=== PATIENT | female | born 1945 | race African-American/Black ===

== ENCOUNTER 2020-10-03 05:43 | Inpatient (IN) | payer MEDICARE, MEDICAID ==
[~2020-10-03] VITALS: Ht 162.6 cm; Wt 61.2 kg
[2020-10-03] VITALS (17 sets, daily range): BP systolic 100–154; BP diastolic 50–84
[~2020-10-03 05:43] MED LIST: BENZTROPINE MESY1 MG PO; COLACE250 MG ORAL; QUETIAPINE FUM200 MG ORAL; RISPERDAL1 MG PO; RISPERDAL2 MG ORAL; TRAZODONE HCL100 MG ORAL; [UNRECOGNIZED DRUG - OTHER] ORAL
[2020-10-03] MEDS ORDERED: Piperacillin/Tazobactam 3.375 GM in D5W 110 ML IV ONE (05:45)
[2020-10-03] MEDS ORDERED: Vancomycin 1 GM in NS 275 ML IV ONE (05:45)
--- NOTE | 2020-10-03 05:52 | Emergency Room Report ---
History of Present Illness General Chief Complaint: Altered Mental Status Present Illness HPI 75-year-old female with a history of dementia and Alzheimer's, alert and oriented x1 at baseline, here with altered mental status. Patient comes from a intermediate and the intermediate nurses report that when they went to check on the patient at 3 AM she was nonverbal. She is normally alert and oriented to her name and her responsive. She was also warm to the touch. Temperature at the intermediate was 99.8 F orally. Per the transitions rn care coordinator report the patient was hypoxic at 88% on room air. She does have a history of COPD. They put her on a nonrebreather mask at 8 L/min with good resolution of her hypoxia. Patient is nonverbal and unable to participate in review of systems. Allergies: Coded Allergies: No Known Allergies (Unverified , 12/17/15) Nursing Documentation-PMH Hx Hypertension: Yes Hx Asthma: Yes Hx COPD: Yes Hx Cancer: No Hx Gastrointestinal Problems: No - uti Hx Neurological Problems: Yes - dementia, dysphagia Review of Systems All Other Systems: negative except mentioned in HPI Physical Exam Sp02 EP Interpretation: reviewed, normal General Appearance: other - Appears cachectic, altered, chronically ill Head: normocephalic, atraumatic Eyes: bilateral eye normal inspection, bilateral eye PERRL ENT: no angioedema, other - Nonverbal moans incoherent sounds in response to questions Neck: full range of motion, supple/symm/no masses Respiratory: chest non-tender, speaking full sentences, other - Mild Rales bilaterally Cardiovascular #1: regular rate, rhythm, no edema Cardiovascular #2: 2+ carotid (R), 2+ carotid (L), 2+ radial (R), 2+ radial (L), 2+ dorsalis pedis (R), 2+ dorsalis pedis (L) Gastrointestinal: normal bowel sounds, non tender, soft, non-distended, no guarding, no rebound Rectal: deferred Genitourinary: normal inspection, no CVA tenderness Musculoskeletal: back normal, normal range of motion, gait/station normal, non- tender Neurologic: other - Tracks objects. Does not appear to have any cranial nerve deficits. Moving all extremities nonpurposefully. Otherwise unable to fully participate in physical examination. Psychiatric: other - Altered, unable to participate in psychiatric valuation. Nonverbal Lymphatic: no adenopathy Medical Decision Making ER Course EKG: Rate 99 bpm, no ectopy. Normal axis. T wave inversions in V3 through V5. T wave inversions in leads I, 2, 3, aVF. Right bundle branch block. Rhythm strip: patient monitored for arrhythmias - no malignant dysrhythmias, runs of PVCs, nor pauses noted Currently awaiting results of lab work and imaging. Signed out to oncoming physician Dr. Gale. Navi Calero M.D. Oct 03, 2020 05:52
[2020-10-03] MEDS ORDERED: dexAMETHasone 10mg/ml Inj IV ONE (06:15)
[2020-10-03 06:29] LABS: BASOPHILS % (AUTO) 2.3 % (0.0-2.0); EOSINOPHILS % (AUTO) 1.3 % (0.0-3.0); HEMATOCRIT 42.5 % (37.0-47.0); HEMOGLOBIN 12.6 G/DL (12.0-16.0); LYMPHOCYTES % (AUTO) 16.6 % (20.0-45.0); MEAN CORPUSCULAR VOLUME 90 FL (80-99); MONOCYTES % (AUTO) 7.9 % (1.0-10.0); NEUTROPHILS % (AUTO) 71.9 % (45.0-75.0); PLATELET COUNT 121 K/UL (150-450); RED CELL DISTRIBUTION WIDTH 16.2 % (11.6-14.8); WHITE BLOOD COUNT 9.1 K/UL (4.8-10.8)
[2020-10-03 06:32] LABS: APPEARANCE,URINE SLIGHTLY CLOUDY; BILIRUBIN, URINE NEGATIVE (NEGATIVE); COLOR,URINE PALE YELLOW; GLUCOSE, URINE (UA) NEGATIVE (NEGATIVE); KETONES,URINE NEGATIVE (NEGATIVE); LEUKOCYTE ESTERASE ,URINE 3+ (NEGATIVE); NITRITE,URINE NEGATIVE (NEGATIVE); PH,URINE 8 (4.5-8.0); PROTEIN,URINE 3+ (NEGATIVE); UROBILINOGEN,URINE NORMAL MG/DL (0.0-1.0)
[2020-10-03 06:44] LABS: INR 0.9 (0.9-1.1)
--- NOTE | 2020-10-03 07:06 | Diagnostic Imaging Report ---
EXAM: XR Chest, 1 View CLINICAL HISTORY: AMS TECHNIQUE: Frontal view of the chest. COMPARISON: Chest radiograph August 27, 2019 FINDINGS/IMPRESSION: No focal consolidation, pleural effusion, or pneumothorax. Mild emphysema with increased interstitial markings. Cardiomegaly. Calcified aorta.
[2020-10-03] MEDS ORDERED: VITAMIN C500 M1 ORAL (07:10)
[2020-10-03] MEDS ORDERED: ACETAMINOPHEN650 M3 ORAL (07:10)
[2020-10-03] MEDS ORDERED: NORCO 5-325 TA1 EAC1 ORAL (07:12)
[2020-10-03] MEDS ORDERED: CALCIUM CARBON500 M1 PO (07:14)
[2020-10-03] MEDS ORDERED: BREO ELLIPTA 11 EACH IH (07:14)
[2020-10-03] MEDS ORDERED: LACTULOSE20 GM/301 ORAL (07:14)
[2020-10-03] MEDS ORDERED: AMLODIPINE BESYL5 MG ORAL (07:14)
[2020-10-03] MEDS ORDERED: MAG-OXIDE400 M1 PO (07:15)
[2020-10-03] MEDS: Albuterol/Ipratropium 3ml neb HHN SCH ×6 (07:15→23:03)
[2020-10-03] MEDS ORDERED: VITAMIN D325 MC1 PO (07:15)
[2020-10-03] MEDS ORDERED: LIQUID PROTEIN54 ML PO (07:15)
[2020-10-03 07:16] LABS: ANION GAP 1 mmol/L (5-15); BLOOD UREA NITROGEN 59 mg/dL (7-18); CALCIUM 8.7 MG/DL (8.5-10.1); CARBON DIOXIDE 34 MMOL/L (21-32); CHLORIDE 107 MMOL/L (98-107); SODIUM 142 MMOL/L (136-145)
[2020-10-03 07:23] LABS: ALANINE AMINOTRANSFERASE 28 U/L (12-78); ALBUMIN/GLOBULIN RATIO 0.5 (1.0-2.7); ALKALINE PHOSPHATASE 47 U/L (46-116); ASPARTATE AMINO TRANSFERASE 41 U/L (15-37); BILIRUBIN,TOTAL 0.3 MG/DL (0.2-1.0); CKMB 1.7 NG/ML (0.0-3.6); CREATINE KINASE 41 U/L (26-308); FERRITIN 74 NG/ML (8-388); LACTATE DEHYDROGENASE 274 U/L (81-234)
[2020-10-03] MEDS ORDERED: Heparin 25,000u/D5W 500ml 500 ML IV SCH ×4 (07:30→22:00)
--- NOTE | 2020-10-03 07:50 | Emergency Room Report ---
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 Due to a high probability of clinically significant, life threatening deterioration, the patient required my highest level of preparedness to intervene emergently and I personally spent this critical care time directly and personally managing the patient. This critical care time included obtaining a history; examining the patient; pulse oximetry; ordering and review of studies; arranging urgent treatment with development of a management plan; evaluation of patient's response to treatment; frequent reassessment; and, discussions with other providers.This critical care time was performed to assess and manage the high probability of imminent, life-threatening deterioration that could result in multi-organ failure. It was exclusive of separately billable procedures and treating other patients and teaching time. Please see MDM section and the rest of the note for further information on patient assessment and treatment. Intubation Intubation : Consent: Emergent Intubation Method: orotracheal Tube Size (cm): 7.5 Medications: Etomidate, Rocuronium Breath Sounds after Intubation: equal Intubation Complications: no complications Post Intubation Xray: Yes Progress/Xray Impression: Adequate intubation but ET tube just at the kevyn will pull back 2 cm Attempts: One Patient Tolerated: Well Complications: None Medical Decision Making Diagnostic Impression: Primary Impression: Respiratory failure Additional Impressions: CO2 retention CHF (congestive heart failure) Pulmonary edema Fever ER Course Patient signed out by Dr. Calero. Patient is a 75-year-old female brought in from her extended care facility for altered mental status. Patient was pending ER work-up and disposition. Patient had initial blood gas that demonstrated respiratory acidosis. Patient was given a trial of BiPAP and blood gas did not change. Patient pancultured and started on broad-spectrum antibiotics. Patient intubated. Post intubation x-ray demonstrates ET tube at the kevyn. Respiratory therapy pulled the ET tube back 2 cm. Pending repeat ABG status post intubation. Patient will be admitted for further treatment and evaluation. Laboratory Tests Test 10/03/20 05:44 10/03/20 06:00 10/03/20 06:27 Arterial Blood pH 7.254 (7.350-7.450) 7.227 (7.350-7.450) Arterial Blood Partial Pressure CO2 80.5 mmHg (35.0-45.0) *H 80.1 mmHg (35.0-45.0) *H Arterial Blood Partial Pressure O2 102.2 mmHg (75.0-100.0) H 160.7 mmHg (75.0-100.0) H Arterial Blood HCO3 34.8 mmol/L (22.0-26.0) H 32.6 mmol/L (22.0-26.0) H Arterial Blood Oxygen Saturation 96.6 % (95-100) 98.9 % (95-100) Arterial Blood Base Excess 4.8 (-2-2) H 2.6 (-2-2) H Juancarlos Test Positive Positive White Blood Count 9.1 K/UL (4.8-10.8) Red Blood Count 4.70 M/UL (4.20-5.40) Hemoglobin 12.6 G/DL (12.0-16.0) Hematocrit 42.5 % (37.0-47.0) Mean Corpuscular Volume 90 FL (80-99) Mean Corpuscular Hemoglobin 26.7 PG (27.0-31.0) L Mean Corpuscular Hemoglobin Concent 29.5 G/DL (32.0-36.0) L Red Cell Distribution Width 16.2 % (11.6-14.8) H Platelet Count 121 K/UL (150-450) L Mean Platelet Volume 9.2 FL (6.5-10.1) Neutrophils (%) (Auto) 71.9 % (45.0-75.0) Lymphocytes (%) (Auto) 16.6 % (20.0-45.0) L Monocytes (%) (Auto) 7.9 % (1.0-10.0) Eosinophils (%) (Auto) 1.3 % (0.0-3.0) Basophils (%) (Auto) 2.3 % (0.0-2.0) H Prothrombin Time 10.4 SEC (9.30-11.50) Prothrombin Time INR 0.9 (0.9-1.1) Activated Partial Thromboplast Time 20 SEC (23-33) L D-Dimer 0.64 mg/L FEU (0.00-0.49) H Urine Color Pale yellow Urine Appearance Slightly cloudy Urine pH 8 (4.5-8.0) Urine Specific [place] 1.010 (1.005-1.035) Urine Protein 3+ (NEGATIVE) H Urine Glucose (UA) Negative (NEGATIVE) Urine Ketones Negative (NEGATIVE) Urine Blood 5+ (NEGATIVE) H Urine Nitrite Negative (NEGATIVE) Urine Bilirubin Negative (NEGATIVE) Urine Urobilinogen Normal MG/DL (0.0-1.0) Urine Leukocyte Esterase 3+ (NEGATIVE) H Urine RBC 2-4 /HPF (0 - 2) H Urine WBC 10-15 /HPF (0 - 2) H Urine Squamous Epithelial Cells Few /LPF (NONE/OCC) Urine Triple Phosphate Crystals Few /LPF (NONE) H Urine Amorphous Sediment Moderate /LPF (NONE) H Urine Bacteria Few /HPF (NONE) Sodium Level 142 MMOL/L (136-145) Potassium Level 5.0 MMOL/L (3.5-5.1) Chloride Level 107 MMOL/L (98-107) Carbon Dioxide Level 34 MMOL/L (21-32) H Anion Gap 1 mmol/L (5-15) L Blood Urea Nitrogen 59 mg/dL (7-18) H Creatinine 1.0 MG/DL (0.55-1.30) Estimated Glomerular Filtration Rate > 60 mL/min (>60) Glucose Level 144 MG/DL (74-106) H Lactic Acid Level 0.90 mmol/L (0.4-2.0) Calcium Level 8.7 MG/DL (8.5-10.1) Magnesium Level 2.8 MG/DL (1.8-2.4) H Ferritin 74 NG/ML (8-388) Total Bilirubin 0.3 MG/DL (0.2-1.0) Aspartate Amino Transferase (AST) 41 U/L (15-37) H Alanine Aminotransferase (ALT) 28 U/L (12-78) Alkaline Phosphatase 47 U/L (46-116) Lactate Dehydrogenase 274 U/L (81-234) H Total Creatine Kinase 41 U/L (26-308) Creatine Kinase MB 1.7 NG/ML (0.0-3.6) Creatine Kinase MB Relative Index 4.1 Troponin I 1.069 ng/mL (0.000-0.056) C-Reactive Protein, Quantitative 1.4 mg/dL (0.00-0.90) H Pro-B-Type Natriuretic Peptide 24356 pg/mL (0-125) H Total Protein 9.1 G/DL (6.4-8.2) H Albumin 3.0 G/DL (3.4-5.0) L Globulin 6.1 g/dL Albumin/Globulin Ratio 0.5 (1.0-2.7) L Lipase 192 U/L (73-393) Microbiology Date/Time Source Procedure Growth Status 10/03/20 06:00 Nasal Nares - Final Complete 10/03/20 06:00 Nasal Nares - Final Complete 10/03/20 05:54 Nasopharynx SARS-CoV-2 RdRp Gene Assay - Final Complete Rhythm Strip Diag. Results Rhythm Strip Time: 08:18 EP Interpretation: yes - Kaycee Gale MD Rate: 94 bpm Rhythm: NSR, no PVC's, no ectopy Chest X-Ray Diagnostic Results Chest X-Ray Diagnostic Results : Chest X-Ray Ordered: Yes # of Views/Limited/Complete: 1 View Indication: Other - Post intubation EP Interpretation: Yes Interpretation: no pneumothorax, other - Increased pulmonary vasculature, ET tube just at the kevyn Impression: Other - CHF status post intubation Last Vital Signs Date Time Temp Pulse Resp B/P (MAP) Pulse Ox O2 Delivery O2 Flow Rate FiO2 10/03/20 06:30 99.7 18 149/76 98 Bi-pap 10/03/20 06:30 106 12.0 10/03/20 06:25 60 Disposition: ADMITTED INPATIENT - ICU Condition: Critical Physician Consult: Dr. Mazariegos, at 745am Referrals: Elías Mazariegos MD (PCP) Additional Instructions: Please note that this report is being documented using [employer] technology. This can lead to erroneous entry secondary to incorrect interpretation by the dictating instrument. Kaycee Gale M.D. Oct 03, 2020 07:49
[2020-10-03] MEDS ORDERED: Heparin 1000 units/ml 1ml Vial INJ ONE (08:45)
[2020-10-03] MEDS ORDERED: Heparin 5000 units/ml inj IV ONE (09:00)
[2020-10-03] MEDS ORDERED: Albuterol/Ipratropium 3ml neb HHN PRN ×2 (09:15→09:41)
[2020-10-03] MEDS ORDERED: Nitroglycerin Subl 0.4mg tab SL PRN (09:15)
[2020-10-03] MEDS ORDERED: Morphine Sulfate 4mg/ml Inj (IV USE ONLY) IVP PRN (09:15)
--- NOTE | 2020-10-03 09:21 | Consultation ---
History of Present Illness General Date patient seen: Oct 03, 2020 Time patient seen: 12:53 Chief Complaint: Altered Mental Status Referring physician: PCP Reason for Consultation: Sepsis Present Illness HPI 75yo F w/ h/o dementia and Alzheimer's, alert and oriented x1 at baseline, who presents from SNF with AMS. Pt is nonverbal, history obtained from chart review. Per ED note: Patient comes from a [facility] and the [facility]dc nurses report that when they went to check on the patient at 3 AM she was nonverbal. She is normally alert and oriented to her name and her responsive. She was also warm to the touch. Temperature at the fdc was 99.8 F orally. Per the roller skate repairer report the patient was hypoxic at 88% on room air. She does have a history of COPD. They put her on a nonrebreather mask at 8 L/min with good resolution of her hypoxia. Allergies: Coded Allergies: No Known Allergies (Unverified , 12/17/15) Medication History Scheduled Acetaminophen (Acetaminophen Er), 650 MG ORAL Q6HR, (Reported) Amlodipine Besylate* (Amlodipine Besylate*), 5 MG ORAL DAILY, (Reported) Ascorbic Acid* (Vitamin C*), 500 MG ORAL DAILY, (Reported) Benztropine Mesylate* (Benztropine Mesylate*), 1 MG PO BID, (Reported) Cholecalciferol (Vitamin D3) (Vitamin D3*), 25 MCG PO DAILY, (Reported) Docusate Sodium (Docusate Sodium), 250 MG ORAL TWICE A DAY, (Reported) Quetiapine Fumarate* (Seroquel*), 200 MG ORAL DAILY, (Reported) Risperidone* (Risperdal*), 3 MG ORAL DAILY, (Reported) Risperidone* (Risperdal*), 1 MG PO DAILY, (Reported) Trazodone Hcl* (Desyrel*), 100 MG ORAL BEDTIME, (Reported) [Quatapine], 300 MG ORAL BEDTIME, (Reported) [Quatapine], 200 MG ORAL DAILY, (Reported) Scheduled PRN Hydrocodone Bit/Acetaminophen 5-325* ([place] 5-325 Tablet*), 1 TAB ORAL DAILY PRN for For Pain, (Reported) Miscellaneous Medications Calcium Carbonate (Calcium Carbonate), 500 MG PO, (Reported) Fluticasone/Vilanterol (Breo Ellipta 100-25 Mcg INH), 1 EACH IH, (Reported) Lactulose (Lactulose*), 30 ML ORAL, (Reported) Magnesium Oxide (Mag-Oxide), 400 MG PO, (Reported) Protein Hydrolysate,Milk (Liquid Protein Fortifier), 54 ML PO, (Reported) Patient History Limited by: medical condition Healthcare decision maker Resuscitation status Advanced Directive on File Review of Systems ROS Narrative Unable to assess 2/2 pt condition Physical Exam Physical Exam Narrative Gen: NAD in bed HEENT: NCAT CV: RRR Pulm: BL chest rise on vent Abd: Soft, NTND Ext: No c/c/e Neuro: Awake Last 24 Hour Vital Signs Date Time Temp Pulse Resp B/P (MAP) Pulse Ox O2 Delivery O2 Flow Rate FiO2 10/03/20 08:56 90 22 60 10/03/20 08:28 90 16 104/71 99 Mechanical Ventilator 60 10/03/20 07:45 88 21 100 Bi-Pap 60 95 23 96 10/03/20 06:30 99.7 18 149/76 98 Bi-pap 10/03/20 06:30 106 18 Non-Rebreather 12.0 10/03/20 06:25 92 30 100 60 10/03/20 05:46 99.7 106 18 149/76 (100) 98 Non-Rebreather 12.0 Laboratory Tests Test 10/03/20 05:44 10/03/20 06:00 10/03/20 06:27 Arterial Blood pH 7.254 (7.350-7.450) 7.227 (7.350-7.450) Arterial Blood Partial Pressure CO2 80.5 mmHg (35.0-45.0) *H 80.1 mmHg (35.0-45.0) *H Arterial Blood Partial Pressure O2 102.2 mmHg (75.0-100.0) H 160.7 mmHg (75.0-100.0) H Arterial Blood HCO3 34.8 mmol/L (22.0-26.0) H 32.6 mmol/L (22.0-26.0) H Arterial Blood Oxygen Saturation 96.6 % (95-100) 98.9 % (95-100) Arterial Blood Base Excess 4.8 (-2-2) H 2.6 (-2-2) H Juancarlos Test Positive Positive White Blood Count 9.1 K/UL (4.8-10.8) Red Blood Count 4.70 M/UL (4.20-5.40) Hemoglobin 12.6 G/DL (12.0-16.0) Hematocrit 42.5 % (37.0-47.0) Mean Corpuscular Volume 90 FL (80-99) Mean Corpuscular Hemoglobin 26.7 PG (27.0-31.0) L Mean Corpuscular Hemoglobin Concent 29.5 G/DL (32.0-36.0) L Red Cell Distribution Width 16.2 % (11.6-14.8) H Platelet Count 121 K/UL (150-450) L Mean Platelet Volume 9.2 FL (6.5-10.1) Neutrophils (%) (Auto) 71.9 % (45.0-75.0) Lymphocytes (%) (Auto) 16.6 % (20.0-45.0) L Monocytes (%) (Auto) 7.9 % (1.0-10.0) Eosinophils (%) (Auto) 1.3 % (0.0-3.0) Basophils (%) (Auto) 2.3 % (0.0-2.0) H Prothrombin Time 10.4 SEC (9.30-11.50) Prothromb Time International Ratio 0.9 (0.9-1.1) Activated Partial Thromboplast Time 20 SEC (23-33) L D-Dimer 0.64 mg/L FEU (0.00-0.49) H Urine Color Pale yellow Urine Appearance Slightly cloudy Urine pH 8 (4.5-8.0) Urine Specific [place] 1.010 (1.005-1.035) Urine Protein 3+ (NEGATIVE) H Urine Glucose (UA) Negative (NEGATIVE) Urine Ketones Negative (NEGATIVE) Urine Blood 5+ (NEGATIVE) H Urine Nitrite Negative (NEGATIVE) Urine Bilirubin Negative (NEGATIVE) Urine Urobilinogen Normal MG/DL (0.0-1.0) Urine Leukocyte Esterase 3+ (NEGATIVE) H Urine RBC 2-4 /HPF (0 - 2) H Urine WBC 10-15 /HPF (0 - 2) H Urine Squamous Epithelial Cells Few /LPF (NONE/OCC) Urine Triple Phosphate Crystals Few /LPF (NONE) H Urine Amorphous Sediment Moderate /LPF (NONE) H Urine Bacteria Few /HPF (NONE) Sodium Level 142 MMOL/L (136-145) Potassium Level 5.0 MMOL/L (3.5-5.1) Chloride Level 107 MMOL/L (98-107) Carbon Dioxide Level 34 MMOL/L (21-32) H Anion Gap 1 mmol/L (5-15) L Blood Urea Nitrogen 59 mg/dL (7-18) H Creatinine 1.0 MG/DL (0.55-1.30) Estimat Glomerular Filtration Rate > 60 mL/min (>60) Glucose Level 144 MG/DL (74-106) H Lactic Acid Level 0.90 mmol/L (0.4-2.0) Calcium Level 8.7 MG/DL (8.5-10.1) Magnesium Level 2.8 MG/DL (1.8-2.4) H Ferritin 74 NG/ML (8-388) Total Bilirubin 0.3 MG/DL (0.2-1.0) Aspartate Amino Transf (AST/SGOT) 41 U/L (15-37) H Alanine Aminotransferase (ALT/SGPT) 28 U/L (12-78) Alkaline Phosphatase 47 U/L (46-116) Lactate Dehydrogenase 274 U/L (81-234) H Total Creatine Kinase 41 U/L (26-308) Creatine Kinase MB 1.7 NG/ML (0.0-3.6) Creatine Kinase MB Relative Index 4.1 Troponin I 1.069 ng/mL (0.000-0.056) C-Reactive Protein, Quantitative 1.4 mg/dL (0.00-0.90) H Pro-B-Type Natriuretic Peptide 81743 pg/mL (0-125) H Total Protein 9.1 G/DL (6.4-8.2) H Albumin 3.0 G/DL (3.4-5.0) L Globulin 6.1 g/dL Albumin/Globulin Ratio 0.5 (1.0-2.7) L Lipase 192 U/L (73-393) Microbiology Date/Time Source Procedure Growth Status 10/03/20 07:20 Rectum Received 10/03/20 06:00 Nasal Nares - Final Complete 10/03/20 06:00 Nasal Nares - Final Complete 10/03/20 05:54 Nasopharynx SARS-CoV-2 RdRp Gene Assay - Final Complete Height (Feet): 5 Height (Inches): 4.00 Weight (Pounds): 135 Medications Current Medications Medications (Trade) Dose Ordered Sig/Bharti Route PRN Reason Start Time Stop Time Status Last Admin Dose Admin Albuterol/ Ipratropium (Albuterol/ Ipratropium) 3 ml EVERY 4 HOURS PRN HHN Shortness of Breath 10/03/20 09:15 10/08/20 09:14 UNV Albuterol/ Ipratropium (Albuterol/ Ipratropium) 3 ml EVERY 4 HOURS PRN HHN dyspnea 10/03/20 09:15 10/08/20 09:14 UNV Albuterol/ Ipratropium (Albuterol/ Ipratropium) 3 ml Q15M HHN 10/03/20 06:15 10/08/20 06:14 10/03/20 07:16 Dextrose (Dextrose 50%) 25 ml Q30M PRN IV Hypoglycemia 10/03/20 09:15 01/01/21 09:14 UNV Dextrose (Dextrose 50%) 50 ml Q30M PRN IV Hypoglycemia 10/03/20 09:15 01/01/21 09:14 UNV Dextrose/Sodium Chloride 1,000 ml @ 50 mls/hr Q20H IV 10/03/20 09:15 11/02/20 09:14 UNV Furosemide (Lasix) 40 mg ONCE IV 10/03/20 07:30 11/02/20 07:29 10/03/20 07:37 Heparin Sodium (Porcine) (Heparin 5000 units/ml) 5,000 units EVERY 12 HOURS SUBQ 10/03/20 21:00 11/17/20 20:59 UNV Heparin Sodium/ Dextrose 500 ml @ 14.696 mls/ hr ADJUST PER PROTOCOL IV 10/03/20 07:30 11/02/20 07:29 10/03/20 08:13 Insulin Aspart (NovoLOG) BEFORE MEALS AND HS SUBQ 10/03/20 11:30 01/01/21 11:29 UNV Lorazepam (Ativan 2mg/ml 1ml) 2 mg Q4H PRN IV For Anxiety 10/03/20 09:15 10/10/20 09:14 UNV Methylprednisolone Sodium Succinate (Solu-MEDROL) 60 mg EVERY 6 HOURS IVPB 10/03/20 12:00 01/01/21 11:59 UNV Morphine Sulfate (Morphine Sulfate) 2 mg EVERY 4 HOURS PRN IVP severe pain 7-10 10/03/20 09:15 10/10/20 09:14 UNV Morphine Sulfate (Morphine Sulfate) 4 mg Q4H PRN IVP For Pain 10/03/20 09:15 10/10/20 09:14 UNV Nitroglycerin (Ntg) 0.4 mg Q5M X 3 DOSES PRN SL Prn Chest Pain 10/03/20 09:15 11/02/20 09:14 UNV Ondansetron HCl (Zofran) 4 mg Q6H PRN IVP Nausea & Vomiting 10/03/20 09:15 11/02/20 09:14 UNV Pantoprazole (Protonix) 40 mg DAILY IV 10/04/20 09:00 11/03/20 08:59 UNV Piperacillin Sod/ Tazobactam Sod 2.25 gm/Dextrose 55 ml @ 110 mls/hr EVERY 8 HOURS IV 10/03/20 14:00 10/08/20 13:59 UNV Risperidone (RisperDAL) 1 mg DAILY NG 10/04/20 09:00 11/18/20 08:59 Assessment/Plan Assessment/Plan: 75yo F with: Afebrile, Tmax 99.7 Normal WBC Acute hypoxic resp failure, SP intubation 10/03 COPD Non-verbal at baseline 10/03 BCx p UA 10-15 WBC, UCx p Resp cx p COVID rapid Ag neg Flu neg CXR: No focal consolidation, pleural effusion, or pneumothorax. Mild emphysema with increased interstitial markings. Cardiomegaly. Calcified aorta. Dementia Alzheimer's SNF resident Plan: Start vancomycin IV #1 Cont empiric Zosyn #1 On steroids per primary, solumedrole 60mg IV q6hrs Repeat COVID test 24hrs after 1st F/u BCx, UCx, Resp cx Monitor CBC/CMP Monitor temp curve, hemodynamics Monitor resp status D/w RN Thank you for this consult. [facility] will continue to follow. Sondra Sepulveda M.D. Oct 03, 2020 09:21
--- NOTE | 2020-10-03 10:29 | Diagnostic Imaging Report ---
Indication: Reason For Exam: SOB Technique: Single AP view of the chest. Comparison: Chest radiograph performed on the same day. Findings: The cardiomediastinal silhouette is unchanged in appearance. Redemonstration of diffuse bronchial thickening. Unchanged calcified granuloma in the right midlung. The right infrahilar airspace opacity. No pneumothorax. No pleural effusion. Interval intubation, with endotracheal tube terminating at the level of the kevyn. IMPRESSION: 1. Right infrahilar airspace opacity likely representing atelectasis but pneumonia should be excluded clinically. 2. Low lying endotracheal tube; retraction by 2 to 3 cm is recommended. [place] discussed with Dr. Gale at 1010 on 10/03/2020
[2020-10-03] MEDS: D5 1/2NS 1,000 ML IV SCH (11:39)
[2020-10-03] MEDS: NovoLOG Insulin Flexpen SUBQ SCH ×3 (11:46→21:16)
[2020-10-03] MEDS: Solu-MEDROL 125mg Inj IVPB SCH ×2 (11:56→17:48)
[2020-10-03] MEDS: LORazepam Inj 2mg/ml 1ml IV PRN ×2 (13:21→22:36)
[2020-10-03] MEDS ORDERED: Piperacillin/Tazobactam 2.25 GM in D5W 55 ML IV SCH (14:00)
[2020-10-03] MEDS ORDERED: Heparin 5000 units/ml inj IV SCH (14:12)
[2020-10-03] MEDS: Piperacillin/Tazobactam 3.375 GM in D5W 110 ML IV SCH ×2 (15:49→22:56)
--- NOTE | 2020-10-03 17:41 | Diagnostic Imaging Report ---
EXAM: XR Abdomen, 2 Views CLINICAL HISTORY: TUBE PLACEMENT TECHNIQUE: Frontal view of the abdomen/pelvis with upright view of the abdomen. COMPARISON: No relevant prior studies available. FINDINGS/IMPRESSION: Tip of the enteric tube projects in the distal stomach. Fecal retention.
[2020-10-03] MEDS: Docusate 100mg/10ml Liq GT SCH (17:47)
[2020-10-03] MEDS: Acetaminophen 650mg/20.3ml GT PRN (17:48)
--- NOTE | 2020-10-03 19:18 | Consultation ---
History of Present Illness General Date patient seen: Oct 02, 2020 Chief Complaint: Altered Mental Status Referring physician: PCP Reason for Consultation: Sepsis Present Illness HPI 75-year-old female with a history of COPD, HTN dementia and Alzheimer's brought in by paramedics with CC of altered mental status. The skilled nursing nurses report that when they went to check on the patient at 3 AM she was nonverbal. She is normally alert and oriented to her name and her responsive. She was also warm to the touch. Temperature at the skilled nursing was 99.8 F orally. They put her on a nonrebreather mask at 8 L/min and transferred her to ER. On arrival to ER, patient was in respiratory failure and needed to be intubated. She is sedated now and saturating well on ventilator. Allergies: Coded Allergies: No Known Allergies (Unverified , 12/17/15) Medication History Scheduled Acetaminophen (Acetaminophen Er), 650 MG ORAL Q6HR, (Reported) Amlodipine Besylate* (Amlodipine Besylate*), 5 MG ORAL DAILY, (Reported) Ascorbic Acid* (Vitamin C*), 500 MG ORAL DAILY, (Reported) Benztropine Mesylate* (Benztropine Mesylate*), 1 MG PO BID, (Reported) Cholecalciferol (Vitamin D3) (Vitamin D3*), 25 MCG PO DAILY, (Reported) Docusate Sodium (Docusate Sodium), 250 MG ORAL TWICE A DAY, (Reported) Quetiapine Fumarate* (Seroquel*), 200 MG ORAL DAILY, (Reported) Risperidone* (Risperdal*), 3 MG ORAL DAILY, (Reported) Risperidone* (Risperdal*), 1 MG PO DAILY, (Reported) Trazodone Hcl* (Desyrel*), 100 MG ORAL BEDTIME, (Reported) [Quatapine], 300 MG ORAL BEDTIME, (Reported) [Quatapine], 200 MG ORAL DAILY, (Reported) Scheduled PRN Hydrocodone Bit/Acetaminophen 5-325* ([place] 5-325 Tablet*), 1 TAB ORAL DAILY PRN for For Pain, (Reported) Miscellaneous Medications Calcium Carbonate (Calcium Carbonate), 500 MG PO, (Reported) Fluticasone/Vilanterol (Breo Ellipta 100-25 Mcg INH), 1 EACH IH, (Reported) Lactulose (Lactulose*), 30 ML ORAL, (Reported) Magnesium Oxide (Mag-Oxide), 400 MG PO, (Reported) Protein Hydrolysate,Milk (Liquid Protein Fortifier), 54 ML PO, (Reported) Patient History Healthcare decision maker Resuscitation status Advanced Directive on File Past Medical/Surgical History Past Medical/Surgical History: (1) Alzheimer's dementia (2) History of hypertension (3) COPD (chronic obstructive pulmonary disease) (4) Psychiatric disorder (5) Severe protein-calorie malnutrition Review of Systems All Other Systems: negative except mentioned in HPI Physical Exam General Appearance: cachetic, thin Lines, tubes and drains: peripheral HEENT: normocephalic, atraumatic Neck: non-tender, normal alignment Respiratory/Chest: chest wall non-tender, lungs clear Breasts: no masses Cardiovascular/Chest: normal peripheral pulses, normal rate Abdomen: normal bowel sounds, non tender Genitourinary/Rectal: normal genital exam, normal rectal exam Extremities: normal range of motion Skin Exam: normal pigmentation, cyanotic Neurologic: adoption services manager II-XII grossly normal Last 24 Hour Vital Signs Date Time Temp Pulse Resp B/P (MAP) Pulse Ox O2 Delivery O2 Flow Rate FiO2 10/03/20 19:00 78 16 100/50 (67) 100 10/03/20 18:18 100.7 10/03/20 18:00 100.7 94 17 127/56 (79) 100 10/03/20 17:00 102.0 90 16 110/54 (72) 100 10/03/20 16:45 92 17 30 10/03/20 16:00 Mechanical Ventilator 10/03/20 16:00 101.0 94 18 124/66 (85) 100 10/03/20 16:00 89 10/03/20 15:24 93 16 100 Mechanical Ventilator 40 91 16 40 10/03/20 15:00 90 16 117/58 (77) 100 10/03/20 14:00 84 15 101/55 (70) 100 10/03/20 13:51 84 16 107/79 100 10/03/20 13:21 84 16 107/79 100 10/03/20 13:00 85 16 107/79 (88) 100 10/03/20 13:00 80 16 40 10/03/20 12:00 Mechanical Ventilator 10/03/20 12:00 83 10/03/20 12:00 83 21 113/58 (76) 97 10/03/20 12:00 50 10/03/20 11:45 85 17 100 Mechanical Ventilator 50 10/03/20 11:45 85 17 100 Mechanical Ventilator 50 82 16 50 10/03/20 11:30 100.1 81 19 108/63 (78) 100 10/03/20 10:28 99.8 82 16 100/45 100 Mechanical Ventilator 60 10/03/20 10:25 99.4 78 15 105/55 100 Mechanical Ventilator 60 10/03/20 09:21 99.8 89 18 154/84 99 Mechanical Ventilator 12.0 60 10/03/20 08:56 90 22 60 10/03/20 08:28 90 16 104/71 99 Mechanical Ventilator 60 10/03/20 07:45 88 21 100 Bi-Pap 60 95 23 96 10/03/20 06:30 99.7 18 149/76 98 Bi-pap 10/03/20 06:30 106 18 Non-Rebreather 12.0 10/03/20 06:25 92 30 100 60 10/03/20 05:46 99.7 106 18 149/76 (100) 98 Non-Rebreather 12.0 Laboratory Tests Test 10/03/20 05:44 10/03/20 06:00 10/03/20 06:27 10/03/20 09:25 Arterial Blood pH 7.254 (7.350-7.450) 7.227 (7.350-7.450) 7.465 (7.350-7.450) Arterial Blood Partial Pressure CO2 80.5 mmHg (35.0-45.0) *H 80.1 mmHg (35.0-45.0) *H 40.3 mmHg (35.0-45.0) Arterial Blood Partial Pressure O2 102.2 mmHg (75.0-100.0) H 160.7 mmHg (75.0-100.0) H 77.6 mmHg (75.0-100.0) Arterial Blood HCO3 34.8 mmol/L (22.0-26.0) H 32.6 mmol/L (22.0-26.0) H 28.3 mmol/L (22.0-26.0) H Arterial Blood Oxygen Saturation 96.6 % (95-100) 98.9 % (95-100) 96.2 % (95-100) Arterial Blood Base Excess 4.8 (-2-2) H 2.6 (-2-2) H 4.3 (-2-2) H Juancarlos Test Positive Positive Positive White Blood Count 9.1 K/UL (4.8-10.8) Red Blood Count 4.70 M/UL (4.20-5.40) Hemoglobin 12.6 G/DL (12.0-16.0) Hematocrit 42.5 % (37.0-47.0) Mean Corpuscular Volume 90 FL (80-99) Mean Corpuscular Hemoglobin 26.7 PG (27.0-31.0) L Mean Corpuscular Hemoglobin Concent 29.5 G/DL (32.0-36.0) L Red Cell Distribution Width 16.2 % (11.6-14.8) H Platelet Count 121 K/UL (150-450) L Mean Platelet Volume 9.2 FL (6.5-10.1) Neutrophils (%) (Auto) 71.9 % (45.0-75.0) Lymphocytes (%) (Auto) 16.6 % (20.0-45.0) L Monocytes (%) (Auto) 7.9 % (1.0-10.0) Eosinophils (%) (Auto) 1.3 % (0.0-3.0) Basophils (%) (Auto) 2.3 % (0.0-2.0) H Prothrombin Time 10.4 SEC (9.30-11.50) Prothromb Time International Ratio 0.9 (0.9-1.1) Activated Partial Thromboplast Time 20 SEC (23-33) L D-Dimer 0.64 mg/L FEU (0.00-0.49) H Urine Color Pale yellow Urine Appearance Slightly cloudy Urine pH 8 (4.5-8.0) Urine Specific [place] 1.010 (1.005-1.035) Urine Protein 3+ (NEGATIVE) H Urine Glucose (UA) Negative (NEGATIVE) Urine Ketones Negative (NEGATIVE) Urine Blood 5+ (NEGATIVE) H Urine Nitrite Negative (NEGATIVE) Urine Bilirubin Negative (NEGATIVE) Urine Urobilinogen Normal MG/DL (0.0-1.0) Urine Leukocyte Esterase 3+ (NEGATIVE) H Urine RBC 2-4 /HPF (0 - 2) H Urine WBC 10-15 /HPF (0 - 2) H Urine Squamous Epithelial Cells Few /LPF (NONE/OCC) Urine Triple Phosphate Crystals Few /LPF (NONE) H Urine Amorphous Sediment Moderate /LPF (NONE) H Urine Bacteria Few /HPF (NONE) Sodium Level 142 MMOL/L (136-145) Potassium Level 5.0 MMOL/L (3.5-5.1) Chloride Level 107 MMOL/L (98-107) Carbon Dioxide Level 34 MMOL/L (21-32) H Anion Gap 1 mmol/L (5-15) L Blood Urea Nitrogen 59 mg/dL (7-18) H Creatinine 1.0 MG/DL (0.55-1.30) Estimat Glomerular Filtration Rate > 60 mL/min (>60) Glucose Level 144 MG/DL (74-106) H Lactic Acid Level 0.90 mmol/L (0.4-2.0) Calcium Level 8.7 MG/DL (8.5-10.1) Magnesium Level 2.8 MG/DL (1.8-2.4) H Ferritin 74 NG/ML (8-388) Total Bilirubin 0.3 MG/DL (0.2-1.0) Aspartate Amino Transf (AST/SGOT) 41 U/L (15-37) H Alanine Aminotransferase (ALT/SGPT) 28 U/L (12-78) Alkaline Phosphatase 47 U/L (46-116) Lactate Dehydrogenase 274 U/L (81-234) H Total Creatine Kinase 41 U/L (26-308) Creatine Kinase MB 1.7 NG/ML (0.0-3.6) Creatine Kinase MB Relative Index 4.1 Troponin I 1.069 ng/mL (0.000-0.056) C-Reactive Protein, Quantitative 1.4 mg/dL (0.00-0.90) H Pro-B-Type Natriuretic Peptide 73423 pg/mL (0-125) H Total Protein 9.1 G/DL (6.4-8.2) H Albumin 3.0 G/DL (3.4-5.0) L Globulin 6.1 g/dL Albumin/Globulin Ratio 0.5 (1.0-2.7) L Lipase 192 U/L (73-393) Test 10/03/20 13:45 Activated Partial Thromboplast Time 41 SEC (23-33) H Troponin I 0.858 ng/mL (0.000-0.056) Microbiology Date/Time Source Procedure Growth Status 10/03/20 07:20 Rectum Received 10/03/20 06:00 Nasal Nares - Final Complete 10/03/20 06:00 Nasal Nares - Final Complete 10/03/20 05:54 Nasopharynx SARS-CoV-2 RdRp Gene Assay - Final Complete Height (Feet): 5 Height (Inches): 4.00 Weight (Pounds): 135 Medications Current Medications Medications (Trade) Dose Ordered Sig/Bharti Route PRN Reason Start Time Stop Time Status Last Admin Dose Admin Acetaminophen (Tylenol) 650 mg Q4H PRN GT Temp >100.5 10/03/20 17:15 11/02/20 17:14 10/03/20 17:48 Albuterol/ Ipratropium (Albuterol/ Ipratropium) 3 ml Q4HRT HHN 10/03/20 11:00 10/08/20 10:59 10/03/20 15:14 Dextrose (Dextrose 50%) 25 ml Q30M PRN IV Hypoglycemia 10/03/20 09:28 01/01/21 09:27 Dextrose (Dextrose 50%) 50 ml Q30M PRN IV Hypoglycemia 10/03/20 09:28 01/01/21 09:27 Dextrose/Sodium Chloride 1,000 ml @ 50 mls/hr Q20H IV 10/03/20 11:00 11/02/20 10:59 10/03/20 11:39 Docusate Sodium (Colace) 100 mg TWICE A DAY GT 10/03/20 18:00 11/02/20 17:59 10/03/20 17:47 Furosemide (Lasix) 40 mg ONCE IV 10/03/20 07:30 11/02/20 07:29 10/03/20 07:37 Heparin Sodium/ Dextrose 500 ml @ 19.595 mls/ hr ADJUST PER PROTOCOL IV 10/03/20 14:12 11/02/20 14:11 10/03/20 14:30 Insulin Aspart (NovoLOG) BEFORE MEALS AND HS SUBQ 10/03/20 11:30 01/01/21 11:29 10/03/20 16:24 Lorazepam (Ativan 2mg/ml 1ml) 2 mg Q4H PRN IV For Anxiety 10/03/20 09:29 10/10/20 09:28 10/03/20 13:21 Methylprednisolone Sodium Succinate (Solu-MEDROL) 60 mg EVERY 6 HOURS IVPB 10/03/20 12:00 01/01/21 11:59 10/03/20 17:48 Morphine Sulfate (Morphine Sulfate) 2 mg Q4H PRN IVP Moderate Pain (4-6) 10/03/20 09:15 10/10/20 09:14 Morphine Sulfate (Morphine Sulfate) 4 mg Q4H PRN IVP Severe Pain (7-10) 10/03/20 09:15 10/10/20 09:14 Nitroglycerin (Ntg) 0.4 mg Q5M X 3 DOSES PRN SL Prn Chest Pain 10/03/20 09:15 11/02/20 09:14 Ondansetron HCl (Zofran) 4 mg Q6H PRN IVP Nausea & Vomiting 10/03/20 09:28 11/02/20 09:27 Pantoprazole (Protonix) 40 mg DAILY IV 10/04/20 09:00 11/03/20 08:59 Piperacillin Sod/ Tazobactam Sod 3.375 gm/Dextrose 110 ml @ 220 mls/hr Q8H IV 10/03/20 15:00 10/10/20 14:59 10/03/20 15:49 Risperidone (RisperDAL) 1 mg DAILY NG 10/04/20 09:00 11/18/20 08:59 Vancomycin HCl 250 ml @ 166.667 mls/hr Q24H IVPB 10/04/20 04:00 10/09/20 03:59 Vancomycin HCl ([facility] pharmacy to dose) 1 ea DAILY PRN MISC Per rx protocol 10/03/20 09:30 11/02/20 09:29 Assessment/Plan Problem List: (1) Acute respiratory failure ICD Codes: J96.00 - Acute respiratory failure, unspecified whether with hypoxia or hypercapnia SNOMED: 22851812 (2) Non-ST elevation (NSTEMI) myocardial infarction ICD Codes: I21.4 - Non-ST elevation (NSTEMI) myocardial infarction SNOMED: 87531231 (3) COPD (chronic obstructive pulmonary disease) ICD Codes: J44.9 - Chronic obstructive pulmonary disease, unspecified SNOMED: 95708806 (4) Stage 4 decubitus ulcer ICD Codes: L89.94 - Pressure ulcer of unspecified site, stage 4 SNOMED: 765253973 (5) Severe protein-calorie malnutrition ICD Codes: E43 - Unspecified severe protein-calorie malnutrition SNOMED: 504760549, 035761094, 252854977 (6) Altered mental status ICD Codes: R41.82 - Altered mental status, unspecified SNOMED: 273971015 Respiratory: monitor respiratory rate, adjust FIO2, CXR Cardiac: continue to monitor HR/BP Renal: F/U I&O, keep IV fluid Infectious Disease: check cultures Gastrointestinal: continue feedings/current rate, other - on Jevity Endocrine: monitor blood sugar Hematologic: monitor H/H, transfuse if hgb<8.5 Neurologic: PRN Ativan, keep patient comfortable Affect: PRN ativan Prophylaxis: Protonix Time Spent (Minutes): 40 Notes Reviewed: swimming pool attendant, cardio Discussed with: nurses, consultants, shoe parts caser Will Quiros MD Oct 03, 2020 19:18
--- NOTE | 2020-10-03 19:22 | Consultation ---
History of Present Illness General Date patient seen: Oct 03, 2020 Reason for Hospitalization: Altered Mental Status Present Illness HPI This is a 75-year-old female with multiple medical comorbidities including history of dementia Alzheimer's, alert and oriented x1 at baseline who presented to [facility] with altered mental status. Patient comes from a [facility] and the [facility] nurses report that when they went to check on the patient she was more nonverbal. She is normally alert and oriented to her name and her responsive. She was also warm to the touch. Temperature at the [facility] was 99.8 F orally. Per the director biostatistics report the patient was hypoxic at 88% on room air. She does have a history of COPD. They put her on a nonrebreather mask at 8 L/min with good resolution of her hypoxia. Patient is nonverbal and unable to participate in review of systems. on admission abnormal labs, hypotensive, admitted to ICU for care plan, elevated troponin, draining stage 4 decubitus. intubated and in ICU. eyes open but cannot follow commands. tries to pull out lines Allergies: Coded Allergies: No Known Allergies (Unverified , 12/17/15) COVID-19 Screening Contact w/high risk pt: No Experienced COVID-19 symptoms?: No Medication History Scheduled Acetaminophen (Acetaminophen Er), 650 MG ORAL Q6HR, (Reported) Amlodipine Besylate* (Amlodipine Besylate*), 5 MG ORAL DAILY, (Reported) Ascorbic Acid* (Vitamin C*), 500 MG ORAL DAILY, (Reported) Benztropine Mesylate* (Benztropine Mesylate*), 1 MG PO BID, (Reported) Cholecalciferol (Vitamin D3) (Vitamin D3*), 25 MCG PO DAILY, (Reported) Docusate Sodium (Docusate Sodium), 250 MG ORAL TWICE A DAY, (Reported) Quetiapine Fumarate* (Seroquel*), 200 MG ORAL DAILY, (Reported) Risperidone* (Risperdal*), 3 MG ORAL DAILY, (Reported) Risperidone* (Risperdal*), 1 MG PO DAILY, (Reported) Trazodone Hcl* (Desyrel*), 100 MG ORAL BEDTIME, (Reported) [Quatapine], 300 MG ORAL BEDTIME, (Reported) [Quatapine], 200 MG ORAL DAILY, (Reported) Scheduled PRN Hydrocodone Bit/Acetaminophen 5-325* (Bryant 5-325 Tablet*), 1 TAB ORAL DAILY PRN for For Pain, (Reported) Miscellaneous Medications Calcium Carbonate (Calcium Carbonate), 500 MG PO, (Reported) Fluticasone/Vilanterol (Breo Ellipta 100-25 Mcg INH), 1 EACH IH, (Reported) Lactulose (Lactulose*), 30 ML ORAL, (Reported) Magnesium Oxide (Mag-Oxide), 400 MG PO, (Reported) Protein Hydrolysate,Milk (Liquid Protein Fortifier), 54 ML PO, (Reported) Patient History Limited by: age, medical condition History Provided By: Medical Record, PMD Healthcare decision maker Resuscitation status Advanced Directive on File Review of Systems Review of Symptoms General ROS: no weight loss or fever Psychological ROS: no depression or mood changes, no memory loss Ophthalmic ROS: no visual changes or eye irritation ENT ROS: no nasal congestion, hearing loss, dizziness Allergy and Immunology ROS: no allergic symptoms or urticaria Hematological and Lymphatic ROS: no swollen glands, unusual bleeding or bruising Endocrine ROS: no polyuria, polydipsia, weight changes, temperature intolerance Respiratory ROS: no cough, shortness of breath, or wheezing Cardiovascular ROS: no chest pain or dyspnea on exertion Gastrointestinal ROS: denies abdominal pain, bright red blood in stool. Musculoskeletal ROS: no myalgias or arthralgias Neurological ROS: no TIA or stroke symptoms Dermatological ROS: no new or changing skin lesions, rashes or pruritis limited given medical condition Physical Exam Physical Exam General appearance: alert, distress, appears stated age Head: Normocephalic, without obvious abnormality, atraumatic Eyes: conjunctivae/corneas clear. PERRL, EOM's intact. Fundi benign Throat: Lips, mucosa, and tongue normal. Teeth and gums normal Neck: supple, symmetrical, trachea midline, no adenopathy, thyroid: not enlarged, symmetric, no tenderness/mass/nodules, no carotid bruit and no JVD, ETT Lungs: dec to auscultation bilaterally Heart: regular rate and rhythm, S1, S2 normal, no murmur, click, rub or gallop Abdomen: soft, non-tender. Bowel sounds normal. No masses, no organomegaly Extremities: extremities normal, atraumatic, no cyanosis or edema Pulses: 2+ and symmetric Skin: Skin see below Neurologic: Grossly normal Last 24 Hour Vital Signs Date Time Temp Pulse Resp B/P (MAP) Pulse Ox O2 Delivery O2 Flow Rate FiO2 10/03/20 19:00 78 16 100/50 (67) 100 10/03/20 18:18 100.7 10/03/20 18:00 100.7 94 17 127/56 (79) 100 10/03/20 17:00 102.0 90 16 110/54 (72) 100 10/03/20 16:45 92 17 30 10/03/20 16:00 Mechanical Ventilator 10/03/20 16:00 101.0 94 18 124/66 (85) 100 10/03/20 16:00 89 10/03/20 15:24 93 16 100 Mechanical Ventilator 40 91 16 40 10/03/20 15:00 90 16 117/58 (77) 100 10/03/20 14:00 84 15 101/55 (70) 100 10/03/20 13:51 84 16 107/79 100 10/03/20 13:21 84 16 107/79 100 10/03/20 13:00 85 16 107/79 (88) 100 10/03/20 13:00 80 16 40 10/03/20 12:00 Mechanical Ventilator 10/03/20 12:00 83 10/03/20 12:00 83 21 113/58 (76) 97 10/03/20 12:00 50 10/03/20 11:45 85 17 100 Mechanical Ventilator 50 10/03/20 11:45 85 17 100 Mechanical Ventilator 50 82 16 50 10/03/20 11:30 100.1 81 19 108/63 (78) 100 10/03/20 10:28 99.8 82 16 100/45 100 Mechanical Ventilator 60 10/03/20 10:25 99.4 78 15 105/55 100 Mechanical Ventilator 60 10/03/20 09:21 99.8 89 18 154/84 99 Mechanical Ventilator 12.0 60 10/03/20 08:56 90 22 60 10/03/20 08:28 90 16 104/71 99 Mechanical Ventilator 60 10/03/20 07:45 88 21 100 Bi-Pap 60 95 23 96 10/03/20 06:30 99.7 18 149/76 98 Bi-pap 10/03/20 06:30 106 18 Non-Rebreather 12.0 10/03/20 06:25 92 30 100 60 10/03/20 05:46 99.7 106 18 149/76 (100) 98 Non-Rebreather 12.0 Laboratory Tests Test 10/03/20 05:44 10/03/20 06:00 10/03/20 06:27 10/03/20 09:25 Arterial Blood pH 7.254 (7.350-7.450) 7.227 (7.350-7.450) 7.465 (7.350-7.450) Arterial Blood Partial Pressure CO2 80.5 mmHg (35.0-45.0) *H 80.1 mmHg (35.0-45.0) *H 40.3 mmHg (35.0-45.0) Arterial Blood Partial Pressure O2 102.2 mmHg (75.0-100.0) H 160.7 mmHg (75.0-100.0) H 77.6 mmHg (75.0-100.0) Arterial Blood HCO3 34.8 mmol/L (22.0-26.0) H 32.6 mmol/L (22.0-26.0) H 28.3 mmol/L (22.0-26.0) H Arterial Blood Oxygen Saturation 96.6 % (95-100) 98.9 % (95-100) 96.2 % (95-100) Arterial Blood Base Excess 4.8 (-2-2) H 2.6 (-2-2) H 4.3 (-2-2) H Juancarlos Test Positive Positive Positive White Blood Count 9.1 K/UL (4.8-10.8) Red Blood Count 4.70 M/UL (4.20-5.40) Hemoglobin 12.6 G/DL (12.0-16.0) Hematocrit 42.5 % (37.0-47.0) Mean Corpuscular Volume 90 FL (80-99) Mean Corpuscular Hemoglobin 26.7 PG (27.0-31.0) L Mean Corpuscular Hemoglobin Concent 29.5 G/DL (32.0-36.0) L Red Cell Distribution Width 16.2 % (11.6-14.8) H Platelet Count 121 K/UL (150-450) L Mean Platelet Volume 9.2 FL (6.5-10.1) Neutrophils (%) (Auto) 71.9 % (45.0-75.0) Lymphocytes (%) (Auto) 16.6 % (20.0-45.0) L Monocytes (%) (Auto) 7.9 % (1.0-10.0) Eosinophils (%) (Auto) 1.3 % (0.0-3.0) Basophils (%) (Auto) 2.3 % (0.0-2.0) H Prothrombin Time 10.4 SEC (9.30-11.50) Prothromb Time International Ratio 0.9 (0.9-1.1) Activated Partial Thromboplast Time 20 SEC (23-33) L D-Dimer 0.64 mg/L FEU (0.00-0.49) H Urine Color Pale yellow Urine Appearance Slightly cloudy Urine pH 8 (4.5-8.0) Urine Specific [place] 1.010 (1.005-1.035) Urine Protein 3+ (NEGATIVE) H Urine Glucose (UA) Negative (NEGATIVE) Urine Ketones Negative (NEGATIVE) Urine Blood 5+ (NEGATIVE) H Urine Nitrite Negative (NEGATIVE) Urine Bilirubin Negative (NEGATIVE) Urine Urobilinogen Normal MG/DL (0.0-1.0) Urine Leukocyte Esterase 3+ (NEGATIVE) H Urine RBC 2-4 /HPF (0 - 2) H Urine WBC 10-15 /HPF (0 - 2) H Urine Squamous Epithelial Cells Few /LPF (NONE/OCC) Urine Triple Phosphate Crystals Few /LPF (NONE) H Urine Amorphous Sediment Moderate /LPF (NONE) H Urine Bacteria Few /HPF (NONE) Sodium Level 142 MMOL/L (136-145) Potassium Level 5.0 MMOL/L (3.5-5.1) Chloride Level 107 MMOL/L (98-107) Carbon Dioxide Level 34 MMOL/L (21-32) H Anion Gap 1 mmol/L (5-15) L Blood Urea Nitrogen 59 mg/dL (7-18) H Creatinine 1.0 MG/DL (0.55-1.30) Estimat Glomerular Filtration Rate > 60 mL/min (>60) Glucose Level 144 MG/DL (74-106) H Lactic Acid Level 0.90 mmol/L (0.4-2.0) Calcium Level 8.7 MG/DL (8.5-10.1) Magnesium Level 2.8 MG/DL (1.8-2.4) H Ferritin 74 NG/ML (8-388) Total Bilirubin 0.3 MG/DL (0.2-1.0) Aspartate Amino Transf (AST/SGOT) 41 U/L (15-37) H Alanine Aminotransferase (ALT/SGPT) 28 U/L (12-78) Alkaline Phosphatase 47 U/L (46-116) Lactate Dehydrogenase 274 U/L (81-234) H Total Creatine Kinase 41 U/L (26-308) Creatine Kinase MB 1.7 NG/ML (0.0-3.6) Creatine Kinase MB Relative Index 4.1 Troponin I 1.069 ng/mL (0.000-0.056) C-Reactive Protein, Quantitative 1.4 mg/dL (0.00-0.90) H Pro-B-Type Natriuretic Peptide 34206 pg/mL (0-125) H Total Protein 9.1 G/DL (6.4-8.2) H Albumin 3.0 G/DL (3.4-5.0) L Globulin 6.1 g/dL Albumin/Globulin Ratio 0.5 (1.0-2.7) L Lipase 192 U/L (73-393) Test 10/03/20 13:45 Activated Partial Thromboplast Time 41 SEC (23-33) H Troponin I 0.858 ng/mL (0.000-0.056) Microbiology Date/Time Source Procedure Growth Status 10/03/20 07:20 Rectum Received 10/03/20 06:00 Nasal Nares - Final Complete 10/03/20 06:00 Nasal Nares - Final Complete 10/03/20 05:54 Nasopharynx SARS-CoV-2 RdRp Gene Assay - Final Complete Height (Feet): 5 Height (Inches): 4.00 Weight (Pounds): 135 Medications Current Medications Medications (Trade) Dose Ordered Sig/Bharti Route PRN Reason Start Time Stop Time Status Last Admin Dose Admin Acetaminophen (Tylenol) 650 mg Q4H PRN GT Temp >100.5 10/03/20 17:15 11/02/20 17:14 10/03/20 17:48 Albuterol/ Ipratropium (Albuterol/ Ipratropium) 3 ml Q4HRT HHN 10/03/20 11:00 10/08/20 10:59 10/03/20 15:14 Dextrose (Dextrose 50%) 25 ml Q30M PRN IV Hypoglycemia 10/03/20 09:28 01/01/21 09:27 Dextrose (Dextrose 50%) 50 ml Q30M PRN IV Hypoglycemia 10/03/20 09:28 01/01/21 09:27 Dextrose/Sodium Chloride 1,000 ml @ 50 mls/hr Q20H IV 10/03/20 11:00 11/02/20 10:59 10/03/20 11:39 Docusate Sodium (Colace) 100 mg TWICE A DAY GT 10/03/20 18:00 11/02/20 17:59 10/03/20 17:47 Furosemide (Lasix) 40 mg ONCE IV 10/03/20 07:30 11/02/20 07:29 10/03/20 07:37 Heparin Sodium/ Dextrose 500 ml @ 19.595 mls/ hr ADJUST PER PROTOCOL IV 10/03/20 14:12 11/02/20 14:11 10/03/20 14:30 Insulin Aspart (NovoLOG) BEFORE MEALS AND HS SUBQ 10/03/20 11:30 01/01/21 11:29 10/03/20 16:24 Lorazepam (Ativan 2mg/ml 1ml) 2 mg Q4H PRN IV For Anxiety 10/03/20 09:29 10/10/20 09:28 10/03/20 13:21 Methylprednisolone Sodium Succinate (Solu-MEDROL) 60 mg EVERY 6 HOURS IVPB 10/03/20 12:00 01/01/21 11:59 10/03/20 17:48 Morphine Sulfate (Morphine Sulfate) 2 mg Q4H PRN IVP Moderate Pain (4-6) 10/03/20 09:15 10/10/20 09:14 Morphine Sulfate (Morphine Sulfate) 4 mg Q4H PRN IVP Severe Pain (7-10) 10/03/20 09:15 10/10/20 09:14 Nitroglycerin (Ntg) 0.4 mg Q5M X 3 DOSES PRN SL Prn Chest Pain 10/03/20 09:15 11/02/20 09:14 Ondansetron HCl (Zofran) 4 mg Q6H PRN IVP Nausea & Vomiting 10/03/20 09:28 11/02/20 09:27 Pantoprazole (Protonix) 40 mg DAILY IV 10/04/20 09:00 11/03/20 08:59 Piperacillin Sod/ Tazobactam Sod 3.375 gm/Dextrose 110 ml @ 220 mls/hr Q8H IV 10/03/20 15:00 10/10/20 14:59 10/03/20 15:49 Risperidone (RisperDAL) 1 mg DAILY NG 10/04/20 09:00 11/18/20 08:59 Vancomycin HCl 250 ml @ 166.667 mls/hr Q24H IVPB 10/04/20 04:00 10/09/20 03:59 Vancomycin HCl (Vanco pharmacy to dose) 1 ea DAILY PRN MISC Per rx protocol 10/03/20 09:30 11/02/20 09:29 Assessment/Plan Problem List: (1) COPD (chronic obstructive pulmonary disease) ICD Codes: J44.9 - Chronic obstructive pulmonary disease, unspecified SNOMED: 32184635 (2) Acute respiratory failure ICD Codes: J96.00 - Acute respiratory failure, unspecified whether with hypoxia or hypercapnia SNOMED: 52160302 (3) Syncope ICD Codes: R55 - Syncope and collapse SNOMED: 467317750 (4) Psychiatric disorder ICD Codes: F99 - Mental disorder, not otherwise specified SNOMED: 47576819 (5) Hyponatremia ICD Codes: E87.1 - Hypo-osmolality and hyponatremia SNOMED: 26664763 (6) UTI (urinary tract infection) ICD Codes: N39.0 - Urinary tract infection, site not specified SNOMED: 95317543 (7) Stage 4 decubitus ulcer Assessment & Plan: Pt presented on admission with Full thickness sacral pressure injury with undermined borders. Base of wound has pink granulation with small amt biofilm easily removed with gentle friction during cleansing. (+) epibole along edges. No odor or exudate noted.(L)2.3cm x (W)4.5cm x (D)1cm. Undermining clockwise 12-12o'clock by 2.8cm @5o'clock. Periwound without erythema or induration. R and L heels are boggy but each heel blanches easily. Dressing is going well. We will monitor wound does not currently need active debridement. well known to me from prior unchanged stage 4 ulcer cont local care Tx.Plan: Cleanse Sacral wound with Dakin's 0.125% gilbert. Loosely pack with Dakin's moistened Kerlix. Apply Triad Paste periwound. Cover with Optifoam drsg. Twice daily and prn. Apply Cavilon Skin Barrier to Both heels. Cover each heel with Optifoam drsg.Change every 7 days and prn. APM/ABHILASH Mattress overlay. Reposition at least every 2hours or as tolerated. Off-load heels with pillow. ICD Codes: L89.94 - Pressure ulcer of unspecified site, stage 4 SNOMED: 680978210 (8) Severe protein-calorie malnutrition Assessment & Plan: ng in place once stable start tube feeds low alb bmi 23 high risk for breakdown needs nutritional optimization ICD Codes: E43 - Unspecified severe protein-calorie malnutrition SNOMED: 351263092, 680782524, 360337695 (9) Pulmonary edema ICD Codes: J81.1 - Chronic pulmonary edema SNOMED: 58637977 (10) Altered mental status ICD Codes: R41.82 - Altered mental status, unspecified SNOMED: 780359827 Blaise Del Valle Oct 03, 2020 19:22
--- NOTE | 2020-10-03 19:24 | History & Physical ---
History and Physical History & Physicial Dictated for Int Med-DR Mazariegos no. [id number] Curly Covarrubias MD Oct 03, 2020 19:24
[2020-10-03] MEDS ORDERED: Heparin 5000 units/ml inj SUBQ SCH (21:00)
--- NOTE | 2020-10-03 21:00 | History and Physical Report ---
DATE OF ADMISSION: 10/03/2020 CHIEF COMPLAINT: The patient is a 75-year-old female, who presents with a chief complaint of altered mental status and hypoxemia. HISTORY OF PRESENT ILLNESS: The patient is a resident of [facility]. According to staff at [facility], the patient was found to be nonverbal at about 3 a.m. October 03, 2020. The patient was also noted to have pulse oximetry of 88% on room air. The patient was transported to [place] emergency room for evaluation. The patient is admitted with altered mental status and hypoxemia to rule out pneumonia. REVIEW OF SYSTEMS: Unable to assess secondary to the patient's mental status. PAST MEDICAL HISTORY: Significant for: 1. Hypertension. 2. Asthma. 3. Alzheimer's dementia with behavioral disturbance. PAST SURGICAL HISTORY: The patient denies. CURRENT MEDICATIONS: 1. Tylenol 650 mg p.o. q.4 h. p.r.n. 2. Amlodipine 5 mg p.o. daily. 3. Vitamin C 500 mg p.o. daily. 4. Benztropine 1 mg one tablet p.o. twice daily. 5. Calcium carbonate 500 mg p.o. daily. 6. Vitamin D3 25 mcg p.o. daily. 7. Colace 250 mg p.o. twice daily. 8. Breo Ellipta. 100/25 one inhalation twice daily. 9. [place] 5/325 mg one tablet p.o. q.6 h. p.r.n. 10. Lactulose 30 mL p.o. daily p.r.n. 11. Magnesium oxide 400 mg p.o. daily. 12. Seroquel 200 mg p.o. daily. 13. Risperdal 3 mg p.o. daily. 14. Risperdal 1 mg p.o. nightly. 15. Trazodone 100 mg p.o. nightly. 16. Seroquel 300 mg p.o. nightly. ALLERGIES: No known drug allergies. SOCIAL HISTORY: The patient is and is a resident of [facility]. The patient denies tobacco or alcohol use. PHYSICAL EXAMINATION: VITAL SIGNS: Temperature 99.7, respirations 18, pulse 106, blood pressure /76. Pulse oximetry 98% on 100% non-rebreather. GENERAL: The patient is a well-developed and well-nourished female, who is currently intubated in the intensive care unit. HEENT: Eyes, pupils are equal and responsive to light and accommodation. Extraocular movements are intact. NECK: Supple without lymphadenopathy. CHEST: Coarse mechanical breath sounds bilaterally without wheezes or rales. CARDIOVASCULAR: Tachycardic, regular rhythm, S1-S2 are normal without murmurs, rubs, or gallops. ABDOMEN: Soft, nontender, and nondistended. Positive bowel sounds. No evidence of hepatosplenomegaly. Currently, no rebound or guarding noted. EXTREMITIES: Negative for clubbing, cyanosis, edema. RECTAL/GENITAL: Not performed. NEUROLOGICAL: Unable to assess. LABORATORY STUDIES: WBC 9.1, hemoglobin 12.6, hematocrit 42.5, platelets 121,000. Sodium 142, potassium 5.0, chloride 107, CO2 34, BUN 59, creatinine 1.0. Glucose 144. Arterial blood gases - pH 7.254, pCO2 80.5, pO2 102.2, bicarb 34.8, oxygen saturation 96.6. Base excess is positive 4.8. Chest x-ray was reported as no acute disease. ASSESSMENT: This is a 75-year-old female with: 1. Acute hypoxemic respiratory failure. 2. Altered mental status. 3. Hypertension. 4. Chronic obstructive pulmonary disease. 5. Alzheimer's dementia. TREATMENT: 1. Acute hypoxic respiratory failure. A Pulmonary consultation has been obtained with Dr. Will Quiros. The patient is currently intubated in the intensive care unit. The patient has been started empirically on Zosyn for presumed pneumonia. The patient has also been started on Solu-Medrol for presumed chronic obstructive pulmonary disease acute exacerbation. Follow recommendations of Pulmonary. 2. Hypertension. The patient is currently hypotensive. 3. Chronic obstructive pulmonary disease. As above, Pulmonary consultation has been obtained with Dr. Will Quiros. The patient is currently receiving intravenous Solu-Medrol and albuterol/Atrovent nebulized q.4 h. p.r.n. We will follow recommendations of Pulmonary. 4. Alzheimer's dementia. Curly Covarrubias, M.D. DR: OSMANI JOB#: [id number] CC:
[2020-10-04] VITALS (24 sets, daily range): BP systolic 100–144; BP diastolic 47–67
[2020-10-04] MEDS: Solu-MEDROL 125mg Inj IVPB SCH ×5 (00:21→23:32)
[2020-10-04] MEDS: Albuterol/Ipratropium 3ml neb HHN SCH ×6 (03:30→22:47)
[2020-10-04] MEDS: LORazepam Inj 2mg/ml 1ml IV PRN ×3 (03:31→19:47)
[2020-10-04] MEDS: Vancomycin 1.25gm/250ml Premix IVPB SCH (03:35)
[2020-10-04 05:11] LABS: HEMATOCRIT 40.8 % (37.0-47.0); HEMOGLOBIN 12.5 G/DL (12.0-16.0); MEAN CORPUSCULAR VOLUME 87 FL (80-99); PLATELET COUNT 202 K/UL (150-450); RED BLOOD COUNT 4.68 M/UL (4.20-5.40); RED CELL DISTRIBUTION WIDTH 15.6 % (11.6-14.8); WHITE BLOOD COUNT 12.3 K/UL (4.8-10.8)
[2020-10-04 05:36] LABS: ALANINE AMINOTRANSFERASE 16 U/L (12-78); ALBUMIN 2.5 G/DL (3.4-5.0); ALBUMIN/GLOBULIN RATIO 0.4 (1.0-2.7); ALKALINE PHOSPHATASE 36 U/L (46-116); ANION GAP 9 mmol/L (5-15); ASPARTATE AMINO TRANSFERASE 34 U/L (15-37); BILIRUBIN,TOTAL 0.5 MG/DL (0.2-1.0); BLOOD UREA NITROGEN 53 mg/dL (7-18); CARBON DIOXIDE 29 MMOL/L (21-32); CHLORIDE 107 MMOL/L (98-107); CREATININE 1.3 MG/DL (0.55-1.30); PHOSPHORUS 1.9 MG/DL (2.5-4.9); POTASSIUM 3.4 MMOL/L (3.5-5.1); SODIUM 145 MMOL/L (136-145)
[2020-10-04] MEDS ORDERED: Heparin 25,000u/D5W 500ml 500 ML IV SCH (05:45)
[2020-10-04] MEDS ORDERED: Heparin 5000 units/ml inj IV SCH ×2 (06:00→20:30)
[2020-10-04] MEDS: NovoLOG Insulin Flexpen SUBQ SCH ×4 (06:06→21:26)
[2020-10-04] MEDS: Dakin's 0.125% Soln (Quarter Strength) 16oz TOPIC SCH (06:15)
[2020-10-04] MEDS: Piperacillin/Tazobactam 3.375 GM in D5W 110 ML IV SCH ×3 (07:40→23:15)
--- NOTE | 2020-10-04 07:52 | Infectious Diseases Prog Note ---
Assessment/Plan 75yo F with: Afebrile, Tmax 99.7 --> Febrile to 102 Normal WBC Acute hypoxic resp failure, SP intubation 10/03 COPD Non-verbal at baseline UTI 10/03 BCx p UA 10-15 WBC, UCx >100k P.mirabilis (S-CTX, R-bactrim) Resp cx p COVID rapid Ag neg Flu neg CXR: No focal consolidation, pleural effusion, or pneumothorax. Mild emphysema with increased interstitial markings. Cardiomegaly. Calcified aorta. 10/04 COVID rapid Ag p Dementia [facility] Plan: Cont vancomycin IV #2 Cont empiric Zosyn #2 On steroids per primary, solumedrol 60mg IV q6hrs F/u repeat COVID test 24hrs after 1st, sent this morning F/u BCx, Resp cx - can narrow abx to CTX if these remain neg Monitor CBC/CMP Monitor temp curve, hemodynamics Monitor resp status D/w RN Thank you for this consult. [facility] will continue to follow. Subjective Allergies: Coded Allergies: No Known Allergies (Unverified , 12/17/15) Febrile to 102 WBC up to 12 on steroids NAD on vent, FiO2 30% PEEP 5 Objective Last 24 Hour Vital Signs Date Time Temp Pulse Resp B/P (MAP) Pulse Ox O2 Delivery O2 Flow Rate FiO2 10/04/20 06:30 91 16 10/04/20 06:00 97 16 117/55 (75) 100 10/04/20 05:00 104 18 30 10/04/20 05:00 106 17 125/60 (81) 100 10/04/20 04:01 102 16 125/60 100 10/04/20 04:00 Mechanical Ventilator 10/04/20 04:00 99.0 99 16 100/49 (66) 100 10/04/20 04:00 100 10/04/20 03:31 108 16 143/67 100 10/04/20 03:30 97 16 100 Mechanical Ventilator 30 103 16 30 10/04/20 03:00 105 20 143/67 (92) 98 10/04/20 02:00 105 21 138/54 (82) 96 10/04/20 01:00 89 16 112/47 (68) 100 10/04/20 00:32 91 16 30 10/04/20 00:00 92 10/04/20 00:00 Mechanical Ventilator 10/04/20 00:00 99.8 89 16 115/52 (73) 100 10/03/20 23:06 92 20 115/52 100 10/03/20 23:03 89 17 100 Mechanical Ventilator 30 91 16 30 10/03/20 23:00 85 16 112/56 (74) 100 10/03/20 22:36 86 16 113/58 100 10/03/20 22:00 85 16 113/58 (76) 100 10/03/20 21:21 88 16 30 10/03/20 21:00 87 16 109/52 (71) 100 10/03/20 20:00 Mechanical Ventilator 10/03/20 20:00 100.0 78 16 100/50 (67) 100 10/03/20 19:22 79 16 100 Mechanical Ventilator 30 82 18 30 10/03/20 19:00 78 16 100/50 (67) 100 10/03/20 18:18 100.7 10/03/20 18:00 30 10/03/20 18:00 100.7 94 17 127/56 (79) 100 10/03/20 17:00 102.0 90 16 110/54 (72) 100 10/03/20 16:45 92 17 30 10/03/20 16:00 40 10/03/20 16:00 Mechanical Ventilator 10/03/20 16:00 101.0 94 18 124/66 (85) 100 10/03/20 16:00 89 10/03/20 15:24 93 16 100 Mechanical Ventilator 40 91 16 40 10/03/20 15:00 90 16 117/58 (77) 100 10/03/20 14:00 84 15 101/55 (70) 100 10/03/20 13:51 84 16 107/79 100 10/03/20 13:21 84 16 107/79 100 10/03/20 13:00 85 16 107/79 (88) 100 10/03/20 13:00 80 16 40 10/03/20 12:00 Mechanical Ventilator 10/03/20 12:00 83 10/03/20 12:00 83 21 113/58 (76) 97 10/03/20 12:00 50 10/03/20 11:45 85 17 100 Mechanical Ventilator 50 10/03/20 11:45 85 17 100 Mechanical Ventilator 50 82 16 50 10/03/20 11:30 100.1 81 19 108/63 (78) 100 10/03/20 10:28 99.8 82 16 100/45 100 Mechanical Ventilator 60 10/03/20 10:25 99.4 78 15 105/55 100 Mechanical Ventilator 60 10/03/20 09:21 99.8 89 18 154/84 99 Mechanical Ventilator 12.0 60 10/03/20 08:56 90 22 60 10/03/20 08:28 90 16 104/71 99 Mechanical Ventilator 60 Height (Feet): 5 Height (Inches): 4.00 Weight (Pounds): 135 Gen: NAD HEENT: NCAT Pulm: BL chest rise on vent Abd: Non-distended Ext: No c/c/e Skin: No visible rashes Neuro: Sedated Microbiology Date/Time Source Procedure Growth Status 10/03/20 07:20 Rectum Received 10/03/20 06:00 Urine,Clean Catch Urine Culture - Preliminary Proteus Mirabilis Resulted 10/03/20 06:00 Nasal Nares - Final Complete 10/03/20 06:00 Nasal Nares - Final Complete 10/03/20 05:54 Nasopharynx SARS-CoV-2 RdRp Gene Assay - Final Complete Laboratory Tests Test 10/03/20 09:25 10/03/20 13:45 10/03/20 20:15 10/03/20 21:01 Arterial Blood pH 7.465 (7.350-7.450) Arterial Blood Partial Pressure CO2 40.3 mmHg (35.0-45.0) Arterial Blood Partial Pressure O2 77.6 mmHg (75.0-100.0) Arterial Blood HCO3 28.3 mmol/L (22.0-26.0) H Arterial Blood Oxygen Saturation 96.2 % (95-100) Arterial Blood Base Excess 4.3 (-2-2) H Juancarlos Test Positive Activated Partial Thromboplast Time 41 SEC (23-33) H 106 SEC (23-33) H Troponin I 0.858 ng/mL (0.000-0.056) 0.693 ng/mL (0.000-0.056) POC Whole Blood Glucose 227 MG/DL (74-106) H Test 10/04/20 03:50 10/04/20 04:37 White Blood Count 12.3 K/UL (4.8-10.8) H Red Blood Count 4.68 M/UL (4.20-5.40) Hemoglobin 12.5 G/DL (12.0-16.0) Hematocrit 40.8 % (37.0-47.0) Mean Corpuscular Volume 87 FL (80-99) Mean Corpuscular Hemoglobin 26.6 PG (27.0-31.0) L Mean Corpuscular Hemoglobin Concent 30.5 G/DL (32.0-36.0) L Red Cell Distribution Width 15.6 % (11.6-14.8) H Platelet Count 202 K/UL (150-450) # Mean Platelet Volume 9.8 FL (6.5-10.1) Neutrophils (%) (Auto) % (45.0-75.0) Lymphocytes (%) (Auto) % (20.0-45.0) Monocytes (%) (Auto) % (1.0-10.0) Eosinophils (%) (Auto) % (0.0-3.0) Basophils (%) (Auto) % (0.0-2.0) Erythrocyte Sedimentation Rate 62 MM/HR (0-30) H Activated Partial Thromboplast Time 51 SEC (23-33) H Sodium Level 145 MMOL/L (136-145) Potassium Level 3.4 MMOL/L (3.5-5.1) L Chloride Level 107 MMOL/L (98-107) Carbon Dioxide Level 29 MMOL/L (21-32) Anion Gap 9 mmol/L (5-15) Blood Urea Nitrogen 53 mg/dL (7-18) H Creatinine 1.3 MG/DL (0.55-1.30) Estimat Glomerular Filtration Rate 48.6 mL/min (>60) Glucose Level 225 MG/DL (74-106) H Calcium Level 8.0 MG/DL (8.5-10.1) L Phosphorus Level 1.9 MG/DL (2.5-4.9) L Magnesium Level 2.3 MG/DL (1.8-2.4) Total Bilirubin 0.5 MG/DL (0.2-1.0) Aspartate Amino Transf (AST/SGOT) 34 U/L (15-37) Alanine Aminotransferase (ALT/SGPT) 16 U/L (12-78) Alkaline Phosphatase 36 U/L (46-116) L Troponin I 0.337 ng/mL (0.000-0.056) C-Reactive Protein, Quantitative < 0.4 mg/dL (0.00-0.90) Total Protein 8.1 G/DL (6.4-8.2) Albumin 2.5 G/DL (3.4-5.0) L Globulin 5.6 g/dL Albumin/Globulin Ratio 0.4 (1.0-2.7) L POC Whole Blood Glucose 230 MG/DL (74-106) H Current Medications Medications (Trade) Dose Ordered Sig/Bharti Route PRN Reason Start Time Stop Time Status Last Admin Dose Admin Acetaminophen (Tylenol) 650 mg Q4H PRN GT Temp >100.5 10/03/20 17:15 11/02/20 17:14 10/03/20 17:48 Albuterol/ Ipratropium (Albuterol/ Ipratropium) 3 ml Q4HRT HHN 10/03/20 11:00 10/08/20 10:59 10/04/20 03:30 Dextrose (Dextrose 50%) 25 ml Q30M PRN IV Hypoglycemia 10/03/20 09:28 01/01/21 09:27 Dextrose (Dextrose 50%) 50 ml Q30M PRN IV Hypoglycemia 10/03/20 09:28 01/01/21 09:27 Dextrose/Sodium Chloride 1,000 ml @ 50 mls/hr Q20H IV 10/03/20 11:00 11/02/20 10:59 10/03/20 11:39 Docusate Sodium (Colace) 100 mg TWICE A DAY GT 10/03/20 18:00 11/02/20 17:59 10/03/20 17:47 Furosemide (Lasix) 40 mg ONCE IV 10/03/20 07:30 11/02/20 07:29 10/03/20 07:37 Heparin Sodium/ Dextrose 500 ml @ 18.371 mls/ hr ADJUST PER PROTOCOL IV 10/04/20 05:45 11/03/20 05:44 10/04/20 05:55 Insulin Aspart (NovoLOG) BEFORE MEALS AND HS SUBQ 10/03/20 11:30 01/01/21 11:29 10/04/20 06:06 Lorazepam (Ativan 2mg/ml 1ml) 2 mg Q4H PRN IV For Anxiety 10/03/20 09:29 10/10/20 09:28 10/04/20 03:31 Methylprednisolone Sodium Succinate (Solu-MEDROL) 60 mg EVERY 6 HOURS IVPB 10/03/20 12:00 01/01/21 11:59 10/04/20 05:55 Morphine Sulfate (Morphine Sulfate) 2 mg Q4H PRN IVP Moderate Pain (4-6) 10/03/20 09:15 10/10/20 09:14 Morphine Sulfate (Morphine Sulfate) 4 mg Q4H PRN IVP Severe Pain (7-10) 10/03/20 09:15 10/10/20 09:14 Nitroglycerin (Ntg) 0.4 mg Q5M X 3 DOSES PRN SL Prn Chest Pain 10/03/20 09:15 11/02/20 09:14 Ondansetron HCl (Zofran) 4 mg Q6H PRN IVP Nausea & Vomiting 10/03/20 09:28 11/02/20 09:27 Pantoprazole (Protonix) 40 mg DAILY IV 10/04/20 09:00 11/03/20 08:59 Piperacillin Sod/ Tazobactam Sod 3.375 gm/Dextrose 110 ml @ 220 mls/hr Q8H IV 10/03/20 15:00 10/10/20 14:59 10/04/20 07:40 Risperidone (RisperDAL) 1 mg DAILY NG 10/04/20 09:00 11/18/20 08:59 Sodium Hypochlorite (Dakin's Quarter Strength) 1 applic DAILY TOPIC 10/04/20 09:00 11/03/20 08:59 10/04/20 06:15 Vancomycin HCl 250 ml @ 166.667 mls/hr Q24H IVPB 10/04/20 04:00 10/09/20 03:59 10/04/20 03:35 Vancomycin HCl ([facility] pharmacy to dose) 1 ea DAILY PRN MISC Per rx protocol 10/03/20 09:30 11/02/20 09:29 Sondra Sepulveda M.D. Oct 04, 2020 07:52
[2020-10-04] MEDS: Pantoprazole Inj IV SCH (09:13)
[2020-10-04] MEDS: Docusate 100mg/10ml Liq GT SCH ×2 (09:13→17:28)
[2020-10-04] MEDS: D5 1/2NS 1,000 ML IV SCH (09:14)
[2020-10-04] MEDS ORDERED: Potassium Phosphate 20 MM in NS 275 ML IV SCH (10:00)
[2020-10-04] MEDS: Heparin 25,000u/D5W 500ml 500 ML IV SCH ×3 (13:59→20:50)
[2020-10-04] MEDS ORDERED: Tubing IV Secondary IV ONE (14:30)
[2020-10-04] MEDS ORDERED: D5NS 1000ml IV ONE (14:30)
--- NOTE | 2020-10-04 14:35 | Cardiology Progress Note ---
Assessment/Plan Assessment/Plan [id number] nstemi trop patter suggest that injury maybe a few day old will need to check cpk ecotrin check cpk ok for heparin for 48 hours then dc continue treatment for respiratory failure and infection venous duplex to r/o dvt statin off bb due to copd Objective Last 24 Hour Vital Signs Date Time Temp Pulse Resp B/P (MAP) Pulse Ox O2 Delivery O2 Flow Rate FiO2 10/04/20 13:20 85 16 30 10/04/20 13:00 88 16 123/56 (78) 10/04/20 12:00 89 10/04/20 12:00 90 16 134/61 (85) 100 10/04/20 12:00 Mechanical Ventilator 10/04/20 11:17 104 18 100 Mechanical Ventilator 30 97 18 30 10/04/20 11:00 88 16 114/51 (72) 100 10/04/20 10:00 100 16 122/53 (76) 100 10/04/20 09:43 101 18 117/55 100 10/04/20 09:39 85 16 30 10/04/20 09:13 101 18 117/55 100 10/04/20 09:00 104 16 116/55 (75) 100 10/04/20 08:00 99.3 98 16 125/61 (82) 100 10/04/20 08:00 99 10/04/20 08:00 30 10/04/20 08:00 Mechanical Ventilator 10/04/20 07:29 101 18 100 Mechanical Ventilator 30 100 16 30 10/04/20 07:00 90 16 114/54 (74) 100 10/04/20 06:30 91 16 10/04/20 06:00 97 16 117/55 (75) 100 10/04/20 05:00 104 18 30 10/04/20 05:00 106 17 125/60 (81) 100 10/04/20 04:01 102 16 125/60 100 10/04/20 04:00 Mechanical Ventilator 10/04/20 04:00 99.0 99 16 100/49 (66) 100 10/04/20 04:00 100 10/04/20 03:31 108 16 143/67 100 10/04/20 03:30 97 16 100 Mechanical Ventilator 30 103 16 30 10/04/20 03:00 105 20 143/67 (92) 98 10/04/20 02:00 105 21 138/54 (82) 96 10/04/20 01:00 89 16 112/47 (68) 100 10/04/20 00:32 91 16 30 10/04/20 00:00 92 10/04/20 00:00 Mechanical Ventilator 10/04/20 00:00 99.8 89 16 115/52 (73) 100 10/03/20 23:06 92 20 115/52 100 10/03/20 23:03 89 17 100 Mechanical Ventilator 30 91 16 30 10/03/20 23:00 85 16 112/56 (74) 100 10/03/20 22:36 86 16 113/58 100 10/03/20 22:00 85 16 113/58 (76) 100 10/03/20 21:21 88 16 30 10/03/20 21:00 87 16 109/52 (71) 100 10/03/20 20:00 Mechanical Ventilator 10/03/20 20:00 100.0 78 16 100/50 (67) 100 10/03/20 19:22 79 16 100 Mechanical Ventilator 30 82 18 30 10/03/20 19:00 78 16 100/50 (67) 100 10/03/20 18:18 100.7 10/03/20 18:00 30 10/03/20 18:00 100.7 94 17 127/56 (79) 100 10/03/20 17:00 102.0 90 16 110/54 (72) 100 10/03/20 16:45 92 17 30 10/03/20 16:00 40 10/03/20 16:00 Mechanical Ventilator 10/03/20 16:00 101.0 94 18 124/66 (85) 100 10/03/20 16:00 89 10/03/20 15:24 93 16 100 Mechanical Ventilator 40 91 16 40 10/03/20 15:00 90 16 117/58 (77) 100 Intake and Output0 10/03/20 10/04/20 19:00 07:00 Intake Total 945.2095 ml 1471.942 ml Output Total 2100 ml 740 ml Balance -1154.7905 ml 731.942 ml Intake Free Water 10 ml 60 ml IV Total 895.2095 ml 1171.942 ml Tube Feeding 40 ml 240 ml Output Urine Total 2100 ml 740 ml # Bowel Movements 3 2 Laboratory Tests Test 10/03/20 20:15 10/03/20 21:01 10/04/20 03:50 10/04/20 04:37 Activated Partial Thromboplast Time 106 SEC (23-33) H 51 SEC (23-33) H Troponin I 0.693 ng/mL (0.000-0.056) 0.337 ng/mL (0.000-0.056) POC Whole Blood Glucose 227 MG/DL (74-106) H 230 MG/DL (74-106) H White Blood Count 12.3 K/UL (4.8-10.8) H Red Blood Count 4.68 M/UL (4.20-5.40) Hemoglobin 12.5 G/DL (12.0-16.0) Hematocrit 40.8 % (37.0-47.0) Mean Corpuscular Volume 87 FL (80-99) Mean Corpuscular Hemoglobin 26.6 PG (27.0-31.0) L Mean Corpuscular Hemoglobin Concent 30.5 G/DL (32.0-36.0) L Red Cell Distribution Width 15.6 % (11.6-14.8) H Platelet Count 202 K/UL (150-450) # Mean Platelet Volume 9.8 FL (6.5-10.1) Neutrophils (%) (Auto) % (45.0-75.0) Lymphocytes (%) (Auto) % (20.0-45.0) Monocytes (%) (Auto) % (1.0-10.0) Eosinophils (%) (Auto) % (0.0-3.0) Basophils (%) (Auto) % (0.0-2.0) Erythrocyte Sedimentation Rate 62 MM/HR (0-30) H Sodium Level 145 MMOL/L (136-145) Potassium Level 3.4 MMOL/L (3.5-5.1) L Chloride Level 107 MMOL/L (98-107) Carbon Dioxide Level 29 MMOL/L (21-32) Anion Gap 9 mmol/L (5-15) Blood Urea Nitrogen 53 mg/dL (7-18) H Creatinine 1.3 MG/DL (0.55-1.30) Estimat Glomerular Filtration Rate 48.6 mL/min (>60) Glucose Level 225 MG/DL (74-106) H Calcium Level 8.0 MG/DL (8.5-10.1) L Phosphorus Level 1.9 MG/DL (2.5-4.9) L Magnesium Level 2.3 MG/DL (1.8-2.4) Total Bilirubin 0.5 MG/DL (0.2-1.0) Aspartate Amino Transf (AST/SGOT) 34 U/L (15-37) Alanine Aminotransferase (ALT/SGPT) 16 U/L (12-78) Alkaline Phosphatase 36 U/L (46-116) L C-Reactive Protein, Quantitative < 0.4 mg/dL (0.00-0.90) Total Protein 8.1 G/DL (6.4-8.2) Albumin 2.5 G/DL (3.4-5.0) L Globulin 5.6 g/dL Albumin/Globulin Ratio 0.4 (1.0-2.7) L Test 10/04/20 08:06 10/04/20 11:47 Arterial Blood pH 7.480 (7.350-7.450) Arterial Blood Partial Pressure CO2 32.9 mmHg (35.0-45.0) L Arterial Blood Partial Pressure O2 75.1 mmHg (75.0-100.0) Arterial Blood HCO3 24.0 mmol/L (22.0-26.0) Arterial Blood Oxygen Saturation 95.0 % (95-100) Arterial Blood Base Excess 1.0 (-2-2) Juancarlos Test Positive Activated Partial Thromboplast Time > 150 SEC (23-33) *H Troponin I 0.236 ng/mL (0.000-0.056) Microbiology Date/Time Source Procedure Growth Status 10/04/20 10:00 Nasopharynx SARS-CoV-2 RdRp Gene Assay - Final Complete 10/03/20 07:20 Rectum Received 10/03/20 06:00 Urine,Clean Catch Urine Culture - Preliminary Proteus Mirabilis Resulted 10/03/20 06:00 Nasal Nares - Final Complete 10/03/20 06:00 Nasal Nares - Final Complete 10/03/20 05:54 Nasopharynx SARS-CoV-2 RdRp Gene Assay - Final Complete Laurent Ramesh MD Oct 04, 2020 14:35
[2020-10-04 15:00] LABS: CREATINE KINASE 184 U/L (26-308)
[2020-10-04] MEDS: Aspirin Baby 81mg GT SCH (15:08)
[2020-10-04 15:13] LABS: CREATINE KINASE 199 U/L (26-308)
--- NOTE | 2020-10-04 15:23 | Surgery Progress Note ---
Surgery Progress Note Subjective Additional Comments no acute evets on support no n/v Objective Last 24 Hour Vital Signs Date Time Temp Pulse Resp B/P (MAP) Pulse Ox O2 Delivery O2 Flow Rate FiO2 10/04/20 15:10 79 16 100 Mechanical Ventilator 30 80 16 30 10/04/20 13:20 85 16 30 10/04/20 13:00 88 16 123/56 (78) 10/04/20 12:00 89 10/04/20 12:00 90 16 134/61 (85) 100 10/04/20 12:00 Mechanical Ventilator 10/04/20 11:17 104 18 100 Mechanical Ventilator 30 97 18 30 10/04/20 11:00 88 16 114/51 (72) 100 10/04/20 10:00 100 16 122/53 (76) 100 10/04/20 09:43 101 18 117/55 100 10/04/20 09:39 85 16 30 10/04/20 09:13 101 18 117/55 100 10/04/20 09:00 104 16 116/55 (75) 100 10/04/20 08:00 99.3 98 16 125/61 (82) 100 10/04/20 08:00 99 10/04/20 08:00 30 10/04/20 08:00 Mechanical Ventilator 10/04/20 07:29 101 18 100 Mechanical Ventilator 30 100 16 30 10/04/20 07:00 90 16 114/54 (74) 100 10/04/20 06:30 91 16 10/04/20 06:00 97 16 117/55 (75) 100 10/04/20 05:00 104 18 30 10/04/20 05:00 106 17 125/60 (81) 100 10/04/20 04:01 102 16 125/60 100 10/04/20 04:00 Mechanical Ventilator 10/04/20 04:00 99.0 99 16 100/49 (66) 100 10/04/20 04:00 100 10/04/20 03:31 108 16 143/67 100 10/04/20 03:30 97 16 100 Mechanical Ventilator 30 103 16 30 10/04/20 03:00 105 20 143/67 (92) 98 10/04/20 02:00 105 21 138/54 (82) 96 10/04/20 01:00 89 16 112/47 (68) 100 10/04/20 00:32 91 16 30 10/04/20 00:00 92 10/04/20 00:00 Mechanical Ventilator 10/04/20 00:00 99.8 89 16 115/52 (73) 100 10/03/20 23:06 92 20 115/52 100 10/03/20 23:03 89 17 100 Mechanical Ventilator 30 91 16 30 10/03/20 23:00 85 16 112/56 (74) 100 10/03/20 22:36 86 16 113/58 100 10/03/20 22:00 85 16 113/58 (76) 100 10/03/20 21:21 88 16 30 10/03/20 21:00 87 16 109/52 (71) 100 10/03/20 20:00 Mechanical Ventilator 10/03/20 20:00 100.0 78 16 100/50 (67) 100 10/03/20 19:22 79 16 100 Mechanical Ventilator 30 82 18 30 10/03/20 19:00 78 16 100/50 (67) 100 10/03/20 18:18 100.7 10/03/20 18:00 30 10/03/20 18:00 100.7 94 17 127/56 (79) 100 10/03/20 17:00 102.0 90 16 110/54 (72) 100 10/03/20 16:45 92 17 30 10/03/20 16:00 40 10/03/20 16:00 Mechanical Ventilator 10/03/20 16:00 101.0 94 18 124/66 (85) 100 10/03/20 16:00 89 10/03/20 15:24 93 16 100 Mechanical Ventilator 40 91 16 40 I&O Intake and Output 10/03/20 10/04/20 19:00 07:00 Intake Total 945.2095 ml 1471.942 ml Output Total 2100 ml 740 ml Balance -1154.7905 ml 731.942 ml Intake Free Water 10 ml 60 ml IV Total 895.2095 ml 1171.942 ml Tube Feeding 40 ml 240 ml Output Urine Total 2100 ml 740 ml # Bowel Movements 3 2 Dressing: saturated Cardiovascular: RSR Respiratory: decreased breath sounds Abdomen: non-tender, present bowel sounds Extremities: no tenderness, no cyanosis Laboratory Tests Test 10/03/20 20:15 10/03/20 21:01 10/04/20 03:50 10/04/20 04:37 Activated Partial Thromboplast Time 106 SEC (23-33) H 51 SEC (23-33) H Total Creatine Kinase 184 U/L (26-308) Troponin I 0.693 ng/mL (0.000-0.056) 0.337 ng/mL (0.000-0.056) POC Whole Blood Glucose 227 MG/DL (74-106) H 230 MG/DL (74-106) H White Blood Count 12.3 K/UL (4.8-10.8) H Red Blood Count 4.68 M/UL (4.20-5.40) Hemoglobin 12.5 G/DL (12.0-16.0) Hematocrit 40.8 % (37.0-47.0) Mean Corpuscular Volume 87 FL (80-99) Mean Corpuscular Hemoglobin 26.6 PG (27.0-31.0) L Mean Corpuscular Hemoglobin Concent 30.5 G/DL (32.0-36.0) L Red Cell Distribution Width 15.6 % (11.6-14.8) H Platelet Count 202 K/UL (150-450) # Mean Platelet Volume 9.8 FL (6.5-10.1) Neutrophils (%) (Auto) % (45.0-75.0) Lymphocytes (%) (Auto) % (20.0-45.0) Monocytes (%) (Auto) % (1.0-10.0) Eosinophils (%) (Auto) % (0.0-3.0) Basophils (%) (Auto) % (0.0-2.0) Erythrocyte Sedimentation Rate 62 MM/HR (0-30) H Sodium Level 145 MMOL/L (136-145) Potassium Level 3.4 MMOL/L (3.5-5.1) L Chloride Level 107 MMOL/L (98-107) Carbon Dioxide Level 29 MMOL/L (21-32) Anion Gap 9 mmol/L (5-15) Blood Urea Nitrogen 53 mg/dL (7-18) H Creatinine 1.3 MG/DL (0.55-1.30) Estimat Glomerular Filtration Rate 48.6 mL/min (>60) Glucose Level 225 MG/DL (74-106) H Calcium Level 8.0 MG/DL (8.5-10.1) L Phosphorus Level 1.9 MG/DL (2.5-4.9) L Magnesium Level 2.3 MG/DL (1.8-2.4) Total Bilirubin 0.5 MG/DL (0.2-1.0) Aspartate Amino Transf (AST/SGOT) 34 U/L (15-37) Alanine Aminotransferase (ALT/SGPT) 16 U/L (12-78) Alkaline Phosphatase 36 U/L (46-116) L C-Reactive Protein, Quantitative < 0.4 mg/dL (0.00-0.90) Total Protein 8.1 G/DL (6.4-8.2) Albumin 2.5 G/DL (3.4-5.0) L Globulin 5.6 g/dL Albumin/Globulin Ratio 0.4 (1.0-2.7) L Test 10/04/20 08:06 10/04/20 11:47 Arterial Blood pH 7.480 (7.350-7.450) Arterial Blood Partial Pressure CO2 32.9 mmHg (35.0-45.0) L Arterial Blood Partial Pressure O2 75.1 mmHg (75.0-100.0) Arterial Blood HCO3 24.0 mmol/L (22.0-26.0) Arterial Blood Oxygen Saturation 95.0 % (95-100) Arterial Blood Base Excess 1.0 (-2-2) Juancarlos Test Positive Activated Partial Thromboplast Time > 150 SEC (23-33) *H Total Creatine Kinase 199 U/L (26-308) Troponin I 0.236 ng/mL (0.000-0.056) Plan Problems: (1) COPD (chronic obstructive pulmonary disease) (2) Acute respiratory failure (3) Syncope (4) Psychiatric disorder (5) Hyponatremia (6) UTI (urinary tract infection) (7) Stage 4 decubitus ulcer Assessment & Plan: Pt presented on admission with Full thickness sacral pressure injury with undermined borders. Base of wound has pink granulation with small amt biofilm easily removed with gentle friction during cleansing. (+) epibole along edges. No odor or exudate noted.(L)2.3cm x (W)4.5cm x (D)1cm. Undermining clockwise 12-12o'clock by 2.8cm @5o'clock. Periwound without erythema or induration. R and L heels are boggy but each heel blanches easily. Dressing is going well. We will monitor wound does not currently need active debridement. well known to me from prior unchanged stage 4 ulcer cont local care Tx.Plan: Cleanse Sacral wound with Dakin's 0.125% gilbert. Loosely pack with Dakin's moistened Kerlix. Apply Triad Paste periwound. Cover with Optifoam drsg. Twice daily and prn. Apply Cavilon Skin Barrier to Both heels. Cover each heel with Optifoam drsg.Change every 7 days and prn. APM/ABHILASH Mattress overlay. Reposition at least every 2hours or as tolerated. Off-load heels with pillow. (8) Severe protein-calorie malnutrition Assessment & Plan: ng in place once stable start tube feeds low alb bmi 23 high risk for breakdown needs nutritional optimization AILY ESTIMATED NEEDS: Needs based on Wound, Critical care 53.6kg 25-35 kcals/kg 4463-8982 total kcals 1.25-2 g protein/kg 67-107 g total protein 25-30 mL/kg 3556-8914 total fluid mLs NUTRITION DIAGNOSIS: * Increased kcal/prot needs R/T wound healing as evidenced by admitted w/ stage 4 sacral wound * Swallowing difficulty R/T respiratory failure as evidenced by pt now orally intubated with OGT feeds. CURRENT TF: Jevity 1.2 @20ml/hr ENTERAL NUTRITION RECOMMENDATIONS: Glucerna 1.2 goal of 55ml/hr x24 hrs to provide 1320ml, 1584 kcal, 79g pro, 1063ml free H2O - Rec carb control formula at this time d/t elevated BG levels (POC [phone]). - Start @low rate 25ml/hr for 6 hrs, advance as tolerated 10ml/hr q4-6 hrs to goal. - Flush per MD/ HOB over 30 degrees ADDITIONAL RECOMMENDATIONS: * Check HgA1C- pt w/ elevated BG * Re-calibrate bed scale w/ added P200 mattress * Wound care: add SUZY BID via OGT Add Vit C 250mg BID + zn so4 220mg qd x10 days * Replete lytes as needed (Low K, Phos) (9) Pulmonary edema (10) Altered mental status Blaise Del Valle Oct 04, 2020 15:23
--- NOTE | 2020-10-04 17:11 | Internal Med Progress Note ---
Subjective Date of Service: Oct 04, 2020 Physician Name MarciCurly Attending Physician Elías Mazariegos MD Current Medications Medications (Trade) Dose Ordered Sig/Bharti Route PRN Reason Start Time Stop Time Status Last Admin Dose Admin Acetaminophen (Tylenol) 650 mg Q4H PRN GT Temp >100.5 10/03/20 17:15 11/02/20 17:14 10/03/20 17:48 Albuterol/ Ipratropium (Albuterol/ Ipratropium) 3 ml Q4HRT HHN 10/03/20 11:00 10/08/20 10:59 10/04/20 15:09 Aspirin (ASA) 81 mg DAILY GT 10/04/20 14:45 11/18/20 14:44 10/04/20 15:08 Atorvastatin Calcium (Lipitor) 20 mg BEDTIME GT 10/04/20 21:00 01/02/21 20:59 Dextrose (Dextrose 50%) 25 ml Q30M PRN IV Hypoglycemia 10/03/20 09:28 01/01/21 09:27 Dextrose (Dextrose 50%) 50 ml Q30M PRN IV Hypoglycemia 10/03/20 09:28 01/01/21 09:27 Dextrose/Sodium Chloride 1,000 ml @ 50 mls/hr Q20H IV 10/03/20 11:00 11/02/20 10:59 10/04/20 09:14 Docusate Sodium (Colace) 100 mg TWICE A DAY GT 10/03/20 18:00 11/02/20 17:59 10/04/20 09:13 Furosemide (Lasix) 40 mg ONCE IV 10/03/20 07:30 11/02/20 07:29 10/03/20 07:37 Heparin Sodium/ Dextrose 500 ml @ 13.472 mls/ hr ADJUST PER PROTOCOL IV 10/04/20 14:00 11/03/20 13:59 10/04/20 13:59 Insulin Aspart (NovoLOG) BEFORE MEALS AND HS SUBQ 10/03/20 11:30 01/01/21 11:29 10/04/20 11:51 Lorazepam (Ativan 2mg/ml 1ml) 2 mg Q4H PRN IV For Anxiety 10/03/20 09:29 10/10/20 09:28 10/04/20 09:13 Methylprednisolone Sodium Succinate (Solu-MEDROL) 60 mg EVERY 6 HOURS IVPB 10/03/20 12:00 01/01/21 11:59 10/04/20 11:46 Morphine Sulfate (Morphine Sulfate) 2 mg Q4H PRN IVP Moderate Pain (4-6) 10/03/20 09:15 10/10/20 09:14 Morphine Sulfate (Morphine Sulfate) 4 mg Q4H PRN IVP Severe Pain (7-10) 10/03/20 09:15 10/10/20 09:14 Nitroglycerin (Ntg) 0.4 mg Q5M X 3 DOSES PRN SL Prn Chest Pain 10/03/20 09:15 11/02/20 09:14 Ondansetron HCl (Zofran) 4 mg Q6H PRN IVP Nausea & Vomiting 10/03/20 09:28 11/02/20 09:27 Pantoprazole (Protonix) 40 mg DAILY IV 10/04/20 09:00 11/03/20 08:59 10/04/20 09:13 Piperacillin Sod/ Tazobactam Sod 3.375 gm/Dextrose 110 ml @ 220 mls/hr Q8H IV 10/03/20 15:00 10/10/20 14:59 10/04/20 15:08 Risperidone (RisperDAL) 1 mg DAILY NG 10/04/20 09:00 11/18/20 08:59 10/04/20 09:15 Sodium Hypochlorite (Dakin's Quarter Strength) 1 applic DAILY TOPIC 10/04/20 09:00 11/03/20 08:59 10/04/20 06:15 Vancomycin HCl 250 ml @ 166.667 mls/hr Q24H IVPB 10/04/20 04:00 10/09/20 03:59 10/04/20 03:35 Vancomycin HCl (Vanco pharmacy to dose) 1 ea DAILY PRN MISC Per rx protocol 10/03/20 09:30 11/02/20 09:29 Allergies: Coded Allergies: No Known Allergies (Unverified , 12/17/15) ROS Limited/Unobtainable: Yes Subjective 75 YO F admitted with respiratory failure. Now COPD exacerbation and UTI. Cover for Int Med-Dr Mazariegos. ICU Objective Last Vital Signs Date Time Temp Pulse Resp B/P (MAP) Pulse Ox O2 Delivery O2 Flow Rate FiO2 11/17/20 15:10 79 16 100 Mechanical Ventilator 30 80 16 30 10/04/20 13:00 123/56 (78) 10/04/20 08:00 99.3 10/03/20 09:21 12.0 Laboratory Tests Test 10/03/20 20:15 10/03/20 21:01 10/04/20 03:50 10/04/20 04:37 Activated Partial Thromboplast Time 106 SEC (23-33) H 51 SEC (23-33) H Total Creatine Kinase 184 U/L (26-308) Troponin I 0.693 ng/mL (0.000-0.056) 0.337 ng/mL (0.000-0.056) POC Whole Blood Glucose 227 MG/DL (74-106) H 230 MG/DL (74-106) H White Blood Count 12.3 K/UL (4.8-10.8) H Red Blood Count 4.68 M/UL (4.20-5.40) Hemoglobin 12.5 G/DL (12.0-16.0) Hematocrit 40.8 % (37.0-47.0) Mean Corpuscular Volume 87 FL (80-99) Mean Corpuscular Hemoglobin 26.6 PG (27.0-31.0) L Mean Corpuscular Hemoglobin Concent 30.5 G/DL (32.0-36.0) L Red Cell Distribution Width 15.6 % (11.6-14.8) H Platelet Count 202 K/UL (150-450) # Mean Platelet Volume 9.8 FL (6.5-10.1) Neutrophils (%) (Auto) % (45.0-75.0) Lymphocytes (%) (Auto) % (20.0-45.0) Monocytes (%) (Auto) % (1.0-10.0) Eosinophils (%) (Auto) % (0.0-3.0) Basophils (%) (Auto) % (0.0-2.0) Erythrocyte Sedimentation Rate 62 MM/HR (0-30) H Sodium Level 145 MMOL/L (136-145) Potassium Level 3.4 MMOL/L (3.5-5.1) L Chloride Level 107 MMOL/L (98-107) Carbon Dioxide Level 29 MMOL/L (21-32) Anion Gap 9 mmol/L (5-15) Blood Urea Nitrogen 53 mg/dL (7-18) H Creatinine 1.3 MG/DL (0.55-1.30) Estimat Glomerular Filtration Rate 48.6 mL/min (>60) Glucose Level 225 MG/DL (74-106) H Calcium Level 8.0 MG/DL (8.5-10.1) L Phosphorus Level 1.9 MG/DL (2.5-4.9) L Magnesium Level 2.3 MG/DL (1.8-2.4) Total Bilirubin 0.5 MG/DL (0.2-1.0) Aspartate Amino Transf (AST/SGOT) 34 U/L (15-37) Alanine Aminotransferase (ALT/SGPT) 16 U/L (12-78) Alkaline Phosphatase 36 U/L (46-116) L C-Reactive Protein, Quantitative < 0.4 mg/dL (0.00-0.90) Total Protein 8.1 G/DL (6.4-8.2) Albumin 2.5 G/DL (3.4-5.0) L Globulin 5.6 g/dL Albumin/Globulin Ratio 0.4 (1.0-2.7) L Test 10/04/20 08:06 10/04/20 11:47 Arterial Blood pH 7.480 (7.350-7.450) Arterial Blood Partial Pressure CO2 32.9 mmHg (35.0-45.0) L Arterial Blood Partial Pressure O2 75.1 mmHg (75.0-100.0) Arterial Blood HCO3 24.0 mmol/L (22.0-26.0) Arterial Blood Oxygen Saturation 95.0 % (95-100) Arterial Blood Base Excess 1.0 (-2-2) Juancarlos Test Positive Activated Partial Thromboplast Time > 150 SEC (23-33) *H Total Creatine Kinase 199 U/L (26-308) Troponin I 0.236 ng/mL (0.000-0.056) Microbiology Date/Time Source Procedure Growth Status 10/04/20 10:00 Nasopharynx SARS-CoV-2 RdRp Gene Assay - Final Complete 10/03/20 07:20 Rectum Received 10/03/20 06:00 Urine,Clean Catch Urine Culture - Preliminary Proteus Mirabilis Resulted 10/03/20 06:00 Nasal Nares - Final Complete 10/03/20 06:00 Nasal Nares - Final Complete 10/03/20 05:54 Nasopharynx SARS-CoV-2 RdRp Gene Assay - Final Complete Intake and Output 10/03/20 10/04/20 19:00 07:00 Intake Total 945.2095 ml 1471.942 ml Output Total 2100 ml 740 ml Balance -1154.7905 ml 731.942 ml Intake Free Water 10 ml 60 ml IV Total 895.2095 ml 1171.942 ml Tube Feeding 40 ml 240 ml Output Urine Total 2100 ml 740 ml # Bowel Movements 3 2 Objective PHYSICAL EXAMINATION: GENERAL: The patient is a well-developed and well-nourished female, who is currently intubated in the intensive care unit. HEENT: Eyes, pupils are equal and responsive to light and accommodation. Extraocular movements are intact. NECK: Supple without lymphadenopathy. CHEST: Mech vent; Coarse mechanical breath sounds bilaterally without wheezes or rales. CARDIOVASCULAR: Tachycardic, regular rhythm, S1-S2 are normal without murmurs, rubs, or gallops. ABDOMEN: Soft, nontender, and nondistended. Positive bowel sounds. No evidence of hepatosplenomegaly. Currently, no rebound or guarding noted. EXTREMITIES: Negative for clubbing, cyanosis, edema. RECTAL/GENITAL: Not performed. NEUROLOGICAL: Unable to assess. Assessment/Plan Assessment/Plan ASSESSMENT: This is a 75-year-old female with: 1. Acute hypoxemic respiratory failure. 2. Altered mental status. 3. Hypertension. 4. Chronic obstructive pulmonary disease. 5. Alzheimer's dementia. 6. UTI=proteus TREATMENT: 1. Acute hypoxic respiratory failure. Pulmonary/critical care = Dr. Will Quiros. The patient is currently intubated in the intensive care unit. ABX= Zosyn and vanco. The patient has also been started on Solu-Medrol for chronic obstructive pulmonary disease acute exacerbation. Follow recommendations of Pulmonary. 2. Hypertension. The patient is currently hypotensive. 3. Chronic obstructive pulmonary disease. A Pulmonary consultation has been obtained with Dr. Will Quiros. The patient is currently receiving intravenous Solu-Medrol and albuterol/Atrovent nebulized q.4 h. p.r.n. We will follow recommendations of Pulmonary. 4. Alzheimer's dementia. Curly Covarrubias MD Oct 04, 2020 17:11
--- NOTE | 2020-10-04 21:14 | Consultation ---
DATE OF CONSULTATION: 10/04/2020 CARDIAC CONSULTATION CONSULTING PHYSICIAN: Laurent Ramesh MD REFERRING PHYSICIANS: Elías Mazariegos MD; Will Quiros MD; and Curly Covarrubias MD. REASON FOR REFERRAL: Abnormal cardiac enzyme. HISTORY OF PRESENT ILLNESS: This is a 75-[facility], who is really not able to provide any meaningful history whatsoever. Information is obtained from the emergency room physicians as well as the present chart. The patient has a history of dementia and usually alert and oriented x1, and apparently was noted to be altered. prison apparently reported that they went to check on the patient at 3 a.m.; she was nonverbal. Normally, she is apparently oriented to her name and is responsive. She was also warm to touch, temperature running at 99.8. Paramedics reported the patient was hypoxic at 88% saturation. She does have a history of COPD. She was placed on a nonrebreather mask at 8 liters with resolution of her hypoxemia and subsequently transferred to the emergency room. In the emergency room, she was seen between two emergency room physicians and eventually got intubated in the emergency room and because of respiratory acidosis, a trial of BiPAP apparently failed to make it better. She was pancultured and started on some intravenous antibiotics, intubated, and was subsequently admitted to the hospital. A part of her laboratory values included cardiac enzyme that was abnormal. Therefore, this consultation was requested. The patient at this time is again not able to provide any meaningful history whatsoever. She had a COVID test that was negative at the facility on 2 separate occasions in the past 2 weeks and again in the emergency room here last night and today. PAST MEDICAL HISTORY: Positive for history of urinary tract infection, E. coli, enterococcus, hyponatremia resolved, hypertension, COPD/asthma, Alzheimer dementia, severe protein-calorie malnutrition, dysphagia, sacral decubitus ulcer stage IV, with previous history of syncope, schizophrenia with depression as well as recurrent nausea and vomiting, gastroenteritis, and agitation as well. MEDICATIONS: The data from [facility] indicates the patient is not on medications. SOCIAL HISTORY: She is a [facility]. Alcohol and tobacco use are not known. REVIEW OF SYSTEMS: Unable to obtain. MEDICATIONS: In the convalescent facility include high-protein nutrition. She takes amlodipine 5 mg daily, Breo Ellipta, calcium carbonate, lactulose, multivitamins, vitamin C, liquid protein, vitamin D, magnesium oxide, and Tylenol on an as-needed basis as well as 2 L via nasal cannula as needed. PHYSICAL EXAMINATION: GENERAL: Shows to be an elderly female, on a mechanical ventilator, not really communicating. She is minimally responsive to some noxious stimuli. NECK: Supple. No jugular venous distention. LUNGS: Anteriorly appeared clear to auscultation and percussion. CARDIAC: Regular rate and rhythm. No heaves or thrills noted. ABDOMEN: Soft. Maybe some tenderness. No guarding. No rigidity. No rebound tenderness. EXTREMITIES: There is no edema. NEUROLOGICAL: I guess the patient is minimally responsive and noncommunicative, on a mechanical ventilator. LABORATORY AND DIAGNOSTIC DATA: White count of 12.3, up from 9.1 with hemoglobin of 12.5 and platelet count of 202,000. Last blood gas, pH is 7.48, pCO2 of 33, pO2 of 75, and of 95 on oxygen degree is not known. Latest labs, sodium 145, potassium 3.4, chloride 107, bicarb 29, BUN 53, and creatinine of 1.3. The creatinine at the time of admission was down to 1.0, previously 0.6, that 0.6 last was in August 2019. Calcium was 8, phosphorus 1.9, magnesium 2.3. AST and ALT within normal limits. Alkaline phosphatase of 36. Troponin, the first set that was drawn was 1.069, subsequently 0.858, 0.69, 0.33, and 0.236. Blood sugar of 230. Albumin of 2.5, and her coags, D-dimer 0.64, INR 0.9, and PTT of 20, now the patient's PTT is greater than 150 on anticoagulation. A chest x-ray performed yesterday last shows right infrahilar airspace opacity, likely represents atelectasis, but pneumonia not excluded. An abdominal x-ray performed shows tip of the enteric tube in the distal stomach and the last echocardiogram that was performed here was on the , yesterday, the preliminary report of which indicates LV function was normal, but technically difficult. No significant valvular dysfunction. IVC was dilated suggestive of increased right atrial pressure. The patient's electrocardiogram available from transfer, I believe, this is the infrastructure administrator run EKG and shows sinus rhythm, right bundle-branch conduction defect, secondary ST-T wave changes. There are Q-waves in lead III, but not in lead II or aVF. Some biphasic T-waves are noted in V4 and V5. This is a poor quality tracing and needs to be repeated. ASSESSMENT AND PLAN: 1. Altered mental status. 2. Baseline dementia. 3. Izf-RO-[id number] myocardial infarction. 4. Respiratory failure, status post intubation. 5. COPD history. 6. Renal insufficiency. RECOMMENDATIONS: This patient was seen in cardiac consultation. Clinically, the patient unfortunately is not able to tell if she has had any symptoms or not. Nevertheless, her peak cardiac enzymes seemed to be at the time of admission. It is possible that the injury that she had sustained to her myocardium may be several days old. Nevertheless, CPK will be ordered and a set of EKGs will be ordered. An echocardiogram was performed and will be reviewed. Continue treatment of underlying altered mentation and respiratory problems. The preliminary echo report shows normal left ventricular systolic function. Probably, we will keep her on anticoagulation for 24 to 48 hours and discontinue that unless there are dynamic changes. EKG should be repeated on a regular basis. Laurent Ramesh M.D. DR: RAMSES JOB#: [id number] CC:
[2020-10-04] MEDS: Atorvastatin 20mg tab GT SCH (21:16)
[2020-10-05] VITALS (24 sets, daily range): BP systolic 113–154; BP diastolic 54–101
[2020-10-05] MEDS: LORazepam Inj 2mg/ml 1ml IV PRN ×4 (00:54→16:19)
[2020-10-05] MEDS: Albuterol/Ipratropium 3ml neb HHN SCH ×6 (02:20→22:39)
[2020-10-05 03:33] LABS: HEMATOCRIT 40.9 % (37.0-47.0); HEMOGLOBIN 12.5 G/DL (12.0-16.0); MEAN CORPUSCULAR VOLUME 88 FL (80-99); PLATELET COUNT 202 K/UL (150-450); RED BLOOD COUNT 4.65 M/UL (4.20-5.40); RED CELL DISTRIBUTION WIDTH 15.7 % (11.6-14.8); WHITE BLOOD COUNT 18.9 K/UL (4.8-10.8)
[2020-10-05 03:49] LABS: PHOSPHORUS 2.4 MG/DL (2.5-4.9)
[2020-10-05 04:01] LABS: ALANINE AMINOTRANSFERASE 21 U/L (12-78); ALBUMIN 2.4 G/DL (3.4-5.0); ALBUMIN/GLOBULIN RATIO 0.5 (1.0-2.7); ALKALINE PHOSPHATASE 34 U/L (46-116); ANION GAP 8 mmol/L (5-15); ASPARTATE AMINO TRANSFERASE 25 U/L (15-37); BILIRUBIN,TOTAL 0.5 MG/DL (0.2-1.0); BLOOD UREA NITROGEN 36 mg/dL (7-18); CALCIUM 7.7 MG/DL (8.5-10.1); CARBON DIOXIDE 27 MMOL/L (21-32); CHLORIDE 109 MMOL/L (98-107); POTASSIUM 3.4 MMOL/L (3.5-5.1); SODIUM 144 MMOL/L (136-145)
[2020-10-05] MEDS: Vancomycin 1.25gm/250ml Premix IVPB SCH (04:02)
[2020-10-05] MEDS: D5 1/2NS 1,000 ML IV SCH (04:03)
[2020-10-05] MEDS: Solu-MEDROL 125mg Inj IVPB SCH (05:35)
[2020-10-05] MEDS: NovoLOG Insulin Flexpen SUBQ SCH ×3 (06:28→16:30)
[2020-10-05] MEDS: Piperacillin/Tazobactam 3.375 GM in D5W 110 ML IV SCH ×3 (06:33→22:59)
[2020-10-05] MEDS: Dakin's 0.125% Soln (Quarter Strength) 16oz TOPIC SCH (07:14)
--- NOTE | 2020-10-05 08:20 | Infectious Diseases Prog Note ---
Assessment/Plan 75yo F with: Afebrile, Tmax 99.7 --> Febrile to 102 Normal WBC Acute hypoxic resp failure, SP intubation 10/03 COPD Non-verbal at baseline UTI GPC bacteremia, r/o contaminant 10/03 BCx +1/2 GPCs UA 10-15 WBC, UCx >100k P.mirabilis (S-CTX, R-bactrim) Resp cx p COVID rapid Ag neg Flu neg MRSA nares neg CXR: No focal consolidation, pleural effusion, or pneumothorax. Mild emphysema with increased interstitial markings. Cardiomegaly. Calcified aorta. 10/04 COVID rapid Ag neg 10/05 BCx ordered Dementia [facility] resident Plan: Cont vancomycin IV #3 Cont empiric Zosyn #3 On steroids per primary, solumedrol 60mg IV q6hrs Repeat BCx today given GPCs in BCx from admission F/u GPC in BCx, only 1/2, possible contaminant, f/u species Monitor CBC/CMP Monitor temp curve, hemodynamics Monitor resp status D/w RN Thank you for this consult. [facility] will continue to follow. Subjective Allergies: Coded Allergies: No Known Allergies (Unverified , 12/17/15) AF WBC up to 18 on steroids BCx from admission 1/2 +GPCs Hard to wean from vent given agitated Objective Last 24 Hour Vital Signs Date Time Temp Pulse Resp B/P (MAP) Pulse Ox O2 Delivery O2 Flow Rate FiO2 10/05/20 07:00 65 16 125/54 (77) 98 10/05/20 06:30 95 16 10/05/20 06:06 83 18 130/58 100 10/05/20 06:00 80 16 130/58 (82) 98 10/05/20 05:36 93 18 152/61 100 10/05/20 05:00 99 20 152/61 (91) 100 10/05/20 04:41 94 20 30 10/05/20 04:00 99.0 103 20 152/71 (98) 100 10/05/20 04:00 85 10/05/20 04:00 Mechanical Ventilator 10/05/20 03:00 84 16 129/101 (110) 97 10/05/20 02:20 77 16 100 Mechanical Ventilator 30 76 16 30 10/05/20 02:00 78 16 138/60 (86) 99 10/05/20 01:24 80 18 138/60 99 10/05/20 01:00 94 16 137/60 (85) 98 10/05/20 00:54 95 16 147/65 99 10/05/20 00:34 97 17 30 10/05/20 00:00 92 10/05/20 00:00 98.8 101 17 147/61 (89) 74 10/05/20 00:00 Mechanical Ventilator 10/04/20 23:00 99 17 135/59 (84) 100 10/04/20 22:48 99 16 100 Mechanical Ventilator 30 97 16 30 10/04/20 22:00 92 16 133/60 (84) 100 10/04/20 21:01 83 16 30 10/04/20 21:00 82 16 114/49 (70) 100 10/04/20 20:17 87 20 125/54 100 10/04/20 20:00 98.8 96 16 125/54 (77) 100 10/04/20 20:00 88 10/04/20 20:00 Mechanical Ventilator 10/04/20 19:47 108 20 127/54 100 10/04/20 19:28 94 16 100 Mechanical Ventilator 30 90 16 30 10/04/20 19:00 93 17 127/54 (78) 100 10/04/20 18:00 100 17 144/63 (90) 100 10/04/20 17:21 85 17 30 10/04/20 17:00 85 16 123/53 (76) 10/04/20 16:00 Mechanical Ventilator 10/04/20 16:00 86 10/04/20 16:00 99.3 84 16 118/55 (76) 10/04/20 15:10 79 16 100 Mechanical Ventilator 30 80 16 30 10/04/20 15:00 79 16 116/54 (74) 100 10/04/20 14:00 84 16 117/52 (73) 10/04/20 13:20 85 16 30 10/04/20 13:00 88 16 123/56 (78) 10/04/20 12:00 89 10/04/20 12:00 99.0 90 16 134/61 (85) 100 10/04/20 12:00 Mechanical Ventilator 10/04/20 11:17 104 18 100 Mechanical Ventilator 30 97 18 30 10/04/20 11:00 88 16 114/51 (72) 100 10/04/20 10:00 100 16 122/53 (76) 100 10/04/20 09:43 101 18 117/55 100 10/04/20 09:39 85 16 30 10/04/20 09:13 101 18 117/55 100 10/04/20 09:00 104 16 116/55 (75) 100 Height (Feet): 5 Height (Inches): 4.00 Weight (Pounds): 135 Gen: NAD HEENT: NCAT, ETT CV: RRR Pulm: CTAB on vent Abd: Non-distended Ext: No c/c/e Skin: No visible rashes Neuro: Sedated Microbiology Date/Time Source Procedure Growth Status 10/04/20 10:00 Nasopharynx SARS-CoV-2 RdRp Gene Assay - Final Complete 10/03/20 13:50 Blood Blood Culture - Preliminary Gram Positive Cocci Resulted 10/03/20 13:45 Blood Blood Culture - Preliminary NO GROWTH AFTER 24 HOURS Resulted 10/03/20 07:20 Rectum Received 10/03/20 07:20 Nasal Nares MRSA Culture - Final NO METHICILLIN RESISTANT STAPH AUREUS... Complete 10/03/20 06:00 Urine,Clean Catch Urine Culture - Preliminary Proteus Mirabilis Resulted 10/03/20 06:00 Nasal Nares - Final Complete 10/03/20 06:00 Nasal Nares - Final Complete 10/03/20 05:54 Nasopharynx SARS-CoV-2 RdRp Gene Assay - Final Complete Laboratory Tests Test 10/04/20 11:47 10/04/20 20:00 10/04/20 21:24 10/05/20 02:50 Activated Partial Thromboplast Time > 150 SEC (23-33) *H 41 SEC (23-33) H 67 SEC (23-33) H Total Creatine Kinase 199 U/L (26-308) Troponin I 0.236 ng/mL (0.000-0.056) POC Whole Blood Glucose 182 MG/DL (74-106) H White Blood Count 18.9 K/UL (4.8-10.8) #H Red Blood Count 4.65 M/UL (4.20-5.40) Hemoglobin 12.5 G/DL (12.0-16.0) Hematocrit 40.9 % (37.0-47.0) Mean Corpuscular Volume 88 FL (80-99) Mean Corpuscular Hemoglobin 26.9 PG (27.0-31.0) L Mean Corpuscular Hemoglobin Concent 30.7 G/DL (32.0-36.0) L Red Cell Distribution Width 15.7 % (11.6-14.8) H Platelet Count 202 K/UL (150-450) Mean Platelet Volume 9.9 FL (6.5-10.1) Neutrophils (%) (Auto) % (45.0-75.0) Lymphocytes (%) (Auto) % (20.0-45.0) Monocytes (%) (Auto) % (1.0-10.0) Eosinophils (%) (Auto) % (0.0-3.0) Basophils (%) (Auto) % (0.0-2.0) Neutrophils % (Manual) Pending Lymphocytes % (Manual) Pending Platelet Estimate Pending Platelet Morphology Pending Sodium Level 144 MMOL/L (136-145) Potassium Level 3.4 MMOL/L (3.5-5.1) L Chloride Level 109 MMOL/L (98-107) H Carbon Dioxide Level 27 MMOL/L (21-32) Anion Gap 8 mmol/L (5-15) Blood Urea Nitrogen 36 mg/dL (7-18) H Creatinine 1.0 MG/DL (0.55-1.30) Estimat Glomerular Filtration Rate > 60 mL/min (>60) Glucose Level 214 MG/DL (74-106) H Calcium Level 7.7 MG/DL (8.5-10.1) L Phosphorus Level 2.4 MG/DL (2.5-4.9) L Magnesium Level 2.5 MG/DL (1.8-2.4) H Total Bilirubin 0.5 MG/DL (0.2-1.0) Aspartate Amino Transf (AST/SGOT) 25 U/L (15-37) Alanine Aminotransferase (ALT/SGPT) 21 U/L (12-78) Alkaline Phosphatase 34 U/L (46-116) L Pro-B-Type Natriuretic Peptide 1230 pg/mL (0-125) H Total Protein 7.7 G/DL (6.4-8.2) Albumin 2.4 G/DL (3.4-5.0) L Globulin 5.3 g/dL Albumin/Globulin Ratio 0.5 (1.0-2.7) L Test 10/05/20 03:13 10/05/20 08:03 POC Whole Blood Glucose 213 MG/DL (74-106) H Arterial Blood pH 7.492 (7.350-7.450) Arterial Blood Partial Pressure CO2 31.3 mmHg (35.0-45.0) L Arterial Blood Partial Pressure O2 75.2 mmHg (75.0-100.0) Arterial Blood HCO3 23.4 mmol/L (22.0-26.0) Arterial Blood Oxygen Saturation 95.4 % (95-100) Arterial Blood Base Excess 0.8 (-2-2) Juancarlos Test Positive Current Medications Medications (Trade) Dose Ordered Sig/Bharti Route PRN Reason Start Time Stop Time Status Last Admin Dose Admin Acetaminophen (Tylenol) 650 mg Q4H PRN GT Temp >100.5 10/03/20 17:15 11/02/20 17:14 10/03/20 17:48 Albuterol/ Ipratropium (Albuterol/ Ipratropium) 3 ml Q4HRT HHN 10/03/20 11:00 10/08/20 10:59 10/05/20 07:46 Aspirin (ASA) 81 mg DAILY GT 10/04/20 14:45 11/18/20 14:44 10/04/20 15:08 Atorvastatin Calcium (Lipitor) 20 mg BEDTIME GT 10/04/20 21:00 01/02/21 20:59 10/04/20 21:16 Dextrose (Dextrose 50%) 25 ml Q30M PRN IV Hypoglycemia 10/03/20 09:28 01/01/21 09:27 Dextrose (Dextrose 50%) 50 ml Q30M PRN IV Hypoglycemia 10/03/20 09:28 01/01/21 09:27 Dextrose/Sodium Chloride 1,000 ml @ 50 mls/hr Q20H IV 10/03/20 11:00 11/02/20 10:59 10/05/20 04:03 Docusate Sodium (Colace) 100 mg TWICE A DAY GT 10/03/20 18:00 11/02/20 17:59 10/04/20 17:28 Heparin Sodium/ Dextrose 500 ml @ 18.371 mls/ hr ADJUST PER PROTOCOL IV 10/04/20 20:30 11/03/20 20:29 10/04/20 20:50 Insulin Aspart (NovoLOG) BEFORE MEALS AND HS SUBQ 10/03/20 11:30 01/01/21 11:29 10/05/20 06:28 Lorazepam (Ativan 2mg/ml 1ml) 2 mg Q4H PRN IV For Anxiety 10/03/20 09:29 10/10/20 09:28 10/05/20 05:36 Methylprednisolone Sodium Succinate (Solu-MEDROL) 60 mg EVERY 6 HOURS IVPB 10/03/20 12:00 01/01/21 11:59 10/05/20 05:35 Morphine Sulfate (Morphine Sulfate) 2 mg Q4H PRN IVP Moderate Pain (4-6) 10/03/20 09:15 10/10/20 09:14 Morphine Sulfate (Morphine Sulfate) 4 mg Q4H PRN IVP Severe Pain (7-10) 10/03/20 09:15 10/10/20 09:14 Nitroglycerin (Ntg) 0.4 mg Q5M X 3 DOSES PRN SL Prn Chest Pain 10/03/20 09:15 11/02/20 09:14 Ondansetron HCl (Zofran) 4 mg Q6H PRN IVP Nausea & Vomiting 10/03/20 09:28 11/02/20 09:27 Pantoprazole (Protonix) 40 mg DAILY IV 10/04/20 09:00 11/03/20 08:59 10/04/20 09:13 Piperacillin Sod/ Tazobactam Sod 3.375 gm/Dextrose 110 ml @ 220 mls/hr Q8H IV 10/03/20 15:00 10/10/20 14:59 10/05/20 06:33 Risperidone (RisperDAL) 1 mg DAILY NG 10/04/20 09:00 11/18/20 08:59 10/04/20 09:15 Sodium Hypochlorite (Dakin's Quarter Strength) 1 applic DAILY TOPIC 10/04/20 09:00 11/03/20 08:59 10/05/20 07:14 Vancomycin HCl 250 ml @ 166.667 mls/hr Q24H IVPB 10/04/20 04:00 10/09/20 03:59 10/05/20 04:02 Vancomycin HCl (Vanco pharmacy to dose) 1 ea DAILY PRN MISC Per rx protocol 10/03/20 09:30 11/02/20 09:29 Sondra Sepulveda M.D. Oct 05, 2020 08:20
[2020-10-05] MEDS: Aspirin Baby 81mg GT SCH (09:21)
[2020-10-05] MEDS: Docusate 100mg/10ml Liq GT SCH ×2 (09:21→18:12)
[2020-10-05] MEDS: Pantoprazole Inj IV SCH (09:21)
[2020-10-05] MEDS ORDERED: D5 1/2NS 1000ml IV ONE (10:15)
[2020-10-05] MEDS ORDERED: NS 275ml ONE (10:15)
[2020-10-05] MEDS ORDERED: Lidocaine 1% Plain 30 ml INJ SCH (10:30)
[2020-10-05] MEDS ORDERED: Heparin1,000 units/500ml Premix(Conc:2 units/ml) IV SCH (11:00)
--- NOTE | 2020-10-05 11:32 | Pulmonolgy Critical Care Note ---
Critical Care - Asmt/Plan Problems: (1) Acute respiratory failure (2) ATN (acute tubular necrosis) (3) Non-ST elevation (NSTEMI) myocardial infarction (4) COPD (chronic obstructive pulmonary disease) (5) Stage 4 decubitus ulcer (6) Severe protein-calorie malnutrition (7) Alzheimer's dementia (8) History of hypertension (9) Psychiatric disorder Respiratory: monitor respiratory rate, adjust FIO2, CXR Cardiac: continue to monitor HR/BP Renal: F/U I&O, check electrolytes Infectious Disease: check cultures Gastrointestinal: continue feedings/current rate Endocrine: monitor blood sugar Hematologic: monitor H/H, transfuse if hgb<8.5 Neurologic: PRN Ativan, PRN Morphine, keep patient comfortable Affect: PRN ativan Prophylaxis: Protonix Disposition: keep in ICU Notes 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: 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 worker, 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, renal Discussed with: nurses, consultants, rehabilitation 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 - Objective Last 24 Hour Vital Signs Date Time Temp Pulse Resp B/P (MAP) Pulse Ox O2 Delivery O2 Flow Rate FiO2 10/05/20 11:00 67 16 129/64 (85) 100 10/05/20 10:23 90 17 125/54 98 10/05/20 10:00 98.9 92 19 137/69 (91) 100 10/05/20 09:53 90 17 125/54 98 10/05/20 09:15 90 17 30 10/05/20 09:00 91 18 136/58 (84) 98 10/05/20 08:00 89 17 126/62 (83) 98 10/05/20 08:00 89 10/05/20 07:56 70 16 30 10/05/20 07:00 65 16 125/54 (77) 98 10/05/20 06:30 95 16 10/05/20 06:06 83 18 130/58 100 10/05/20 06:00 80 16 130/58 (82) 98 10/05/20 05:36 93 18 152/61 100 10/05/20 05:00 99 20 152/61 (91) 100 10/05/20 04:41 94 20 30 10/05/20 04:00 99.0 103 20 152/71 (98) 100 10/05/20 04:00 85 10/05/20 04:00 Mechanical Ventilator 10/05/20 03:00 84 16 129/101 (110) 97 10/05/20 02:20 77 16 100 Mechanical Ventilator 30 76 16 30 10/05/20 02:00 78 16 138/60 (86) 99 10/05/20 01:24 80 18 138/60 99 10/05/20 01:00 94 16 137/60 (85) 98 10/05/20 00:54 95 16 147/65 99 10/05/20 00:34 97 17 30 10/05/20 00:00 92 10/05/20 00:00 98.8 101 17 147/61 (89) 74 10/05/20 00:00 Mechanical Ventilator 10/04/20 23:00 99 17 135/59 (84) 100 10/04/20 22:48 99 16 100 Mechanical Ventilator 30 97 16 30 10/04/20 22:00 92 16 133/60 (84) 100 10/04/20 21:01 83 16 30 10/04/20 21:00 82 16 114/49 (70) 100 10/04/20 20:17 87 20 125/54 100 10/04/20 20:00 98.8 96 16 125/54 (77) 100 10/04/20 20:00 88 10/04/20 20:00 Mechanical Ventilator 10/04/20 19:47 108 20 127/54 100 10/04/20 19:28 94 16 100 Mechanical Ventilator 30 90 16 30 10/04/20 19:00 93 17 127/54 (78) 100 10/04/20 18:00 100 17 144/63 (90) 100 10/04/20 17:21 85 17 30 10/04/20 17:00 85 16 123/53 (76) 10/04/20 16:00 Mechanical Ventilator 10/04/20 16:00 86 10/04/20 16:00 99.3 84 16 118/55 (76) 10/04/20 15:10 79 16 100 Mechanical Ventilator 30 80 16 30 10/04/20 15:00 79 16 116/54 (74) 100 10/04/20 14:00 84 16 117/52 (73) 10/04/20 13:20 85 16 30 10/04/20 13:00 88 16 123/56 (78) 10/04/20 12:00 89 10/04/20 12:00 99.0 90 16 134/61 (85) 100 10/04/20 12:00 Mechanical Ventilator Status: awake, sedated Condition: critical, improving HEENT: atraumatic Neck: full ROM Lungs: clear Heart: HR/BP stable Abdomen: soft, non-tender Extremities: no C/C/E Micro: Microbiology Date/Time Source Procedure Growth Status 10/04/20 10:00 Nasopharynx SARS-CoV-2 RdRp Gene Assay - Final Complete 10/03/20 19:30 Sputum Gram Stain - Final Resulted 10/03/20 19:30 Sputum Sputum Culture - Preliminary NORMAL UPPER RESPIRATORY CHANDAN AT 24 ... Resulted 10/03/20 13:50 Blood Blood Culture - Preliminary Gram Positive Cocci Resulted 10/03/20 13:45 Blood Blood Culture - Preliminary NO GROWTH AFTER 24 HOURS Resulted 10/03/20 07:20 Rectum - Final NO CARBAPENEM-RESISTANT ENTEROBACTERI... Complete 10/03/20 07:20 Rectum VRE Culture - Final NO VANCOMYCIN RESISTANT ENTEROCOCCUS ... Complete 10/03/20 07:20 Nasal Nares MRSA Culture - Final NO METHICILLIN RESISTANT STAPH AUREUS... Complete 10/03/20 06:00 Urine,Clean Catch Urine Culture - Preliminary Proteus Mirabilis Resulted 10/03/20 06:00 Nasal Nares - Final Complete 10/03/20 06:00 Nasal Nares - Final Complete 10/03/20 05:54 Nasopharynx SARS-CoV-2 RdRp Gene Assay - Final Complete Accucheck: 213 Critical Care - Subjective ROS Limited/Unobtainable: Yes Condition: critical EKG Rhythm: Sinus Rhythm FI02: 30 Vent Support Breath Rate: 16 Vent Support Mode: AC Vent Tidal Volume: 600 Sputum Amount: Small PEEP: 5.0 PIP: 21 Tube Feeding Amount: 20 I&O: Intake and Output 10/04/20 10/05/20 19:00 07:00 Intake Total 1546.373 ml 1487.466 ml Output Total 570 ml 670 ml Balance 976.373 ml 817.466 ml Intake Free Water 60 ml 90 ml IV Total 1246.373 ml 1157.466 ml Tube Feeding 240 ml 240 ml Output Urine Total 570 ml 670 ml # Bowel Movements 3 3 CXR: no changes ET-Tube: 7.5 ET Position: 23 Labs: Laboratory Tests Test 10/04/20 11:47 10/04/20 20:00 10/04/20 21:24 10/05/20 02:50 Activated Partial Thromboplast Time > 150 SEC (23-33) *H 41 SEC (23-33) H 67 SEC (23-33) H Total Creatine Kinase 199 U/L (26-308) Troponin I 0.236 ng/mL (0.000-0.056) POC Whole Blood Glucose 182 MG/DL (74-106) H White Blood Count 18.9 K/UL (4.8-10.8) #H Red Blood Count 4.65 M/UL (4.20-5.40) Hemoglobin 12.5 G/DL (12.0-16.0) Hematocrit 40.9 % (37.0-47.0) Mean Corpuscular Volume 88 FL (80-99) Mean Corpuscular Hemoglobin 26.9 PG (27.0-31.0) L Mean Corpuscular Hemoglobin Concent 30.7 G/DL (32.0-36.0) L Red Cell Distribution Width 15.7 % (11.6-14.8) H Platelet Count 202 K/UL (150-450) Mean Platelet Volume 9.9 FL (6.5-10.1) Neutrophils (%) (Auto) % (45.0-75.0) Lymphocytes (%) (Auto) % (20.0-45.0) Monocytes (%) (Auto) % (1.0-10.0) Eosinophils (%) (Auto) % (0.0-3.0) Basophils (%) (Auto) % (0.0-2.0) Differential Total Cells Counted 100 Neutrophils % (Manual) 85 % (45-75) H Lymphocytes % (Manual) 6 % (20-45) L Monocytes % (Manual) 3 % (1-10) Eosinophils % (Manual) 1 % (0-3) Basophils % (Manual) 0 % (0-2) Band Neutrophils 5 % (0-8) Platelet Estimate Adequate Platelet Morphology Normal Red Blood Cell Morphology Normal Sodium Level 144 MMOL/L (136-145) Potassium Level 3.4 MMOL/L (3.5-5.1) L Chloride Level 109 MMOL/L (98-107) H Carbon Dioxide Level 27 MMOL/L (21-32) Anion Gap 8 mmol/L (5-15) Blood Urea Nitrogen 36 mg/dL (7-18) H Creatinine 1.0 MG/DL (0.55-1.30) Estimat Glomerular Filtration Rate > 60 mL/min (>60) Glucose Level 214 MG/DL (74-106) H Calcium Level 7.7 MG/DL (8.5-10.1) L Phosphorus Level 2.4 MG/DL (2.5-4.9) L Magnesium Level 2.5 MG/DL (1.8-2.4) H Total Bilirubin 0.5 MG/DL (0.2-1.0) Aspartate Amino Transf (AST/SGOT) 25 U/L (15-37) Alanine Aminotransferase (ALT/SGPT) 21 U/L (12-78) Alkaline Phosphatase 34 U/L (46-116) L Pro-B-Type Natriuretic Peptide 1230 pg/mL (0-125) H Total Protein 7.7 G/DL (6.4-8.2) Albumin 2.4 G/DL (3.4-5.0) L Globulin 5.3 g/dL Albumin/Globulin Ratio 0.5 (1.0-2.7) L Test 10/05/20 03:13 10/05/20 08:03 POC Whole Blood Glucose 213 MG/DL (74-106) H Arterial Blood pH 7.492 (7.350-7.450) Arterial Blood Partial Pressure CO2 31.3 mmHg (35.0-45.0) L Arterial Blood Partial Pressure O2 75.2 mmHg (75.0-100.0) Arterial Blood HCO3 23.4 mmol/L (22.0-26.0) Arterial Blood Oxygen Saturation 95.4 % (95-100) Arterial Blood Base Excess 0.8 (-2-2) Juancarlos Test Positive Will Quiros MD Oct 05, 2020 11:32
--- NOTE | 2020-10-05 11:46 | Internal Med Progress Note ---
Subjective Date of Service: Oct 05, 2020 Physician Name MarciCurly Attending Physician Elías Mazariegos MD Current Medications Medications (Trade) Dose Ordered Sig/Bharti Route PRN Reason Start Time Stop Time Status Last Admin Dose Admin Acetaminophen (Tylenol) 650 mg Q4H PRN GT Temp >100.5 10/03/20 17:15 11/02/20 17:14 10/03/20 17:48 Albuterol/ Ipratropium (Albuterol/ Ipratropium) 3 ml Q4HRT HHN 10/03/20 11:00 10/08/20 10:59 10/05/20 11:00 Aspirin (ASA) 81 mg DAILY GT 10/04/20 14:45 11/18/20 14:44 10/05/20 09:21 Atorvastatin Calcium (Lipitor) 20 mg BEDTIME GT 10/04/20 21:00 01/02/21 20:59 10/04/20 21:16 Chlorhexidine Gluconate (Rahel-Hex 2%) 1 applic DAILY@2000 TOPIC 10/05/20 20:00 01/03/21 19:59 Dextrose (Dextrose 50%) 25 ml Q30M PRN IV Hypoglycemia 10/03/20 09:28 01/01/21 09:27 Dextrose (Dextrose 50%) 50 ml Q30M PRN IV Hypoglycemia 10/03/20 09:28 01/01/21 09:27 Dextrose/Sodium Chloride 1,000 ml @ 50 mls/hr Q20H IV 10/03/20 11:00 11/02/20 10:59 10/05/20 04:03 Docusate Sodium (Colace) 100 mg TWICE A DAY GT 10/03/20 18:00 11/02/20 17:59 10/05/20 09:21 Heparin Sodium/ Dextrose 500 ml @ 18.371 mls/ hr ADJUST PER PROTOCOL IV 10/04/20 20:30 11/03/20 20:29 10/04/20 20:50 Heparin Sodium/ Sodium Chloride (Heparin 1000 units/500ml Premix) 1,000 unit ONCE IV 10/05/20 11:00 10/05/20 20:00 Insulin Aspart (NovoLOG) BEFORE MEALS AND HS SUBQ 10/03/20 11:30 01/01/21 11:29 10/05/20 06:28 Lidocaine HCl (Xylocaine 1% 30ml) 30 ml ONCE INJ 10/05/20 10:30 10/05/20 20:00 Lorazepam (Ativan 2mg/ml 1ml) 2 mg Q4H PRN IV For Anxiety 10/03/20 09:29 10/10/20 09:28 10/05/20 09:53 Methylprednisolone Sodium Succinate (Solu-MEDROL) 40 mg DAILY IVP 10/06/20 09:00 01/04/21 08:59 Morphine Sulfate (Morphine Sulfate) 2 mg Q4H PRN IVP Moderate Pain (4-6) 10/03/20 09:15 10/10/20 09:14 Morphine Sulfate (Morphine Sulfate) 4 mg Q4H PRN IVP Severe Pain (7-10) 10/03/20 09:15 10/10/20 09:14 Nitroglycerin (Ntg) 0.4 mg Q5M X 3 DOSES PRN SL Prn Chest Pain 10/03/20 09:15 11/02/20 09:14 Ondansetron HCl (Zofran) 4 mg Q6H PRN IVP Nausea & Vomiting 10/03/20 09:28 11/02/20 09:27 Pantoprazole (Protonix) 40 mg DAILY IV 10/04/20 09:00 11/03/20 08:59 10/05/20 09:21 Piperacillin Sod/ Tazobactam Sod 3.375 gm/Dextrose 110 ml @ 220 mls/hr Q8H IV 10/03/20 15:00 10/10/20 14:59 10/05/20 06:33 Risperidone (RisperDAL) 1 mg DAILY NG 10/04/20 09:00 11/18/20 08:59 10/05/20 09:21 Sodium Hypochlorite (Dakin's Quarter Strength) 1 applic DAILY TOPIC 10/04/20 09:00 11/03/20 08:59 10/05/20 07:14 Vancomycin HCl 250 ml @ 166.667 mls/hr Q24H IVPB 10/04/20 04:00 10/09/20 03:59 10/05/20 04:02 Vancomycin HCl (Vanco pharmacy to dose) 1 ea DAILY PRN MISC Per rx protocol 10/03/20 09:30 11/02/20 09:29 Allergies: Coded Allergies: No Known Allergies (Unverified , 12/17/15) ROS Limited/Unobtainable: Yes Subjective 75 YO F admitted with respiratory failure. Now COPD exacerbation and UTI. Intubated and sedated. Cover for Randi Castillo-Dr Mazariegos. ICU Objective Last Vital Signs Date Time Temp Pulse Resp B/P (MAP) Pulse Ox O2 Delivery O2 Flow Rate FiO2 10/05/20 11:00 67 16 129/64 (85) 100 10/05/20 10:00 98.9 10/05/20 09:15 30 10/05/20 04:00 Mechanical Ventilator 10/03/20 09:21 12.0 Laboratory Tests Test 10/04/20 11:47 10/04/20 20:00 10/04/20 21:24 10/05/20 02:50 Activated Partial Thromboplast Time > 150 SEC (23-33) *H 41 SEC (23-33) H 67 SEC (23-33) H Total Creatine Kinase 199 U/L (26-308) Troponin I 0.236 ng/mL (0.000-0.056) POC Whole Blood Glucose 182 MG/DL (74-106) H White Blood Count 18.9 K/UL (4.8-10.8) #H Red Blood Count 4.65 M/UL (4.20-5.40) Hemoglobin 12.5 G/DL (12.0-16.0) Hematocrit 40.9 % (37.0-47.0) Mean Corpuscular Volume 88 FL (80-99) Mean Corpuscular Hemoglobin 26.9 PG (27.0-31.0) L Mean Corpuscular Hemoglobin Concent 30.7 G/DL (32.0-36.0) L Red Cell Distribution Width 15.7 % (11.6-14.8) H Platelet Count 202 K/UL (150-450) Mean Platelet Volume 9.9 FL (6.5-10.1) Neutrophils (%) (Auto) % (45.0-75.0) Lymphocytes (%) (Auto) % (20.0-45.0) Monocytes (%) (Auto) % (1.0-10.0) Eosinophils (%) (Auto) % (0.0-3.0) Basophils (%) (Auto) % (0.0-2.0) Differential Total Cells Counted 100 Neutrophils % (Manual) 85 % (45-75) H Lymphocytes % (Manual) 6 % (20-45) L Monocytes % (Manual) 3 % (1-10) Eosinophils % (Manual) 1 % (0-3) Basophils % (Manual) 0 % (0-2) Band Neutrophils 5 % (0-8) Platelet Estimate Adequate Platelet Morphology Normal Red Blood Cell Morphology Normal Sodium Level 144 MMOL/L (136-145) Potassium Level 3.4 MMOL/L (3.5-5.1) L Chloride Level 109 MMOL/L (98-107) H Carbon Dioxide Level 27 MMOL/L (21-32) Anion Gap 8 mmol/L (5-15) Blood Urea Nitrogen 36 mg/dL (7-18) H Creatinine 1.0 MG/DL (0.55-1.30) Estimat Glomerular Filtration Rate > 60 mL/min (>60) Glucose Level 214 MG/DL (74-106) H Calcium Level 7.7 MG/DL (8.5-10.1) L Phosphorus Level 2.4 MG/DL (2.5-4.9) L Magnesium Level 2.5 MG/DL (1.8-2.4) H Total Bilirubin 0.5 MG/DL (0.2-1.0) Aspartate Amino Transf (AST/SGOT) 25 U/L (15-37) Alanine Aminotransferase (ALT/SGPT) 21 U/L (12-78) Alkaline Phosphatase 34 U/L (46-116) L Pro-B-Type Natriuretic Peptide 1230 pg/mL (0-125) H Total Protein 7.7 G/DL (6.4-8.2) Albumin 2.4 G/DL (3.4-5.0) L Globulin 5.3 g/dL Albumin/Globulin Ratio 0.5 (1.0-2.7) L Test 10/05/20 03:13 10/05/20 08:03 POC Whole Blood Glucose 213 MG/DL (74-106) H Arterial Blood pH 7.492 (7.350-7.450) Arterial Blood Partial Pressure CO2 31.3 mmHg (35.0-45.0) L Arterial Blood Partial Pressure O2 75.2 mmHg (75.0-100.0) Arterial Blood HCO3 23.4 mmol/L (22.0-26.0) Arterial Blood Oxygen Saturation 95.4 % (95-100) Arterial Blood Base Excess 0.8 (-2-2) Juancarlos Test Positive Microbiology Date/Time Source Procedure Growth Status 10/04/20 10:00 Nasopharynx SARS-CoV-2 RdRp Gene Assay - Final Complete 10/03/20 19:30 Sputum Gram Stain - Final Resulted 10/03/20 19:30 Sputum Sputum Culture - Preliminary NORMAL UPPER RESPIRATORY CHANDAN AT 24 ... Resulted 10/03/20 13:50 Blood Blood Culture - Preliminary Gram Positive Cocci Resulted 10/03/20 13:45 Blood Blood Culture - Preliminary NO GROWTH AFTER 24 HOURS Resulted 10/03/20 07:20 Rectum - Final NO CARBAPENEM-RESISTANT ENTEROBACTERI... Complete 10/03/20 07:20 Rectum VRE Culture - Final NO VANCOMYCIN RESISTANT ENTEROCOCCUS ... Complete 10/03/20 07:20 Nasal Nares MRSA Culture - Final NO METHICILLIN RESISTANT STAPH AUREUS... Complete 10/03/20 06:00 Urine,Clean Catch Urine Culture - Preliminary Proteus Mirabilis Resulted 10/03/20 06:00 Nasal Nares - Final Complete 10/03/20 06:00 Nasal Nares - Final Complete 10/03/20 05:54 Nasopharynx SARS-CoV-2 RdRp Gene Assay - Final Complete Intake and Output 10/04/20 10/05/20 19:00 07:00 Intake Total 1546.373 ml 1487.466 ml Output Total 570 ml 670 ml Balance 976.373 ml 817.466 ml Intake Free Water 60 ml 90 ml IV Total 1246.373 ml 1157.466 ml Tube Feeding 240 ml 240 ml Output Urine Total 570 ml 670 ml # Bowel Movements 3 3 Objective PHYSICAL EXAMINATION: GENERAL: The patient is a well-developed and well-nourished female, who is currently intubated in the intensive care unit. HEENT: Eyes, pupils are equal and responsive to light and accommodation. Extraocular movements are intact. NECK: Supple without lymphadenopathy. CHEST: Mech vent; Coarse mechanical breath sounds bilaterally without wheezes or rales. CARDIOVASCULAR: Tachycardic, regular rhythm, S1-S2 are normal without murmurs, rubs, or gallops. ABDOMEN: Soft, nontender, and nondistended. Positive bowel sounds. No evidence of hepatosplenomegaly. Currently, no rebound or guarding noted. EXTREMITIES: Negative for clubbing, cyanosis, edema. RECTAL/GENITAL: Not performed. NEUROLOGICAL: Unable to assess. Assessment/Plan Assessment/Plan ASSESSMENT: This is a 75-year-old female with: 1. Acute hypoxemic respiratory failure. 2. Altered mental status. 3. Hypertension. 4. Chronic obstructive pulmonary disease. 5. Alzheimer's dementia. 6. UTI=proteus TREATMENT: 1. Acute hypoxic respiratory failure. Pulmonary/critical care = Dr. Will Quiros. The patient is currently intubated in the intensive care unit. ABX= Zosyn and vanco. The patient has also been started on Solu-Medrol for chronic obstructive pulmonary disease acute exacerbation. Follow recommendations of Pulmonary. 2. Hypertension. The patient is currently hypotensive. 3. Chronic obstructive pulmonary disease. A Pulmonary consultation has been obtained with Dr. Will Quiros. The patient is currently receiving intravenous Solu-Medrol and albuterol/Atrovent nebulized q.4 h. p.r.n. We will follow recommendations of Pulmonary. 4. Alzheimer's dementia. 5. Needs PICC Curly Covarrubias MD Oct 05, 2020 11:46
--- NOTE | 2020-10-05 11:48 | General Progress Note ---
Progress Note Progress Note Pt needs a picc line for life-saving medications. No family member available to sign any consents. Will Quiros MD Oct 05, 2020 11:48
--- NOTE | 2020-10-05 13:49 | Surgery Progress Note ---
Surgery Progress Note Subjective Additional Comments ill appearing on support no n/v labs reviewed Objective Last 24 Hour Vital Signs Date Time Temp Pulse Resp B/P (MAP) Pulse Ox O2 Delivery O2 Flow Rate FiO2 10/05/20 12:00 84 10/05/20 12:00 80 16 113/56 (75) 100 10/05/20 11:10 74 16 100 Mechanical Ventilator 30 76 16 30 10/05/20 11:00 67 16 129/64 (85) 100 10/05/20 10:23 90 17 125/54 98 10/05/20 10:00 98.9 92 19 137/69 (91) 100 10/05/20 09:53 90 17 125/54 98 10/05/20 09:15 90 17 30 10/05/20 09:00 91 18 136/58 (84) 98 10/05/20 08:00 89 17 126/62 (83) 98 10/05/20 08:00 30 10/05/20 08:00 Mechanical Ventilator 10/05/20 08:00 89 10/05/20 07:56 70 16 30 10/05/20 07:00 65 16 125/54 (77) 98 10/05/20 06:30 95 16 10/05/20 06:06 83 18 130/58 100 10/05/20 06:00 80 16 130/58 (82) 98 10/05/20 05:36 93 18 152/61 100 10/05/20 05:00 99 20 152/61 (91) 100 10/05/20 04:41 94 20 30 10/05/20 04:00 99.0 103 20 152/71 (98) 100 10/05/20 04:00 85 10/05/20 04:00 Mechanical Ventilator 10/05/20 03:00 84 16 129/101 (110) 97 10/05/20 02:20 77 16 100 Mechanical Ventilator 30 76 16 30 10/05/20 02:00 78 16 138/60 (86) 99 10/05/20 01:24 80 18 138/60 99 10/05/20 01:00 94 16 137/60 (85) 98 10/05/20 00:54 95 16 147/65 99 10/05/20 00:34 97 17 30 10/05/20 00:00 92 10/05/20 00:00 98.8 101 17 147/61 (89) 74 11/18/20 00:00 Mechanical Ventilator 10/04/20 23:00 99 17 135/59 (84) 100 10/04/20 22:48 99 16 100 Mechanical Ventilator 30 97 16 30 10/04/20 22:00 92 16 133/60 (84) 100 10/04/20 21:01 83 16 30 10/04/20 21:00 82 16 114/49 (70) 100 10/04/20 20:17 87 20 125/54 100 10/04/20 20:00 98.8 96 16 125/54 (77) 100 10/04/20 20:00 88 10/04/20 20:00 Mechanical Ventilator 10/04/20 19:47 108 20 127/54 100 10/04/20 19:28 94 16 100 Mechanical Ventilator 30 90 16 30 10/04/20 19:00 93 17 127/54 (78) 100 10/04/20 18:00 100 17 144/63 (90) 100 10/04/20 17:21 85 17 30 10/04/20 17:00 85 16 123/53 (76) 10/04/20 16:00 Mechanical Ventilator 10/04/20 16:00 86 10/04/20 16:00 99.3 84 16 118/55 (76) 10/04/20 15:10 79 16 100 Mechanical Ventilator 30 80 16 30 10/04/20 15:00 79 16 116/54 (74) 100 10/04/20 14:00 84 16 117/52 (73) I&O Intake and Output 10/04/20 10/05/20 19:00 07:00 Intake Total 1546.373 ml 1487.466 ml Output Total 570 ml 670 ml Balance 976.373 ml 817.466 ml Intake Free Water 60 ml 90 ml IV Total 1246.373 ml 1157.466 ml Tube Feeding 240 ml 240 ml Output Urine Total 570 ml 670 ml # Bowel Movements 3 3 Dressing: saturated Cardiovascular: RSR Respiratory: decreased breath sounds Abdomen: soft, non-tender, present bowel sounds Extremities: no tenderness, no cyanosis Laboratory Tests Test 10/04/20 20:00 10/04/20 21:24 10/05/20 02:50 10/05/20 03:13 Activated Partial Thromboplast Time 41 SEC (23-33) H 67 SEC (23-33) H POC Whole Blood Glucose 182 MG/DL (74-106) H 213 MG/DL (74-106) H White Blood Count 18.9 K/UL (4.8-10.8) #H Red Blood Count 4.65 M/UL (4.20-5.40) Hemoglobin 12.5 G/DL (12.0-16.0) Hematocrit 40.9 % (37.0-47.0) Mean Corpuscular Volume 88 FL (80-99) Mean Corpuscular Hemoglobin 26.9 PG (27.0-31.0) L Mean Corpuscular Hemoglobin Concent 30.7 G/DL (32.0-36.0) L Red Cell Distribution Width 15.7 % (11.6-14.8) H Platelet Count 202 K/UL (150-450) Mean Platelet Volume 9.9 FL (6.5-10.1) Neutrophils (%) (Auto) % (45.0-75.0) Lymphocytes (%) (Auto) % (20.0-45.0) Monocytes (%) (Auto) % (1.0-10.0) Eosinophils (%) (Auto) % (0.0-3.0) Basophils (%) (Auto) % (0.0-2.0) Differential Total Cells Counted 100 Neutrophils % (Manual) 85 % (45-75) H Lymphocytes % (Manual) 6 % (20-45) L Monocytes % (Manual) 3 % (1-10) Eosinophils % (Manual) 1 % (0-3) Basophils % (Manual) 0 % (0-2) Band Neutrophils 5 % (0-8) Platelet Estimate Adequate Platelet Morphology Normal Red Blood Cell Morphology Normal Sodium Level 144 MMOL/L (136-145) Potassium Level 3.4 MMOL/L (3.5-5.1) L Chloride Level 109 MMOL/L (98-107) H Carbon Dioxide Level 27 MMOL/L (21-32) Anion Gap 8 mmol/L (5-15) Blood Urea Nitrogen 36 mg/dL (7-18) H Creatinine 1.0 MG/DL (0.55-1.30) Estimat Glomerular Filtration Rate > 60 mL/min (>60) Glucose Level 214 MG/DL (74-106) H Calcium Level 7.7 MG/DL (8.5-10.1) L Phosphorus Level 2.4 MG/DL (2.5-4.9) L Magnesium Level 2.5 MG/DL (1.8-2.4) H Total Bilirubin 0.5 MG/DL (0.2-1.0) Aspartate Amino Transf (AST/SGOT) 25 U/L (15-37) Alanine Aminotransferase (ALT/SGPT) 21 U/L (12-78) Alkaline Phosphatase 34 U/L (46-116) L Pro-B-Type Natriuretic Peptide 1230 pg/mL (0-125) H Total Protein 7.7 G/DL (6.4-8.2) Albumin 2.4 G/DL (3.4-5.0) L Globulin 5.3 g/dL Albumin/Globulin Ratio 0.5 (1.0-2.7) L Test 10/05/20 08:03 Arterial Blood pH 7.492 (7.350-7.450) Arterial Blood Partial Pressure CO2 31.3 mmHg (35.0-45.0) L Arterial Blood Partial Pressure O2 75.2 mmHg (75.0-100.0) Arterial Blood HCO3 23.4 mmol/L (22.0-26.0) Arterial Blood Oxygen Saturation 95.4 % (95-100) Arterial Blood Base Excess 0.8 (-2-2) Juancarlos Test Positive Plan Problems: (1) COPD (chronic obstructive pulmonary disease) (2) Acute respiratory failure (3) Syncope (4) Psychiatric disorder (5) Hyponatremia (6) UTI (urinary tract infection) (7) Stage 4 decubitus ulcer Assessment & Plan: Pt presented on admission with Full thickness sacral pressure injury with undermined borders. Base of wound has pink granulation with small amt biofilm easily removed with gentle friction during cleansing. (+) epibole along edges. No odor or exudate noted.(L)2.3cm x (W)4.5cm x (D)1cm. Undermining clockwise 12-12o'clock by 2.8cm @5o'clock. Periwound without erythema or induration. R and L heels are boggy but each heel blanches easily. Dressing is going well. We will monitor wound does not currently need active debridement. well known to me from prior unchanged stage 4 ulcer cont local care Tx.Plan: Cleanse Sacral wound with Dakin's 0.125% gilbert. Loosely pack with Dakin's moistened Kerlix. Apply Triad Paste periwound. Cover with Optifoam drsg. Twice daily and prn. Apply Cavilon Skin Barrier to Both heels. Cover each heel with Optifoam drsg.Change every 7 days and prn. APM/ABHILASH Mattress overlay. Reposition at least every 2hours or as tolerated. Off-load heels with pillow. (8) Severe protein-calorie malnutrition Assessment & Plan: ng in place once stable start tube feeds low alb bmi 23 high risk for breakdown needs nutritional optimization AILY ESTIMATED NEEDS: Needs based on Wound, Critical care 53.6kg 25-35 kcals/kg 7077-4549 total kcals 1.25-2 g protein/kg 67-107 g total protein 25-30 mL/kg 7682-9665 total fluid mLs NUTRITION DIAGNOSIS: * Increased kcal/prot needs R/T wound healing as evidenced by admitted w/ stage 4 sacral wound * Swallowing difficulty R/T respiratory failure as evidenced by pt now orally intubated with OGT feeds. CURRENT TF: Jevity 1.2 @20ml/hr ENTERAL NUTRITION RECOMMENDATIONS: Glucerna 1.2 goal of 55ml/hr x24 hrs to provide 1320ml, 1584 kcal, 79g pro, 1063ml free H2O - Rec carb control formula at this time d/t elevated BG levels (POC [phone]). - Start @low rate 25ml/hr for 6 hrs, advance as tolerated 10ml/hr q4-6 hrs to goal. - Flush per MD/ HOB over 30 degrees ADDITIONAL RECOMMENDATIONS: * Check HgA1C- pt w/ elevated BG * Re-calibrate bed scale w/ added P200 mattress * Wound care: add SUZY BID via OGT Add Vit C 250mg BID + zn so4 220mg qd x10 days * Replete lytes as needed (Low K, Phos) (9) Pulmonary edema (10) Altered mental status Blaise Del Valle Oct 05, 2020 13:49
--- NOTE | 2020-10-05 14:58 | Diagnostic Imaging Report ---
Indication: Dyspnea Technique: XRAY Chest 1v Comparison: 10/03/2020 Findings: Endotracheal tube is been retracted slightly, tip now approximately 2.5 cm above the kevyn. Interval placement of enteric tube which courses below level of the diaphragms. No significant interval change in patchy bilateral infrahilar opacities. No pneumothorax or pleural effusion. Osseous structures are stable. Impression: Endotracheal tube tip 2.5 cm above the kevyn. Interval placement of enteric/NG tube. Patchy bibasilar opacities not significantly changed.
--- NOTE | 2020-10-05 15:21 | Cardiology Report ---
APPROVED REPORT EKG Measurement Heart [id number] [place] [id number] <Conclusion> Normal sinus rhythm Right bundle branch block T wave abnormality, consider inferolateral ischemia Abnormal ECG
--- NOTE | 2020-10-05 15:57 | Cardiology Report ---
APPROVED REPORT EKG Measurement Heart [id number] [place] [id number] <Conclusion> Sinus rhythm with marked sinus arrhythmia Incomplete right bundle branch block ST & Marked T wave abnormality, consider anterolateral ischemia Prolonged QT Abnormal ECG
--- NOTE | 2020-10-05 16:02 | Diagnostic Imaging Report ---
Indication:Leg pain and swelling Technique: Grayscale and duplex Doppler imaging of the veins in both lower extremities performed in real time utilizing compression and augmentation. Comparison: None Findings: Suboptimal evaluation as, per supervisor microbiology technologists report, patient uncooperative for the exam positioning. Duplex Doppler interrogation of the veins in both lower extremity is performed from the common femoral vein to the popliteal vein. Normal venous compressibility demonstrated throughout. No thrombus identified. Waveform analysis shows good respiratory phasicity and augmentation. IMPRESSION: No evidence of deep venous thrombosis involving the lower extremities. This corresponds with the preliminary report by the supervisor microbiology technologists.
--- NOTE | 2020-10-05 17:05 | Pre-Procedure Note/Attestation ---
Pre-Procedure Note/Attestation Complete Prior to Procedure Planned Procedure: not applicable Procedure Narrative: need iv access Indications for Procedure Pre-Operative Diagnosis: picc line placement Attestation consent obtained by primary team Diogo Chun M.D. Oct 05, 2020 17:05
--- NOTE | 2020-10-05 17:07 | Operative Note - PDOC ---
Operative Note Operative Note Date of Operation/Procedure: Oct 05, 2020 Chief Complaint: need iv access Pre-op Diagnosis: picc line placement Procedure: picc line Post-op Diagnosis: same as pre-op Anesthesia: local Specimen: none Complications: none Estimated Blood Loss: none Drains: none Implant(s) used?: Yes Indications for Procedure need iv access Description of Procedure picc line placed under US at the bedside. check CXR prior to use Diogo Chun M.D. Oct 05, 2020 17:07
[2020-10-05] MEDS: Dyna-Hex 2% Top Sol 2oz TOPIC SCH (19:53)
--- NOTE | 2020-10-05 20:21 | Cardiology Progress Note ---
Assessment/Plan Assessment/Plan 1. Altered mental status. 2. Baseline dementia. 3. Fur-LH-eqzrqoaoo myocardial infarction. 4. Respiratory failure, status post intubation. 5. COPD history. 6. Renal insufficiency 7. bactermia over all is better still on a vent responsive tele sinus ekg noted t iverxsion in the an lead keep on heparin ecotrin wean vent as possible blanca chronicity of blanca t wave inversion is not clear will wati until weant to make diciiosn regardin cardiac therapy Subjective ROS Limited/Unobtainable: Yes Cardiovascular: Denies: chest pain Respiratory: Denies: shortness of breath Objective Last 24 Hour Vital Signs Date Time Temp Pulse Resp B/P (MAP) Pulse Ox O2 Delivery O2 Flow Rate FiO2 10/05/20 20:00 30 10/05/20 19:00 89 16 138/71 (93) 99 10/05/20 18:57 87 17 100 Mechanical Ventilator 30 90 19 30 10/05/20 18:00 87 16 131/63 (85) 100 10/05/20 17:00 97 19 144/76 (98) 99 10/05/20 16:50 92 20 30 10/05/20 16:49 97 19 144/76 99 10/05/20 16:19 91 16 129/65 100 10/05/20 16:00 30 10/05/20 16:00 98.8 95 16 138/67 (90) 99 10/05/20 16:00 92 10/05/20 16:00 Mechanical Ventilator 10/05/20 15:10 91 16 100 Mechanical Ventilator 30 88 16 30 10/05/20 15:00 91 16 135/65 (88) 99 10/05/20 14:00 89 16 129/65 (86) 99 10/05/20 13:00 99.0 82 16 120/61 (80) 99 10/05/20 13:00 87 17 30 10/05/20 12:00 30 10/05/20 12:00 84 10/05/20 12:00 80 16 113/56 (75) 100 10/05/20 12:00 Mechanical Ventilator 10/05/20 11:10 74 16 100 Mechanical Ventilator 30 76 16 30 10/05/20 11:00 67 16 129/64 (85) 100 10/05/20 10:23 90 17 125/54 98 10/05/20 10:00 98.9 92 19 137/69 (91) 100 10/05/20 09:53 90 17 125/54 98 10/05/20 09:15 90 17 30 10/05/20 09:00 91 18 136/58 (84) 98 10/05/20 08:00 89 17 126/62 (83) 98 10/05/20 08:00 30 10/05/20 08:00 30 10/05/20 08:00 Mechanical Ventilator 10/05/20 08:00 89 10/05/20 07:56 70 16 100 Mechanical Ventilator 30 70 16 30 10/05/20 07:00 65 16 125/54 (77) 98 10/05/20 06:30 95 16 10/05/20 06:06 83 18 130/58 100 10/05/20 06:00 80 16 130/58 (82) 98 10/05/20 05:36 93 18 152/61 100 10/05/20 05:00 99 20 152/61 (91) 100 10/05/20 04:41 94 20 30 10/05/20 04:00 99.0 103 20 152/71 (98) 100 10/05/20 04:00 85 10/05/20 04:00 Mechanical Ventilator 10/05/20 03:00 84 16 129/101 (110) 97 10/05/20 02:20 77 16 100 Mechanical Ventilator 30 76 16 30 10/05/20 02:00 78 16 138/60 (86) 99 10/05/20 01:24 80 18 138/60 99 10/05/20 01:00 94 16 137/60 (85) 98 10/05/20 00:54 95 16 147/65 99 10/05/20 00:34 97 17 30 10/05/20 00:00 92 10/05/20 00:00 98.8 101 17 147/61 (89) 74 10/05/20 00:00 Mechanical Ventilator 10/04/20 23:00 99 17 135/59 (84) 100 10/04/20 22:48 99 16 100 Mechanical Ventilator 30 97 16 30 10/04/20 22:00 92 16 133/60 (84) 100 10/04/20 21:01 83 16 30 10/04/20 21:00 82 16 114/49 (70) 100 General Appearance: no apparent distress, alert, on vent, patient on isolation Cardiovascular: normal rate Respiratory/Chest: lungs clear Abdomen: normal bowel sounds, non tender, soft Extremities: no swelling Intake and Output 10/04/20 10/05/20 19:00 07:00 Intake Total 1546.373 ml 1487.466 ml Output Total 570 ml 670 ml Balance 976.373 ml 817.466 ml Intake Free Water 60 ml 90 ml IV Total 1246.373 ml 1157.466 ml Tube Feeding 240 ml 240 ml Output Urine Total 570 ml 670 ml # Bowel Movements 3 3 Laboratory Tests Test 10/04/20 21:24 10/05/20 02:50 10/05/20 03:13 10/05/20 08:03 POC Whole Blood Glucose 182 MG/DL (74-106) H 213 MG/DL (74-106) H White Blood Count 18.9 K/UL (4.8-10.8) #H Red Blood Count 4.65 M/UL (4.20-5.40) Hemoglobin 12.5 G/DL (12.0-16.0) Hematocrit 40.9 % (37.0-47.0) Mean Corpuscular Volume 88 FL (80-99) Mean Corpuscular Hemoglobin 26.9 PG (27.0-31.0) L Mean Corpuscular Hemoglobin Concent 30.7 G/DL (32.0-36.0) L Red Cell Distribution Width 15.7 % (11.6-14.8) H Platelet Count 202 K/UL (150-450) Mean Platelet Volume 9.9 FL (6.5-10.1) Neutrophils (%) (Auto) % (45.0-75.0) Lymphocytes (%) (Auto) % (20.0-45.0) Monocytes (%) (Auto) % (1.0-10.0) Eosinophils (%) (Auto) % (0.0-3.0) Basophils (%) (Auto) % (0.0-2.0) Differential Total Cells Counted 100 Neutrophils % (Manual) 85 % (45-75) H Lymphocytes % (Manual) 6 % (20-45) L Monocytes % (Manual) 3 % (1-10) Eosinophils % (Manual) 1 % (0-3) Basophils % (Manual) 0 % (0-2) Band Neutrophils 5 % (0-8) Platelet Estimate Adequate Platelet Morphology Normal Red Blood Cell Morphology Normal Activated Partial Thromboplast Time 67 SEC (23-33) H Sodium Level 144 MMOL/L (136-145) Potassium Level 3.4 MMOL/L (3.5-5.1) L Chloride Level 109 MMOL/L (98-107) H Carbon Dioxide Level 27 MMOL/L (21-32) Anion Gap 8 mmol/L (5-15) Blood Urea Nitrogen 36 mg/dL (7-18) H Creatinine 1.0 MG/DL (0.55-1.30) Estimat Glomerular Filtration Rate > 60 mL/min (>60) Glucose Level 214 MG/DL (74-106) H Calcium Level 7.7 MG/DL (8.5-10.1) L Phosphorus Level 2.4 MG/DL (2.5-4.9) L Magnesium Level 2.5 MG/DL (1.8-2.4) H Total Bilirubin 0.5 MG/DL (0.2-1.0) Aspartate Amino Transf (AST/SGOT) 25 U/L (15-37) Alanine Aminotransferase (ALT/SGPT) 21 U/L (12-78) Alkaline Phosphatase 34 U/L (46-116) L Pro-B-Type Natriuretic Peptide 1230 pg/mL (0-125) H Total Protein 7.7 G/DL (6.4-8.2) Albumin 2.4 G/DL (3.4-5.0) L Globulin 5.3 g/dL Albumin/Globulin Ratio 0.5 (1.0-2.7) L Arterial Blood pH 7.492 (7.350-7.450) Arterial Blood Partial Pressure CO2 31.3 mmHg (35.0-45.0) L Arterial Blood Partial Pressure O2 75.2 mmHg (75.0-100.0) Arterial Blood HCO3 23.4 mmol/L (22.0-26.0) Arterial Blood Oxygen Saturation 95.4 % (95-100) Arterial Blood Base Excess 0.8 (-2-2) Juancarlos Test Positive Microbiology Date/Time Source Procedure Growth Status 10/04/20 10:00 Nasopharynx SARS-CoV-2 RdRp Gene Assay - Final Complete 10/03/20 19:30 Sputum Gram Stain - Final Resulted 10/03/20 19:30 Sputum Sputum Culture - Preliminary NORMAL UPPER RESPIRATORY CHANDAN AT 24 ... Resulted 10/03/20 13:50 Blood Blood Culture - Preliminary Gram Positive Cocci Resulted 10/03/20 13:45 Blood Blood Culture - Preliminary NO GROWTH AFTER 24 HOURS Resulted 10/03/20 07:20 Rectum - Final NO CARBAPENEM-RESISTANT ENTEROBACTERI... Complete 10/03/20 07:20 Rectum VRE Culture - Final NO VANCOMYCIN RESISTANT ENTEROCOCCUS ... Complete 10/03/20 07:20 Nasal Nares MRSA Culture - Final NO METHICILLIN RESISTANT STAPH AUREUS... Complete 10/03/20 06:00 Urine,Clean Catch Urine Culture - Preliminary Proteus Mirabilis Resulted 10/03/20 06:00 Nasal Nares - Final Complete 10/03/20 06:00 Nasal Nares - Final Complete 10/03/20 05:54 Nasopharynx SARS-CoV-2 RdRp Gene Assay - Final Complete Laurent Ramesh MD Oct 05, 2020 20:21
[2020-10-05] MEDS: Atorvastatin 20mg tab GT SCH (20:25)
[2020-10-05] MEDS: Heparin 25,000u/D5W 500ml 500 ML IV SCH (21:59)
[2020-10-06] VITALS (24 sets, daily range): BP systolic 102–155; BP diastolic 51–93
[2020-10-06] MEDS: D5 1/2NS 1,000 ML IV SCH ×2 (00:07→19:39)
[2020-10-06] MEDS: Albuterol/Ipratropium 3ml neb HHN SCH ×6 (02:31→22:54)
[2020-10-06 04:52] LABS: BASOPHILS % (AUTO) 1.7 % (0.0-2.0); HEMATOCRIT 42.2 % (37.0-47.0); HEMOGLOBIN 12.5 G/DL (12.0-16.0); LYMPHOCYTES % (AUTO) 12.4 % (20.0-45.0); MEAN CORPUSCULAR VOLUME 89 FL (80-99); MONOCYTES % (AUTO) 7.6 % (1.0-10.0); NEUTROPHILS % (AUTO) 78.4 % (45.0-75.0); PLATELET COUNT 203 K/UL (150-450); RED BLOOD COUNT 4.72 M/UL (4.20-5.40); RED CELL DISTRIBUTION WIDTH 16.4 % (11.6-14.8); WHITE BLOOD COUNT 14.9 K/UL (4.8-10.8)
[2020-10-06] MEDS ORDERED: Heparin 5000 units/ml inj IV SCH (05:00)
[2020-10-06 05:15] LABS: ALANINE AMINOTRANSFERASE 20 U/L (12-78); ALBUMIN 2.3 G/DL (3.4-5.0); ALBUMIN/GLOBULIN RATIO 0.5 (1.0-2.7); ALKALINE PHOSPHATASE 29 U/L (46-116); ANION GAP 8 mmol/L (5-15); ASPARTATE AMINO TRANSFERASE 25 U/L (15-37); BILIRUBIN,TOTAL 0.4 MG/DL (0.2-1.0); BLOOD UREA NITROGEN 31 mg/dL (7-18); CALCIUM 8.3 MG/DL (8.5-10.1); CARBON DIOXIDE 26 MMOL/L (21-32); CHLORIDE 112 MMOL/L (98-107); POTASSIUM 3.1 MMOL/L (3.5-5.1); SODIUM 146 MMOL/L (136-145)
[2020-10-06] MEDS: Heparin 25,000u/D5W 500ml 500 ML IV SCH ×3 (05:24→20:35)
[2020-10-06] MEDS: Vancomycin 750mg/NS 275ml IVPB SCH ×4 (05:25→18:47)
[2020-10-06] MEDS: NovoLOG Insulin Flexpen SUBQ SCH ×5 (06:00→23:53)
[2020-10-06] MEDS: Piperacillin/Tazobactam 3.375 GM in D5W 110 ML IV SCH ×3 (07:00→23:00)
--- NOTE | 2020-10-06 07:49 | Infectious Diseases Prog Note ---
Assessment/Plan 75yo F with: Afebrile, Tmax 99.7 --> Febrile to 102 Normal WBC Acute hypoxic resp failure, SP intubation 10/03 COPD Non-verbal at baseline UTI GPC bacteremia, r/o contaminant 10/03 BCx +1/2 GPCs UA 10-15 WBC, UCx >100k P.mirabilis (S-CTX, R-bactrim) Resp cx p COVID rapid Ag neg Flu neg MRSA nares neg CXR: No focal consolidation, pleural effusion, or pneumothorax. Mild emphysema with increased interstitial markings. Cardiomegaly. Calcified aorta. 10/04 COVID rapid Ag neg 10/05 BCx p Dementia [facility] resident Plan: Cont vancomycin IV #4 Cont empiric Zosyn #4 On steroids per primary, solumedrol 40mg daily F/u GPC in BCx, only 1/2, possible contaminant, f/u species, per Micro lab will know tomorrow F/u repeat BCx Monitor CBC/CMP Monitor temp curve, hemodynamics Monitor resp status D/w RN and micro lab Thank you for this consult. [facility] will continue to follow. Subjective Allergies: Coded Allergies: No Known Allergies (Unverified , 12/17/15) AF WBC improving to 14 on lower dose steroids now BCx from admission 1/2 +GPCs Objective Last 24 Hour Vital Signs Date Time Temp Pulse Resp B/P (MAP) Pulse Ox O2 Delivery O2 Flow Rate FiO2 10/06/20 07:00 78 16 139/70 (93) 99 10/06/20 06:30 100 16 10/06/20 06:00 84 16 155/70 (98) 99 10/06/20 05:00 85 16 138/67 (90) 98 10/06/20 04:38 94 16 30 10/06/20 04:00 Mechanical Ventilator 10/06/20 04:00 30 10/06/20 04:00 99.8 85 16 129/62 (84) 97 10/06/20 04:00 89 10/06/20 03:20 81 16 100 Mechanical Ventilator 30 86 18 30 10/06/20 03:00 88 16 149/74 (99) 100 10/06/20 02:00 85 16 145/76 (99) 99 10/06/20 01:00 84 16 132/61 (84) 99 10/06/20 00:38 90 16 30 10/06/20 00:00 90 10/06/20 00:00 30 10/06/20 00:00 98.7 89 16 125/93 (104) 98 10/06/20 00:00 Mechanical Ventilator 10/05/20 23:00 91 16 141/70 (93) 98 10/05/20 22:54 84 16 100 Mechanical Ventilator 30 88 18 30 10/05/20 22:00 86 17 137/76 (96) 99 10/05/20 21:00 82 16 135/66 (89) 99 10/05/20 20:32 86 16 30 10/05/20 20:00 Mechanical Ventilator 10/05/20 20:00 30 10/05/20 20:00 98.7 90 16 154/77 (102) 98 10/05/20 20:00 77 10/05/20 19:00 89 16 138/71 (93) 99 10/05/20 18:57 87 17 100 Mechanical Ventilator 30 90 19 30 10/05/20 18:00 87 16 131/63 (85) 100 10/05/20 17:00 97 19 144/76 (98) 99 10/05/20 16:50 92 20 30 10/05/20 16:49 97 19 144/76 99 10/05/20 16:19 91 16 129/65 100 10/05/20 16:00 30 10/05/20 16:00 98.8 95 16 138/67 (90) 99 10/05/20 16:00 92 10/05/20 16:00 Mechanical Ventilator 10/05/20 15:10 91 16 100 Mechanical Ventilator 30 88 16 30 10/05/20 15:00 91 16 135/65 (88) 99 10/05/20 14:00 89 16 129/65 (86) 99 10/05/20 13:00 99.0 82 16 120/61 (80) 99 10/05/20 13:00 87 17 30 10/05/20 12:00 30 10/05/20 12:00 84 10/05/20 12:00 80 16 113/56 (75) 100 10/05/20 12:00 Mechanical Ventilator 10/05/20 11:10 74 16 100 Mechanical Ventilator 30 76 16 30 10/05/20 11:00 67 16 129/64 (85) 100 10/05/20 10:23 90 17 125/54 98 10/05/20 10:00 98.9 92 19 137/69 (91) 100 10/05/20 09:53 90 17 125/54 98 10/05/20 09:15 90 17 30 10/05/20 09:00 91 18 136/58 (84) 98 10/05/20 08:00 89 17 126/62 (83) 98 10/05/20 08:00 30 10/05/20 08:00 30 10/05/20 08:00 Mechanical Ventilator 10/05/20 08:00 89 10/05/20 07:56 70 16 100 Mechanical Ventilator 30 70 16 30 Height (Feet): 5 Height (Inches): 4.00 Weight (Pounds): 135 Gen: NAD HEENT: NCAT, ETT CV: RRR Pulm: CTAB on vent Abd: Non-distended Ext: No c/c/e Skin: No visible rashes Neuro: Sedated Microbiology Date/Time Source Procedure Growth Status 10/04/20 10:00 Nasopharynx SARS-CoV-2 RdRp Gene Assay - Final Complete 10/03/20 19:30 Sputum Gram Stain - Final Resulted 10/03/20 19:30 Sputum Sputum Culture - Preliminary NORMAL UPPER RESPIRATORY CHANDAN AT 24 ... Resulted 10/03/20 13:50 Blood Blood Culture - Preliminary Gram Positive Cocci Resulted 10/03/20 13:45 Blood Blood Culture - Preliminary NO GROWTH AFTER 24 HOURS Resulted Laboratory Tests Test 10/05/20 08:03 10/06/20 00:09 10/06/20 03:00 10/06/20 04:00 Arterial Blood pH 7.492 (7.350-7.450) Arterial Blood Partial Pressure CO2 31.3 mmHg (35.0-45.0) L Arterial Blood Partial Pressure O2 75.2 mmHg (75.0-100.0) Arterial Blood HCO3 23.4 mmol/L (22.0-26.0) Arterial Blood Oxygen Saturation 95.4 % (95-100) Arterial Blood Base Excess 0.8 (-2-2) Juancarlos Test Positive POC Whole Blood Glucose 131 MG/DL (74-106) H Sodium Level 146 MMOL/L (136-145) H Potassium Level 3.1 MMOL/L (3.5-5.1) L Chloride Level 112 MMOL/L (98-107) H Carbon Dioxide Level 26 MMOL/L (21-32) Anion Gap 8 mmol/L (5-15) Blood Urea Nitrogen 31 mg/dL (7-18) H Creatinine 1.0 MG/DL (0.55-1.30) Estimat Glomerular Filtration Rate > 60 mL/min (>60) Glucose Level 127 MG/DL (74-106) H Calcium Level 8.3 MG/DL (8.5-10.1) L Total Bilirubin 0.4 MG/DL (0.2-1.0) Aspartate Amino Transf (AST/SGOT) 25 U/L (15-37) Alanine Aminotransferase (ALT/SGPT) 20 U/L (12-78) Alkaline Phosphatase 29 U/L (46-116) L Total Protein 7.1 G/DL (6.4-8.2) Albumin 2.3 G/DL (3.4-5.0) L Globulin 4.8 g/dL Albumin/Globulin Ratio 0.5 (1.0-2.7) L Vancomycin Level Trough 10.1 ug/mL (5.0-12.0) White Blood Count 14.9 K/UL (4.8-10.8) H Red Blood Count 4.72 M/UL (4.20-5.40) Hemoglobin 12.5 G/DL (12.0-16.0) Hematocrit 42.2 % (37.0-47.0) Mean Corpuscular Volume 89 FL (80-99) Mean Corpuscular Hemoglobin 26.5 PG (27.0-31.0) L Mean Corpuscular Hemoglobin Concent 29.7 G/DL (32.0-36.0) L Red Cell Distribution Width 16.4 % (11.6-14.8) H Platelet Count 203 K/UL (150-450) Mean Platelet Volume 9.0 FL (6.5-10.1) Neutrophils (%) (Auto) 78.4 % (45.0-75.0) H Lymphocytes (%) (Auto) 12.4 % (20.0-45.0) L Monocytes (%) (Auto) 7.6 % (1.0-10.0) Eosinophils (%) (Auto) 0.0 % (0.0-3.0) Basophils (%) (Auto) 1.7 % (0.0-2.0) Activated Partial Thromboplast Time 50 SEC (23-33) H Phosphorus Level 2.0 MG/DL (2.5-4.9) L Magnesium Level 2.2 MG/DL (1.8-2.4) Troponin I 0.117 ng/mL (0.000-0.056) Current Medications Medications (Trade) Dose Ordered Sig/Bharti Route PRN Reason Start Time Stop Time Status Last Admin Dose Admin Acetaminophen (Tylenol) 650 mg Q4H PRN GT Temp >100.5 10/03/20 17:15 11/02/20 17:14 10/03/20 17:48 Albuterol/ Ipratropium (Albuterol/ Ipratropium) 3 ml Q4HRT HHN 10/03/20 11:00 10/08/20 10:59 10/06/20 07:45 Amlodipine Besylate (Norvasc) 2.5 mg BIDPRN PRN GT sbp greater than 150 10/05/20 20:30 11/04/20 20:29 Aspirin (ASA) 81 mg DAILY GT 10/04/20 14:45 11/18/20 14:44 10/05/20 09:21 Atorvastatin Calcium (Lipitor) 20 mg BEDTIME GT 10/04/20 21:00 01/02/21 20:59 10/05/20 20:25 Chlorhexidine Gluconate (Rahel-Hex 2%) 1 applic DAILY@2000 TOPIC 10/05/20 20:00 01/03/21 19:59 10/05/20 19:53 Dextrose (Dextrose 50%) 25 ml Q30M PRN IV Hypoglycemia 10/03/20 09:28 01/01/21 09:27 Dextrose (Dextrose 50%) 50 ml Q30M PRN IV Hypoglycemia 10/03/20 09:28 01/01/21 09:27 Dextrose/Sodium Chloride 1,000 ml @ 50 mls/hr Q20H IV 10/03/20 11:00 11/02/20 10:59 10/06/20 00:07 Docusate Sodium (Colace) 100 mg TWICE A DAY GT 10/03/20 18:00 11/02/20 17:59 10/05/20 18:12 Heparin Sodium/ Dextrose 500 ml @ 23.269 mls/ hr ADJUST PER PROTOCOL IV 10/04/20 20:30 11/03/20 20:29 10/06/20 05:24 Insulin Aspart (NovoLOG) Q6HR SUBQ 10/06/20 00:00 01/01/21 11:29 Lorazepam (Ativan 2mg/ml 1ml) 2 mg Q4H PRN IV For Anxiety 10/03/20 09:29 10/10/20 09:28 10/05/20 16:19 Methylprednisolone Sodium Succinate (Solu-MEDROL) 40 mg DAILY IVP 10/06/20 09:00 01/04/21 08:59 Morphine Sulfate (Morphine Sulfate) 2 mg Q4H PRN IVP Moderate Pain (4-6) 10/03/20 09:15 10/10/20 09:14 Morphine Sulfate (Morphine Sulfate) 4 mg Q4H PRN IVP Severe Pain (7-10) 10/03/20 09:15 10/10/20 09:14 Nitroglycerin (Ntg) 0.4 mg Q5M X 3 DOSES PRN SL Prn Chest Pain 10/03/20 09:15 11/02/20 09:14 Ondansetron HCl (Zofran) 4 mg Q6H PRN IVP Nausea & Vomiting 10/03/20 09:28 11/02/20 09:27 Pantoprazole (Protonix) 40 mg DAILY IV 10/04/20 09:00 11/03/20 08:59 10/05/20 09:21 Piperacillin Sod/ Tazobactam Sod 3.375 gm/Dextrose 110 ml @ 220 mls/hr Q8H IV 10/03/20 15:00 10/10/20 14:59 10/06/20 07:00 Potassium Phosphate 250 ml @ 62.5 mls/hr Q4H IVPB 10/06/20 08:00 10/06/20 15:59 UNV Risperidone (RisperDAL) 1 mg DAILY NG 10/04/20 09:00 11/18/20 08:59 10/05/20 09:21 Sodium Hypochlorite (Dakin's Quarter Strength) 1 applic DAILY TOPIC 10/04/20 09:00 11/03/20 08:59 10/05/20 07:14 Vancomycin HCl ([facility] pharmacy to dose) 1 ea DAILY PRN MISC Per rx protocol 10/03/20 09:30 11/02/20 09:29 Vancomycin HCl 750 mg/Sodium Chloride 275 ml @ 183.333 mls/hr Q12HR@0600,1800 IVPB 10/06/20 06:00 10/11/20 05:59 10/06/20 05:25 Sondra Sepulveda M.D. Oct 06, 2020 07:49
[2020-10-06] MEDS: Aspirin Baby 81mg GT SCH (09:44)
[2020-10-06] MEDS: Potassium Phosphate 15mm/250ml 250 ML IVPB SCH ×2 (09:44→14:25)
[2020-10-06] MEDS: Solu-MEDROL 40mg Inj IVP SCH (09:46)
[2020-10-06] MEDS: Docusate 100mg/10ml Liq GT SCH ×2 (09:46→17:32)
[2020-10-06] MEDS: Pantoprazole Inj IV SCH (09:47)
[2020-10-06] MEDS: Dakin's 0.125% Soln (Quarter Strength) 16oz TOPIC SCH (09:47)
--- NOTE | 2020-10-06 10:22 | Pulmonolgy Critical Care Note ---
Critical Care - Asmt/Plan Problems: (1) Acute respiratory failure (2) ATN (acute tubular necrosis) (3) Non-ST elevation (NSTEMI) myocardial infarction (4) COPD (chronic obstructive pulmonary disease) (5) Stage 4 decubitus ulcer (6) Severe protein-calorie malnutrition (7) Alzheimer's dementia (8) History of hypertension (9) Psychiatric disorder Respiratory: monitor respiratory rate, adjust FIO2, CXR Cardiac: continue pressors, continue to monitor HR/BP Renal: F/U I&O, keep IV fluid, check electrolytes Infectious Disease: check cultures Gastrointestinal: continue feedings/current rate Endocrine: monitor blood sugar, check TSH Hematologic: monitor H/H Neurologic: PRN Ativan Affect: PRN ativan Prophylaxis: Protonix, Heparin Disposition: keep in ICU Notes Reviewed: city designer, cardio, renal Discussed with: nurses, consultants, piano case and bench assemblerregulated program manager - Objective Last 24 Hour Vital Signs Date Time Temp Pulse Resp B/P (MAP) Pulse Ox O2 Delivery O2 Flow Rate FiO2 10/06/20 07:00 78 16 139/70 (93) 99 10/06/20 06:30 100 16 10/06/20 06:00 84 16 155/70 (98) 99 10/06/20 05:00 85 16 138/67 (90) 98 10/06/20 04:38 94 16 30 10/06/20 04:00 Mechanical Ventilator 10/06/20 04:00 30 10/06/20 04:00 99.8 85 16 129/62 (84) 97 10/06/20 04:00 89 10/06/20 03:20 81 16 100 Mechanical Ventilator 30 86 18 30 10/06/20 03:00 88 16 149/74 (99) 100 10/06/20 02:00 85 16 145/76 (99) 99 10/06/20 01:00 84 16 132/61 (84) 99 10/06/20 00:38 90 16 30 10/06/20 00:00 90 10/06/20 00:00 30 10/06/20 00:00 98.7 89 16 125/93 (104) 98 10/06/20 00:00 Mechanical Ventilator 10/05/20 23:00 91 16 141/70 (93) 98 10/05/20 22:54 84 16 100 Mechanical Ventilator 30 88 18 30 10/05/20 22:00 86 17 137/76 (96) 99 10/05/20 21:00 82 16 135/66 (89) 99 10/05/20 20:32 86 16 30 10/05/20 20:00 Mechanical Ventilator 10/05/20 20:00 30 10/05/20 20:00 98.7 90 16 154/77 (102) 98 10/05/20 20:00 77 10/05/20 19:00 89 16 138/71 (93) 99 10/05/20 18:57 87 17 100 Mechanical Ventilator 30 90 19 30 10/05/20 18:00 87 16 131/63 (85) 100 10/05/20 17:00 97 19 144/76 (98) 99 10/05/20 16:50 92 20 30 10/05/20 16:49 97 19 144/76 99 10/05/20 16:19 91 16 129/65 100 10/05/20 16:00 30 10/05/20 16:00 98.8 95 16 138/67 (90) 99 10/05/20 16:00 92 10/05/20 16:00 Mechanical Ventilator 10/05/20 15:10 91 16 100 Mechanical Ventilator 30 88 16 30 10/05/20 15:00 91 16 135/65 (88) 99 10/05/20 14:00 89 16 129/65 (86) 99 10/05/20 13:00 99.0 82 16 120/61 (80) 99 10/05/20 13:00 87 17 30 10/05/20 12:00 30 10/05/20 12:00 84 10/05/20 12:00 80 16 113/56 (75) 100 10/05/20 12:00 Mechanical Ventilator 10/05/20 11:10 74 16 100 Mechanical Ventilator 30 76 16 30 10/05/20 11:00 67 16 129/64 (85) 100 10/05/20 10:23 90 17 125/54 98 Status: sedated Condition: critical HEENT: atraumatic, normocephalic Neck: full ROM Lungs: clear, chest wall tender Heart: HR/BP stable, regular Abdomen: soft, active bowel sounds Extremities: no C/C/E Decubiti: location Micro: Microbiology Date/Time Source Procedure Growth Status 10/04/20 10:00 Nasopharynx SARS-CoV-2 RdRp Gene Assay - Final Complete 10/03/20 19:30 Sputum Gram Stain - Final Complete 10/03/20 19:30 Sputum Sputum Culture - Final NORMAL UPPER RESPIRATORY CHANDAN PRESENT Complete 10/03/20 13:50 Blood Blood Culture - Preliminary Gram Positive Cocci Resulted 10/03/20 13:45 Blood Blood Culture - Preliminary NO GROWTH AFTER 24 HOURS Resulted Accucheck: 115 Critical Care - Subjective ROS Limited/Unobtainable: Yes Condition: critical IV Access: PICC EKG Rhythm: Sinus Rhythm FI02: 30 Vent Support Breath Rate: 16 Vent Support Mode: AC Vent Tidal Volume: 600 Sputum Amount: Small PEEP: 5.0 PIP: 24 Tube Feeding Amount: 30 I&O: Intake and Output 10/05/20 10/06/20 19:00 07:00 Intake Total 830.452 ml 1632.543 ml Output Total 580 ml 960 ml Balance 250.452 ml 672.543 ml Intake Free Water 90 ml 50 ml IV Total 480.452 ml 1232.543 ml Tube Feeding 260 ml 350 ml Output Urine Total 580 ml 960 ml # Bowel Movements 3 CXR: ET in good place ET-Tube: 7.5 ET Position: 23 Labs: Laboratory Tests Test 10/06/20 00:09 10/06/20 03:00 10/06/20 04:00 POC Whole Blood Glucose 131 MG/DL (74-106) H Sodium Level 146 MMOL/L (136-145) H Potassium Level 3.1 MMOL/L (3.5-5.1) L Chloride Level 112 MMOL/L (98-107) H Carbon Dioxide Level 26 MMOL/L (21-32) Anion Gap 8 mmol/L (5-15) Blood Urea Nitrogen 31 mg/dL (7-18) H Creatinine 1.0 MG/DL (0.55-1.30) Estimat Glomerular Filtration Rate > 60 mL/min (>60) Glucose Level 127 MG/DL (74-106) H Calcium Level 8.3 MG/DL (8.5-10.1) L Total Bilirubin 0.4 MG/DL (0.2-1.0) Aspartate Amino Transf (AST/SGOT) 25 U/L (15-37) Alanine Aminotransferase (ALT/SGPT) 20 U/L (12-78) Alkaline Phosphatase 29 U/L (46-116) L Total Protein 7.1 G/DL (6.4-8.2) Albumin 2.3 G/DL (3.4-5.0) L Globulin 4.8 g/dL Albumin/Globulin Ratio 0.5 (1.0-2.7) L Vancomycin Level Trough 10.1 ug/mL (5.0-12.0) White Blood Count 14.9 K/UL (4.8-10.8) H Red Blood Count 4.72 M/UL (4.20-5.40) Hemoglobin 12.5 G/DL (12.0-16.0) Hematocrit 42.2 % (37.0-47.0) Mean Corpuscular Volume 89 FL (80-99) Mean Corpuscular Hemoglobin 26.5 PG (27.0-31.0) L Mean Corpuscular Hemoglobin Concent 29.7 G/DL (32.0-36.0) L Red Cell Distribution Width 16.4 % (11.6-14.8) H Platelet Count 203 K/UL (150-450) Mean Platelet Volume 9.0 FL (6.5-10.1) Neutrophils (%) (Auto) 78.4 % (45.0-75.0) H Lymphocytes (%) (Auto) 12.4 % (20.0-45.0) L Monocytes (%) (Auto) 7.6 % (1.0-10.0) Eosinophils (%) (Auto) 0.0 % (0.0-3.0) Basophils (%) (Auto) 1.7 % (0.0-2.0) Activated Partial Thromboplast Time 50 SEC (23-33) H Phosphorus Level 2.0 MG/DL (2.5-4.9) L Magnesium Level 2.2 MG/DL (1.8-2.4) Troponin I 0.117 ng/mL (0.000-0.056) Will Quiros MD Oct 06, 2020 10:22
--- NOTE | 2020-10-06 13:12 | Surgery Progress Note ---
Surgery Progress Note Subjective Additional Comments ill appearing Objective Last 24 Hour Vital Signs Date Time Temp Pulse Resp B/P (MAP) Pulse Ox O2 Delivery O2 Flow Rate FiO2 10/06/20 12:00 99.8 69 16 136/67 (90) 100 10/06/20 12:00 30 10/06/20 12:00 Mechanical Ventilator 10/06/20 11:00 74 16 119/69 (86) 100 10/06/20 10:00 79 16 122/62 (82) 100 10/06/20 09:00 81 16 151/76 (101) 99 10/06/20 08:00 99.5 83 16 137/65 (89) 99 10/06/20 08:00 30 10/06/20 08:00 Mechanical Ventilator 10/06/20 07:40 109 10/06/20 07:00 78 16 139/70 (93) 99 10/06/20 06:30 100 16 10/06/20 06:00 84 16 155/70 (98) 99 10/06/20 05:00 85 16 138/67 (90) 98 10/06/20 04:38 94 16 30 10/06/20 04:00 Mechanical Ventilator 10/06/20 04:00 30 10/06/20 04:00 99.8 85 16 129/62 (84) 97 10/06/20 04:00 89 10/06/20 03:20 81 16 100 Mechanical Ventilator 30 86 18 30 10/06/20 03:00 88 16 149/74 (99) 100 10/06/20 02:00 85 16 145/76 (99) 99 10/06/20 01:00 84 16 132/61 (84) 99 10/06/20 00:38 90 16 30 10/06/20 00:00 90 10/06/20 00:00 30 10/06/20 00:00 98.7 89 16 125/93 (104) 98 10/06/20 00:00 Mechanical Ventilator 10/05/20 23:00 91 16 141/70 (93) 98 10/05/20 22:54 84 16 100 Mechanical Ventilator 30 88 18 30 10/05/20 22:00 86 17 137/76 (96) 99 10/05/20 21:00 82 16 135/66 (89) 99 10/05/20 20:32 86 16 30 10/05/20 20:00 Mechanical Ventilator 10/05/20 20:00 30 10/05/20 20:00 98.7 90 16 154/77 (102) 98 10/05/20 20:00 77 10/05/20 19:00 89 16 138/71 (93) 99 10/05/20 18:57 87 17 100 Mechanical Ventilator 30 90 19 30 10/05/20 18:00 87 16 131/63 (85) 100 10/05/20 17:00 97 19 144/76 (98) 99 10/05/20 16:50 92 20 30 10/05/20 16:49 97 19 144/76 99 10/05/20 16:19 91 16 129/65 100 10/05/20 16:00 30 10/05/20 16:00 98.8 95 16 138/67 (90) 99 10/05/20 16:00 92 10/05/20 16:00 Mechanical Ventilator 10/05/20 15:10 91 16 100 Mechanical Ventilator 30 88 16 30 10/05/20 15:00 91 16 135/65 (88) 99 10/05/20 14:00 89 16 129/65 (86) 99 I&O Intake and Output 10/05/20 10/06/20 19:00 07:00 Intake Total 830.452 ml 1632.543 ml Output Total 580 ml 960 ml Balance 250.452 ml 672.543 ml Intake Free Water 90 ml 50 ml IV Total 480.452 ml 1232.543 ml Tube Feeding 260 ml 350 ml Output Urine Total 580 ml 960 ml # Bowel Movements 3 Dressing: saturated Cardiovascular: RSR Respiratory: decreased breath sounds Abdomen: soft, non-tender, present bowel sounds Extremities: no tenderness, no cyanosis Laboratory Tests Test 10/06/20 00:09 10/06/20 03:00 10/06/20 04:00 10/06/20 12:00 POC Whole Blood Glucose 131 MG/DL (74-106) H Sodium Level 146 MMOL/L (136-145) H Potassium Level 3.1 MMOL/L (3.5-5.1) L Chloride Level 112 MMOL/L (98-107) H Carbon Dioxide Level 26 MMOL/L (21-32) Anion Gap 8 mmol/L (5-15) Blood Urea Nitrogen 31 mg/dL (7-18) H Creatinine 1.0 MG/DL (0.55-1.30) Estimat Glomerular Filtration Rate > 60 mL/min (>60) Glucose Level 127 MG/DL (74-106) H Calcium Level 8.3 MG/DL (8.5-10.1) L Total Bilirubin 0.4 MG/DL (0.2-1.0) Aspartate Amino Transf (AST/SGOT) 25 U/L (15-37) Alanine Aminotransferase (ALT/SGPT) 20 U/L (12-78) Alkaline Phosphatase 29 U/L (46-116) L Total Protein 7.1 G/DL (6.4-8.2) Albumin 2.3 G/DL (3.4-5.0) L Globulin 4.8 g/dL Albumin/Globulin Ratio 0.5 (1.0-2.7) L Vancomycin Level Trough 10.1 ug/mL (5.0-12.0) White Blood Count 14.9 K/UL (4.8-10.8) H Red Blood Count 4.72 M/UL (4.20-5.40) Hemoglobin 12.5 G/DL (12.0-16.0) Hematocrit 42.2 % (37.0-47.0) Mean Corpuscular Volume 89 FL (80-99) Mean Corpuscular Hemoglobin 26.5 PG (27.0-31.0) L Mean Corpuscular Hemoglobin Concent 29.7 G/DL (32.0-36.0) L Red Cell Distribution Width 16.4 % (11.6-14.8) H Platelet Count 203 K/UL (150-450) Mean Platelet Volume 9.0 FL (6.5-10.1) Neutrophils (%) (Auto) 78.4 % (45.0-75.0) H Lymphocytes (%) (Auto) 12.4 % (20.0-45.0) L Monocytes (%) (Auto) 7.6 % (1.0-10.0) Eosinophils (%) (Auto) 0.0 % (0.0-3.0) Basophils (%) (Auto) 1.7 % (0.0-2.0) Activated Partial Thromboplast Time 50 SEC (23-33) H Pending Phosphorus Level 2.0 MG/DL (2.5-4.9) L Magnesium Level 2.2 MG/DL (1.8-2.4) Troponin I 0.117 ng/mL (0.000-0.056) Plan Problems: (1) COPD (chronic obstructive pulmonary disease) (2) Acute respiratory failure (3) Syncope (4) Psychiatric disorder (5) Hyponatremia (6) UTI (urinary tract infection) (7) Stage 4 decubitus ulcer Assessment & Plan: Pt presented on admission with Full thickness sacral pressure injury with undermined borders. Base of wound has pink granulation with small amt biofilm easily removed with gentle friction during cleansing. (+) epibole along edges. No odor or exudate noted.(L)2.3cm x (W)4.5cm x (D)1cm. Undermining clockwise 12-12o'clock by 2.8cm @5o'clock. Periwound without erythema or induration. R and L heels are boggy but each heel blanches easily. Dressing is going well. We will monitor wound does not currently need active debridement. well known to me from prior unchanged stage 4 ulcer cont local care Tx.Plan: Cleanse Sacral wound with Dakin's 0.125% gilbert. Loosely pack with Dakin's moistened Kerlix. Apply Triad Paste periwound. Cover with Optifoam drsg. Twice daily and prn. Apply Cavilon Skin Barrier to Both heels. Cover each heel with Optifoam drsg.Change every 7 days and prn. APM/ABHILASH Mattress overlay. Reposition at least every 2hours or as tolerated. Off-load heels with pillow. (8) Severe protein-calorie malnutrition Assessment & Plan: ng in place once stable start tube feeds low alb bmi 23 high risk for breakdown needs nutritional optimization AILY ESTIMATED NEEDS: Needs based on Wound, Critical care 53.6kg 25-35 kcals/kg 1732-5613 total kcals 1.25-2 g protein/kg 67-107 g total protein 25-30 mL/kg 6526-9254 total fluid mLs NUTRITION DIAGNOSIS: * Increased kcal/prot needs R/T wound healing as evidenced by admitted w/ stage 4 sacral wound * Swallowing difficulty R/T respiratory failure as evidenced by pt now orally intubated with OGT feeds. CURRENT TF: Jevity 1.2 @20ml/hr ENTERAL NUTRITION RECOMMENDATIONS: Glucerna 1.2 goal of 55ml/hr x24 hrs to provide 1320ml, 1584 kcal, 79g pro, 1063ml free H2O - Rec carb control formula at this time d/t elevated BG levels (POC [phone]). - Start @low rate 25ml/hr for 6 hrs, advance as tolerated 10ml/hr q4-6 hrs to goal. - Flush per MD/ HOB over 30 degrees ADDITIONAL RECOMMENDATIONS: * Check HgA1C- pt w/ elevated BG * Re-calibrate bed scale w/ added P200 mattress * Wound care: add SUZY BID via OGT Add Vit C 250mg BID + zn so4 220mg qd x10 days * Replete lytes as needed (Low K, Phos) (9) Pulmonary edema (10) Altered mental status Blaise Del Valle Oct 06, 2020 13:12
[2020-10-06] MEDS ORDERED: MULTIVITAMINS1 EAC2 ORAL (13:57)
--- NOTE | 2020-10-06 14:09 | Internal Med Progress Note ---
Subjective Physician Name Elías Mazariegos Attending Physician Elías Mazariegos MD Current Medications Medications (Trade) Dose Ordered Sig/Bharti Route PRN Reason Start Time Stop Time Status Last Admin Dose Admin Acetaminophen (Tylenol) 650 mg Q4H PRN GT Temp >100.5 10/03/20 17:15 11/02/20 17:14 10/03/20 17:48 Albuterol/ Ipratropium (Albuterol/ Ipratropium) 3 ml Q4HRT HHN 10/03/20 11:00 10/08/20 10:59 10/06/20 12:25 Amlodipine Besylate (Norvasc) 2.5 mg BIDPRN PRN GT sbp greater than 150 10/05/20 20:30 11/04/20 20:29 Aspirin (ASA) 81 mg DAILY GT 10/04/20 14:45 11/18/20 14:44 10/06/20 09:44 Atorvastatin Calcium (Lipitor) 20 mg BEDTIME GT 10/04/20 21:00 01/02/21 20:59 10/05/20 20:25 Chlorhexidine Gluconate (Rahel-Hex 2%) 1 applic DAILY@2000 TOPIC 10/05/20 20:00 01/03/21 19:59 10/05/20 19:53 Dextrose (Dextrose 50%) 25 ml Q30M PRN IV Hypoglycemia 10/03/20 09:28 01/01/21 09:27 Dextrose (Dextrose 50%) 50 ml Q30M PRN IV Hypoglycemia 10/03/20 09:28 01/01/21 09:27 Dextrose/Sodium Chloride 1,000 ml @ 50 mls/hr Q20H IV 10/03/20 11:00 11/02/20 10:59 10/06/20 00:07 Docusate Sodium (Colace) 100 mg TWICE A DAY GT 10/03/20 18:00 11/02/20 17:59 10/06/20 09:46 Heparin Sodium/ Dextrose 500 ml @ 19.595 mls/ hr ADJUST PER PROTOCOL IV 10/06/20 14:30 11/05/20 14:29 10/06/20 14:01 Insulin Aspart (NovoLOG) Q6HR SUBQ 10/06/20 00:00 01/01/21 11:29 10/06/20 12:33 Lorazepam (Ativan 2mg/ml 1ml) 2 mg Q4H PRN IV For Anxiety 10/03/20 09:29 10/10/20 09:28 10/05/20 16:19 Methylprednisolone Sodium Succinate (Solu-MEDROL) 40 mg DAILY IVP 10/06/20 09:00 01/04/21 08:59 10/06/20 09:46 Morphine Sulfate (Morphine Sulfate) 2 mg Q4H PRN IVP Moderate Pain (4-6) 10/03/20 09:15 10/10/20 09:14 Morphine Sulfate (Morphine Sulfate) 4 mg Q4H PRN IVP Severe Pain (7-10) 10/03/20 09:15 10/10/20 09:14 Nitroglycerin (Ntg) 0.4 mg Q5M X 3 DOSES PRN SL Prn Chest Pain 10/03/20 09:15 11/02/20 09:14 Ondansetron HCl (Zofran) 4 mg Q6H PRN IVP Nausea & Vomiting 10/03/20 09:28 11/02/20 09:27 Pantoprazole (Protonix) 40 mg DAILY IV 10/04/20 09:00 11/03/20 08:59 10/06/20 09:47 Piperacillin Sod/ Tazobactam Sod 3.375 gm/Dextrose 110 ml @ 220 mls/hr Q8H IV 10/03/20 15:00 10/10/20 14:59 10/06/20 07:00 Potassium Phosphate 250 ml @ 62.5 mls/hr Q4H IVPB 10/06/20 08:00 10/06/20 15:59 10/06/20 09:44 Risperidone (RisperDAL) 1 mg DAILY NG 10/04/20 09:00 11/18/20 08:59 10/06/20 09:44 Sodium Hypochlorite (Dakin's Quarter Strength) 1 applic DAILY TOPIC 10/04/20 09:00 11/03/20 08:59 10/06/20 09:47 Vancomycin HCl (Vanco pharmacy to dose) 1 ea DAILY PRN MISC Per rx protocol 10/03/20 09:30 11/02/20 09:29 Vancomycin HCl 750 mg/Sodium Chloride 275 ml @ 183.333 mls/hr Q12HR@0600,1800 IVPB 10/06/20 06:00 10/11/20 05:59 10/06/20 05:25 Allergies: Coded Allergies: No Known Allergies (Unverified , 12/17/15) Subjective in the ICU, intubated, remained on ventilation,open eyes, WBC 14.9. Objective Last Vital Signs Date Time Temp Pulse Resp B/P (MAP) Pulse Ox O2 Delivery O2 Flow Rate FiO2 10/06/20 14:00 84 16 110/62 (78) 99 10/06/20 12:00 99.8 10/06/20 12:00 30 10/06/20 12:00 Mechanical Ventilator 10/03/20 09:21 12.0 Laboratory Tests Test 10/06/20 00:09 10/06/20 03:00 10/06/20 04:00 10/06/20 12:00 POC Whole Blood Glucose 131 MG/DL (74-106) H Sodium Level 146 MMOL/L (136-145) H Potassium Level 3.1 MMOL/L (3.5-5.1) L Chloride Level 112 MMOL/L (98-107) H Carbon Dioxide Level 26 MMOL/L (21-32) Anion Gap 8 mmol/L (5-15) Blood Urea Nitrogen 31 mg/dL (7-18) H Creatinine 1.0 MG/DL (0.55-1.30) Estimat Glomerular Filtration Rate > 60 mL/min (>60) Glucose Level 127 MG/DL (74-106) H Calcium Level 8.3 MG/DL (8.5-10.1) L Total Bilirubin 0.4 MG/DL (0.2-1.0) Aspartate Amino Transf (AST/SGOT) 25 U/L (15-37) Alanine Aminotransferase (ALT/SGPT) 20 U/L (12-78) Alkaline Phosphatase 29 U/L (46-116) L Total Protein 7.1 G/DL (6.4-8.2) Albumin 2.3 G/DL (3.4-5.0) L Globulin 4.8 g/dL Albumin/Globulin Ratio 0.5 (1.0-2.7) L Vancomycin Level Trough 10.1 ug/mL (5.0-12.0) White Blood Count 14.9 K/UL (4.8-10.8) H Red Blood Count 4.72 M/UL (4.20-5.40) Hemoglobin 12.5 G/DL (12.0-16.0) Hematocrit 42.2 % (37.0-47.0) Mean Corpuscular Volume 89 FL (80-99) Mean Corpuscular Hemoglobin 26.5 PG (27.0-31.0) L Mean Corpuscular Hemoglobin Concent 29.7 G/DL (32.0-36.0) L Red Cell Distribution Width 16.4 % (11.6-14.8) H Platelet Count 203 K/UL (150-450) Mean Platelet Volume 9.0 FL (6.5-10.1) Neutrophils (%) (Auto) 78.4 % (45.0-75.0) H Lymphocytes (%) (Auto) 12.4 % (20.0-45.0) L Monocytes (%) (Auto) 7.6 % (1.0-10.0) Eosinophils (%) (Auto) 0.0 % (0.0-3.0) Basophils (%) (Auto) 1.7 % (0.0-2.0) Activated Partial Thromboplast Time 50 SEC (23-33) H 114 SEC (23-33) H Phosphorus Level 2.0 MG/DL (2.5-4.9) L Magnesium Level 2.2 MG/DL (1.8-2.4) Troponin I 0.117 ng/mL (0.000-0.056) Microbiology Date/Time Source Procedure Growth Status 10/04/20 10:00 Nasopharynx SARS-CoV-2 RdRp Gene Assay - Final Complete 10/03/20 19:30 Sputum Gram Stain - Final Complete 10/03/20 19:30 Sputum Sputum Culture - Final NORMAL UPPER RESPIRATORY CHANDAN PRESENT Complete Intake and Output 10/05/20 10/06/20 19:00 07:00 Intake Total 830.452 ml 1632.543 ml Output Total 580 ml 960 ml Balance 250.452 ml 672.543 ml Intake Free Water 90 ml 50 ml IV Total 480.452 ml 1232.543 ml Tube Feeding 260 ml 350 ml Output Urine Total 580 ml 960 ml # Bowel Movements 3 Objective General: Intubated, awake, responsivity to open her eyes. HEENT: NCAT, sclera anicteric, PERRL, ET Tube. NGT. Neck: Supple, no significant jugular venous distention, Lungs: Mechanical breath sound, decreased air at the base , no Wheeze or Rales. Heart: Regular rate and rhythm, normal S1/S2, no murmur. Abdomen: soft, nontender, nondistended. Normoactive bowel sounds. Extremities: No Cyanosis , clubbing or edema. Neuro: limited secondary to patient status, Able to move extremities Skin: warm, no rash, decubitus ulcer stage IV.t Assessment/Plan Status Narrative ASSESSMENT: This is a 75-year-old female with: 1. Acute hypoxemic respiratory failure. 2. Altered mental status. 3. Hypertension. 4. Chronic obstructive pulmonary disease. 5. Alzheimer's dementia. 6. UTI=proteus 7. acute kidney injury/ATN 8. Stage IV decubitus ulcer. 9. Severe protein calorie malnutrition. TREATMENT: 1. Acute hypoxic respiratory failure. Pulmonary/critical care = Dr. Will Quiros. The patient is currently intubated in the intensive care unit. ABX= Zosyn and vanco IV. on Solu-Medrol IV 2. Hypertension. The patient is currently hypotensive. 3. Chronic obstructive pulmonary disease. A Pulmonary consultation has been obtained with Dr. Will Quiros. The patient is currently receiving intravenous Solu-Medrol and albuterol/Atrovent nebulized q.4 h. p.r.n. 4. Alzheimer's dementia. 5. Patient Needs PICC Tolerated tube feeding @ 55 CC/HR CODE STATUS: Full code DVT prophylaxis: Heparin subcu. Elías Mazariegos MD Oct 06, 2020 14:09
[2020-10-06] MEDS ORDERED: NS 275ml ONE (15:07)
[2020-10-06] MEDS ORDERED: D5 1/2NS 1000ml IV ONE (15:07)
[2020-10-06] MEDS ORDERED: Tubing IV Secondary IV ONE (15:07)
[2020-10-06] MEDS: Dyna-Hex 2% Top Sol 2oz TOPIC SCH (19:38)
[2020-10-06] MEDS: Atorvastatin 20mg tab GT SCH (20:32)
[2020-10-06] MEDS: Morphine Sulfate 2mg/ml Inj(IV/IM USE ONLY) IVP PRN (20:34)
--- NOTE | 2020-10-06 21:10 | Cardiology Progress Note ---
Assessment/Plan Assessment/Plan 1. Altered mental status. 2. Baseline dementia. 3. Rkp-[id number]-tykckwsys myocardial infarction. 4. Respiratory failure, status post intubation. 5. COPD history. 6. Renal insufficiency 7. bactermia still on a vent responsive tele sinus watch bp is on norvasc ekg noted t inversion in the an lead form 10/05 keep on heparin Ecotrin wean vent as possible blanca chronicity of the t wave inversion is not clear will wait until weans off vent to make decision regarding cardiac therapy old ekg will be helpfull Subjective ROS Limited/Unobtainable: Yes Objective Last 24 Hour Vital Signs Date Time Temp Pulse Resp B/P (MAP) Pulse Ox O2 Delivery O2 Flow Rate FiO2 10/06/20 20:47 88 16 30 10/06/20 19:09 79 16 100 Mechanical Ventilator 30 84 16 30 10/06/20 18:00 77 16 102/51 (68) 99 10/06/20 17:19 85 16 30 10/06/20 17:09 91 30 30 10/06/20 17:00 92 20 138/88 (105) 99 10/06/20 16:00 98.9 85 16 125/58 (80) 100 10/06/20 16:00 84 16 125/58 (80) 99 10/06/20 16:00 30 10/06/20 16:00 83 10/06/20 16:00 Mechanical Ventilator 10/06/20 15:40 81 16 100 Mechanical Ventilator 30 90 16 30 10/06/20 15:00 87 16 129/65 (86) 99 10/06/20 14:00 84 16 110/62 (78) 99 10/06/20 14:00 84 16 110/62 (78) 99 10/06/20 13:20 90 16 30 10/06/20 13:00 85 17 118/60 (79) 99 10/06/20 12:35 80 16 100 Mechanical Ventilator 30 85 16 30 10/06/20 12:00 99.8 69 16 136/67 (90) 100 10/06/20 12:00 30 10/06/20 12:00 84 10/06/20 12:00 Mechanical Ventilator 10/06/20 11:00 74 16 119/69 (86) 100 10/06/20 10:00 79 16 122/62 (82) 100 10/06/20 09:59 86 16 30 10/06/20 09:00 81 16 151/76 (101) 99 10/06/20 08:00 99.5 83 16 137/65 (89) 99 10/06/20 08:00 30 10/06/20 08:00 Mechanical Ventilator 10/06/20 07:55 77 16 100 Mechanical Ventilator 30 75 16 30 10/06/20 07:40 109 10/06/20 07:00 78 16 139/70 (93) 99 10/06/20 06:30 100 16 10/06/20 06:00 84 16 155/70 (98) 99 10/06/20 05:00 85 16 138/67 (90) 98 10/06/20 04:38 94 16 30 10/06/20 04:00 Mechanical Ventilator 10/06/20 04:00 30 10/06/20 04:00 99.8 85 16 129/62 (84) 97 10/06/20 04:00 89 10/06/20 03:20 81 16 100 Mechanical Ventilator 30 86 18 30 10/06/20 03:00 88 16 149/74 (99) 100 10/06/20 02:00 85 16 145/76 (99) 99 10/06/20 01:00 84 16 132/61 (84) 99 10/06/20 00:38 90 16 30 10/06/20 00:00 90 10/06/20 00:00 30 10/06/20 00:00 98.7 89 16 125/93 (104) 98 10/06/20 00:00 Mechanical Ventilator 10/05/20 23:00 91 16 141/70 (93) 98 10/05/20 22:54 84 16 100 Mechanical Ventilator 30 88 18 30 10/05/20 22:00 86 17 137/76 (96) 99 General Appearance: no apparent distress, alert, on vent, patient on isolation Neck: supple Cardiovascular: normal rate Respiratory/Chest: lungs clear Abdomen: normal bowel sounds, non tender, soft Extremities: no swelling Intake and Output 10/05/20 10/06/20 19:00 07:00 Intake Total 830.452 ml 1632.543 ml Output Total 580 ml 960 ml Balance 250.452 ml 672.543 ml Intake Free Water 90 ml 50 ml IV Total 480.452 ml 1232.543 ml Tube Feeding 260 ml 350 ml Output Urine Total 580 ml 960 ml # Bowel Movements 3 Laboratory Tests Test 10/06/20 00:09 10/06/20 03:00 10/06/20 04:00 10/06/20 12:00 POC Whole Blood Glucose 131 MG/DL (74-106) H Sodium Level 146 MMOL/L (136-145) H Potassium Level 3.1 MMOL/L (3.5-5.1) L Chloride Level 112 MMOL/L (98-107) H Carbon Dioxide Level 26 MMOL/L (21-32) Anion Gap 8 mmol/L (5-15) Blood Urea Nitrogen 31 mg/dL (7-18) H Creatinine 1.0 MG/DL (0.55-1.30) Estimat Glomerular Filtration Rate > 60 mL/min (>60) Glucose Level 127 MG/DL (74-106) H Calcium Level 8.3 MG/DL (8.5-10.1) L Total Bilirubin 0.4 MG/DL (0.2-1.0) Aspartate Amino Transf (AST/SGOT) 25 U/L (15-37) Alanine Aminotransferase (ALT/SGPT) 20 U/L (12-78) Alkaline Phosphatase 29 U/L (46-116) L Total Protein 7.1 G/DL (6.4-8.2) Albumin 2.3 G/DL (3.4-5.0) L Globulin 4.8 g/dL Albumin/Globulin Ratio 0.5 (1.0-2.7) L Vancomycin Level Trough 10.1 ug/mL (5.0-12.0) White Blood Count 14.9 K/UL (4.8-10.8) H Red Blood Count 4.72 M/UL (4.20-5.40) Hemoglobin 12.5 G/DL (12.0-16.0) Hematocrit 42.2 % (37.0-47.0) Mean Corpuscular Volume 89 FL (80-99) Mean Corpuscular Hemoglobin 26.5 PG (27.0-31.0) L Mean Corpuscular Hemoglobin Concent 29.7 G/DL (32.0-36.0) L Red Cell Distribution Width 16.4 % (11.6-14.8) H Platelet Count 203 K/UL (150-450) Mean Platelet Volume 9.0 FL (6.5-10.1) Neutrophils (%) (Auto) 78.4 % (45.0-75.0) H Lymphocytes (%) (Auto) 12.4 % (20.0-45.0) L Monocytes (%) (Auto) 7.6 % (1.0-10.0) Eosinophils (%) (Auto) 0.0 % (0.0-3.0) Basophils (%) (Auto) 1.7 % (0.0-2.0) Activated Partial Thromboplast Time 50 SEC (23-33) H 114 SEC (23-33) H Phosphorus Level 2.0 MG/DL (2.5-4.9) L Magnesium Level 2.2 MG/DL (1.8-2.4) Troponin I 0.117 ng/mL (0.000-0.056) Test 10/06/20 16:56 10/06/20 20:00 POC Whole Blood Glucose 149 MG/DL (74-106) H Activated Partial Thromboplast Time 79 SEC (23-33) H Microbiology Date/Time Source Procedure Growth Status 10/04/20 10:00 Nasopharynx SARS-CoV-2 RdRp Gene Assay - Final Complete Laurent Ramesh MD Oct 06, 2020 21:10
[2020-10-07] VITALS (23 sets, daily range): BP systolic 89–150; BP diastolic 50–63
[2020-10-07] MEDS: Albuterol/Ipratropium 3ml neb HHN SCH ×7 (03:15→22:36)
[2020-10-07 04:53] LABS: BASOPHILS % (AUTO) 1.9 % (0.0-2.0); EOSINOPHILS % (AUTO) 1.2 % (0.0-3.0); HEMATOCRIT 39.1 % (37.0-47.0); HEMOGLOBIN 11.9 G/DL (12.0-16.0); LYMPHOCYTES % (AUTO) 15.8 % (20.0-45.0); MEAN CORPUSCULAR VOLUME 89 FL (80-99); MONOCYTES % (AUTO) 6.8 % (1.0-10.0); NEUTROPHILS % (AUTO) 74.4 % (45.0-75.0); PLATELET COUNT 188 K/UL (150-450); RED BLOOD COUNT 4.42 M/UL (4.20-5.40); RED CELL DISTRIBUTION WIDTH 16.1 % (11.6-14.8); WHITE BLOOD COUNT 10.8 K/UL (4.8-10.8)
[2020-10-07 05:16] LABS: ALANINE AMINOTRANSFERASE 21 U/L (12-78); ALBUMIN/GLOBULIN RATIO 0.5 (1.0-2.7); ALKALINE PHOSPHATASE 27 U/L (46-116); ANION GAP 8 mmol/L (5-15); ASPARTATE AMINO TRANSFERASE 29 U/L (15-37); BILIRUBIN,TOTAL 0.2 MG/DL (0.2-1.0); BLOOD UREA NITROGEN 27 mg/dL (7-18); CALCIUM 8.4 MG/DL (8.5-10.1); CARBON DIOXIDE 25 MMOL/L (21-32); CHLORIDE 112 MMOL/L (98-107); CREATININE 0.9 MG/DL (0.55-1.30); PHOSPHORUS 3.1 MG/DL (2.5-4.9); POTASSIUM 3.8 MMOL/L (3.5-5.1); SODIUM 145 MMOL/L (136-145)
[2020-10-07] MEDS: Vancomycin 750mg/NS 275ml IVPB SCH ×2 (06:27)
[2020-10-07] MEDS: NovoLOG Insulin Flexpen SUBQ SCH ×4 (06:28→23:16)
[2020-10-07] MEDS: Piperacillin/Tazobactam 3.375 GM in D5W 110 ML IV SCH ×3 (06:29→23:05)
[2020-10-07] MEDS: Acetaminophen 650mg/20.3ml GT PRN (06:42)
--- NOTE | 2020-10-07 08:04 | Infectious Diseases Prog Note ---
Assessment/Plan 75yo F with: Afebrile, Tmax 99.7 --> Febrile to 102 Normal WBC Acute hypoxic resp failure, SP intubation 10/03 COPD Non-verbal at baseline UTI GPC bacteremia, m/l contaminant 10/03 BCx +1/2 Staph hominis, m/l skin contaminant UA 10-15 WBC, UCx >100k P.mirabilis (S-CTX, R-bactrim) Resp cx p COVID rapid Ag neg Flu neg MRSA nares neg CXR: No focal consolidation, pleural effusion, or pneumothorax. Mild emphysema with increased interstitial markings. Cardiomegaly. Calcified aorta. 10/04 COVID rapid Ag neg 10/05 BCx NTD Dementia [facility] resident Plan: Stop vancomycin IV #4 Cont empiric Zosyn #5 / 7-10 for pna On steroids per primary, solumedrol 40mg daily F/u repeat BCx 10/05, NTD Monitor CBC/CMP Monitor temp curve, hemodynamics Monitor resp status D/w RN Thank you for this consult. [facility] will continue to follow. Subjective Allergies: Coded Allergies: No Known Allergies (Unverified , 12/17/15) AF WBC improving to 10.8 BCx from admission 1 +Staph hominis, most likely skin contaminant Remains on vent, 30% PEEP 5, weaning Objective Last 24 Hour Vital Signs Date Time Temp Pulse Resp B/P (MAP) Pulse Ox O2 Delivery O2 Flow Rate FiO2 10/07/20 07:33 98.4 10/07/20 07:00 82 16 104/51 (68) 99 10/07/20 06:30 100 16 10/07/20 06:00 99.8 88 17 113/58 (76) 99 10/07/20 05:12 91 17 30 10/07/20 05:00 92 16 117/63 (81) 98 10/07/20 04:00 99.6 96 16 123/61 (81) 98 10/07/20 04:00 30 10/07/20 04:00 90 10/07/20 04:00 Mechanical Ventilator 10/07/20 03:20 95 17 100 Mechanical Ventilator 30 93 16 30 10/07/20 02:00 90 16 111/57 (75) 99 10/07/20 01:15 93 16 30 10/07/20 01:00 91 16 96/50 (65) 97 10/07/20 00:00 99.6 90 16 101/54 (70) 96 10/07/20 00:00 85 10/07/20 00:00 Mechanical Ventilator 10/07/20 00:00 30 10/06/20 23:00 82 16 136/67 (90) 100 10/06/20 22:58 77 16 100 Mechanical Ventilator 30 80 16 30 10/06/20 22:00 82 16 145/73 (97) 99 10/06/20 21:00 85 16 127/62 (83) 99 10/06/20 20:47 88 16 30 10/06/20 20:00 99.1 89 17 123/61 (81) 100 10/06/20 20:00 86 10/06/20 20:00 30 10/06/20 20:00 Mechanical Ventilator 10/06/20 19:09 79 16 100 Mechanical Ventilator 30 84 16 30 10/06/20 19:00 75 16 102/59 (73) 100 10/06/20 18:00 77 16 102/51 (68) 99 10/06/20 17:19 85 16 30 10/06/20 17:15 100 10/06/20 17:09 91 30 30 10/06/20 17:00 92 20 138/88 (105) 99 10/06/20 16:00 98.9 85 16 125/58 (80) 100 10/06/20 16:00 84 16 125/58 (80) 99 10/06/20 16:00 30 10/06/20 16:00 83 10/06/20 16:00 Mechanical Ventilator 10/06/20 15:40 81 16 100 Mechanical Ventilator 30 90 16 30 10/06/20 15:00 87 16 129/65 (86) 99 10/06/20 14:00 84 16 110/62 (78) 99 10/06/20 14:00 84 16 110/62 (78) 99 10/06/20 13:20 90 16 30 10/06/20 13:00 85 17 118/60 (79) 99 10/06/20 12:35 80 16 100 Mechanical Ventilator 30 85 16 30 10/06/20 12:00 99.8 69 16 136/67 (90) 100 10/06/20 12:00 30 10/06/20 12:00 84 10/06/20 12:00 Mechanical Ventilator 10/06/20 11:00 74 16 119/69 (86) 100 10/06/20 10:00 79 16 122/62 (82) 100 10/06/20 09:59 86 16 30 10/06/20 09:00 81 16 151/76 (101) 99 Height (Feet): 5 Height (Inches): 4.00 Weight (Pounds): 135 Gen: NAD HEENT: NCAT, ETT CV: RRR Pulm: CTAB on vent Abd: Non-distended Ext: No c/c/e Skin: No visible rashes Neuro: Sedated Microbiology Date/Time Source Procedure Growth Status 10/05/20 09:30 Blood Blood Culture - Preliminary NO GROWTH AFTER 24 HOURS Resulted 10/05/20 09:20 Blood Blood Culture - Preliminary NO GROWTH AFTER 24 HOURS Resulted 10/04/20 10:00 Nasopharynx SARS-CoV-2 RdRp Gene Assay - Final Complete Laboratory Tests Test 10/06/20 12:00 10/06/20 16:56 10/06/20 20:00 10/06/20 23:03 Activated Partial Thromboplast Time 114 SEC (23-33) H 79 SEC (23-33) H POC Whole Blood Glucose 149 MG/DL (74-106) H Pending Test 10/07/20 04:00 10/07/20 06:20 10/07/20 06:21 10/07/20 06:26 White Blood Count 10.8 K/UL (4.8-10.8) Red Blood Count 4.42 M/UL (4.20-5.40) Hemoglobin 11.9 G/DL (12.0-16.0) L Hematocrit 39.1 % (37.0-47.0) Mean Corpuscular Volume 89 FL (80-99) Mean Corpuscular Hemoglobin 26.8 PG (27.0-31.0) L Mean Corpuscular Hemoglobin Concent 30.3 G/DL (32.0-36.0) L Red Cell Distribution Width 16.1 % (11.6-14.8) H Platelet Count 188 K/UL (150-450) Mean Platelet Volume 9.7 FL (6.5-10.1) Neutrophils (%) (Auto) 74.4 % (45.0-75.0) Lymphocytes (%) (Auto) 15.8 % (20.0-45.0) L Monocytes (%) (Auto) 6.8 % (1.0-10.0) Eosinophils (%) (Auto) 1.2 % (0.0-3.0) Basophils (%) (Auto) 1.9 % (0.0-2.0) Activated Partial Thromboplast Time 77 SEC (23-33) H Sodium Level 145 MMOL/L (136-145) Potassium Level 3.8 MMOL/L (3.5-5.1) Chloride Level 112 MMOL/L (98-107) H Carbon Dioxide Level 25 MMOL/L (21-32) Anion Gap 8 mmol/L (5-15) Blood Urea Nitrogen 27 mg/dL (7-18) H Creatinine 0.9 MG/DL (0.55-1.30) Estimat Glomerular Filtration Rate > 60 mL/min (>60) Glucose Level 119 MG/DL (74-106) H Calcium Level 8.4 MG/DL (8.5-10.1) L Phosphorus Level 3.1 MG/DL (2.5-4.9) Magnesium Level 2.0 MG/DL (1.8-2.4) Total Bilirubin 0.2 MG/DL (0.2-1.0) Aspartate Amino Transf (AST/SGOT) 29 U/L (15-37) Alanine Aminotransferase (ALT/SGPT) 21 U/L (12-78) Alkaline Phosphatase 27 U/L (46-116) L Total Protein 6.4 G/DL (6.4-8.2) Albumin 2.0 G/DL (3.4-5.0) L Globulin 4.4 g/dL Albumin/Globulin Ratio 0.5 (1.0-2.7) L POC Whole Blood Glucose 287 MG/DL (74-106) H 60 MG/DL (74-106) L Pending Current Medications Medications (Trade) Dose Ordered Sig/Bharti Route PRN Reason Start Time Stop Time Status Last Admin Dose Admin Acetaminophen (Tylenol) 650 mg Q4H PRN GT Temp >100.5 10/03/20 17:15 11/02/20 17:14 10/07/20 06:42 Albuterol/ Ipratropium (Albuterol/ Ipratropium) 3 ml Q4HRT HHN 11/16/20 11:00 10/08/20 10:59 10/07/20 07:42 Amlodipine Besylate (Norvasc) 2.5 mg BIDPRN PRN GT sbp greater than 150 10/05/20 20:30 11/04/20 20:29 Aspirin (ASA) 81 mg DAILY GT 10/04/20 14:45 11/18/20 14:44 10/06/20 09:44 Atorvastatin Calcium (Lipitor) 20 mg BEDTIME GT 10/04/20 21:00 01/02/21 20:59 10/06/20 20:32 Chlorhexidine Gluconate (Rahel-Hex 2%) 1 applic DAILY@2000 TOPIC 10/05/20 20:00 01/03/21 19:59 10/06/20 19:38 Dextrose (Dextrose 50%) 25 ml Q30M PRN IV Hypoglycemia 10/03/20 09:28 01/01/21 09:27 Dextrose (Dextrose 50%) 50 ml Q30M PRN IV Hypoglycemia 10/03/20 09:28 01/01/21 09:27 Dextrose/Sodium Chloride 1,000 ml @ 50 mls/hr Q20H IV 10/03/20 11:00 11/02/20 10:59 10/06/20 19:39 Docusate Sodium (Colace) 100 mg TWICE A DAY GT 10/03/20 18:00 11/02/20 17:59 10/06/20 17:32 Heparin Sodium/ Dextrose 500 ml @ 19.595 mls/ hr ADJUST PER PROTOCOL IV 10/06/20 14:30 11/05/20 14:29 10/06/20 20:35 Insulin Aspart (NovoLOG) Q6HR SUBQ 10/06/20 00:00 01/01/21 11:29 10/07/20 06:28 Lorazepam (Ativan 2mg/ml 1ml) 2 mg Q4H PRN IV For Anxiety 10/03/20 09:29 10/10/20 09:28 10/05/20 16:19 Methylprednisolone Sodium Succinate (Solu-MEDROL) 40 mg DAILY IVP 10/06/20 09:00 01/04/21 08:59 10/06/20 09:46 Morphine Sulfate (Morphine Sulfate) 2 mg Q4H PRN IVP Moderate Pain (4-6) 10/03/20 09:15 10/10/20 09:14 10/06/20 20:34 Morphine Sulfate (Morphine Sulfate) 4 mg Q4H PRN IVP Severe Pain (7-10) 10/03/20 09:15 10/10/20 09:14 Nitroglycerin (Ntg) 0.4 mg Q5M X 3 DOSES PRN SL Prn Chest Pain 10/03/20 09:15 11/02/20 09:14 Ondansetron HCl (Zofran) 4 mg Q6H PRN IVP Nausea & Vomiting 10/03/20 09:28 11/02/20 09:27 Pantoprazole (Protonix) 40 mg DAILY IV 10/04/20 09:00 11/03/20 08:59 10/06/20 09:47 Piperacillin Sod/ Tazobactam Sod 3.375 gm/Dextrose 110 ml @ 220 mls/hr Q8H IV 10/03/20 15:00 10/10/20 14:59 10/07/20 06:29 Risperidone (RisperDAL) 1 mg DAILY NG 10/04/20 09:00 11/18/20 08:59 10/06/20 09:44 Sodium Hypochlorite (Dakin's Quarter Strength) 1 applic DAILY TOPIC 10/04/20 09:00 11/03/20 08:59 10/06/20 09:47 Vancomycin HCl (Vanco pharmacy to dose) 1 ea DAILY PRN MISC Per rx protocol 10/03/20 09:30 11/02/20 09:29 Vancomycin HCl 750 mg/Sodium Chloride 275 ml @ 183.333 mls/hr Q12HR@0600,1800 IVPB 10/06/20 06:00 10/11/20 05:59 10/07/20 06:27 Sondra Sepulveda M.D. Oct 07, 2020 08:04
[2020-10-07] MEDS: Pantoprazole Inj IV SCH (08:06)
[2020-10-07] MEDS: Aspirin Baby 81mg GT SCH (08:06)
[2020-10-07] MEDS: Dakin's 0.125% Soln (Quarter Strength) 16oz TOPIC SCH (08:07)
[2020-10-07] MEDS: Solu-MEDROL 40mg Inj IVP SCH (08:07)
[2020-10-07] MEDS: Docusate 100mg/10ml Liq GT SCH ×2 (08:07→18:25)
[2020-10-07] MEDS ORDERED: D5 1/2NS 1000ml IV ONE (09:34)
--- NOTE | 2020-10-07 10:13 | Pulmonolgy Critical Care Note ---
Critical Care - Asmt/Plan Problems: (1) Acute respiratory failure (2) ATN (acute tubular necrosis) (3) Non-ST elevation (NSTEMI) myocardial infarction (4) COPD (chronic obstructive pulmonary disease) (5) Stage 4 decubitus ulcer (6) Severe protein-calorie malnutrition (7) Alzheimer's dementia (8) History of hypertension (9) Psychiatric disorder Respiratory: monitor respiratory rate, adjust FIO2, CXR, weaning trial, other - failed weaning last night Cardiac: continue to monitor HR/BP Renal: F/U I&O Infectious Disease: check cultures Gastrointestinal: continue feedings/current rate Endocrine: monitor blood sugar Hematologic: monitor H/H, transfuse if hgb<8.5 Neurologic: PRN Ativan, PRN Morphine, keep patient comfortable Affect: PRN ativan Prophylaxis: Heparin Critical Care - Objective Last 24 Hour Vital Signs Date Time Temp Pulse Resp B/P (MAP) Pulse Ox O2 Delivery O2 Flow Rate FiO2 10/07/20 09:00 81 16 89/52 (64) 99 10/07/20 08:00 Mechanical Ventilator 10/07/20 08:00 30 10/07/20 08:00 98.4 86 19 109/50 (69) 100 10/07/20 07:52 79 16 100 Mechanical Ventilator 30 84 16 30 10/07/20 07:45 90 10/07/20 07:33 98.4 10/07/20 07:00 82 16 104/51 (68) 99 10/07/20 06:30 100 16 10/07/20 06:00 99.8 88 17 113/58 (76) 99 10/07/20 05:12 91 17 30 10/07/20 05:00 92 16 117/63 (81) 98 10/07/20 04:00 99.6 96 16 123/61 (81) 98 10/07/20 04:00 30 10/07/20 04:00 90 10/07/20 04:00 Mechanical Ventilator 10/07/20 03:20 95 17 100 Mechanical Ventilator 30 93 16 30 10/07/20 02:00 90 16 111/57 (75) 99 10/07/20 01:15 93 16 30 10/07/20 01:00 91 16 96/50 (65) 97 10/07/20 00:00 99.6 90 16 101/54 (70) 96 10/07/20 00:00 85 10/07/20 00:00 Mechanical Ventilator 10/07/20 00:00 30 10/06/20 23:00 82 16 136/67 (90) 100 10/06/20 22:58 77 16 100 Mechanical Ventilator 30 80 16 30 10/06/20 22:00 82 16 145/73 (97) 99 10/06/20 21:00 85 16 127/62 (83) 99 10/06/20 20:47 88 16 30 10/06/20 20:00 99.1 89 17 123/61 (81) 100 10/06/20 20:00 86 10/06/20 20:00 30 10/06/20 20:00 Mechanical Ventilator 10/06/20 19:09 79 16 100 Mechanical Ventilator 30 84 16 30 10/06/20 19:00 75 16 102/59 (73) 100 10/06/20 18:00 77 16 102/51 (68) 99 10/06/20 17:19 85 16 30 10/06/20 17:15 100 10/06/20 17:09 91 30 30 10/06/20 17:00 92 20 138/88 (105) 99 10/06/20 16:00 98.9 85 16 125/58 (80) 100 10/06/20 16:00 84 16 125/58 (80) 99 10/06/20 16:00 30 10/06/20 16:00 83 10/06/20 16:00 Mechanical Ventilator 10/06/20 15:40 81 16 100 Mechanical Ventilator 30 90 16 30 10/06/20 15:00 87 16 129/65 (86) 99 10/06/20 14:00 84 16 110/62 (78) 99 10/06/20 14:00 84 16 110/62 (78) 99 10/06/20 13:20 90 16 30 10/06/20 13:00 85 17 118/60 (79) 99 10/06/20 12:35 80 16 100 Mechanical Ventilator 30 85 16 30 10/06/20 12:00 99.8 69 16 136/67 (90) 100 10/06/20 12:00 30 10/06/20 12:00 84 10/06/20 12:00 Mechanical Ventilator 10/06/20 11:00 74 16 119/69 (86) 100 Status: sedated HEENT: atraumatic, normocephalic Neck: full ROM Lungs: rales, rhonchi Heart: HR/BP stable Abdomen: soft, non-tender Extremities: no C/C/E Micro: Microbiology Date/Time Source Procedure Growth Status 10/05/20 09:30 Blood Blood Culture - Preliminary NO GROWTH AFTER 24 HOURS Resulted 10/05/20 09:20 Blood Blood Culture - Preliminary NO GROWTH AFTER 24 HOURS Resulted Accucheck: 148 Critical Care - Subjective ROS Limited/Unobtainable: Yes EKG Rhythm: Sinus Rhythm FI02: 30 Vent Support Breath Rate: 16 Vent Support Mode: AC Vent Tidal Volume: 600 Sputum Amount: Small PEEP: 5.0 PIP: 21 Tube Feeding Amount: 55 I&O: Intake and Output 10/06/20 10/07/20 19:00 07:00 Intake Total 1660.154 ml 1769.110 ml Output Total 900 ml 805 ml Balance 760.154 ml 964.110 ml Intake Free Water 100 ml 120 ml IV Total 1010.154 ml 999.110 ml Tube Feeding 550 ml 650 ml Output Urine Total 900 ml 805 ml ET-Tube: 7.5 ET Position: 23 Labs: Laboratory Tests Test 10/06/20 12:00 10/06/20 16:56 10/06/20 20:00 10/06/20 23:03 Activated Partial Thromboplast Time 114 SEC (23-33) H 79 SEC (23-33) H POC Whole Blood Glucose 149 MG/DL (74-106) H Pending Test 10/07/20 04:00 10/07/20 06:20 10/07/20 06:21 10/07/20 06:26 White Blood Count 10.8 K/UL (4.8-10.8) Red Blood Count 4.42 M/UL (4.20-5.40) Hemoglobin 11.9 G/DL (12.0-16.0) L Hematocrit 39.1 % (37.0-47.0) Mean Corpuscular Volume 89 FL (80-99) Mean Corpuscular Hemoglobin 26.8 PG (27.0-31.0) L Mean Corpuscular Hemoglobin Concent 30.3 G/DL (32.0-36.0) L Red Cell Distribution Width 16.1 % (11.6-14.8) H Platelet Count 188 K/UL (150-450) Mean Platelet Volume 9.7 FL (6.5-10.1) Neutrophils (%) (Auto) 74.4 % (45.0-75.0) Lymphocytes (%) (Auto) 15.8 % (20.0-45.0) L Monocytes (%) (Auto) 6.8 % (1.0-10.0) Eosinophils (%) (Auto) 1.2 % (0.0-3.0) Basophils (%) (Auto) 1.9 % (0.0-2.0) Activated Partial Thromboplast Time 77 SEC (23-33) H Sodium Level 145 MMOL/L (136-145) Potassium Level 3.8 MMOL/L (3.5-5.1) Chloride Level 112 MMOL/L (98-107) H Carbon Dioxide Level 25 MMOL/L (21-32) Anion Gap 8 mmol/L (5-15) Blood Urea Nitrogen 27 mg/dL (7-18) H Creatinine 0.9 MG/DL (0.55-1.30) Estimat Glomerular Filtration Rate > 60 mL/min (>60) Glucose Level 119 MG/DL (74-106) H Calcium Level 8.4 MG/DL (8.5-10.1) L Phosphorus Level 3.1 MG/DL (2.5-4.9) Magnesium Level 2.0 MG/DL (1.8-2.4) Total Bilirubin 0.2 MG/DL (0.2-1.0) Aspartate Amino Transf (AST/SGOT) 29 U/L (15-37) Alanine Aminotransferase (ALT/SGPT) 21 U/L (12-78) Alkaline Phosphatase 27 U/L (46-116) L Total Protein 6.4 G/DL (6.4-8.2) Albumin 2.0 G/DL (3.4-5.0) L Globulin 4.4 g/dL Albumin/Globulin Ratio 0.5 (1.0-2.7) L POC Whole Blood Glucose 287 MG/DL (74-106) H 60 MG/DL (74-106) L Pending Will Quiros MD Oct 07, 2020 10:13
--- NOTE | 2020-10-07 13:09 | Internal Med Progress Note ---
Subjective Physician Name Elías Mazariegos Attending Physician Elías Mazariegos MD Current Medications Medications (Trade) Dose Ordered Sig/Bharti Route PRN Reason Start Time Stop Time Status Last Admin Dose Admin Acetaminophen (Tylenol) 650 mg Q4H PRN GT Temp >100.5 10/03/20 17:15 11/02/20 17:14 10/07/20 06:42 Albuterol/ Ipratropium (Albuterol/ Ipratropium) 3 ml Q4HRT HHN 10/07/20 11:00 10/12/20 10:59 10/07/20 11:25 Amlodipine Besylate (Norvasc) 2.5 mg BIDPRN PRN GT sbp greater than 150 10/05/20 20:30 11/04/20 20:29 Aspirin (ASA) 81 mg DAILY GT 10/04/20 14:45 11/18/20 14:44 10/07/20 08:06 Atorvastatin Calcium (Lipitor) 20 mg BEDTIME GT 10/04/20 21:00 01/02/21 20:59 10/06/20 20:32 Chlorhexidine Gluconate (Rahel-Hex 2%) 1 applic DAILY@2000 TOPIC 10/05/20 20:00 01/03/21 19:59 10/06/20 19:38 Dextrose (Dextrose 50%) 25 ml Q30M PRN IV Hypoglycemia 10/03/20 09:28 01/01/21 09:27 Dextrose (Dextrose 50%) 50 ml Q30M PRN IV Hypoglycemia 10/03/20 09:28 01/01/21 09:27 Dextrose/Sodium Chloride 1,000 ml @ 50 mls/hr Q20H IV 10/03/20 11:00 11/02/20 10:59 10/06/20 19:39 Docusate Sodium (Colace) 100 mg TWICE A DAY GT 10/03/20 18:00 11/02/20 17:59 10/07/20 08:07 Heparin Sodium/ Dextrose 500 ml @ 19.595 mls/ hr ADJUST PER PROTOCOL IV 10/06/20 14:30 11/05/20 14:29 10/06/20 20:35 Insulin Aspart (NovoLOG) Q6HR SUBQ 10/06/20 00:00 01/01/21 11:29 10/07/20 06:28 Lorazepam (Ativan 2mg/ml 1ml) 2 mg Q4H PRN IV For Anxiety 10/03/20 09:29 10/10/20 09:28 10/05/20 16:19 Methylprednisolone Sodium Succinate (Solu-MEDROL) 40 mg DAILY IVP 10/06/20 09:00 01/04/21 08:59 10/07/20 08:07 Morphine Sulfate (Morphine Sulfate) 2 mg Q4H PRN IVP Moderate Pain (4-6) 10/03/20 09:15 10/10/20 09:14 10/06/20 20:34 Morphine Sulfate (Morphine Sulfate) 4 mg Q4H PRN IVP Severe Pain (7-10) 10/03/20 09:15 10/10/20 09:14 Nitroglycerin (Ntg) 0.4 mg Q5M X 3 DOSES PRN SL Prn Chest Pain 10/03/20 09:15 11/02/20 09:14 Ondansetron HCl (Zofran) 4 mg Q6H PRN IVP Nausea & Vomiting 10/03/20 09:28 11/02/20 09:27 Pantoprazole (Protonix) 40 mg DAILY IV 10/04/20 09:00 11/03/20 08:59 10/07/20 08:06 Piperacillin Sod/ Tazobactam Sod 3.375 gm/Dextrose 110 ml @ 220 mls/hr Q8H IV 10/03/20 15:00 10/10/20 14:59 10/07/20 06:29 Risperidone (RisperDAL) 1 mg DAILY NG 10/04/20 09:00 11/18/20 08:59 10/07/20 08:06 Sodium Hypochlorite (Dakin's Quarter Strength) 1 applic DAILY TOPIC 10/04/20 09:00 11/03/20 08:59 10/07/20 08:07 Allergies: Coded Allergies: No Known Allergies (Unverified , 12/17/15) Subjective In ICU, intubated, remained on ventilation, alert, more responsive, open eyes, WBC 10.8 decrease, tolerated weaning trial for over 4 hours. Objective Last Vital Signs Date Time Temp Pulse Resp B/P (MAP) Pulse Ox O2 Delivery O2 Flow Rate FiO2 10/07/20 11:35 86 31 100 Mechanical Ventilator 30 87 34 30 10/07/20 10:00 118/53 (74) 10/07/20 08:00 98.4 10/03/20 09:21 12.0 Laboratory Tests Test 10/06/20 16:56 10/06/20 20:00 10/06/20 23:03 10/07/20 04:00 POC Whole Blood Glucose 149 MG/DL (74-106) H Pending Activated Partial Thromboplast Time 79 SEC (23-33) H 77 SEC (23-33) H White Blood Count 10.8 K/UL (4.8-10.8) Red Blood Count 4.42 M/UL (4.20-5.40) Hemoglobin 11.9 G/DL (12.0-16.0) L Hematocrit 39.1 % (37.0-47.0) Mean Corpuscular Volume 89 FL (80-99) Mean Corpuscular Hemoglobin 26.8 PG (27.0-31.0) L Mean Corpuscular Hemoglobin Concent 30.3 G/DL (32.0-36.0) L Red Cell Distribution Width 16.1 % (11.6-14.8) H Platelet Count 188 K/UL (150-450) Mean Platelet Volume 9.7 FL (6.5-10.1) Neutrophils (%) (Auto) 74.4 % (45.0-75.0) Lymphocytes (%) (Auto) 15.8 % (20.0-45.0) L Monocytes (%) (Auto) 6.8 % (1.0-10.0) Eosinophils (%) (Auto) 1.2 % (0.0-3.0) Basophils (%) (Auto) 1.9 % (0.0-2.0) Sodium Level 145 MMOL/L (136-145) Potassium Level 3.8 MMOL/L (3.5-5.1) Chloride Level 112 MMOL/L (98-107) H Carbon Dioxide Level 25 MMOL/L (21-32) Anion Gap 8 mmol/L (5-15) Blood Urea Nitrogen 27 mg/dL (7-18) H Creatinine 0.9 MG/DL (0.55-1.30) Estimat Glomerular Filtration Rate > 60 mL/min (>60) Glucose Level 119 MG/DL (74-106) H Calcium Level 8.4 MG/DL (8.5-10.1) L Phosphorus Level 3.1 MG/DL (2.5-4.9) Magnesium Level 2.0 MG/DL (1.8-2.4) Total Bilirubin 0.2 MG/DL (0.2-1.0) Aspartate Amino Transf (AST/SGOT) 29 U/L (15-37) Alanine Aminotransferase (ALT/SGPT) 21 U/L (12-78) Alkaline Phosphatase 27 U/L (46-116) L Total Protein 6.4 G/DL (6.4-8.2) Albumin 2.0 G/DL (3.4-5.0) L Globulin 4.4 g/dL Albumin/Globulin Ratio 0.5 (1.0-2.7) L Test 10/07/20 06:20 10/07/20 06:21 10/07/20 06:26 POC Whole Blood Glucose 287 MG/DL (74-106) H 60 MG/DL (74-106) L Pending Microbiology Date/Time Source Procedure Growth Status 10/05/20 09:30 Blood Blood Culture - Preliminary NO GROWTH AFTER 24 HOURS Resulted 10/05/20 09:20 Blood Blood Culture - Preliminary NO GROWTH AFTER 24 HOURS Resulted Intake and Output 10/06/20 10/07/20 19:00 07:00 Intake Total 1660.154 ml 1769.110 ml Output Total 900 ml 805 ml Balance 760.154 ml 964.110 ml Intake Free Water 100 ml 120 ml IV Total 1010.154 ml 999.110 ml Tube Feeding 550 ml 650 ml Output Urine Total 900 ml 805 ml Objective General: Intubated, awake, more responsivity to open her eyes. HEENT: NCAT, sclera anicteric, PERRL, ET Tube. NGT. Neck: Supple, no significant jugular venous distention, Lungs: Mechanical breath sound, decreased air at the base , no Wheeze or Rales. Heart: Regular rate and rhythm, normal S1/S2, no murmur. Abdomen: soft, nontender, nondistended. Normoactive bowel sounds. Extremities: No Cyanosis , clubbing or edema. Neuro: limited secondary to patient status, Able to move extremities Skin: warm, no rash, decubitus ulcer stage IV.t Assessment/Plan Status Narrative ASSESSMENT: This is a 75-year-old female with: 1. Acute hypoxemic respiratory failure. 2. Altered mental status. 3. Hypertension. 4. Chronic obstructive pulmonary disease. 5. Alzheimer's dementia. 6. UTI=proteus 7. acute kidney injury/ATN 8. Stage IV decubitus ulcer. 9. Severe protein calorie malnutrition. TREATMENT: 1. Acute hypoxic respiratory failure. Pulmonary/critical care = Dr. Will Quiros. The patient is currently intubated in the intensive care unit. ABX= Zosyn IV , DC Vanco IV on Solu-Medrol IV 2. Hypertension. The patient is currently hypotensive. 3. Chronic obstructive pulmonary disease. A Pulmonary consultation has been obtained with Dr. Will Quiros. The patient is currently receiving intravenous Solu-Medrol and albuterol/Atrovent nebulized q.4 h. p.r.n. 4. Alzheimer's dementia. 5. Patient Needs PICC Tolerated tube feeding @ 55 CC/HR CODE STATUS: Full code DVT prophylaxis: Heparin subcu. Weaning Trial, Extubate soon. Elías Mazariegos MD Oct 07, 2020 13:09
--- NOTE | 2020-10-07 13:47 | Diagnostic Imaging Report ---
Indications: Needs long-term IV access Technique: Procedure performed at bedside. Procedural timeout performed. Ultrasound confirms patent compressible left basilic vein. Total sterile technique, including sterile probe cover and sterile gel, sterile gloves, hand hygiene, hat, mask,, sterile gown, large sterile drape, and preparation with 2% chlorhexidine utilized. Local anesthesia with 1% lidocaine. Under real-time ultrasound guidance, puncture vein using 21-gauge needle, passage 0.018 guidewire, exchange for 4.5 Iraqi peel-away sheath. 4French dual-lumen power PICC cut to 38 cm. It was inserted through the peel-away sheath. Peel-away sheath and guidewire removed. Catheter fixed to the skin. Both catheter ports aspirated and flushed. Patient tolerated procedure well, without immediate complication. Followup chest x-ray obtained, documents catheter tip position at the SVC. Impression: Successful bedside placement of left arm PICC under sonographic guidance, as described above. Catheter cleared for immediate use.
[2020-10-07] MEDS: D5 1/2NS 1,000 ML IV SCH (15:11)
--- NOTE | 2020-10-07 16:00 | Cardiology Report ---
APPROVED REPORT EXAM: Two-dimensional and M-mode echocardiogram with Doppler and color Doppler. INDICATION Left Ventricular function M-Mode DIMENSIONS IVSd1.4 (0.7-1.1cm)Left Atrium (MM)3.3 (1.6-4.0cm) LVDd3.1 (3.5-5.6cm)Aortic Root3.1 (2.0-3.7cm) PWd1.4 (0.7-1.1cm)Aortic Cusp Exc.1.6 (1.5-2.0cm) IVSs2.3 cmEPSS0.2 (>1.0cm) LVDs0.8 (2.5-4.0cm) PWs1.5 cm Other Information Technically limited study due to patient's breathing and position. <Conclusion> Normal left ventricular chamber size, systolic function and wall motion to extent visualized. Left ventricular ejection fraction estimated to be 70 %. Study quality precludes accurate assessment of regional wall motion. Mild left ventricular hypertrophy. Mild right ventricular hypertrophy. No evidence of pericardial effusion. All other cardiac chambers are within normal limits. Moderate calcification of non-cusp aortic valve with adequate cusp excursion. Thickened mitral valve leaflets with normal excursion. Mitral annulus and aortic root calcification. Pulmonic valve not well visualized. Normal tricuspid valve structure. IVC dilated at 2.1 cm without physiologic collapse suggestive of increased RA pressure. A color flow and spectral Doppler study was performed and revealed: Mild aortic regurgitation. Trace mitral regurgitation. Mitral diastolic velocities suggest reduced left ventricular relaxation c/w mild LV diastolic dysfunction (Grade I ). Trace tricuspid regurgitation. Tricuspid systolic velocities suggests peak right ventricular systolic pressure of 17 mmHg. No pulmonic regurgitation present.
[2020-10-07] MEDS: Morphine Sulfate 2mg/ml Inj(IV/IM USE ONLY) IVP PRN (16:05)
--- NOTE | 2020-10-07 16:50 | Surgery Progress Note ---
Surgery Progress Note Subjective Additional Comments labs improved comfortable no n/v dressings aisha well Objective Last 24 Hour Vital Signs Date Time Temp Pulse Resp B/P (MAP) Pulse Ox O2 Delivery O2 Flow Rate FiO2 10/07/20 16:07 88 10/07/20 16:00 98.5 92 17 123/51 (75) 99 10/07/20 15:38 84 16 100 Mechanical Ventilator 30 81 16 30 10/07/20 15:30 100 10/07/20 15:00 77 30 105/52 (69) 100 10/07/20 14:00 85 34 111/50 (70) 99 10/07/20 13:10 83 26 30 10/07/20 13:00 88 26 125/55 (78) 98 10/07/20 12:00 30 10/07/20 12:00 Mechanical Ventilator 10/07/20 12:00 99.4 83 33 109/51 (70) 100 10/07/20 11:56 84 10/07/20 11:35 86 31 100 Mechanical Ventilator 30 87 34 30 10/07/20 11:00 84 33 117/53 (74) 100 10/07/20 10:50 85 33 30 30 10/07/20 10:00 79 16 118/53 (74) 99 10/07/20 09:00 81 16 30 10/07/20 09:00 81 16 89/52 (64) 99 10/07/20 08:00 Mechanical Ventilator 10/07/20 08:00 30 10/07/20 08:00 98.4 86 19 109/50 (69) 100 10/07/20 07:52 79 16 100 Mechanical Ventilator 30 84 16 30 10/07/20 07:45 90 10/07/20 07:33 98.4 10/07/20 07:00 82 16 104/51 (68) 99 10/07/20 06:30 100 16 10/07/20 06:00 99.8 88 17 113/58 (76) 99 10/07/20 05:12 91 17 30 10/07/20 05:00 92 16 117/63 (81) 98 10/07/20 04:00 99.6 96 16 123/61 (81) 98 10/07/20 04:00 30 10/07/20 04:00 90 10/07/20 04:00 Mechanical Ventilator 10/07/20 03:20 95 17 100 Mechanical Ventilator 30 93 16 30 10/07/20 02:00 90 16 111/57 (75) 99 10/07/20 01:15 93 16 30 10/07/20 01:00 91 16 96/50 (65) 97 10/07/20 00:00 99.6 90 16 101/54 (70) 96 10/07/20 00:00 85 10/07/20 00:00 Mechanical Ventilator 10/07/20 00:00 30 10/06/20 23:00 82 16 136/67 (90) 100 10/06/20 22:58 77 16 100 Mechanical Ventilator 30 80 16 30 10/06/20 22:00 82 16 145/73 (97) 99 10/06/20 21:00 85 16 127/62 (83) 99 10/06/20 20:47 88 16 30 10/06/20 20:00 99.1 89 17 123/61 (81) 100 10/06/20 20:00 86 10/06/20 20:00 30 10/06/20 20:00 Mechanical Ventilator 10/06/20 19:09 79 16 100 Mechanical Ventilator 30 84 16 30 10/06/20 19:00 75 16 102/59 (73) 100 10/06/20 18:00 77 16 102/51 (68) 99 10/06/20 17:19 85 16 30 10/06/20 17:15 100 10/06/20 17:09 91 30 30 10/06/20 17:00 92 20 138/88 (105) 99 I&O Intake and Output 10/06/20 10/07/20 19:00 07:00 Intake Total 1660.154 ml 1819.110 ml Output Total 900 ml 805 ml Balance 760.154 ml 1014.110 ml Intake Free Water 100 ml 120 ml IV Total 1010.154 ml 1049.110 ml Tube Feeding 550 ml 650 ml Output Urine Total 900 ml 805 ml Dressing: saturated Cardiovascular: RSR Respiratory: decreased breath sounds Abdomen: non-tender, present bowel sounds, non-distended Extremities: edema, no tenderness, no cyanosis Laboratory Tests Test 10/06/20 16:56 10/06/20 20:00 10/06/20 23:03 10/07/20 04:00 POC Whole Blood Glucose 149 MG/DL (74-106) H Pending Activated Partial Thromboplast Time 79 SEC (23-33) H 77 SEC (23-33) H White Blood Count 10.8 K/UL (4.8-10.8) Red Blood Count 4.42 M/UL (4.20-5.40) Hemoglobin 11.9 G/DL (12.0-16.0) L Hematocrit 39.1 % (37.0-47.0) Mean Corpuscular Volume 89 FL (80-99) Mean Corpuscular Hemoglobin 26.8 PG (27.0-31.0) L Mean Corpuscular Hemoglobin Concent 30.3 G/DL (32.0-36.0) L Red Cell Distribution Width 16.1 % (11.6-14.8) H Platelet Count 188 K/UL (150-450) Mean Platelet Volume 9.7 FL (6.5-10.1) Neutrophils (%) (Auto) 74.4 % (45.0-75.0) Lymphocytes (%) (Auto) 15.8 % (20.0-45.0) L Monocytes (%) (Auto) 6.8 % (1.0-10.0) Eosinophils (%) (Auto) 1.2 % (0.0-3.0) Basophils (%) (Auto) 1.9 % (0.0-2.0) Sodium Level 145 MMOL/L (136-145) Potassium Level 3.8 MMOL/L (3.5-5.1) Chloride Level 112 MMOL/L (98-107) H Carbon Dioxide Level 25 MMOL/L (21-32) Anion Gap 8 mmol/L (5-15) Blood Urea Nitrogen 27 mg/dL (7-18) H Creatinine 0.9 MG/DL (0.55-1.30) Estimat Glomerular Filtration Rate > 60 mL/min (>60) Glucose Level 119 MG/DL (74-106) H Calcium Level 8.4 MG/DL (8.5-10.1) L Phosphorus Level 3.1 MG/DL (2.5-4.9) Magnesium Level 2.0 MG/DL (1.8-2.4) Total Bilirubin 0.2 MG/DL (0.2-1.0) Aspartate Amino Transf (AST/SGOT) 29 U/L (15-37) Alanine Aminotransferase (ALT/SGPT) 21 U/L (12-78) Alkaline Phosphatase 27 U/L (46-116) L Total Protein 6.4 G/DL (6.4-8.2) Albumin 2.0 G/DL (3.4-5.0) L Globulin 4.4 g/dL Albumin/Globulin Ratio 0.5 (1.0-2.7) L Test 10/07/20 06:20 10/07/20 06:21 10/07/20 06:26 10/07/20 12:37 POC Whole Blood Glucose 287 MG/DL (74-106) H 60 MG/DL (74-106) L Pending Arterial Blood pH 7.374 (7.350-7.450) Arterial Blood Partial Pressure CO2 44.3 mmHg (35.0-45.0) Arterial Blood Partial Pressure O2 77.3 mmHg (75.0-100.0) Arterial Blood HCO3 25.3 mmol/L (22.0-26.0) Arterial Blood Oxygen Saturation 94.6 % (95-100) L Arterial Blood Base Excess -0.2 (-2-2) Juancarlos Test Positive Plan Problems: (1) COPD (chronic obstructive pulmonary disease) (2) Acute respiratory failure (3) Syncope (4) Psychiatric disorder (5) Hyponatremia (6) UTI (urinary tract infection) (7) Stage 4 decubitus ulcer Assessment & Plan: Pt presented on admission with Full thickness sacral pressure injury with undermined borders. Base of wound has pink granulation with small amt biofilm easily removed with gentle friction during cleansing. (+) epibole along edges. No odor or exudate noted.(L)2.3cm x (W)4.5cm x (D)1cm. Undermining clockwise 12-12o'clock by 2.8cm @5o'clock. Periwound without erythema or induration. R and L heels are boggy but each heel blanches easily. Dressing is going well. We will monitor wound does not currently need active debridement. well known to me from prior unchanged stage 4 ulcer cont local care Tx.Plan: Cleanse Sacral wound with Dakin's 0.125% gilbert. Loosely pack with Dakin's moistened Kerlix. Apply Triad Paste periwound. Cover with Optifoam drsg. Twice daily and prn. Apply Cavilon Skin Barrier to Both heels. Cover each heel with Optifoam drsg.Change every 7 days and prn. APM/ABHILASH Mattress overlay. Reposition at least every 2hours or as tolerated. Off-load heels with pillow. (8) Severe protein-calorie malnutrition Assessment & Plan: ng in place once stable start tube feeds low alb bmi 23 high risk for breakdown needs nutritional optimization AILY ESTIMATED NEEDS: Needs based on Wound, Critical care 53.6kg 25-35 kcals/kg 4160-7027 total kcals 1.25-2 g protein/kg 67-107 g total protein 25-30 mL/kg 5258-0182 total fluid mLs NUTRITION DIAGNOSIS: * Increased kcal/prot needs R/T wound healing as evidenced by admitted w/ stage 4 sacral wound * Swallowing difficulty R/T respiratory failure as evidenced by pt now orally intubated with OGT feeds. CURRENT TF: Jevity 1.2 @20ml/hr ENTERAL NUTRITION RECOMMENDATIONS: Glucerna 1.2 goal of 55ml/hr x24 hrs to provide 1320ml, 1584 kcal, 79g pro, 1063ml free H2O - Rec carb control formula at this time d/t elevated BG levels (POC [phone]). - Start @low rate 25ml/hr for 6 hrs, advance as tolerated 10ml/hr q4-6 hrs to goal. - Flush per MD/ HOB over 30 degrees ADDITIONAL RECOMMENDATIONS: * Check HgA1C- pt w/ elevated BG * Re-calibrate bed scale w/ added P200 mattress * Wound care: add SUZY BID via OGT Add Vit C 250mg BID + zn so4 220mg qd x10 days * Replete lytes as needed (Low K, Phos) (9) Pulmonary edema (10) Altered mental status Blaise Del Valle Oct 07, 2020 16:49
--- NOTE | 2020-10-07 16:57 | Cardiology Report ---
APPROVED REPORT EKG Measurement Heart [id number] <Conclusion> Normal sinus rhythm Biatrial enlargement Right bundle branch block Pulmonary disease pattern T wave abnormality, consider inferolateral ischemia Abnormal ECG
--- NOTE | 2020-10-07 18:17 | Diagnostic Imaging Report ---
EXAM: XR Chest, 1 View CLINICAL HISTORY: DYSPNEA TECHNIQUE: Frontal view of the chest. COMPARISON: 10/06/2020 FINDINGS: Lungs: Unchanged retrocardiac atelectasis without or with some degree of consolidation. Pleural space: Unremarkable. No pneumothorax. Heart: Unremarkable. No cardiomegaly. Mediastinum: Unremarkable. Bones/joints: No acute abnormality Tubes, lines and devices: Similar ETT position of 4.7 cm above kevyn. Unchanged left upper extremity PICC, tip in the mid SVC. Enteric tube with tip and proximal sideport below the gastroesophageal junction. IMPRESSION: 1. Overall similar appearing study. 2. Similar ETT position of 4.7 cm above kevyn. 3. Unchanged left upper extremity PICC, tip in the mid SVC. 4. Unchanged enteric tube with tip and proximal sideport below the gastroesophageal junction. 5. Unchanged retrocardiac atelectasis without or with some degree of consolidation.
--- NOTE | 2020-10-07 20:12 | Diagnostic Imaging Report ---
EXAM: XR Chest, 1 View CLINICAL HISTORY: DYSPNEA TECHNIQUE: Frontal view of the chest. COMPARISON: 10/05/2020 and subsequent study 10/07/2020 FINDINGS: Lungs: Unchanged retrocardiac atelectasis without or with consolidation. Otherwise no acute cardiopulmonary disease. Pleural space: Unremarkable. No pneumothorax. Heart: Unremarkable. No cardiomegaly. Mediastinum: Unremarkable. Bones/joints: No acute abnormality Tubes, lines and devices: ETT 3.3 cm above kevyn. Enteric tube with tip and proximal sideport below the gastroesophageal junction. New left upper extremity PICC, tip in the low SVC. Other findings: Please see report from study on 10/07/2024 most contemporary information. IMPRESSION: 1. Please see report from study on 10/07/2024 most contemporary information. 2. ETT 3.3 cm above kevyn. 3. Enteric tube with tip and proximal sideport below the gastroesophageal junction. 4. New left upper extremity PICC, tip in the low SVC. 5. Unchanged retrocardiac atelectasis without or with consolidation. 6. Otherwise no acute cardiopulmonary disease.
--- NOTE | 2020-10-07 20:17 | Diagnostic Imaging Report ---
EXAM: XR Chest, 1 View CLINICAL HISTORY: DYSPNEA TECHNIQUE: Frontal view of the chest. COMPARISON: 10/03/2020 and subsequent study 10/07/2020 FINDINGS: Lungs: Low lung volumes with bronchovascular crowding. Minimal retrocardiac atelectasis or consolidation. Pleural space: Unremarkable. No pneumothorax. Heart: Unremarkable. No cardiomegaly. Mediastinum: Unremarkable. Bones/joints: Please refer to report from 10/07/2020 study for most contemporary information. Depression. Tubes, lines and devices: ETT 4.3 cm above kevyn. Enteric tube with tip and proximal sideport below the gastroesophageal junction. IMPRESSION: 1. ETT 4.3 cm above kevyn. 2. Enteric tube with tip and proximal sideport below the gastroesophageal junction. 3. Low lung volumes with bronchovascular crowding. 4. Minimal retrocardiac atelectasis or consolidation.
[2020-10-07] MEDS: Atorvastatin 20mg tab GT SCH (20:20)
[2020-10-07] MEDS: Dyna-Hex 2% Top Sol 2oz TOPIC SCH (20:20)
[2020-10-07] MEDS: Heparin 25,000u/D5W 500ml 500 ML IV SCH (22:35)
[2020-10-08] VITALS (24 sets, daily range): BP systolic 112–157; BP diastolic 55–92
[2020-10-08] MEDS: Acetaminophen 650mg/20.3ml GT PRN (00:15)
[2020-10-08] MEDS: Albuterol/Ipratropium 3ml neb HHN SCH ×5 (02:51→19:35)
[2020-10-08 04:52] LABS: BASOPHILS % (AUTO) 1.2 % (0.0-2.0); EOSINOPHILS % (AUTO) 4.9 % (0.0-3.0); HEMATOCRIT 37.4 % (37.0-47.0); HEMOGLOBIN 11.4 G/DL (12.0-16.0); LYMPHOCYTES % (AUTO) 14.8 % (20.0-45.0); MEAN CORPUSCULAR VOLUME 89 FL (80-99); NEUTROPHILS % (AUTO) 73.2 % (45.0-75.0); PLATELET COUNT 185 K/UL (150-450); RED CELL DISTRIBUTION WIDTH 16.9 % (11.6-14.8); WHITE BLOOD COUNT 12.8 K/UL (4.8-10.8)
[2020-10-08 05:06] LABS: ALANINE AMINOTRANSFERASE 19 U/L (12-78); ALBUMIN/GLOBULIN RATIO 0.5 (1.0-2.7); ALKALINE PHOSPHATASE 27 U/L (46-116); ANION GAP 5 mmol/L (5-15); ASPARTATE AMINO TRANSFERASE 21 U/L (15-37); BILIRUBIN,TOTAL 0.3 MG/DL (0.2-1.0); BLOOD UREA NITROGEN 22 mg/dL (7-18); CALCIUM 8.2 MG/DL (8.5-10.1); CARBON DIOXIDE 28 MMOL/L (21-32); CHLORIDE 112 MMOL/L (98-107); CREATININE 0.9 MG/DL (0.55-1.30); POTASSIUM 3.6 MMOL/L (3.5-5.1); SODIUM 145 MMOL/L (136-145)
[2020-10-08] MEDS: NovoLOG Insulin Flexpen SUBQ SCH ×3 (05:56→17:47)
[2020-10-08] MEDS: Piperacillin/Tazobactam 3.375 GM in D5W 110 ML IV SCH ×3 (06:10→22:50)
[2020-10-08] MEDS: Docusate 100mg/10ml Liq GT SCH ×2 (08:21→17:35)
[2020-10-08] MEDS: Aspirin Baby 81mg GT SCH (08:21)
[2020-10-08] MEDS: Solu-MEDROL 40mg Inj IVP SCH (08:21)
[2020-10-08] MEDS: Pantoprazole Inj IV SCH (08:21)
[2020-10-08] MEDS: Dakin's 0.125% Soln (Quarter Strength) 16oz TOPIC SCH (08:22)
--- NOTE | 2020-10-08 08:42 | Infectious Diseases Prog Note ---
Assessment/Plan 75yo F with: Afebrile, Tmax 99.7 --> Febrile to 102 Normal WBC Acute hypoxic resp failure, SP intubation 10/03 COPD Non-verbal at baseline UTI GPC bacteremia, m/l contaminant 10/03 BCx +1/2 Staph hominis, m/l skin contaminant UA 10-15 WBC, UCx >100k P.mirabilis (S-CTX, R-bactrim) Resp cx p COVID rapid Ag neg Flu neg MRSA nares neg CXR: No focal consolidation, pleural effusion, or pneumothorax. Mild emphysema with increased interstitial markings. Cardiomegaly. Calcified aorta. 10/04 COVID rapid Ag neg 10/05 BCx NTD 10/07 CXR: 1. Overall similar appearing study. Dementia Alzheimer's [facility] resident Plan: Cont empiric Zosyn #6 / 7-10 for pna On steroids per primary, solumedrol 40mg daily F/u repeat BCx 10/05, NTD 10/07 SP vanco IV #4 empiric Monitor CBC/CMP Monitor temp curve, hemodynamics Monitor resp status D/w RN Thank you for this consult. [facility] will continue to follow. Subjective Allergies: Coded Allergies: No Known Allergies (Unverified , 12/17/15) Tmax 100.6 WBC 12, overall stable from prior Remains on vent, 30% PEEP 5, weaning Objective Last 24 Hour Vital Signs Date Time Temp Pulse Resp B/P (MAP) Pulse Ox O2 Delivery O2 Flow Rate FiO2 10/08/20 08:22 30 10/08/20 07:13 92 17 100 Mechanical Ventilator 30 87 19 30 10/08/20 07:00 87 16 139/61 (87) 100 10/08/20 06:30 100 14 10/08/20 06:00 83 16 142/62 (88) 100 10/08/20 05:00 87 17 152/63 (92) 100 10/08/20 04:00 99.8 86 16 136/73 (94) 99 10/08/20 04:00 85 10/08/20 04:00 Mechanical Ventilator 10/08/20 04:00 30 10/08/20 03:48 94 17 100 Mechanical Ventilator 30 97 20 30 10/08/20 03:00 86 20 144/65 (91) 100 10/08/20 02:00 86 15 140/59 (86) 100 10/08/20 01:00 88 16 133/62 (85) 99 10/08/20 00:45 99.9 10/08/20 00:00 96 10/08/20 00:00 100.6 89 16 113/55 (74) 97 10/08/20 00:00 Mechanical Ventilator 10/08/20 00:00 30 10/07/20 23:03 88 21 100 Mechanical Ventilator 30 90 23 30 10/07/20 23:00 83 16 112/54 (73) 97 10/07/20 22:00 85 16 125/59 (81) 99 10/07/20 21:00 81 16 119/58 (78) 100 10/07/20 21:00 30 10/07/20 20:00 98.9 92 16 115/53 (73) 99 10/07/20 20:00 Mechanical Ventilator 10/07/20 19:29 81 16 100 Mechanical Ventilator 30 84 18 30 10/07/20 19:00 80 16 150/63 (92) 100 10/07/20 18:00 85 16 120/58 (78) 100 10/07/20 17:27 89 16 30 10/07/20 17:00 79 16 108/56 (73) 99 10/07/20 16:07 88 10/07/20 16:00 98.5 92 17 123/51 (75) 99 10/07/20 16:00 Mechanical Ventilator 10/07/20 16:00 30 10/07/20 15:38 84 16 100 Mechanical Ventilator 30 81 16 30 10/07/20 15:30 100 10/07/20 15:00 77 30 105/52 (69) 100 10/07/20 14:00 85 34 111/50 (70) 99 10/07/20 13:10 83 26 30 10/07/20 13:00 88 26 125/55 (78) 98 10/07/20 12:00 30 10/07/20 12:00 Mechanical Ventilator 10/07/20 12:00 99.4 83 33 109/51 (70) 100 10/07/20 11:56 84 10/07/20 11:35 86 31 100 Mechanical Ventilator 30 87 34 30 10/07/20 11:00 84 33 117/53 (74) 100 10/07/20 10:50 85 33 30 30 11/20/20 10:00 79 16 118/53 (74) 99 10/07/20 09:00 81 16 30 10/07/20 09:00 81 16 89/52 (64) 99 Height (Feet): 5 Height (Inches): 4.00 Weight (Pounds): 135 Gen: NAD HEENT: NCAT, ETT CV: RRR Pulm: CTAB on vent Abd: Non-distended Ext: No c/c/e Skin: No visible rashes Neuro: Sedated Microbiology Date/Time Source Procedure Growth Status 10/05/20 09:30 Blood Blood Culture - Preliminary NO GROWTH AFTER 48 HOURS Resulted 10/05/20 09: Blood Blood Culture - Preliminary NO GROWTH AFTER 48 HOURS Resulted Laboratory Tests Test 10/07/20 12:37 10/07/20 23:07 10/08/20 04:00 Arterial Blood pH 7.374 (7.350-7.450) Arterial Blood Partial Pressure CO2 44.3 mmHg (35.0-45.0) Arterial Blood Partial Pressure O2 77.3 mmHg (75.0-100.0) Arterial Blood HCO3 25.3 mmol/L (22.0-26.0) Arterial Blood Oxygen Saturation 94.6 % (95-100) L Arterial Blood Base Excess -0.2 (-2-2) Juancarlos Test Positive POC Whole Blood Glucose Pending White Blood Count 12.8 K/UL (4.8-10.8) H Red Blood Count 4.20 M/UL (4.20-5.40) Hemoglobin 11.4 G/DL (12.0-16.0) L Hematocrit 37.4 % (37.0-47.0) Mean Corpuscular Volume 89 FL (80-99) Mean Corpuscular Hemoglobin 27.2 PG (27.0-31.0) Mean Corpuscular Hemoglobin Concent 30.5 G/DL (32.0-36.0) L Red Cell Distribution Width 16.9 % (11.6-14.8) H Platelet Count 185 K/UL (150-450) Mean Platelet Volume 8.5 FL (6.5-10.1) Neutrophils (%) (Auto) 73.2 % (45.0-75.0) Lymphocytes (%) (Auto) 14.8 % (20.0-45.0) L Monocytes (%) (Auto) 6.0 % (1.0-10.0) Eosinophils (%) (Auto) 4.9 % (0.0-3.0) H Basophils (%) (Auto) 1.2 % (0.0-2.0) Erythrocyte Sedimentation Rate 50 MM/HR (0-30) H Activated Partial Thromboplast Time 66 SEC (23-33) H Sodium Level 145 MMOL/L (136-145) Potassium Level 3.6 MMOL/L (3.5-5.1) Chloride Level 112 MMOL/L (98-107) H Carbon Dioxide Level 28 MMOL/L (21-32) Anion Gap 5 mmol/L (5-15) Blood Urea Nitrogen 22 mg/dL (7-18) H Creatinine 0.9 MG/DL (0.55-1.30) Estimat Glomerular Filtration Rate > 60 mL/min (>60) Glucose Level 126 MG/DL (74-106) H Calcium Level 8.2 MG/DL (8.5-10.1) L Phosphorus Level 3.0 MG/DL (2.5-4.9) Magnesium Level 1.8 MG/DL (1.8-2.4) Total Bilirubin 0.3 MG/DL (0.2-1.0) Aspartate Amino Transf (AST/SGOT) 21 U/L (15-37) Alanine Aminotransferase (ALT/SGPT) 19 U/L (12-78) Alkaline Phosphatase 27 U/L (46-116) L C-Reactive Protein, Quantitative < 0.4 mg/dL (0.00-0.90) Total Protein 6.2 G/DL (6.4-8.2) L Albumin 2.0 G/DL (3.4-5.0) L Globulin 4.2 g/dL Albumin/Globulin Ratio 0.5 (1.0-2.7) L Current Medications Medications (Trade) Dose Ordered Sig/Bharti Route PRN Reason Start Time Stop Time Status Last Admin Dose Admin Acetaminophen (Tylenol) 650 mg Q4H PRN GT Temp >100.5 10/03/20 17:15 11/02/20 17:14 10/08/20 00:15 Albuterol/ Ipratropium (Albuterol/ Ipratropium) 3 ml Q4HRT HHN 10/07/20 11:00 10/12/20 10:59 10/08/20 07:12 Amlodipine Besylate (Norvasc) 2.5 mg BIDPRN PRN GT sbp greater than 150 10/05/20 20:30 11/04/20 20:29 Aspirin (ASA) 81 mg DAILY GT 10/04/20 14:45 11/18/20 14:44 10/08/20 08:21 Atorvastatin Calcium (Lipitor) 20 mg BEDTIME GT 10/04/20 21:00 01/02/21 20:59 10/07/20 20:20 Chlorhexidine Gluconate (Rahel-Hex 2%) 1 applic DAILY@2000 TOPIC 10/05/20 20:00 01/03/21 19:59 10/07/20 20:20 Dextrose (Dextrose 50%) 25 ml Q30M PRN IV Hypoglycemia 10/03/20 09:28 01/01/21 09:27 Dextrose (Dextrose 50%) 50 ml Q30M PRN IV Hypoglycemia 10/03/20 09:28 01/01/21 09:27 Dextrose/Sodium Chloride 1,000 ml @ 50 mls/hr Q20H IV 10/03/20 11:00 11/02/20 10:59 10/07/20 15:11 Docusate Sodium (Colace) 100 mg TWICE A DAY GT 10/03/20 18:00 11/02/20 17:59 10/08/20 08:21 Heparin Sodium/ Dextrose 500 ml @ 19.595 mls/ hr ADJUST PER PROTOCOL IV 10/06/20 14:30 11/05/20 14:29 10/07/20 22:35 Insulin Aspart (NovoLOG) Q6HR SUBQ 10/06/20 00:00 01/01/21 11:29 10/07/20 18:26 Lorazepam (Ativan 2mg/ml 1ml) 2 mg Q4H PRN IV For Anxiety 10/03/20 09:29 10/10/20 09:28 10/05/20 16:19 Methylprednisolone Sodium Succinate (Solu-MEDROL) 40 mg DAILY IVP 10/06/20 09:00 01/04/21 08:59 10/08/20 08:21 Morphine Sulfate (Morphine Sulfate) 2 mg Q4H PRN IVP Moderate Pain (4-6) 10/03/20 09:15 10/10/20 09:14 10/07/20 16:05 Morphine Sulfate (Morphine Sulfate) 4 mg Q4H PRN IVP Severe Pain (7-10) 10/03/20 09:15 10/10/20 09:14 Nitroglycerin (Ntg) 0.4 mg Q5M X 3 DOSES PRN SL Prn Chest Pain 10/03/20 09:15 11/02/20 09:14 Ondansetron HCl (Zofran) 4 mg Q6H PRN IVP Nausea & Vomiting 10/03/20 09:28 11/02/20 09:27 Pantoprazole (Protonix) 40 mg DAILY IV 10/04/20 09:00 11/03/20 08:59 10/08/20 08:21 Piperacillin Sod/ Tazobactam Sod 3.375 gm/Dextrose 110 ml @ 27.5 mls/hr Q8H IV 10/08/20 15:00 10/15/20 14:59 Risperidone (RisperDAL) 1 mg DAILY NG 10/04/20 09:00 11/18/20 08:59 10/08/20 08:21 Sodium Hypochlorite (Dakin's Quarter Strength) 1 applic DAILY TOPIC 10/04/20 09:00 11/03/20 08:59 10/08/20 08:22 Sondra Sepulveda M.D. Oct 08, 2020 08:42
--- NOTE | 2020-10-08 09:19 | Pulmonolgy Critical Care Note ---
Critical Care - Asmt/Plan Assessment/Plan: ASSESSMENT Acute hypoxemic hypercapnic respiratory failure requiring intubation NSTEMI COPD GAVIOTA Acute encephalopathy UTI Stage IV decubitus ulcer, present on admission Severe protein calorie malnutrition Alzheimer dementia PLAN of CARE ICU vent support pulmonary toilet fup CXR and ABG continue weaning protocol as tolerated heparin drip, ASA cardio follows abx as per ID UCX+ Proteus, E coli ESBL IVF BUN trending down taper steroids GI prophylaxis wound care as per surgeon recommendation protein supplement as per RD recommendation supportive care case discussed and evaluated by supervising physician Critical Care - Objective Last 24 Hour Vital Signs Date Time Temp Pulse Resp B/P (MAP) Pulse Ox O2 Delivery O2 Flow Rate FiO2 10/08/20 08:22 30 10/08/20 07:13 92 17 100 Mechanical Ventilator 30 87 19 30 10/08/20 07:00 87 16 139/61 (87) 100 10/08/20 06:30 100 14 10/08/20 06:00 83 16 142/62 (88) 100 10/08/20 05:00 87 17 152/63 (92) 100 10/08/20 04:00 99.8 86 16 136/73 (94) 99 10/08/20 04:00 85 10/08/20 04:00 Mechanical Ventilator 10/08/20 04:00 30 10/08/20 03:48 94 17 100 Mechanical Ventilator 30 97 20 30 10/08/20 03:00 86 20 144/65 (91) 100 10/08/20 02:00 86 15 140/59 (86) 100 10/08/20 01:00 88 16 133/62 (85) 99 10/08/20 00:45 99.9 10/08/20 00:00 96 10/08/20 00:00 100.6 89 16 113/55 (74) 97 10/08/20 00:00 Mechanical Ventilator 10/08/20 00:00 30 10/07/20 23:03 88 21 100 Mechanical Ventilator 30 90 23 30 10/07/20 23:00 83 16 112/54 (73) 97 10/07/20 22:00 85 16 125/59 (81) 99 10/07/20 21:00 81 16 119/58 (78) 100 10/07/20 21:00 30 10/07/20 20:00 98.9 92 16 115/53 (73) 99 10/07/20 20:00 Mechanical Ventilator 10/07/20 19:29 81 16 100 Mechanical Ventilator 30 84 18 30 10/07/20 19:00 80 16 150/63 (92) 100 10/07/20 18:00 85 16 120/58 (78) 100 10/07/20 17:27 89 16 30 10/07/20 17:00 79 16 108/56 (73) 99 10/07/20 16:07 88 10/07/20 16:00 98.5 92 17 123/51 (75) 99 10/07/20 16:00 Mechanical Ventilator 10/07/20 16:00 30 10/07/20 15:38 84 16 100 Mechanical Ventilator 30 81 16 30 10/07/20 15:30 100 10/07/20 15:00 77 30 105/52 (69) 100 10/07/20 14:00 85 34 111/50 (70) 99 10/07/20 13:10 83 26 30 10/07/20 13:00 88 26 125/55 (78) 98 10/07/20 12:00 30 10/07/20 12:00 Mechanical Ventilator 10/07/20 12:00 99.4 83 33 109/51 (70) 100 10/07/20 11:56 84 10/07/20 11:35 86 31 100 Mechanical Ventilator 30 87 34 30 10/07/20 11:00 84 33 117/53 (74) 100 10/07/20 10:50 85 33 30 30 10/07/20 10:00 79 16 118/53 (74) 99 Status: awake - responsive by nodding , other - intubated, on Vent AC 600-30%-16 currenty on CPAP with PS 8,ET and OP in place, intact Condition: critical Lungs: clear Heart: HR/BP stable Abdomen: soft, non-tender, active bowel sounds Extremities: no C/C/E Decubiti: other - st 4 decub ulcer, POA Micro: Microbiology Date/Time Source Procedure Growth Status 10/05/20 09:30 Blood Blood Culture - Preliminary NO GROWTH AFTER 48 HOURS Resulted 10/05/20 09:20 Blood Blood Culture - Preliminary NO GROWTH AFTER 48 HOURS Resulted Accucheck: 126 Critical Care - Subjective ROS Limited/Unobtainable: Yes Interval Events: mild leukocytosis today remains afebrile on steroids tapered to daily now weaning protocol: currently on CPAP PS 8 on heparin gtt Condition: critical IV Access: PICC EKG Rhythm: Sinus Rhythm - with some PAC FI02: 30 Vent Support Breath Rate: 16 Vent Support Mode: CPAP Vent Tidal Volume: 600 Sputum Amount: Small PEEP: 5.0 PIP: 25 Fluids: D5/12 NS at 50 Drips: heparin drip, Tube Feeding Amount: 55 I&O: Intake and Output 10/07/20 10/08/20 19:00 07:00 Intake Total 1216.760 ml 1853.710 ml Output Total 825 ml 620 ml Balance 391.760 ml 1233.710 ml Intake Free Water 150 ml IV Total 556.760 ml 1043.710 ml Tube Feeding 660 ml 660 ml Output Urine Total 825 ml 620 ml # Bowel Movements 1 CXR: 10/07 Overall similar appearing study. 2. Similar ETT position of 4.7 cm above kevyn. 3. Unchanged left upper extremity PICC, tip in the mid SVC. 4. Unchanged enteric tube with tip and proximal sideport below the gastroesophageal junction. 5. Unchanged retrocardiac atelectasis without or with some degree of consolidation. ET-Tube: 7.5 ET Position: 23 Mai Alonzo NP Oct 08, 2020 09:19
--- NOTE | 2020-10-08 10:23 | Diagnostic Imaging Report ---
EXAM: XR Abdomen, 2 Views CLINICAL HISTORY: NGT TECHNIQUE: Frontal view of the abdomen/pelvis with upright view of the abdomen. COMPARISON: Abdominal radiograph on 10/03/2020 FINDINGS: Hardware: Enteric tube terminates in the region of the gastric antrum. Abdomen: Nonobstructive bowel gas pattern. Moderate to large amount of stool. No free air. Bones: Degenerative changes of the spine. Right femur surgical hardware partially visualized. Soft tissues: Normal. Lower chest: Mild left basilar opacity. IMPRESSION: 1. Enteric tube terminates in the region of the gastric antrum. 2. Nonobstructive bowel gas pattern. Moderate to large amount of stool.
[2020-10-08] MEDS: D5 1/2NS 1,000 ML IV SCH (11:00)
--- NOTE | 2020-10-08 11:44 | Surgery Progress Note ---
Surgery Progress Note Subjective Additional Comments intubated on support minimal arousal no n/v leukocytosis esr noted Objective Last 24 Hour Vital Signs Date Time Temp Pulse Resp B/P (MAP) Pulse Ox O2 Delivery O2 Flow Rate FiO2 10/08/20 11:10 30 10/08/20 11:00 87 17 157/92 (113) 98 10/08/20 10:36 77 16 100 Mechanical Ventilator 30 78 16 30 10/08/20 10:00 81 31 131/78 (95) 99 10/08/20 09:00 87 35 121/56 (77) 98 10/08/20 08:30 30 10/08/20 08:22 30 10/08/20 08:19 100 10/08/20 08:00 Mechanical Ventilator 10/08/20 08:00 100.0 83 16 115/65 (82) 100 10/08/20 07:13 92 17 100 Mechanical Ventilator 30 87 19 30 10/08/20 07:00 87 16 139/61 (87) 100 10/08/20 06:30 100 14 10/08/20 06:00 83 16 142/62 (88) 100 10/08/20 05:00 87 17 152/63 (92) 100 10/08/20 04:00 99.8 86 16 136/73 (94) 99 10/08/20 04:00 85 10/08/20 04:00 Mechanical Ventilator 10/08/20 04:00 30 10/08/20 03:48 94 17 100 Mechanical Ventilator 30 97 20 30 10/08/20 03:00 86 20 144/65 (91) 100 10/08/20 02:00 86 15 140/59 (86) 100 10/08/20 01:00 88 16 133/62 (85) 99 10/08/20 00:45 99.9 10/08/20 00:00 96 10/08/20 00:00 100.6 89 16 113/55 (74) 97 10/08/20 00:00 Mechanical Ventilator 10/08/20 00:00 30 10/07/20 23:03 88 21 100 Mechanical Ventilator 30 90 23 30 10/07/20 23:00 83 16 112/54 (73) 97 10/07/20 22:00 85 16 125/59 (81) 99 10/07/20 21:00 81 16 119/58 (78) 100 10/07/20 21:00 30 10/07/20 20:00 98.9 92 16 115/53 (73) 99 10/07/20 20:00 Mechanical Ventilator 10/07/20 19:29 81 16 100 Mechanical Ventilator 30 84 18 30 10/07/20 19:00 80 16 150/63 (92) 100 10/07/20 18:00 85 16 120/58 (78) 100 10/07/20 17:27 89 16 30 10/07/20 17:00 79 16 108/56 (73) 99 10/07/20 16:07 88 10/07/20 16:00 98.5 92 17 123/51 (75) 99 10/07/20 16:00 Mechanical Ventilator 10/07/20 16:00 30 10/07/20 15:38 84 16 100 Mechanical Ventilator 30 81 16 30 10/07/20 15:30 100 10/07/20 15:00 77 30 105/52 (69) 100 10/07/20 14:00 85 34 111/50 (70) 99 10/07/20 13:10 83 26 30 10/07/20 13:00 88 26 125/55 (78) 98 10/07/20 12:00 30 10/07/20 12:00 Mechanical Ventilator 10/07/20 12:00 99.4 83 33 109/51 (70) 100 10/07/20 11:56 84 I&O Intake and Output 10/07/20 10/08/20 19:00 07:00 Intake Total 1216.760 ml 1853.710 ml Output Total 825 ml 620 ml Balance 391.760 ml 1233.710 ml Intake Free Water 150 ml IV Total 556.760 ml 1043.710 ml Tube Feeding 660 ml 660 ml Output Urine Total 825 ml 620 ml # Bowel Movements 1 Dressing: saturated Wound: other Cardiovascular: RSR Respiratory: decreased breath sounds Abdomen: soft, non-tender, non-distended, decreased bowel sounds Extremities: edema, no tenderness, no cyanosis Laboratory Tests Test 10/07/20 12:37 10/07/20 23:07 10/08/20 04:00 10/08/20 10:14 Arterial Blood pH 7.374 (7.350-7.450) 7.406 (7.350-7.450) Arterial Blood Partial Pressure CO2 44.3 mmHg (35.0-45.0) 43.2 mmHg (35.0-45.0) Arterial Blood Partial Pressure O2 77.3 mmHg (75.0-100.0) 79.5 mmHg (75.0-100.0) Arterial Blood HCO3 25.3 mmol/L (22.0-26.0) 26.5 mmol/L (22.0-26.0) H Arterial Blood Oxygen Saturation 94.6 % (95-100) L 95.7 % (95-100) Arterial Blood Base Excess -0.2 (-2-2) 1.6 (-2-2) Juancarlos Test Positive Positive POC Whole Blood Glucose Pending White Blood Count 12.8 K/UL (4.8-10.8) H Red Blood Count 4.20 M/UL (4.20-5.40) Hemoglobin 11.4 G/DL (12.0-16.0) L Hematocrit 37.4 % (37.0-47.0) Mean Corpuscular Volume 89 FL (80-99) Mean Corpuscular Hemoglobin 27.2 PG (27.0-31.0) Mean Corpuscular Hemoglobin Concent 30.5 G/DL (32.0-36.0) L Red Cell Distribution Width 16.9 % (11.6-14.8) H Platelet Count 185 K/UL (150-450) Mean Platelet Volume 8.5 FL (6.5-10.1) Neutrophils (%) (Auto) 73.2 % (45.0-75.0) Lymphocytes (%) (Auto) 14.8 % (20.0-45.0) L Monocytes (%) (Auto) 6.0 % (1.0-10.0) Eosinophils (%) (Auto) 4.9 % (0.0-3.0) H Basophils (%) (Auto) 1.2 % (0.0-2.0) Erythrocyte Sedimentation Rate 50 MM/HR (0-30) H Activated Partial Thromboplast Time 66 SEC (23-33) H Sodium Level 145 MMOL/L (136-145) Potassium Level 3.6 MMOL/L (3.5-5.1) Chloride Level 112 MMOL/L (98-107) H Carbon Dioxide Level 28 MMOL/L (21-32) Anion Gap 5 mmol/L (5-15) Blood Urea Nitrogen 22 mg/dL (7-18) H Creatinine 0.9 MG/DL (0.55-1.30) Estimat Glomerular Filtration Rate > 60 mL/min (>60) Glucose Level 126 MG/DL (74-106) H Calcium Level 8.2 MG/DL (8.5-10.1) L Phosphorus Level 3.0 MG/DL (2.5-4.9) Magnesium Level 1.8 MG/DL (1.8-2.4) Total Bilirubin 0.3 MG/DL (0.2-1.0) Aspartate Amino Transf (AST/SGOT) 21 U/L (15-37) Alanine Aminotransferase (ALT/SGPT) 19 U/L (12-78) Alkaline Phosphatase 27 U/L (46-116) L C-Reactive Protein, Quantitative < 0.4 mg/dL (0.00-0.90) Total Protein 6.2 G/DL (6.4-8.2) L Albumin 2.0 G/DL (3.4-5.0) L Globulin 4.2 g/dL Albumin/Globulin Ratio 0.5 (1.0-2.7) L Plan Problems: (1) COPD (chronic obstructive pulmonary disease) (2) Acute respiratory failure Assessment & Plan: intubated on vent weaning as tolerated abg noted cont weaning (3) Syncope (4) Psychiatric disorder (5) Hyponatremia (6) UTI (urinary tract infection) (7) Stage 4 decubitus ulcer Assessment & Plan: Pt presented on admission with Full thickness sacral pressure injury with undermined borders. Base of wound has pink granulation with small amt biofilm easily removed with gentle friction during cleansing. (+) epibole along edges. No odor or exudate noted.(L)2.3cm x (W)4.5cm x (D)1cm. Undermining clockwise 12-12o'clock by 2.8cm @5o'clock. Periwound without erythema or induration. R and L heels are boggy but each heel blanches easily. Dressing is going well. We will monitor wound does not currently need active debridement. well known to me from prior unchanged stage 4 ulcer cont local care Tx.Plan: Cleanse Sacral wound with Dakin's 0.125% gilbert. Loosely pack with Dakin's moistened Kerlix. Apply Triad Paste periwound. Cover with Optifoam drsg. Twice daily and prn. Apply Cavilon Skin Barrier to Both heels. Cover each heel with Optifoam d rsg.Change every 7 days and prn. APM/ABHILASH Mattress overlay. Reposition at least every 2hours or as tolerated. Off-load heels with pillow. (8) Severe protein-calorie malnutrition Assessment & Plan: ng in place once stable start tube feeds low alb bmi 23 high risk for breakdown needs nutritional optimization AILY ESTIMATED NEEDS: Needs based on Wound, Critical care 53.6kg 25-35 kcals/kg 3047-4338 total kcals 1.25-2 g protein/kg 67-107 g total protein 25-30 mL/kg 1925-1355 total fluid mLs NUTRITION DIAGNOSIS: * Increased kcal/prot needs R/T wound healing as evidenced by admitted w/ stage 4 sacral wound * Swallowing difficulty R/T respiratory failure as evidenced by pt now orally intubated with OGT feeds. CURRENT TF: Jevity 1.2 @20ml/hr ENTERAL NUTRITION RECOMMENDATIONS: Glucerna 1.2 goal of 55ml/hr x24 hrs to provide 1320ml, 1584 kcal, 79g pro, 1063ml free H2O - Rec carb control formula at this time d/t elevated BG levels (POC [phone]). - Start @low rate 25ml/hr for 6 hrs, advance as tolerated 10ml/hr q4-6 hrs to goal. - Flush per MD/ HOB over 30 degrees ADDITIONAL RECOMMENDATIONS: * Check HgA1C- pt w/ elevated BG * Re-calibrate bed scale w/ added P200 mattress * Wound care: add SUZY BID via OGT Add Vit C 250mg BID + zn so4 220mg qd x10 days * Replete lytes as needed (Low K, Phos) (9) Pulmonary edema (10) Altered mental status Blaise Del Valle Oct 08, 2020 11:44
[2020-10-08] MEDS: LORazepam Inj 2mg/ml 1ml IV PRN (13:25)
[2020-10-08] MEDS ORDERED: NS 275ml ONE (13:38)
[2020-10-08] MEDS ORDERED: Tubing IV Secondary IV ONE (13:38)
[2020-10-08] MEDS ORDERED: Sterile Water Irrig 1000ml IRRIG ONE (13:38)
[2020-10-08] MEDS ORDERED: D5 1/2NS 1000ml IV ONE (13:38)
--- NOTE | 2020-10-08 17:16 | Cardiology Progress Note ---
Assessment/Plan Problem List: (1) History of hypertension (2) Alzheimer's dementia (3) Acute respiratory failure (4) COPD (chronic obstructive pulmonary disease) (5) Non-ST elevation (NSTEMI) myocardial infarction Status: not improved, unchanged Status Narrative Mrs Briscoe is a 75 yo woman with hx of HTN, dementia, and stage 4 decubitus ulcer adm w/ respiratory failure. Elevated troponin of 1 noted on adm, now decreasing. ECG w./ RBBB and inv T anteriorly - ? subendo ischemia v repol ECHO w/o WMA Assessment/Plan Rec med management - asa, b khoi, statin for CAD Not a candidate for invasive cardiac intervention at this time. Management of respiratory failure, COPD, per pulmonary. Subjective ROS Limited/Unobtainable: Yes Subjective Cardiology for Dr. Ramesh Pt intubated/ sedated Objective Last 24 Hour Vital Signs Date Time Temp Pulse Resp B/P (MAP) Pulse Ox O2 Delivery O2 Flow Rate FiO2 10/08/20 16:01 68 10/08/20 16:00 Mechanical Ventilator 10/08/20 16:00 30 10/08/20 16:00 72 16 122/62 (82) 100 10/08/20 15:28 75 16 100 Mechanical Ventilator 30 74 16 30 10/08/20 15:00 74 16 152/68 (96) 100 10/08/20 14:30 90 18 100 Mechanical Ventilator 30 10/08/20 14:00 76 16 129/65 (86) 100 10/08/20 13:55 79 16 129/61 100 10/08/20 13:25 86 17 151/66 100 10/08/20 13:00 87 16 151/66 (94) 99 10/08/20 12:21 87 10/08/20 12:00 99.2 88 16 145/78 (100) 100 10/08/20 12:00 Mechanical Ventilator 10/08/20 11:10 30 10/08/20 11:00 87 17 157/92 (113) 98 10/08/20 10:36 77 16 100 Mechanical Ventilator 30 78 16 30 10/08/20 10:00 81 31 131/78 (95) 99 10/08/20 09:00 87 35 121/56 (77) 98 10/08/20 08:30 30 10/08/20 08:22 30 10/08/20 08:19 100 10/08/20 08:18 89 10/08/20 08:00 Mechanical Ventilator 10/08/20 08:00 100.0 83 16 115/65 (82) 100 10/08/20 07:13 92 17 100 Mechanical Ventilator 30 87 19 30 10/08/20 07:00 87 16 139/61 (87) 100 10/08/20 06:30 100 14 10/08/20 06:00 83 16 142/62 (88) 100 10/08/20 05:00 87 17 152/63 (92) 100 10/08/20 04:00 99.8 86 16 136/73 (94) 99 10/08/20 04:00 85 10/08/20 04:00 Mechanical Ventilator 10/08/20 04:00 30 10/08/20 03:48 94 17 100 Mechanical Ventilator 30 97 20 30 10/08/20 03:00 86 20 144/65 (91) 100 10/08/20 02:00 86 15 140/59 (86) 100 10/08/20 01:00 88 16 133/62 (85) 99 10/08/20 00:45 99.9 10/08/20 00:00 96 10/08/20 00:00 100.6 89 16 113/55 (74) 97 10/08/20 00:00 Mechanical Ventilator 10/08/20 00:00 30 10/07/20 23:03 88 21 100 Mechanical Ventilator 30 90 23 30 10/07/20 23:00 83 16 112/54 (73) 97 10/07/20 22:00 85 16 125/59 (81) 99 10/07/20 21:00 81 16 119/58 (78) 100 10/07/20 21:00 30 10/07/20 20:00 98.9 92 16 115/53 (73) 99 10/07/20 20:00 Mechanical Ventilator 10/07/20 19:29 81 16 100 Mechanical Ventilator 30 84 18 30 10/07/20 19:00 80 16 150/63 (92) 100 10/07/20 18:00 85 16 120/58 (78) 100 10/07/20 17:27 89 16 30 General Appearance: lethargic, on vent EENT: other - et tube Neck: no JVD Rhythm: NSR Cardiovascular: normal rate, regular rhythm, no gallop/murmur Respiratory/Chest: other - clear anteriorly Abdomen: non tender, soft, other - g tube Extremities: no swelling Intake and Output 10/07/20 10/08/20 19:00 07:00 Intake Total 1216.760 ml 1853.710 ml Output Total 825 ml 620 ml Balance 391.760 ml 1233.710 ml Intake Free Water 150 ml IV Total 556.760 ml 1043.710 ml Tube Feeding 660 ml 660 ml Output Urine Total 825 ml 620 ml # Bowel Movements 1 Laboratory Tests Test 10/07/20 23:07 10/08/20 04:00 10/08/20 10:14 POC Whole Blood Glucose Pending White Blood Count 12.8 K/UL (4.8-10.8) H Red Blood Count 4.20 M/UL (4.20-5.40) Hemoglobin 11.4 G/DL (12.0-16.0) L Hematocrit 37.4 % (37.0-47.0) Mean Corpuscular Volume 89 FL (80-99) Mean Corpuscular Hemoglobin 27.2 PG (27.0-31.0) Mean Corpuscular Hemoglobin Concent 30.5 G/DL (32.0-36.0) L Red Cell Distribution Width 16.9 % (11.6-14.8) H Platelet Count 185 K/UL (150-450) Mean Platelet Volume 8.5 FL (6.5-10.1) Neutrophils (%) (Auto) 73.2 % (45.0-75.0) Lymphocytes (%) (Auto) 14.8 % (20.0-45.0) L Monocytes (%) (Auto) 6.0 % (1.0-10.0) Eosinophils (%) (Auto) 4.9 % (0.0-3.0) H Basophils (%) (Auto) 1.2 % (0.0-2.0) Erythrocyte Sedimentation Rate 50 MM/HR (0-30) H Activated Partial Thromboplast Time 66 SEC (23-33) H Sodium Level 145 MMOL/L (136-145) Potassium Level 3.6 MMOL/L (3.5-5.1) Chloride Level 112 MMOL/L (98-107) H Carbon Dioxide Level 28 MMOL/L (21-32) Anion Gap 5 mmol/L (5-15) Blood Urea Nitrogen 22 mg/dL (7-18) H Creatinine 0.9 MG/DL (0.55-1.30) Estimat Glomerular Filtration Rate > 60 mL/min (>60) Glucose Level 126 MG/DL (74-106) H Calcium Level 8.2 MG/DL (8.5-10.1) L Phosphorus Level 3.0 MG/DL (2.5-4.9) Magnesium Level 1.8 MG/DL (1.8-2.4) Total Bilirubin 0.3 MG/DL (0.2-1.0) Aspartate Amino Transf (AST/SGOT) 21 U/L (15-37) Alanine Aminotransferase (ALT/SGPT) 19 U/L (12-78) Alkaline Phosphatase 27 U/L (46-116) L C-Reactive Protein, Quantitative < 0.4 mg/dL (0.00-0.90) Total Protein 6.2 G/DL (6.4-8.2) L Albumin 2.0 G/DL (3.4-5.0) L Globulin 4.2 g/dL Albumin/Globulin Ratio 0.5 (1.0-2.7) L Arterial Blood pH 7.406 (7.350-7.450) Arterial Blood Partial Pressure CO2 43.2 mmHg (35.0-45.0) Arterial Blood Partial Pressure O2 79.5 mmHg (75.0-100.0) Arterial Blood HCO3 26.5 mmol/L (22.0-26.0) H Arterial Blood Oxygen Saturation 95.7 % (95-100) Arterial Blood Base Excess 1.6 (-2-2) Juancarlos Test Positive Elizabeth Madrigal MD Oct 08, 2020 17:16
--- NOTE | 2020-10-08 17:24 | Internal Med Progress Note ---
Subjective Date of Service: Oct 08, 2020 Physician Name Covarrubias,Curly Attending Physician Elías Mazariegos MD Current Medications Medications (Trade) Dose Ordered Sig/Bharti Route PRN Reason Start Time Stop Time Status Last Admin Dose Admin Acetaminophen (Tylenol) 650 mg Q4H PRN GT Temp >100.5 10/03/20 17:15 11/02/20 17:14 10/08/20 00:15 Albuterol/ Ipratropium (Albuterol/ Ipratropium) 3 ml Q4HRT HHN 10/07/20 11:00 10/12/20 10:59 10/08/20 15:27 Amlodipine Besylate (Norvasc) 2.5 mg BIDPRN PRN GT sbp greater than 150 10/05/20 20:30 11/04/20 20:29 Aspirin (ASA) 81 mg DAILY GT 10/04/20 14:45 11/18/20 14:44 10/08/20 08:21 Atorvastatin Calcium (Lipitor) 20 mg BEDTIME GT 10/04/20 21:00 01/02/21 20:59 10/07/20 20:20 Chlorhexidine Gluconate (Rahel-Hex 2%) 1 applic DAILY@2000 TOPIC 10/05/20 20:00 01/03/21 19:59 10/07/20 20:20 Dextrose (Dextrose 50%) 25 ml Q30M PRN IV Hypoglycemia 10/03/20 09:28 01/01/21 09:27 Dextrose (Dextrose 50%) 50 ml Q30M PRN IV Hypoglycemia 10/03/20 09:28 01/01/21 09:27 Dextrose/Sodium Chloride 1,000 ml @ 50 mls/hr Q20H IV 10/03/20 11:00 11/02/20 10:59 10/08/20 11:00 Docusate Sodium (Colace) 100 mg TWICE A DAY GT 10/03/20 18:00 11/02/20 17:59 10/08/20 08:21 Heparin Sodium/ Dextrose 500 ml @ 19.595 mls/ hr ADJUST PER PROTOCOL IV 10/06/20 14:30 11/05/20 14:29 10/07/20 22:35 Insulin Aspart (NovoLOG) Q6HR SUBQ 10/06/20 00:00 01/01/21 11:29 10/07/20 18:26 Lorazepam (Ativan 2mg/ml 1ml) 2 mg Q4H PRN IV For Anxiety 10/03/20 09:29 10/10/20 09:28 10/08/20 13:25 Methylprednisolone Sodium Succinate (Solu-MEDROL) 30 mg DAILY IVP 10/09/20 09:00 01/07/21 08:59 Morphine Sulfate (Morphine Sulfate) 2 mg Q4H PRN IVP Moderate Pain (4-6) 10/03/20 09:15 10/10/20 09:14 10/07/20 16:05 Morphine Sulfate (Morphine Sulfate) 4 mg Q4H PRN IVP Severe Pain (7-10) 10/03/20 09:15 10/10/20 09:14 Nitroglycerin (Ntg) 0.4 mg Q5M X 3 DOSES PRN SL Prn Chest Pain 10/03/20 09:15 11/02/20 09:14 Ondansetron HCl (Zofran) 4 mg Q6H PRN IVP Nausea & Vomiting 10/03/20 09:28 11/02/20 09:27 Pantoprazole (Protonix) 40 mg DAILY IV 10/04/20 09:00 11/03/20 08:59 10/08/20 08:21 Piperacillin Sod/ Tazobactam Sod 3.375 gm/Dextrose 110 ml @ 27.5 mls/hr Q8H IV 10/08/20 15:00 10/15/20 14:59 10/08/20 15:14 Risperidone (RisperDAL) 1 mg DAILY NG 10/04/20 09:00 11/18/20 08:59 10/08/20 08:21 Sodium Hypochlorite (Dakin's Quarter Strength) 1 applic DAILY TOPIC 10/04/20 09:00 11/03/20 08:59 10/08/20 08:22 Allergies: Coded Allergies: No Known Allergies (Unverified , 12/17/15) ROS Limited/Unobtainable: Yes Subjective 75 YO F admitted with respiratory failure. Now COPD exacerbation and UTI. Intubated and sedated. Cover for Int Jonathan-Dr Mazariegos. ICU Objective Last Vital Signs Date Time Temp Pulse Resp B/P (MAP) Pulse Ox O2 Delivery O2 Flow Rate FiO2 10/08/20 16:01 68 10/08/20 16:00 Mechanical Ventilator 10/08/20 16:00 30 10/08/20 16:00 16 122/62 (82) 100 10/08/20 12:00 99.2 10/03/20 09:21 12.0 Laboratory Tests Test 10/07/20 23:07 10/08/20 04:00 10/08/20 10:14 POC Whole Blood Glucose Pending White Blood Count 12.8 K/UL (4.8-10.8) H Red Blood Count 4.20 M/UL (4.20-5.40) Hemoglobin 11.4 G/DL (12.0-16.0) L Hematocrit 37.4 % (37.0-47.0) Mean Corpuscular Volume 89 FL (80-99) Mean Corpuscular Hemoglobin 27.2 PG (27.0-31.0) Mean Corpuscular Hemoglobin Concent 30.5 G/DL (32.0-36.0) L Red Cell Distribution Width 16.9 % (11.6-14.8) H Platelet Count 185 K/UL (150-450) Mean Platelet Volume 8.5 FL (6.5-10.1) Neutrophils (%) (Auto) 73.2 % (45.0-75.0) Lymphocytes (%) (Auto) 14.8 % (20.0-45.0) L Monocytes (%) (Auto) 6.0 % (1.0-10.0) Eosinophils (%) (Auto) 4.9 % (0.0-3.0) H Basophils (%) (Auto) 1.2 % (0.0-2.0) Erythrocyte Sedimentation Rate 50 MM/HR (0-30) H Activated Partial Thromboplast Time 66 SEC (23-33) H Sodium Level 145 MMOL/L (136-145) Potassium Level 3.6 MMOL/L (3.5-5.1) Chloride Level 112 MMOL/L (98-107) H Carbon Dioxide Level 28 MMOL/L (21-32) Anion Gap 5 mmol/L (5-15) Blood Urea Nitrogen 22 mg/dL (7-18) H Creatinine 0.9 MG/DL (0.55-1.30) Estimat Glomerular Filtration Rate > 60 mL/min (>60) Glucose Level 126 MG/DL (74-106) H Calcium Level 8.2 MG/DL (8.5-10.1) L Phosphorus Level 3.0 MG/DL (2.5-4.9) Magnesium Level 1.8 MG/DL (1.8-2.4) Total Bilirubin 0.3 MG/DL (0.2-1.0) Aspartate Amino Transf (AST/SGOT) 21 U/L (15-37) Alanine Aminotransferase (ALT/SGPT) 19 U/L (12-78) Alkaline Phosphatase 27 U/L (46-116) L C-Reactive Protein, Quantitative < 0.4 mg/dL (0.00-0.90) Total Protein 6.2 G/DL (6.4-8.2) L Albumin 2.0 G/DL (3.4-5.0) L Globulin 4.2 g/dL Albumin/Globulin Ratio 0.5 (1.0-2.7) L Arterial Blood pH 7.406 (7.350-7.450) Arterial Blood Partial Pressure CO2 43.2 mmHg (35.0-45.0) Arterial Blood Partial Pressure O2 79.5 mmHg (75.0-100.0) Arterial Blood HCO3 26.5 mmol/L (22.0-26.0) H Arterial Blood Oxygen Saturation 95.7 % (95-100) Arterial Blood Base Excess 1.6 (-2-2) Juancarlos Test Positive Intake and Output 10/07/20 10/08/20 19:00 07:00 Intake Total 1216.760 ml 1853.710 ml Output Total 825 ml 620 ml Balance 391.760 ml 1233.710 ml Intake Free Water 150 ml IV Total 556.760 ml 1043.710 ml Tube Feeding 660 ml 660 ml Output Urine Total 825 ml 620 ml # Bowel Movements 1 Objective PHYSICAL EXAMINATION: GENERAL: The patient is a well-developed and well-nourished female, who is currently intubated in the intensive care unit. HEENT: Eyes, pupils are equal and responsive to light and accommodation. Extraocular movements are intact. NECK: Supple without lymphadenopathy. CHEST: Mech vent; Coarse mechanical breath sounds bilaterally without wheezes or rales. CARDIOVASCULAR: Tachycardic, regular rhythm, S1-S2 are normal without murmurs, rubs, or gallops. ABDOMEN: Soft, nontender, and nondistended. Positive bowel sounds. No evidence of hepatosplenomegaly. Currently, no rebound or guarding noted. EXTREMITIES: Negative for clubbing, cyanosis, edema. RECTAL/GENITAL: Not performed. NEUROLOGICAL: Unable to assess. Assessment/Plan Assessment/Plan ASSESSMENT: This is a 75-year-old female with: 1. Acute hypoxemic respiratory failure. 2. Altered mental status. 3. Hypertension. 4. Chronic obstructive pulmonary disease. 5. Alzheimer's dementia. 6. UTI=proteus TREATMENT: 1. Acute hypoxic respiratory failure. Pulmonary/critical care = Dr. Will Quiros. The patient is currently intubated in the intensive care unit. ABX= Zosyn. The patient has also been started on Solu-Medrol for chronic obstructive pulmonary disease acute exacerbation. Follow recommendations of Pulmonary. 2. Hypertension. The patient is currently hypotensive. 3. Chronic obstructive pulmonary disease. A Pulmonary consultation has been obtained with Dr. Will Quiros. The patient is currently receiving intravenous Solu-Medrol and albuterol/Atrovent nebulized q.4 h. p.r.n. We will follow recommendations of Pulmonary. 4. Alzheimer's dementia. 5. Needs PICC Curly Covarrubias MD Oct 08, 2020 17:24
[2020-10-08] MEDS: Atorvastatin 20mg tab GT SCH (20:16)
[2020-10-08] MEDS: Dyna-Hex 2% Top Sol 2oz TOPIC SCH (20:16)
[2020-10-08] MEDS: Heparin 25,000u/D5W 500ml 500 ML IV SCH (23:21)
[2020-10-09] VITALS (24 sets, daily range): BP systolic 91–154; BP diastolic 44–82
[2020-10-09] MEDS: Albuterol/Ipratropium 3ml neb HHN SCH ×7 (00:14→22:31)
[2020-10-09] MEDS: LORazepam Inj 2mg/ml 1ml IV PRN (03:08)
[2020-10-09 05:04] LABS: BASOPHILS % (AUTO) 1.2 % (0.0-2.0); HEMATOCRIT 39.3 % (37.0-47.0); HEMOGLOBIN 12.1 G/DL (12.0-16.0); LYMPHOCYTES % (AUTO) 12.6 % (20.0-45.0); MEAN CORPUSCULAR VOLUME 88 FL (80-99); MONOCYTES % (AUTO) 6.5 % (1.0-10.0); NEUTROPHILS % (AUTO) 75.8 % (45.0-75.0); PLATELET COUNT 202 K/UL (150-450); RED BLOOD COUNT 4.46 M/UL (4.20-5.40); RED CELL DISTRIBUTION WIDTH 16.8 % (11.6-14.8); WHITE BLOOD COUNT 16.3 K/UL (4.8-10.8)
[2020-10-09 05:10] LABS: ANION GAP 7 mmol/L (5-15); BLOOD UREA NITROGEN 22 mg/dL (7-18); CALCIUM 8.4 MG/DL (8.5-10.1); CARBON DIOXIDE 28 MMOL/L (21-32); CHLORIDE 108 MMOL/L (98-107); CREATININE 0.7 MG/DL (0.55-1.30); POTASSIUM 3.8 MMOL/L (3.5-5.1); SODIUM 143 MMOL/L (136-145)
[2020-10-09] MEDS ORDERED: Heparin 5000 units/ml inj IV SCH (05:45)
[2020-10-09] MEDS: Heparin 25,000u/D5W 500ml 500 ML IV SCH (05:52)
[2020-10-09] MEDS: NovoLOG Insulin Flexpen SUBQ SCH ×4 (06:00→18:00)
[2020-10-09] MEDS: D5 1/2NS 1,000 ML IV SCH (06:56)
[2020-10-09] MEDS: Piperacillin/Tazobactam 3.375 GM in D5W 110 ML IV SCH ×3 (07:29→23:06)
[2020-10-09] MEDS: Dakin's 0.125% Soln (Quarter Strength) 16oz TOPIC SCH (09:00)
[2020-10-09] MEDS: Pantoprazole Inj IV SCH (09:17)
[2020-10-09] MEDS: Solu-MEDROL 40mg Inj IVP SCH (09:17)
[2020-10-09] MEDS: Aspirin Baby 81mg GT SCH (09:17)
[2020-10-09] MEDS: Docusate 100mg/10ml Liq GT SCH ×2 (09:17→18:22)
--- NOTE | 2020-10-09 10:28 | Pulmonolgy Critical Care Note ---
Critical Care - Asmt/Plan Assessment/Plan: ASSESSMENT Acute hypoxemic hypercapnic respiratory failure requiring intubation NSTEMI COPD GAVIOTA Acute encephalopathy UTI Stage IV decubitus ulcer, present on admission Severe protein calorie malnutrition Alzheimer dementia PLAN of CARE ICU vent support pulmonary toilet fup CXR and ABG continue weaning protocol as tolerated heparin drip, ASA cardio follows abx as per ID UCX+ Proteus, E coli ESBL IVF BUN trending down taper steroids down to 30 mg/daily GI prophylaxis wound care as per surgeon recommendation protein supplement as per RD recommendation supportive care case discussed and evaluated by supervising physician Critical Care - Objective Last 24 Hour Vital Signs Date Time Temp Pulse Resp B/P (MAP) Pulse Ox O2 Delivery O2 Flow Rate FiO2 10/09/20 07:49 85 10/09/20 07:48 86 17 100 Mechanical Ventilator 30 90 16 30 10/09/20 07:00 81 16 118/63 (81) 99 10/09/20 06:30 79 14 10/09/20 06:00 82 16 101/52 (68) 99 10/09/20 05:00 80 16 102/44 (63) 100 10/09/20 04:00 98.5 75 16 91/52 (65) 100 10/09/20 04:00 Mechanical Ventilator 10/09/20 04:00 85 10/09/20 04:00 30 10/09/20 03:38 78 16 147/63 100 10/09/20 03:30 78 16 100 Mechanical Ventilator 30 80 16 30 10/09/20 03:08 73 16 147/63 100 10/09/20 03:00 84 19 154/75 (101) 98 10/09/20 02:00 89 19 143/76 (98) 96 10/09/20 01:00 81 16 123/67 (85) 100 10/09/20 00:00 78 10/09/20 00:00 Mechanical Ventilator 10/09/20 00:00 30 10/09/20 00:00 79 16 129/82 (98) 100 10/08/20 23:15 73 16 100 Mechanical Ventilator 30 75 16 30 10/08/20 23:00 75 17 134/66 (88) 100 10/08/20 22:00 74 16 112/70 (84) 100 10/08/20 21:00 74 16 131/60 (83) 100 10/08/20 20:00 98.7 69 16 134/66 (88) 100 10/08/20 20:00 30 10/08/20 20:00 64 10/08/20 20:00 Mechanical Ventilator 10/08/20 19:31 70 16 100 Mechanical Ventilator 30 72 16 30 10/08/20 19:00 71 16 147/63 (91) 100 10/08/20 18:00 69 16 113/66 (82) 100 10/08/20 17:00 98.5 79 16 132/59 (83) 100 10/08/20 16:01 68 10/08/20 16:00 Mechanical Ventilator 10/08/20 16:00 30 10/08/20 16:00 72 16 122/62 (82) 100 10/08/20 15:28 75 16 100 Mechanical Ventilator 30 74 16 30 10/08/20 15:00 74 16 152/68 (96) 100 10/08/20 14:30 90 18 100 Mechanical Ventilator 30 10/08/20 14:00 76 16 129/65 (86) 100 10/08/20 13:55 79 16 129/61 100 10/08/20 13:25 86 17 151/66 100 10/08/20 13:00 87 16 151/66 (94) 99 10/08/20 12:21 87 10/08/20 12:00 99.2 88 16 145/78 (100) 100 10/08/20 12:00 Mechanical Ventilator 10/08/20 11:10 30 10/08/20 11:00 87 17 157/92 (113) 98 10/08/20 10:36 77 16 100 Mechanical Ventilator 30 78 16 30 Objective: Status: awake, responsive by nodding , intubated, on Vent AC 600-30%-16 currently on CPAP with PS 8, ET and OP in place, intact Condition: critical Lungs: clear Heart: HR/BP stable Abdomen: soft, non-tender, active bowel sounds Extremities: no C/C/E Decubiti: st 4 decub ulcer, POA Accucheck: 117 Critical Care - Subjective ROS Limited/Unobtainable: Yes Interval Events: leukocytosis with trend up this am fevers 10/08, currently afebrile failed weaning 10/08` Condition: critical IV Access: PICC EKG Rhythm: Sinus Rhythm - with some PAC FI02: 30 Vent Support Breath Rate: 16 Vent Support Mode: AC Vent Tidal Volume: 600 Sputum Amount: Scant PEEP: 5.0 PIP: 28 Fluids: D5/12 NS at 50 Drips: heparin gtt Tube Feeding Amount: 55 I&O: Intake and Output 10/08/20 10/09/20 19:00 07:00 Intake Total 1562.640 ml 1827.470 ml Output Total 1470 ml 460 ml Balance 92.640 ml 1367.470 ml Intake Free Water 50 ml 200 ml IV Total 917.640 ml 917.470 ml Tube Feeding 495 ml 660 ml Other 100 ml 50 ml Output Urine Total 1470 ml 460 ml # Bowel Movements 1 CXR: CXR 10/07 1. Overall similar appearing study. 2. Similar ETT position of 4.7 cm above kevyn. 3. Unchanged left upper extremity PICC, tip in the mid SVC. 4. Unchanged enteric tube with tip and proximal sideport below the gastroesophageal junction. 5. Unchanged retrocardiac atelectasis without or with some degree of consolidation. ET-Tube: 7.5 ET Position: 23 Mai Alonzo NP Oct 09, 2020 10:28
[2020-10-09] MEDS ORDERED: LORazepam Inj 2mg/ml 1ml IV PRN (15:30)
[2020-10-09] MEDS ORDERED: Morphine Sulfate 4mg/ml Inj (IV USE ONLY) IVP PRN (15:30)
[2020-10-09] MEDS ORDERED: Morphine Sulfate 2mg/ml Inj(IV/IM USE ONLY) IVP PRN (15:30)
--- NOTE | 2020-10-09 15:48 | Internal Med Progress Note ---
Subjective Date of Service: Oct 09, 2020 Physician Name Covarrubias,Curly Attending Physician Elías Mazariegos MD Current Medications Medications (Trade) Dose Ordered Sig/Bharti Route PRN Reason Start Time Stop Time Status Last Admin Dose Admin Acetaminophen (Tylenol) 650 mg Q4H PRN GT Temp >100.5 10/03/20 17:15 11/02/20 17:14 10/08/20 00:15 Albuterol/ Ipratropium (Albuterol/ Ipratropium) 3 ml Q4HRT HHN 10/07/20 11:00 10/12/20 10:59 10/09/20 11:43 Amlodipine Besylate (Norvasc) 2.5 mg BIDPRN PRN GT sbp greater than 150 10/05/20 20:30 11/04/20 20:29 Aspirin (ASA) 81 mg DAILY GT 10/04/20 14:45 11/18/20 14:44 10/09/20 09:17 Atorvastatin Calcium (Lipitor) 20 mg BEDTIME GT 10/04/20 21:00 01/02/21 20:59 10/08/20 20:16 Chlorhexidine Gluconate (Rahel-Hex 2%) 1 applic DAILY@2000 TOPIC 10/05/20 20:00 01/03/21 19:59 10/08/20 20:16 Dextrose (Dextrose 50%) 25 ml Q30M PRN IV Hypoglycemia 10/03/20 09:28 01/01/21 09:27 Dextrose (Dextrose 50%) 50 ml Q30M PRN IV Hypoglycemia 10/03/20 09:28 01/01/21 09:27 Dextrose/Sodium Chloride 1,000 ml @ 50 mls/hr Q20H IV 10/03/20 11:00 11/02/20 10:59 10/09/20 06:56 Docusate Sodium (Colace) 100 mg TWICE A DAY GT 10/03/20 18:00 11/02/20 17:59 10/09/20 09:17 Heparin Sodium/ Dextrose 500 ml @ 24.494 mls/ hr ADJUST PER PROTOCOL IV 10/06/20 14:30 11/05/20 14:29 10/09/20 05:52 Insulin Aspart (NovoLOG) Q6HR SUBQ 10/06/20 00:00 01/01/21 11:29 10/09/20 12:02 Lorazepam (Ativan 2mg/ml 1ml) 2 mg Q4H PRN IV For Anxiety 10/09/20 15:30 10/16/20 15:29 Methylprednisolone Sodium Succinate (Solu-MEDROL) 30 mg DAILY IVP 10/09/20 09:00 01/07/21 08:59 10/09/20 09:17 Morphine Sulfate (Morphine Sulfate) 2 mg Q4H PRN IVP Moderate Pain (4-6) 10/09/20 15:30 10/16/20 15:29 Morphine Sulfate (Morphine Sulfate) 4 mg Q4H PRN IVP Severe Pain (7-10) 10/09/20 15:30 10/16/20 15:29 Nitroglycerin (Ntg) 0.4 mg Q5M X 3 DOSES PRN SL Prn Chest Pain 10/03/20 09:15 11/02/20 09:14 Ondansetron HCl (Zofran) 4 mg Q6H PRN IVP Nausea & Vomiting 10/03/20 09:28 11/02/20 09:27 Pantoprazole (Protonix) 40 mg DAILY IV 10/04/20 09:00 11/03/20 08:59 10/09/20 09:17 Piperacillin Sod/ Tazobactam Sod 3.375 gm/Dextrose 110 ml @ 27.5 mls/hr Q8H IV 10/08/20 15:00 10/15/20 14:59 10/09/20 07:29 Risperidone (RisperDAL) 1 mg DAILY NG 10/04/20 09:00 11/18/20 08:59 10/09/20 09:17 Sodium Hypochlorite (Dakin's Quarter Strength) 1 applic DAILY TOPIC 10/04/20 09:00 11/03/20 08:59 10/08/20 08:22 Allergies: Coded Allergies: No Known Allergies (Unverified , 12/17/15) ROS Limited/Unobtainable: Yes Subjective 75 YO F admitted with respiratory failure. Now COPD exacerbation and UTI. I ntubated and sedated. Cover for Int Med-Dr Mazariegos. ICU. Lost IV access Objective Last Vital Signs Date Time Temp Pulse Resp B/P (MAP) Pulse Ox O2 Delivery O2 Flow Rate FiO2 10/09/20 15:00 78 16 125/59 (81) 100 10/09/20 12:00 Mechanical Ventilator 10/09/20 12:00 99.0 10/09/20 11:53 30 30 10/03/20 09:21 12.0 Laboratory Tests Test 10/08/20 17:40 10/09/20 00:26 10/09/20 04:43 10/09/20 12:35 POC Whole Blood Glucose Pending 100 MG/DL (74-106) White Blood Count 16.3 K/UL (4.8-10.8) H Red Blood Count 4.46 M/UL (4.20-5.40) Hemoglobin 12.1 G/DL (12.0-16.0) Hematocrit 39.3 % (37.0-47.0) Mean Corpuscular Volume 88 FL (80-99) Mean Corpuscular Hemoglobin 27.1 PG (27.0-31.0) Mean Corpuscular Hemoglobin Concent 30.7 G/DL (32.0-36.0) L Red Cell Distribution Width 16.8 % (11.6-14.8) H Platelet Count 202 K/UL (150-450) Mean Platelet Volume 9.2 FL (6.5-10.1) Neutrophils (%) (Auto) 75.8 % (45.0-75.0) H Lymphocytes (%) (Auto) 12.6 % (20.0-45.0) L Monocytes (%) (Auto) 6.5 % (1.0-10.0) Eosinophils (%) (Auto) 4.0 % (0.0-3.0) H Basophils (%) (Auto) 1.2 % (0.0-2.0) Activated Partial Thromboplast Time 45 SEC (23-33) H 71 SEC (23-33) H Sodium Level 143 MMOL/L (136-145) Potassium Level 3.8 MMOL/L (3.5-5.1) Chloride Level 108 MMOL/L (98-107) H Carbon Dioxide Level 28 MMOL/L (21-32) Anion Gap 7 mmol/L (5-15) Blood Urea Nitrogen 22 mg/dL (7-18) H Creatinine 0.7 MG/DL (0.55-1.30) Estimat Glomerular Filtration Rate > 60 mL/min (>60) Glucose Level 117 MG/DL (74-106) H Calcium Level 8.4 MG/DL (8.5-10.1) L Intake and Output 10/08/20 10/09/20 19:00 07:00 Intake Total 1562.640 ml 1827.470 ml Output Total 1470 ml 460 ml Balance 92.640 ml 1367.470 ml Intake Free Water 50 ml 200 ml IV Total 917.640 ml 917.470 ml Tube Feeding 495 ml 660 ml Other 100 ml 50 ml Output Urine Total 1470 ml 460 ml # Bowel Movements 1 Objective PHYSICAL EXAMINATION: GENERAL: The patient is a well-developed and well-nourished female, who is currently intubated in the intensive care unit. HEENT: Eyes, pupils are equal and responsive to light and accommodation. Extraocular movements are intact. NECK: Supple without lymphadenopathy. CHEST: Mech vent; Coarse mechanical breath sounds bilaterally without wheezes or rales. CARDIOVASCULAR: Tachycardic, regular rhythm, S1-S2 are normal without murmurs, rubs, or gallops. ABDOMEN: Soft, nontender, and nondistended. Positive bowel sounds. No evidence of hepatosplenomegaly. Currently, no rebound or guarding noted. EXTREMITIES: Negative for clubbing, cyanosis, edema. RECTAL/GENITAL: Not performed. NEUROLOGICAL: Unable to assess. Assessment/Plan Assessment/Plan ASSESSMENT: This is a 75-year-old female with: 1. Acute hypoxemic respiratory failure. 2. Altered mental status. 3. Hypertension. 4. Chronic obstructive pulmonary disease. 5. Alzheimer's dementia. 6. UTI=proteus TREATMENT: 1. Acute hypoxic respiratory failure. Pulmonary/critical care = Dr. Will Quiros. The patient is currently intubated in the intensive care unit. ABX= Zosyn. The patient has also been started on Solu-Medrol for chronic obstructive pulmonary disease acute exacerbation. Follow recommendations of Pulmonary. 2. Hypertension. The patient is currently hypotensive. 3. Chronic obstructive pulmonary disease. A Pulmonary consultation has been obtained with Dr. Will Quiros. The patient is currently receiving intravenous Solu-Medrol and albuterol/Atrovent nebulized q.4 h. p.r.n. We will follow recommendations of Pulmonary. 4. Alzheimer's dementia. 5. Needs IV access-Curly Adorno MD Oct 09, 2020 15:48
--- NOTE | 2020-10-09 17:58 | Surgery Progress Note ---
Surgery Progress Note Subjective Additional Comments pulled out her picc no iv access multiple peripheral attempts made by RN central line placed as medically necessary in ICU patient without access on drips Objective Last 24 Hour Vital Signs Date Time Temp Pulse Resp B/P (MAP) Pulse Ox O2 Delivery O2 Flow Rate FiO2 10/09/20 16:00 30 10/09/20 16:00 Mechanical Ventilator 10/09/20 15:00 78 16 125/59 (81) 100 10/09/20 14:00 92 20 99/74 (82) 100 10/09/20 13:00 83 17 131/60 (83) 100 10/09/20 12:10 80 10/09/20 12:00 Mechanical Ventilator 10/09/20 12:00 30 10/09/20 12:00 99.0 81 17 133/65 (87) 100 10/09/20 11:53 81 16 100 Mechanical Ventilator 30 82 16 30 10/09/20 11:00 74 16 113/63 (80) 100 10/09/20 10:19 100 10/09/20 10:19 83 18 30 10/09/20 10:00 83 32 97/50 (66) 99 10/09/20 09:20 30 10/09/20 09:10 30 10/09/20 09:05 83 32 30 10/09/20 09:00 87 16 100/53 (69) 97 10/09/20 08:00 98.7 87 16 123/58 (79) 100 10/09/20 08:00 30 10/09/20 08:00 Mechanical Ventilator 10/09/20 07:49 85 10/09/20 07:48 86 17 100 Mechanical Ventilator 30 90 16 30 10/09/20 07:00 81 16 118/63 (81) 99 10/09/20 06:30 79 14 10/09/20 06:00 82 16 101/52 (68) 99 10/09/20 05:00 80 16 102/44 (63) 100 10/09/20 04:00 98.5 75 16 91/52 (65) 100 10/09/20 04:00 Mechanical Ventilator 10/09/20 04:00 85 10/09/20 04:00 30 10/09/20 03:38 78 16 147/63 100 10/09/20 03:30 78 16 100 Mechanical Ventilator 30 80 16 30 10/09/20 03:08 73 16 147/63 100 10/09/20 03:00 84 19 154/75 (101) 98 10/09/20 02:00 89 19 143/76 (98) 96 10/09/20 01:00 81 16 123/67 (85) 100 10/09/20 00:00 78 10/09/20 00:00 Mechanical Ventilator 10/09/20 00:00 30 10/09/20 00:00 79 16 129/82 (98) 100 10/08/20 23:15 73 16 100 Mechanical Ventilator 30 75 16 30 10/08/20 23:00 75 17 134/66 (88) 100 10/08/20 22:00 74 16 112/70 (84) 100 10/08/20 21:00 74 16 131/60 (83) 100 10/08/20 20:00 98.7 69 16 134/66 (88) 100 10/08/20 20:00 30 10/08/20 20:00 64 10/08/20 20:00 Mechanical Ventilator 10/08/20 19:31 70 16 100 Mechanical Ventilator 30 72 16 30 10/08/20 19:00 71 16 147/63 (91) 100 10/08/20 18:00 69 16 113/66 (82) 100 I&O Intake and Output 10/08/20 10/09/20 19:00 07:00 Intake Total 1562.640 ml 1827.470 ml Output Total 1470 ml 460 ml Balance 92.640 ml 1367.470 ml Intake Free Water 50 ml 200 ml IV Total 917.640 ml 917.470 ml Tube Feeding 495 ml 660 ml Other 100 ml 50 ml Output Urine Total 1470 ml 460 ml # Bowel Movements 1 Dressing: saturated Cardiovascular: RSR Respiratory: decreased breath sounds Abdomen: non-tender, present bowel sounds Extremities: no edema, no tenderness, no cyanosis Laboratory Tests Test 10/09/20 00:26 10/09/20 04:43 10/09/20 12:35 POC Whole Blood Glucose 100 MG/DL (74-106) White Blood Count 16.3 K/UL (4.8-10.8) H Red Blood Count 4.46 M/UL (4.20-5.40) Hemoglobin 12.1 G/DL (12.0-16.0) Hematocrit 39.3 % (37.0-47.0) Mean Corpuscular Volume 88 FL (80-99) Mean Corpuscular Hemoglobin 27.1 PG (27.0-31.0) Mean Corpuscular Hemoglobin Concent 30.7 G/DL (32.0-36.0) L Red Cell Distribution Width 16.8 % (11.6-14.8) H Platelet Count 202 K/UL (150-450) Mean Platelet Volume 9.2 FL (6.5-10.1) Neutrophils (%) (Auto) 75.8 % (45.0-75.0) H Lymphocytes (%) (Auto) 12.6 % (20.0-45.0) L Monocytes (%) (Auto) 6.5 % (1.0-10.0) Eosinophils (%) (Auto) 4.0 % (0.0-3.0) H Basophils (%) (Auto) 1.2 % (0.0-2.0) Activated Partial Thromboplast Time 45 SEC (23-33) H 71 SEC (23-33) H Sodium Level 143 MMOL/L (136-145) Potassium Level 3.8 MMOL/L (3.5-5.1) Chloride Level 108 MMOL/L (98-107) H Carbon Dioxide Level 28 MMOL/L (21-32) Anion Gap 7 mmol/L (5-15) Blood Urea Nitrogen 22 mg/dL (7-18) H Creatinine 0.7 MG/DL (0.55-1.30) Estimat Glomerular Filtration Rate > 60 mL/min (>60) Glucose Level 117 MG/DL (74-106) H Calcium Level 8.4 MG/DL (8.5-10.1) L Plan Problems: (1) COPD (chronic obstructive pulmonary disease) (2) Acute respiratory failure Assessment & Plan: intubated on vent weaning as tolerated abg noted cont weaning pulled out her picc no iv access multiple peripheral attempts made by RN central line placed as medically necessary in ICU patient without access on drips (3) Syncope (4) Psychiatric disorder (5) Hyponatremia (6) UTI (urinary tract infection) (7) Stage 4 decubitus ulcer Assessment & Plan: Pt presented on admission with Full thickness sacral pressure injury with undermined borders. Base of wound has pink granulation with small amt biofilm easily removed with gentle friction during cleansing. (+) epibole along edges. No odor or exudate noted.(L)2.3cm x (W)4.5cm x (D)1cm. Undermining clockwise 12-12o'clock by 2.8cm @5o'clock. Periwound without erythema or induration. R and L heels are boggy but each heel blanches easily. Dressing is going well. We will monitor wound does not currently need active debridement. well known to me from prior unchanged stage 4 ulcer cont local care Tx.Plan: Cleanse Sacral wound with Dakin's 0.125% gilbert. Loosely pack with Dakin's moistened Kerlix. Apply Triad Paste periwound. Cover with Optifoam drsg. Twice daily and prn. Apply Cavilon Skin Barrier to Both heels. Cover each heel with Optifoam drsg.Change every 7 days and prn. APM/ABHILASH Mattress overlay. Reposition at least every 2hours or as tolerated. Off-load heels with pillow. (8) Severe protein-calorie malnutrition Assessment & Plan: ng in place once stable start tube feeds low alb bmi 23 high risk for breakdown needs nutritional optimization AILY ESTIMATED NEEDS: Needs based on Wound, Critical care 53.6kg 25-35 kcals/kg 1082-2381 total kcals 1.25-2 g protein/kg 67-107 g total protein 25-30 mL/kg 9821-1935 total fluid mLs NUTRITION DIAGNOSIS: * Increased kcal/prot needs R/T wound healing as evidenced by admitted w/ stage 4 sacral wound * Swallowing difficulty R/T respiratory failure as evidenced by pt now orally intubated with OGT feeds. CURRENT TF: Jevity 1.2 @20ml/hr ENTERAL NUTRITION RECOMMENDATIONS: Glucerna 1.2 goal of 55ml/hr x24 hrs to provide 1320ml, 1584 kcal, 79g pro, 1063ml free H2O - Rec carb control formula at this time d/t elevated BG levels (POC [phone]). - Start @low rate 25ml/hr for 6 hrs, advance as tolerated 10ml/hr q4-6 hrs to goal. - Flush per MD/ HOB over 30 degrees ADDITIONAL RECOMMENDATIONS: * Check HgA1C- pt w/ elevated BG * Re-calibrate bed scale w/ added P200 mattress * Wound care: add SUZY BID via OGT Add Vit C 250mg BID + zn so4 220mg qd x10 days * Replete lytes as needed (Low K, Phos) (9) Pulmonary edema (10) Altered mental status (11) History of hypertension (12) Alzheimer's dementia (13) Non-ST elevation (NSTEMI) myocardial infarction (14) ATN (acute tubular necrosis) Blaise Del Valle Oct 09, 2020 17:58
--- NOTE | 2020-10-09 18:06 | Operative Note - PDOC ---
Operative Note Operative Note Date of Operation/Procedure: Oct 09, 2020 Chief Complaint: need iv access Pre-op Diagnosis: respiratory insufficiency poor peripheral access requiring meds, drips, fluids, and frequent blood draw Procedure: left femoral central venous access insertion Post-op Diagnosis: same as pre-op Anesthesia: local Specimen: none Complications: none Estimated Blood Loss: none Drains: none Implant(s) used?: No Indications for Procedure respiratory insufficiency poor peripheral access requiring meds, drips, fluids, and frequent blood draw patient pulled out her picc abruptly today multiple attempts at peripheral line not possible needs central venous cath neva Description of Procedure [facility] Central Line Insertion Practices form was completed. Handwash prior to starting sterile technique. A time out was performed. A surgical cap, mask with protective eyewear, sterile gown and sterile gloves throughout the procedure. The LEFT inguinal region was prepped using chlorhexidine scrub and draped in sterile fashion using a full drape and sterile. The femoral pulse was identified and anatomic landmarks identified. Anesthesia was achieved using 1% lidocaine. Palpating the femoral pulse throughout the procedure, the introducer needle was inserted medial to the femoral artery, inferior to the inguinal crease and into the femoral vein. Venous blood was withdrawn without complication. The syringe was removed and a guidewire was advanced into the introducer needle. the needle was removed and wire stable in place. A small incision was made at the skin surface with a scalpel and the dilator was used over the guidewire. After appropriate dilation was obtained, the dilator was exchanged over the wire for a triple lumen central venous catheter. The wire was removed and the catheter was sutured in place. all ports aspirated venous blood and flushed without complication. A sterile dressing was placed over the catheter at the insertion site. The patient tolerated the procedure without any hemodynamic compromise. At time of procedure completion, all ports aspirated and flushed properly. Estima quan blood loss was minimal. line okay for use. Blaise Del Valle Oct 09, 2020 18:06
[2020-10-09] MEDS: Dyna-Hex 2% Top Sol 2oz TOPIC SCH (20:00)
--- NOTE | 2020-10-09 20:10 | Cardiology Progress Note ---
Assessment/Plan Problem List: (1) History of hypertension (2) Alzheimer's dementia (3) Acute respiratory failure (4) COPD (chronic obstructive pulmonary disease) (5) Non-ST elevation (NSTEMI) myocardial infarction Status: stable, unchanged Status Narrative Mrs Briscoe is a 75 yo woman with hx of HTN, dementia, and stage 4 decubitus ulcer adm w/ respiratory failure. Elevated troponin of 1 noted on adm, now decreasing. ECG w./ RBBB and inv T anteriorly - ? subendo ischemia v repol ECHO w/o WMA. EF 70% and LVH Assessment/Plan Rec med management - asa, b khoi, statin for CAD Continue vent support, IV abx for UTI and ? pneumonia Consider further w/u for ischemia/ CAD once more stable - extubated and ID status cleared. Subjective ROS Limited/Unobtainable: Yes Subjective Cardiology for Dr. Ramesh Pt intubated/ sedated Objective Last 24 Hour Vital Signs Date Time Temp Pulse Resp B/P (MAP) Pulse Ox O2 Delivery O2 Flow Rate FiO2 10/09/20 19:00 80 16 153/78 (103) 100 10/09/20 18:57 82 16 100 Mechanical Ventilator 30 81 16 30 10/09/20 18:00 80 17 152/68 (96) 100 10/09/20 17:00 77 16 106/45 (65) 100 10/09/20 16:00 30 10/09/20 16:00 98.8 82 16 130/74 (92) 97 10/09/20 16:00 Mechanical Ventilator 10/09/20 15:53 80 17 100 Mechanical Ventilator 30 80 16 30 10/09/20 15:00 78 16 125/59 (81) 100 10/09/20 14:00 92 20 99/74 (82) 100 10/09/20 13:00 83 17 131/60 (83) 100 10/09/20 12:10 80 10/09/20 12:00 Mechanical Ventilator 10/09/20 12:00 30 10/09/20 12:00 99.0 81 17 133/65 (87) 100 10/09/20 11:53 81 16 100 Mechanical Ventilator 30 82 16 30 10/09/20 11:00 74 16 113/63 (80) 100 10/09/20 10:19 100 10/09/20 10:19 83 18 30 10/09/20 10:00 83 32 97/50 (66) 99 10/09/20 09:20 30 10/09/20 09:10 30 10/09/20 09:05 83 32 30 10/09/20 09:00 87 16 100/53 (69) 97 10/09/20 08:00 98.7 87 16 123/58 (79) 100 10/09/20 08:00 30 10/09/20 08:00 Mechanical Ventilator 10/09/20 07:49 85 10/09/20 07:48 86 17 100 Mechanical Ventilator 30 90 16 30 10/09/20 07:00 81 16 118/63 (81) 99 10/09/20 06:30 79 14 10/09/20 06:00 82 16 101/52 (68) 99 10/09/20 05:00 80 16 102/44 (63) 100 10/09/20 04:00 98.5 75 16 91/52 (65) 100 10/09/20 04:00 Mechanical Ventilator 10/09/20 04:00 85 10/09/20 04:00 30 10/09/20 03:38 78 16 147/63 100 10/09/20 03:30 78 16 100 Mechanical Ventilator 30 80 16 30 10/09/20 03:08 73 16 147/63 100 10/09/20 03:00 84 19 154/75 (101) 98 10/09/20 02:00 89 19 143/76 (98) 96 10/09/20 01:00 81 16 123/67 (85) 100 10/09/20 00:00 78 10/09/20 00:00 Mechanical Ventilator 10/09/20 00:00 30 10/09/20 00:00 79 16 129/82 (98) 100 10/08/20 23:15 73 16 100 Mechanical Ventilator 30 75 16 30 10/08/20 23:00 75 17 134/66 (88) 100 10/08/20 22:00 74 16 112/70 (84) 100 10/08/20 21:00 74 16 131/60 (83) 100 General Appearance: on vent EENT: PERRL/EOMI, other - et tube ng tube Neck: no JVD Rhythm: NSR Cardiovascular: normal rate, regular rhythm, no gallop/murmur Respiratory/Chest: other - coarse BS bilat Abdomen: non tender, soft Extremities: other - no edema . L femoral central line Intake and Output 10/08/20 10/09/20 19:00 07:00 Intake Total 1562.640 ml 1827.470 ml Output Total 1470 ml 460 ml Balance 92.640 ml 1367.470 ml Intake Free Water 50 ml 200 ml IV Total 917.640 ml 917.470 ml Tube Feeding 495 ml 660 ml Other 100 ml 50 ml Output Urine Total 1470 ml 460 ml # Bowel Movements 1 Laboratory Tests Test 10/09/20 00:26 10/09/20 04:43 10/09/20 12:35 POC Whole Blood Glucose 100 MG/DL (74-106) White Blood Count 16.3 K/UL (4.8-10.8) H Red Blood Count 4.46 M/UL (4.20-5.40) Hemoglobin 12.1 G/DL (12.0-16.0) Hematocrit 39.3 % (37.0-47.0) Mean Corpuscular Volume 88 FL (80-99) Mean Corpuscular Hemoglobin 27.1 PG (27.0-31.0) Mean Corpuscular Hemoglobin Concent 30.7 G/DL (32.0-36.0) L Red Cell Distribution Width 16.8 % (11.6-14.8) H Platelet Count 202 K/UL (150-450) Mean Platelet Volume 9.2 FL (6.5-10.1) Neutrophils (%) (Auto) 75.8 % (45.0-75.0) H Lymphocytes (%) (Auto) 12.6 % (20.0-45.0) L Monocytes (%) (Auto) 6.5 % (1.0-10.0) Eosinophils (%) (Auto) 4.0 % (0.0-3.0) H Basophils (%) (Auto) 1.2 % (0.0-2.0) Activated Partial Thromboplast Time 45 SEC (23-33) H 71 SEC (23-33) H Sodium Level 143 MMOL/L (136-145) Potassium Level 3.8 MMOL/L (3.5-5.1) Chloride Level 108 MMOL/L (98-107) H Carbon Dioxide Level 28 MMOL/L (21-32) Anion Gap 7 mmol/L (5-15) Blood Urea Nitrogen 22 mg/dL (7-18) H Creatinine 0.7 MG/DL (0.55-1.30) Estimat Glomerular Filtration Rate > 60 mL/min (>60) Glucose Level 117 MG/DL (74-106) H Calcium Level 8.4 MG/DL (8.5-10.1) Elizabeth Anglin MD Oct 09, 2020 20:10
[2020-10-09] MEDS: Atorvastatin 20mg tab GT SCH (20:34)
[2020-10-10] VITALS (24 sets, daily range): BP systolic 86–161; BP diastolic 23–69
[2020-10-10] MEDS: Albuterol/Ipratropium 3ml neb HHN SCH ×6 (02:30→23:00)
[2020-10-10] MEDS: D5 1/2NS 1,000 ML IV SCH (03:00)
[2020-10-10] MEDS: Heparin 25,000u/D5W 500ml 500 ML IV SCH (03:58)
[2020-10-10 04:45] LABS: BASOPHILS % (AUTO) 0.9 % (0.0-2.0); EOSINOPHILS % (AUTO) 5.3 % (0.0-3.0); HEMATOCRIT 34.9 % (37.0-47.0); LYMPHOCYTES % (AUTO) 13.7 % (20.0-45.0); MEAN CORPUSCULAR VOLUME 88 FL (80-99); MONOCYTES % (AUTO) 7.6 % (1.0-10.0); NEUTROPHILS % (AUTO) 72.6 % (45.0-75.0); PLATELET COUNT 195 K/UL (150-450); RED BLOOD COUNT 3.97 M/UL (4.20-5.40); RED CELL DISTRIBUTION WIDTH 16.4 % (11.6-14.8); WHITE BLOOD COUNT 16.8 K/UL (4.8-10.8)
[2020-10-10 04:54] LABS: ANION GAP 6 mmol/L (5-15); BLOOD UREA NITROGEN 23 mg/dL (7-18); CALCIUM 8.3 MG/DL (8.5-10.1); CARBON DIOXIDE 28 MMOL/L (21-32); CHLORIDE 110 MMOL/L (98-107); CREATININE 0.6 MG/DL (0.55-1.30); POTASSIUM 3.8 MMOL/L (3.5-5.1); SODIUM 143 MMOL/L (136-145)
[2020-10-10] MEDS: NovoLOG Insulin Flexpen SUBQ SCH ×5 (06:00→23:41)
[2020-10-10] MEDS: Piperacillin/Tazobactam 3.375 GM in D5W 110 ML IV SCH ×3 (06:04→23:15)
--- NOTE | 2020-10-10 08:04 | Infectious Diseases Prog Note ---
Assessment/Plan 75yo F with: Afebrile, Tmax 99.7 --> Febrile to 102 Normal WBC Acute hypoxic resp failure, SP intubation 10/03 COPD Non-verbal at baseline UTI GPC bacteremia, m/l contaminant 10/03 BCx +1/2 Staph hominis, m/l skin contaminant UA 10-15 WBC, UCx >100k P.mirabilis (S-CTX, R-bactrim) Resp cx p COVID rapid Ag neg Flu neg MRSA nares neg CXR: No focal consolidation, pleural effusion, or pneumothorax. Mild emphysema with increased interstitial markings. Cardiomegaly. Calcified aorta. 10/04 COVID rapid Ag neg 10/05 BCx NTD 10/07 CXR: 1. Overall similar appearing study. Dementia Alzheimer[facility] resident Plan: Cont empiric Zosyn #8 / 10 for pna On steroids per primary, solumedrol 30mg daily 10/07 SP vanco IV #4 empiric Monitor CBC/CMP Monitor temp curve, hemodynamics Monitor resp status D/w RN Thank you for this consult. [facility] will continue to follow. Subjective Allergies: Coded Allergies: No Known Allergies (Unverified , 12/17/15) AF WBC 16, stable from day prior NAD on vent, weaning, considering extubation soon per RN Objective Last 24 Hour Vital Signs Date Time Temp Pulse Resp B/P (MAP) Pulse Ox O2 Delivery O2 Flow Rate FiO2 10/10/20 07:00 82 14 121/62 (81) 98 10/10/20 06:00 77 14 10/10/20 06:00 75 14 130/69 (89) 98 10/10/20 06:00 84 17 122/58 (79) 99 10/10/20 05:00 90 28 161/69 (99) 99 10/10/20 05:00 73 17 86/52 (63) 98 10/10/20 04:00 Mechanical Ventilator 10/10/20 04:00 81 10/10/20 04:00 99.1 89 18 135/23 (60) 98 10/10/20 04:00 30 10/10/20 03:00 87 17 118/58 (78) 98 10/10/20 02:30 78 17 100 Mechanical Ventilator 30 76 16 30 10/10/20 02:00 67 16 117/53 (74) 99 10/10/20 01:00 74 20 150/62 (91) 99 10/10/20 00:00 84 10/10/20 00:00 99.0 74 16 122/61 (81) 97 10/10/20 00:00 Mechanical Ventilator 10/09/20 23:00 80 16 126/58 (80) 100 10/09/20 22:31 80 16 100 Mechanical Ventilator 30 77 16 30 10/09/20 22:00 72 16 133/70 (91) 10/09/20 21:00 76 16 123/60 (81) 10/09/20 21:00 Mechanical Ventilator 10/09/20 21:00 30 10/09/20 20:00 78 10/09/20 20:00 98.6 79 16 138/65 (89) 99 10/09/20 20:00 Mechanical Ventilator 10/09/20 19:00 80 16 153/78 (103) 100 10/09/20 18:57 82 16 100 Mechanical Ventilator 30 81 16 30 10/09/20 18:00 80 17 152/68 (96) 100 10/09/20 17:00 77 16 106/45 (65) 100 10/09/20 16:00 30 10/09/20 16:00 98.8 82 16 130/74 (92) 97 10/09/20 16:00 Mechanical Ventilator 10/09/20 15:53 80 17 100 Mechanical Ventilator 30 80 16 30 10/09/20 15:52 82 10/09/20 15:00 78 16 125/59 (81) 100 10/09/20 14:00 92 20 99/74 (82) 100 10/09/20 13:00 83 17 131/60 (83) 100 10/09/20 12:10 80 10/09/20 12:00 Mechanical Ventilator 10/09/20 12:00 30 10/09/20 12:00 99.0 81 17 133/65 (87) 100 10/09/20 11:53 81 16 100 Mechanical Ventilator 30 82 16 30 10/09/20 11:00 74 16 113/63 (80) 100 10/09/20 10:19 100 10/09/20 10:19 83 18 30 10/09/20 10:00 83 32 97/50 (66) 99 10/09/20 09:20 30 10/09/20 09:10 30 10/09/20 09:05 83 32 30 11/22/20 09:00 87 16 100/53 (69) 97 Height (Feet): 5 Height (Inches): 4.00 Weight (Pounds): 135 Gen: NAD HEENT: NCAT, ETT CV: RRR Pulm: CTAB on vent Abd: Non-distended Ext: No c/c/e Skin: No visible rashes Neuro: Sedated lines: L fem CVC Laboratory Tests Test 10/09/20 12:35 10/10/20 04:34 Activated Partial Thromboplast Time 71 SEC (23-33) H 68 SEC (23-33) H White Blood Count 16.8 K/UL (4.8-10.8) H Red Blood Count 3.97 M/UL (4.20-5.40) L Hemoglobin 11.0 G/DL (12.0-16.0) L Hematocrit 34.9 % (37.0-47.0) L Mean Corpuscular Volume 88 FL (80-99) Mean Corpuscular Hemoglobin 27.6 PG (27.0-31.0) Mean Corpuscular Hemoglobin Concent 31.4 G/DL (32.0-36.0) L Red Cell Distribution Width 16.4 % (11.6-14.8) H Platelet Count 195 K/UL (150-450) Mean Platelet Volume 8.7 FL (6.5-10.1) Neutrophils (%) (Auto) 72.6 % (45.0-75.0) Lymphocytes (%) (Auto) 13.7 % (20.0-45.0) L Monocytes (%) (Auto) 7.6 % (1.0-10.0) Eosinophils (%) (Auto) 5.3 % (0.0-3.0) H Basophils (%) (Auto) 0.9 % (0.0-2.0) Sodium Level 143 MMOL/L (136-145) Potassium Level 3.8 MMOL/L (3.5-5.1) Chloride Level 110 MMOL/L (98-107) H Carbon Dioxide Level 28 MMOL/L (21-32) Anion Gap 6 mmol/L (5-15) Blood Urea Nitrogen 23 mg/dL (7-18) H Creatinine 0.6 MG/DL (0.55-1.30) Estimat Glomerular Filtration Rate > 60 mL/min (>60) Glucose Level 129 MG/DL (74-106) H Calcium Level 8.3 MG/DL (8.5-10.1) L Current Medications Medications (Trade) Dose Ordered Sig/Bharti Route PRN Reason Start Time Stop Time Status Last Admin Dose Admin Acetaminophen (Tylenol) 650 mg Q4H PRN GT Temp >100.5 10/03/20 17:15 11/02/20 17:14 10/08/20 00:15 Albuterol/ Ipratropium (Albuterol/ Ipratropium) 3 ml Q4HRT HHN 10/07/20 11:00 10/12/20 10:59 10/10/20 07:14 Amlodipine Besylate (Norvasc) 2.5 mg BIDPRN PRN GT sbp greater than 150 10/05/20 20:30 11/04/20 20:29 Aspirin (ASA) 81 mg DAILY GT 10/04/20 14:45 11/18/20 14:44 10/09/20 09:17 Atorvastatin Calcium (Lipitor) 20 mg BEDTIME GT 10/04/20 21:00 01/02/21 20:59 10/09/20 20:34 Chlorhexidine Gluconate (Rahel-Hex 2%) 1 applic DAILY@2000 TOPIC 10/05/20 20:00 01/03/21 19:59 10/09/20 20:00 Dextrose (Dextrose 50%) 25 ml Q30M PRN IV Hypoglycemia 10/03/20 09:28 01/01/21 09:27 Dextrose (Dextrose 50%) 50 ml Q30M PRN IV Hypoglycemia 10/03/20 09:28 01/01/21 09:27 Dextrose/Sodium Chloride 1,000 ml @ 50 mls/hr Q20H IV 10/03/20 11:00 11/02/20 10:59 10/10/20 03:00 Docusate Sodium (Colace) 100 mg TWICE A DAY GT 10/03/20 18:00 11/02/20 17:59 10/09/20 18:22 Heparin Sodium/ Dextrose 500 ml @ 24.494 mls/ hr ADJUST PER PROTOCOL IV 10/06/20 14:30 11/05/20 14:29 10/10/20 03:58 Insulin Aspart (NovoLOG) Q6HR SUBQ 10/06/20 00:00 01/01/21 11:29 10/09/20 12:02 Lorazepam (Ativan 2mg/ml 1ml) 2 mg Q4H PRN IV For Anxiety 10/09/20 15:30 10/16/20 15:29 Methylprednisolone Sodium Succinate (Solu-MEDROL) 30 mg DAILY IVP 10/09/20 09:00 01/07/21 08:59 10/09/20 09:17 Morphine Sulfate (Morphine Sulfate) 2 mg Q4H PRN IVP Moderate Pain (4-6) 10/09/20 15:30 10/16/20 15:29 Morphine Sulfate (Morphine Sulfate) 4 mg Q4H PRN IVP Severe Pain (7-10) 10/09/20 15:30 10/16/20 15:29 Nitroglycerin (Ntg) 0.4 mg Q5M X 3 DOSES PRN SL Prn Chest Pain 10/03/20 09:15 11/02/20 09:14 Ondansetron HCl (Zofran) 4 mg Q6H PRN IVP Nausea & Vomiting 10/03/20 09:28 11/02/20 09:27 Pantoprazole (Protonix) 40 mg DAILY IV 10/04/20 09:00 11/03/20 08:59 10/09/20 09:17 Piperacillin Sod/ Tazobactam Sod 3.375 gm/Dextrose 110 ml @ 27.5 mls/hr Q8H IV 10/08/20 15:00 10/15/20 14:59 10/10/20 06:04 Risperidone (RisperDAL) 1 mg DAILY NG 10/04/20 09:00 11/18/20 08:59 10/09/20 09:17 Sodium Hypochlorite (Dakin's Quarter Strength) 1 applic DAILY TOPIC 10/04/20 09:00 11/03/20 08:59 10/08/20 08:22 Sondra Sepulveda M.D. Oct 10, 2020 08:04
[2020-10-10] MEDS: Aspirin Baby 81mg GT SCH (09:15)
[2020-10-10] MEDS: Solu-MEDROL 40mg Inj IVP SCH (09:15)
[2020-10-10] MEDS: Pantoprazole Inj IV SCH (09:15)
[2020-10-10] MEDS: Docusate 100mg/10ml Liq GT SCH ×2 (09:15→18:00)
[2020-10-10] MEDS: Dakin's 0.125% Soln (Quarter Strength) 16oz TOPIC SCH (09:16)
--- NOTE | 2020-10-10 09:25 | Pulmonolgy Critical Care Note ---
Critical Care - Asmt/Plan Problems: (1) Acute respiratory failure (2) ATN (acute tubular necrosis) (3) Non-ST elevation (NSTEMI) myocardial infarction (4) COPD (chronic obstructive pulmonary disease) (5) Stage 4 decubitus ulcer (6) Severe protein-calorie malnutrition (7) Alzheimer's dementia (8) History of hypertension (9) Psychiatric disorder Respiratory: monitor respiratory rate, adjust FIO2, CXR Cardiac: continue to monitor HR/BP Renal: F/U I&O, keep IV fluid, check electrolytes Infectious Disease: check cultures Gastrointestinal: continue feedings/current rate Endocrine: monitor blood sugar, continue sliding scale insulin Hematologic: monitor H/H, transfuse if hgb<8.5 Neurologic: PRN Ativan, keep patient comfortable Affect: PRN ativan Prophylaxis: Protonix Time Spent (Minutes): 40 Notes Reviewed: patient transport officer, cardio Discussed with: nurses, corrections caseworkerclinical product manager - Objective Last 24 Hour Vital Signs Date Time Temp Pulse Resp B/P (MAP) Pulse Ox O2 Delivery O2 Flow Rate FiO2 10/10/20 07:00 82 14 121/62 (81) 98 10/10/20 06:00 77 14 10/10/20 06:00 75 14 130/69 (89) 98 10/10/20 06:00 84 17 122/58 (79) 99 10/10/20 05:00 90 28 161/69 (99) 99 10/10/20 05:00 73 17 86/52 (63) 98 10/10/20 04:00 Mechanical Ventilator 10/10/20 04:00 81 10/10/20 04:00 99.1 89 18 135/23 (60) 98 10/10/20 04:00 30 10/10/20 03:00 87 17 118/58 (78) 98 10/10/20 02:30 78 17 100 Mechanical Ventilator 30 76 16 30 10/10/20 02:00 67 16 117/53 (74) 99 10/10/20 01:00 74 20 150/62 (91) 99 10/10/20 00:00 84 10/10/20 00:00 99.0 74 16 122/61 (81) 97 10/10/20 00:00 Mechanical Ventilator 10/09/20 23:00 80 16 126/58 (80) 100 10/09/20 22:31 80 16 100 Mechanical Ventilator 30 77 16 30 10/09/20 22:00 72 16 133/70 (91) 10/09/20 21:00 76 16 123/60 (81) 10/09/20 21:00 Mechanical Ventilator 10/09/20 21:00 30 10/09/20 20:00 78 10/09/20 20:00 98.6 79 16 138/65 (89) 99 10/09/20 20:00 Mechanical Ventilator 10/09/20 19:00 80 16 153/78 (103) 100 10/09/20 18:57 82 16 100 Mechanical Ventilator 30 81 16 30 10/09/20 18:00 80 17 152/68 (96) 100 10/09/20 17:00 77 16 106/45 (65) 100 10/09/20 16:00 30 10/09/20 16:00 98.8 82 16 130/74 (92) 97 10/09/20 16:00 Mechanical Ventilator 10/09/20 15:53 80 17 100 Mechanical Ventilator 30 80 16 30 10/09/20 15:52 82 10/09/20 15:00 78 16 125/59 (81) 100 10/09/20 14:00 92 20 99/74 (82) 100 10/09/20 13:00 83 17 131/60 (83) 100 10/09/20 12:10 80 10/09/20 12:00 Mechanical Ventilator 10/09/20 12:00 30 10/09/20 12:00 99.0 81 17 133/65 (87) 100 10/09/20 11:53 81 16 100 Mechanical Ventilator 30 82 16 30 10/09/20 11:00 74 16 113/63 (80) 100 10/09/20 10:19 100 10/09/20 10:19 83 18 30 10/09/20 10:00 83 32 97/50 (66) 99 Status: awake Condition: improving HEENT: atraumatic, normocephalic Neck: full ROM Lungs: clear Heart: HR/BP stable Abdomen: soft, non-tender, active bowel sounds Extremities: no C/C/E Accucheck: 107 Critical Care - Subjective ROS Limited/Unobtainable: Yes Condition: critical EKG Rhythm: Sinus Rhythm FI02: 30 Vent Support Breath Rate: 16 Vent Support Mode: AC Vent Tidal Volume: 600 Sputum Amount: Small PEEP: 5.0 PIP: 30 Tube Feeding Amount: 55 I&O: Intake and Output 10/09/20 10/10/20 19:00 07:00 Intake Total 1353.3285 ml 1683.322 ml Output Total 845 ml 670 ml Balance 508.3285 ml 1013.322 ml IV Total 693.3285 ml 1078.322 ml Tube Feeding 660 ml 605 ml Output Urine Total 845 ml 670 ml # Bowel Movements 1 CXR: DANE ET-Tube: 7.5 ET Position: 23 Labs: Laboratory Tests Test 10/09/20 12:35 10/10/20 04:34 Activated Partial Thromboplast Time 71 SEC (23-33) H 68 SEC (23-33) H White Blood Count 16.8 K/UL (4.8-10.8) H Red Blood Count 3.97 M/UL (4.20-5.40) L Hemoglobin 11.0 G/DL (12.0-16.0) L Hematocrit 34.9 % (37.0-47.0) L Mean Corpuscular Volume 88 FL (80-99) Mean Corpuscular Hemoglobin 27.6 PG (27.0-31.0) Mean Corpuscular Hemoglobin Concent 31.4 G/DL (32.0-36.0) L Red Cell Distribution Width 16.4 % (11.6-14.8) H Platelet Count 195 K/UL (150-450) Mean Platelet Volume 8.7 FL (6.5-10.1) Neutrophils (%) (Auto) 72.6 % (45.0-75.0) Lymphocytes (%) (Auto) 13.7 % (20.0-45.0) L Monocytes (%) (Auto) 7.6 % (1.0-10.0) Eosinophils (%) (Auto) 5.3 % (0.0-3.0) H Basophils (%) (Auto) 0.9 % (0.0-2.0) Sodium Level 143 MMOL/L (136-145) Potassium Level 3.8 MMOL/L (3.5-5.1) Chloride Level 110 MMOL/L (98-107) H Carbon Dioxide Level 28 MMOL/L (21-32) Anion Gap 6 mmol/L (5-15) Blood Urea Nitrogen 23 mg/dL (7-18) H Creatinine 0.6 MG/DL (0.55-1.30) Estimat Glomerular Filtration Rate > 60 mL/min (>60) Glucose Level 129 MG/DL (74-106) H Calcium Level 8.3 MG/DL (8.5-10.1) L Will Quiros MD Oct 10, 2020 09:25
--- NOTE | 2020-10-10 13:03 | Diagnostic Imaging Report ---
Indication: Shortness of breath Technique: One view of the chest Comparison: 10/07/2020 Findings: Interim removal of previously demonstrated left arm PICC. Stable satisfactory position of endotracheal and orogastric tubes. The heart size is normal. Minimal retrocardiac atelectasis and possibly some consolidation persists. No new infiltrates. Impression: Interim PICC removal. No acute process
--- NOTE | 2020-10-10 14:12 | Surgery Progress Note ---
Surgery Progress Note Subjective Procedure Performed left femoral central venous access insertion Additional Comments extubated comfortable no n/v looks better swallow eval pending Objective Last 24 Hour Vital Signs Date Time Temp Pulse Resp B/P (MAP) Pulse Ox O2 Delivery O2 Flow Rate FiO2 10/10/20 13:00 103 30 130/67 (88) 93 10/10/20 12:32 Nasal Cannula 3.0 32 10/10/20 12:32 100 10/10/20 12:00 98.8 86 26 116/51 (72) 100 10/10/20 12:00 Mechanical Ventilator 10/10/20 12:00 95 10/10/20 11:00 84 29 144/55 (84) 97 10/10/20 10:00 82 29 97/48 (64) 97 10/10/20 09:32 94 34 30 10/10/20 09:25 30 10/10/20 09:00 88 18 112/48 (69) 99 10/10/20 08:00 30 10/10/20 08:00 98.9 84 13 112/49 (70) 99 10/10/20 08:00 83 10/10/20 08:00 Mechanical Ventilator 10/10/20 07:24 82 16 100 Mechanical Ventilator 30 81 16 30 10/10/20 07:00 82 14 121/62 (81) 98 10/10/20 06:00 77 14 10/10/20 06:00 75 14 130/69 (89) 98 10/10/20 06:00 84 17 122/58 (79) 99 10/10/20 05:00 90 28 161/69 (99) 99 10/10/20 05:00 73 17 86/52 (63) 98 10/10/20 04:00 Mechanical Ventilator 10/10/20 04:00 81 10/10/20 04:00 99.1 89 18 135/23 (60) 98 10/10/20 04:00 30 10/10/20 03:00 87 17 118/58 (78) 98 10/10/20 02:30 78 17 100 Mechanical Ventilator 30 76 16 30 10/10/20 02:00 67 16 117/53 (74) 99 10/10/20 01:00 74 20 150/62 (91) 99 10/10/20 00:00 84 10/10/20 00:00 99.0 74 16 122/61 (81) 97 10/10/20 00:00 Mechanical Ventilator 10/09/20 23:00 80 16 126/58 (80) 100 10/09/20 22:31 80 16 100 Mechanical Ventilator 30 77 16 30 10/09/20 22:00 72 16 133/70 (91) 10/09/20 21:00 76 16 123/60 (81) 10/09/20 21:00 Mechanical Ventilator 10/09/20 21:00 30 10/09/20 20:00 78 10/09/20 20:00 98.6 79 16 138/65 (89) 99 10/09/20 20:00 Mechanical Ventilator 10/09/20 19:00 80 16 153/78 (103) 100 10/09/20 18:57 82 16 100 Mechanical Ventilator 30 81 16 30 10/09/20 18:00 80 17 152/68 (96) 100 10/09/20 17:00 77 16 106/45 (65) 100 10/09/20 16:00 30 10/09/20 16:00 98.8 82 16 130/74 (92) 97 10/09/20 16:00 Mechanical Ventilator 10/09/20 15:53 80 17 100 Mechanical Ventilator 30 80 16 30 10/09/20 15:52 82 10/09/20 15:00 78 16 125/59 (81) 100 I&O Intake and Output 10/09/20 10/10/20 19:00 07:00 Intake Total 1353.3285 ml 1683.322 ml Output Total 845 ml 670 ml Balance 508.3285 ml 1013.322 ml IV Total 693.3285 ml 1078.322 ml Tube Feeding 660 ml 605 ml Output Urine Total 845 ml 670 ml # Bowel Movements 1 Dressing: saturated Cardiovascular: RSR Respiratory: clear, decreased breath sounds Abdomen: soft, non-tender, present bowel sounds Extremities: no edema, no tenderness, no cyanosis, other Laboratory Tests Test 10/10/20 04:34 10/10/20 10:42 10/10/20 12:24 White Blood Count 16.8 K/UL (4.8-10.8) H Red Blood Count 3.97 M/UL (4.20-5.40) L Hemoglobin 11.0 G/DL (12.0-16.0) L Hematocrit 34.9 % (37.0-47.0) L Mean Corpuscular Volume 88 FL (80-99) Mean Corpuscular Hemoglobin 27.6 PG (27.0-31.0) Mean Corpuscular Hemoglobin Concent 31.4 G/DL (32.0-36.0) L Red Cell Distribution Width 16.4 % (11.6-14.8) H Platelet Count 195 K/UL (150-450) Mean Platelet Volume 8.7 FL (6.5-10.1) Neutrophils (%) (Auto) 72.6 % (45.0-75.0) Lymphocytes (%) (Auto) 13.7 % (20.0-45.0) L Monocytes (%) (Auto) 7.6 % (1.0-10.0) Eosinophils (%) (Auto) 5.3 % (0.0-3.0) H Basophils (%) (Auto) 0.9 % (0.0-2.0) Activated Partial Thromboplast Time 68 SEC (23-33) H Sodium Level 143 MMOL/L (136-145) Potassium Level 3.8 MMOL/L (3.5-5.1) Chloride Level 110 MMOL/L (98-107) H Carbon Dioxide Level 28 MMOL/L (21-32) Anion Gap 6 mmol/L (5-15) Blood Urea Nitrogen 23 mg/dL (7-18) H Creatinine 0.6 MG/DL (0.55-1.30) Estimat Glomerular Filtration Rate > 60 mL/min (>60) Glucose Level 129 MG/DL (74-106) H Calcium Level 8.3 MG/DL (8.5-10.1) L Arterial Blood pH 7.391 (7.350-7.450) Arterial Blood Partial Pressure CO2 44.9 mmHg (35.0-45.0) Arterial Blood Partial Pressure O2 75.2 mmHg (75.0-100.0) Arterial Blood HCO3 26.6 mmol/L (22.0-26.0) H Arterial Blood Oxygen Saturation 93.7 % (95-100) L Arterial Blood Base Excess 1.4 (-2-2) Juancarlos Test Positive POC Whole Blood Glucose 150 MG/DL (74-106) H Plan Problems: (1) COPD (chronic obstructive pulmonary disease) (2) Acute respiratory failure Assessment & Plan: intubated on vent weaning as tolerated abg noted cont weaning pulled out her picc no iv access multiple peripheral attempts made by RN central line placed as medically necessary in ICU patient without access on drips extubated improving cont O2 (3) Syncope (4) Psychiatric disorder (5) Hyponatremia (6) UTI (urinary tract infection) (7) Stage 4 decubitus ulcer Assessment & Plan: Pt presented on admission with Full thickness sacral pressure injury with undermined borders. Base of wound has pink granulation with small amt biofilm easily removed with gentle friction during cleansing. (+) epibole along edges. No odor or exudate noted.(L)2.3cm x (W)4.5cm x (D)1cm. Undermining clockwise 12-12o'clock by 2.8cm @5o'clock. Periwound without erythema or induration. R and L heels are boggy but each heel blanches easily. Dressing is going well. We will monitor wound does not currently need active debridement. well known to me from prior unchanged stage 4 ulcer cont local care Tx.Plan: Cleanse Sacral wound with Dakin's 0.125% gilbert. Loosely pack with Dakin's moistened Kerlix. Apply Triad Paste periwound. Cover with Optifoam drsg. Twice daily and prn. Apply Cavilon Skin Barrier to Both heels. Cover each heel with Optifoam drsg.Change every 7 days and prn. APM/ABHILASH Mattress overlay. Reposition at least every 2hours or as tolerated. Off-load heels with pillow. (8) Severe protein-calorie malnutrition Assessment & Plan: ng in place once stable start tube feeds low alb bmi 23 high risk for breakdown needs nutritional optimization AILY ESTIMATED NEEDS: Needs based on Wound, Critical care 53.6kg 25-35 kcals/kg 6715-2417 total kcals 1.25-2 g protein/kg 67-107 g total protein 25-30 mL/kg 2279-7674 total fluid mLs NUTRITION DIAGNOSIS: * Increased kcal/prot needs R/T wound healing as evidenced by admitted w/ stage 4 sacral wound * Swallowing difficulty R/T respiratory failure as evidenced by pt now orally intubated with OGT feeds. CURRENT TF: Jevity 1.2 @20ml/hr ENTERAL NUTRITION RECOMMENDATIONS: Glucerna 1.2 goal of 55ml/hr x24 hrs to provide 1320ml, 1584 kcal, 79g pro, 1063ml free H2O - Rec carb control formula at this time d/t elevated BG levels (POC [phone]). - Start @low rate 25ml/hr for 6 hrs, advance as tolerated 10ml/hr q4-6 hrs to goal. - Flush per MD/ HOB over 30 degrees ADDITIONAL RECOMMENDATIONS: * Check HgA1C- pt w/ elevated BG * Re-calibrate bed scale w/ added P200 mattress * Wound care: add SUZY BID via OGT Add Vit C 250mg BID + zn so4 220mg qd x10 days * Replete lytes as needed (Low K, Phos) (9) Pulmonary edema (10) Altered mental status (11) History of hypertension (12) Alzheimer's dementia (13) Non-ST elevation (NSTEMI) myocardial infarction (14) ATN (acute tubular necrosis) Blaise Del Valle Oct 10, 2020 14:12
--- NOTE | 2020-10-10 17:45 | Diagnostic Imaging Report ---
EXAM: XR Abdomen, 2 Views CLINICAL HISTORY: NGT TECHNIQUE: Frontal view of the abdomen/pelvis with upright view of the abdomen. COMPARISON: 10/08/2020 FINDINGS: Lower thorax: Prominent cardiomediastinal silhouette could represent cardiomegaly. Intraperitoneal space: No free air. Gastrointestinal tract: Nonobstructive bowel gas pattern. Bones/joints: Degenerative spine findings. Tubes, lines and devices: Enteric tube with tip and proximal sideport below the gastroesophageal junction. Partly seen right femoral head/neck cannulated fixation screws. IMPRESSION: 1. Enteric tube with tip and proximal sideport below the gastroesophageal junction. 2. Prominent cardiomediastinal silhouette could represent cardiomegaly. 3. If there is concern for chest pathology, recommend dedicated imaging. 4. Nonobstructive bowel gas pattern. 5. Partly seen right femoral head/neck cannulated fixation screws.
--- NOTE | 2020-10-10 18:49 | Internal Med Progress Note ---
Subjective Date of Service: Oct 10, 2020 Physician Name MarciCurly Attending Physician Elías Mazariegos MD Current Medications Medications (Trade) Dose Ordered Sig/Bharti Route PRN Reason Start Time Stop Time Status Last Admin Dose Admin Acetaminophen (Tylenol) 650 mg Q4H PRN GT Temp >100.5 10/03/20 17:15 11/02/20 17:14 10/08/20 00:15 Albuterol/ Ipratropium (Albuterol/ Ipratropium) 3 ml Q4HRT HHN 10/07/20 11:00 10/12/20 10:59 10/10/20 15:13 Amlodipine Besylate (Norvasc) 2.5 mg BIDPRN PRN GT sbp greater than 150 10/05/20 20:30 11/04/20 20:29 Aspirin (ASA) 81 mg DAILY GT 10/04/20 14:45 11/18/20 14:44 10/10/20 09:15 Atorvastatin Calcium (Lipitor) 20 mg BEDTIME GT 10/04/20 21:00 01/02/21 20:59 10/09/20 20:34 Chlorhexidine Gluconate (Rahel-Hex 2%) 1 applic DAILY@2000 TOPIC 10/05/20 20:00 01/03/21 19:59 10/09/20 20:00 Dextrose (Dextrose 50%) 25 ml Q30M PRN IV Hypoglycemia 10/03/20 09:28 01/01/21 09:27 Dextrose (Dextrose 50%) 50 ml Q30M PRN IV Hypoglycemia 10/03/20 09:28 01/01/21 09:27 Docusate Sodium (Colace) 100 mg TWICE A DAY GT 10/03/20 18:00 11/02/20 17:59 10/10/20 09:15 Heparin Sodium/ Dextrose 500 ml @ 24.494 mls/ hr ADJUST PER PROTOCOL IV 10/06/20 14:30 11/05/20 14:29 10/10/20 03:58 Insulin Aspart (NovoLOG) Q6HR SUBQ 10/06/20 00:00 01/01/21 11:29 10/09/20 12:02 Lorazepam (Ativan 2mg/ml 1ml) 2 mg Q4H PRN IV For Anxiety 10/09/20 15:30 10/16/20 15:29 Methylprednisolone Sodium Succinate (Solu-MEDROL) 20 mg DAILY IVP 10/11/20 09:00 01/09/21 08:59 Morphine Sulfate (Morphine Sulfate) 2 mg Q4H PRN IVP Moderate Pain (4-6) 10/09/20 15:30 10/16/20 15:29 Morphine Sulfate (Morphine Sulfate) 4 mg Q4H PRN IVP Severe Pain (7-10) 10/09/20 15:30 10/16/20 15:29 Nitroglycerin (Ntg) 0.4 mg Q5M X 3 DOSES PRN SL Prn Chest Pain 10/03/20 09:15 11/02/20 09:14 Ondansetron HCl (Zofran) 4 mg Q6H PRN IVP Nausea & Vomiting 10/03/20 09:28 11/02/20 09:27 Pantoprazole (Protonix) 40 mg DAILY IV 10/04/20 09:00 11/03/20 08:59 10/10/20 09:15 Piperacillin Sod/ Tazobactam Sod 3.375 gm/Dextrose 110 ml @ 27.5 mls/hr Q8H IV 10/08/20 15:00 10/15/20 14:59 10/10/20 15:57 Risperidone (RisperDAL) 1 mg DAILY NG 10/04/20 09:00 11/18/20 08:59 10/10/20 09:15 Sodium Hypochlorite (Dakin's Quarter Strength) 1 applic DAILY TOPIC 10/04/20 09:00 11/03/20 08:59 10/10/20 09:16 Allergies: Coded Allergies: No Known Allergies (Unverified , 12/17/15) ROS Limited/Unobtainable: Yes Subjective 75 YO F admitted with respiratory failure. Now COPD exacerbation and UTI. Extubated 10/10/20. Cover for Int Jonathan-Dr Mazariegos. ICU. Objective Last Vital Signs Date Time Temp Pulse Resp B/P (MAP) Pulse Ox O2 Delivery O2 Flow Rate FiO2 10/10/20 18:00 82 31 104/48 (66) 100 10/10/20 16:00 98.4 10/10/20 16:00 Nasal Cannula 3.0 10/10/20 15:23 32 Laboratory Tests Test 10/10/20 04:34 10/10/20 10:42 10/10/20 12:24 10/10/20 18:37 White Blood Count 16.8 K/UL (4.8-10.8) H Red Blood Count 3.97 M/UL (4.20-5.40) L Hemoglobin 11.0 G/DL (12.0-16.0) L Hematocrit 34.9 % (37.0-47.0) L Mean Corpuscular Volume 88 FL (80-99) Mean Corpuscular Hemoglobin 27.6 PG (27.0-31.0) Mean Corpuscular Hemoglobin Concent 31.4 G/DL (32.0-36.0) L Red Cell Distribution Width 16.4 % (11.6-14.8) H Platelet Count 195 K/UL (150-450) Mean Platelet Volume 8.7 FL (6.5-10.1) Neutrophils (%) (Auto) 72.6 % (45.0-75.0) Lymphocytes (%) (Auto) 13.7 % (20.0-45.0) L Monocytes (%) (Auto) 7.6 % (1.0-10.0) Eosinophils (%) (Auto) 5.3 % (0.0-3.0) H Basophils (%) (Auto) 0.9 % (0.0-2.0) Activated Partial Thromboplast Time 68 SEC (23-33) H Sodium Level 143 MMOL/L (136-145) Potassium Level 3.8 MMOL/L (3.5-5.1) Chloride Level 110 MMOL/L (98-107) H Carbon Dioxide Level 28 MMOL/L (21-32) Anion Gap 6 mmol/L (5-15) Blood Urea Nitrogen 23 mg/dL (7-18) H Creatinine 0.6 MG/DL (0.55-1.30) Estimat Glomerular Filtration Rate > 60 mL/min (>60) Glucose Level 129 MG/DL (74-106) H Calcium Level 8.3 MG/DL (8.5-10.1) L Arterial Blood pH 7.391 (7.350-7.450) Arterial Blood Partial Pressure CO2 44.9 mmHg (35.0-45.0) Arterial Blood Partial Pressure O2 75.2 mmHg (75.0-100.0) Arterial Blood HCO3 26.6 mmol/L (22.0-26.0) H Arterial Blood Oxygen Saturation 93.7 % (95-100) L Arterial Blood Base Excess 1.4 (-2-2) Juancarlos Test Positive POC Whole Blood Glucose 150 MG/DL (74-106) H Pending Intake and Output 10/09/20 10/10/20 19:00 07:00 Intake Total 1353.3285 ml 1683.322 ml Output Total 845 ml 670 ml Balance 508.3285 ml 1013.322 ml IV Total 693.3285 ml 1078.322 ml Tube Feeding 660 ml 605 ml Output Urine Total 845 ml 670 ml # Bowel Movements 1 Objective PHYSICAL EXAMINATION: GENERAL: The patient is a well-developed and well-nourished female, who is currently intubated in the intensive care unit. HEENT: Eyes, pupils are equal and responsive to light and accommodation. Extraocular movements are intact. NECK: Supple without lymphadenopathy. CHEST: Nasal canula; Coarse mechanical breath sounds bilaterally without wheezes or rales. CARDIOVASCULAR: Tachycardic, regular rhythm, S1-S2 are normal without murmurs, rubs, or gallops. ABDOMEN: Soft, nontender, and nondistended. Positive bowel sounds. No evidence of hepatosplenomegaly. Currently, no rebound or guarding noted. EXTREMITIES: Negative for clubbing, cyanosis, edema. RECTAL/GENITAL: Not performed. NEUROLOGICAL: Unable to assess. Assessment/Plan Assessment/Plan ASSESSMENT: This is a 75-year-old female with: 1. Acute hypoxemic respiratory failure. 2. Altered mental status. 3. Hypertension. 4. Chronic obstructive pulmonary disease. 5. Alzheimer's dementia. 6. UTI=proteus TREATMENT: 1. Acute hypoxic respiratory failure. Pulmonary/critical care = Dr. Will Quiros. The patient was extubated on 10/10/20 ABX= Zosyn. Continue IV Solu-Medrol for chronic obstructive pulmonary disease acute exacerbation. Follow recommendations of Pulmonary. 2. Hypertension. The patient is currently hypotensive. 3. Chronic obstructive pulmonary disease. A Pulmonary consultation has been obtained with Dr. Will Quiros. The patient is currently receiving intravenous Solu-Medrol and albuterol/Atrovent nebulized q.4 h. p.r.n. We will follow recommendations of Pulmonary. 4. Alzheimer's dementia. Covarrubias,Curly MD Oct 10, 2020 18:48
--- NOTE | 2020-10-10 20:15 | Cardiology Progress Note ---
Assessment/Plan Assessment/Plan 1. Altered mental status. 2. Baseline dementia. 3. [id number] myocardial infarction. 4. Respiratory failure, status post intubation. 5. COPD history. 6. Renal insufficiency 7. bactermia off the vent tele sinus watch bp is on norvasc ekg noted t inversion in the an lead form 10/05 dc heparin keep on Ecotrin the chronicity of the t wave inversion is not clear communicates some but not oriented will likely pursuit med management Subjective Cardiovascular: Denies: chest pain Respiratory: Reports: shortness of breath Gastrointestinal/Abdominal: Denies: abdominal pain Genitourinary: Reports: burning Objective Last 24 Hour Vital Signs Date Time Temp Pulse Resp B/P (MAP) Pulse Ox O2 Delivery O2 Flow Rate FiO2 10/10/20 19:26 81 21 100 Nasal Cannula 3.0 32 78 19 100 10/10/20 19:00 79 34 99/49 (66) 100 10/10/20 18:00 82 31 104/48 (66) 100 10/10/20 17:00 95 34 118/58 (78) 10/10/20 16:00 98.4 97 23 133/58 (83) 98 10/10/20 16:00 Nasal Cannula 3.0 10/10/20 16:00 3.0 10/10/20 16:00 87 10/10/20 15:23 87 25 100 Nasal Cannula 3.0 32 87 23 100 10/10/20 15:00 82 23 104/55 (71) 100 10/10/20 14:00 97 26 124/52 (76) 96 10/10/20 13:00 103 30 130/67 (88) 93 10/10/20 12:32 Nasal Cannula 3.0 32 10/10/20 12:32 100 10/10/20 12:00 98.8 86 26 116/51 (72) 100 10/10/20 12:00 Mechanical Ventilator 10/10/20 12:00 30 10/10/20 12:00 95 10/10/20 11:44 90 30 100 Mechanical Ventilator 30 91 35 30 10/10/20 11:00 84 29 144/55 (84) 97 10/10/20 10:00 82 29 97/48 (64) 97 10/10/20 09:32 94 34 30 10/10/20 09:25 30 10/10/20 09:00 88 18 112/48 (69) 99 10/10/20 08:00 30 10/10/20 08:00 98.9 84 13 112/49 (70) 99 10/10/20 08:00 83 10/10/20 08:00 Mechanical Ventilator 10/10/20 07:24 82 16 100 Mechanical Ventilator 30 81 16 30 10/10/20 07:00 82 14 121/62 (81) 98 10/10/20 06:00 77 14 10/10/20 06:00 75 14 130/69 (89) 98 10/10/20 06:00 84 17 122/58 (79) 99 10/10/20 05:00 90 28 161/69 (99) 99 10/10/20 05:00 73 17 86/52 (63) 98 10/10/20 04:00 Mechanical Ventilator 10/10/20 04:00 81 10/10/20 04:00 99.1 89 18 135/23 (60) 98 10/10/20 04:00 30 10/10/20 03:00 87 17 118/58 (78) 98 10/10/20 02:30 78 17 100 Mechanical Ventilator 30 76 16 30 10/10/20 02:00 67 16 117/53 (74) 99 10/10/20 01:00 74 20 150/62 (91) 99 10/10/20 00:00 84 10/10/20 00:00 99.0 74 16 122/61 (81) 97 10/10/20 00:00 Mechanical Ventilator 10/09/20 23:00 80 16 126/58 (80) 100 10/09/20 22:31 80 16 100 Mechanical Ventilator 30 77 16 30 10/09/20 22:00 72 16 133/70 (91) 10/09/20 21:00 76 16 123/60 (81) 10/09/20 21:00 Mechanical Ventilator 10/09/20 21:00 30 General Appearance: no apparent distress, alert, patient on isolation Neck: no JVD Cardiovascular: normal rate Respiratory/Chest: lungs clear Abdomen: normal bowel sounds, non tender, soft Extremities: no swelling Intake and Output 10/09/20 10/10/20 19:00 07:00 Intake Total 1353.3285 ml 1683.322 ml Output Total 845 ml 670 ml Balance 508.3285 ml 1013.322 ml IV Total 693.3285 ml 1078.322 ml Tube Feeding 660 ml 605 ml Output Urine Total 845 ml 670 ml # Bowel Movements 1 Laboratory Tests Test 10/10/20 04:34 10/10/20 10:42 10/10/20 12:24 10/10/20 18:37 White Blood Count 16.8 K/UL (4.8-10.8) H Red Blood Count 3.97 M/UL (4.20-5.40) L Hemoglobin 11.0 G/DL (12.0-16.0) L Hematocrit 34.9 % (37.0-47.0) L Mean Corpuscular Volume 88 FL (80-99) Mean Corpuscular Hemoglobin 27.6 PG (27.0-31.0) Mean Corpuscular Hemoglobin Concent 31.4 G/DL (32.0-36.0) L Red Cell Distribution Width 16.4 % (11.6-14.8) H Platelet Count 195 K/UL (150-450) Mean Platelet Volume 8.7 FL (6.5-10.1) Neutrophils (%) (Auto) 72.6 % (45.0-75.0) Lymphocytes (%) (Auto) 13.7 % (20.0-45.0) L Monocytes (%) (Auto) 7.6 % (1.0-10.0) Eosinophils (%) (Auto) 5.3 % (0.0-3.0) H Basophils (%) (Auto) 0.9 % (0.0-2.0) Activated Partial Thromboplast Time 68 SEC (23-33) H Sodium Level 143 MMOL/L (136-145) Potassium Level 3.8 MMOL/L (3.5-5.1) Chloride Level 110 MMOL/L (98-107) H Carbon Dioxide Level 28 MMOL/L (21-32) Anion Gap 6 mmol/L (5-15) Blood Urea Nitrogen 23 mg/dL (7-18) H Creatinine 0.6 MG/DL (0.55-1.30) Estimat Glomerular Filtration Rate > 60 mL/min (>60) Glucose Level 129 MG/DL (74-106) H Calcium Level 8.3 MG/DL (8.5-10.1) L Arterial Blood pH 7.391 (7.350-7.450) Arterial Blood Partial Pressure CO2 44.9 mmHg (35.0-45.0) Arterial Blood Partial Pressure O2 75.2 mmHg (75.0-100.0) Arterial Blood HCO3 26.6 mmol/L (22.0-26.0) H Arterial Blood Oxygen Saturation 93.7 % (95-100) L Arterial Blood Base Excess 1.4 (-2-2) Juancarlos Test Positive POC Whole Blood Glucose 150 MG/DL (74-106) H Pending Laurent Ramesh MD Oct 10, 2020 20:15
[2020-10-10] MEDS ORDERED: Varibar Honey 250ml MC PRN (20:30)
[2020-10-10] MEDS ORDERED: Varibar Nectar 240ml MC PRN (20:30)
[2020-10-10] MEDS ORDERED: Varibar Thin Liquid powder 148gm MC PRN (20:30)
[2020-10-10] MEDS ORDERED: Varibar Pudding 230ml MC PRN (20:30)
[2020-10-10] MEDS: Dyna-Hex 2% Top Sol 2oz TOPIC SCH (22:04)
[2020-10-10] MEDS: Atorvastatin 20mg tab GT SCH (22:04)
[2020-10-10] MEDS: Metoprolol Tartrate 12.5mg TAB GT SCH (22:06)
[2020-10-11] VITALS (24 sets, daily range): BP systolic 101–166; BP diastolic 43–77
[2020-10-11] MEDS: Albuterol/Ipratropium 3ml neb HHN SCH ×6 (03:22→23:36)
[2020-10-11 04:16] LABS: BASOPHILS % (AUTO) 0.5 % (0.0-2.0); EOSINOPHILS % (AUTO) 2.7 % (0.0-3.0); HEMATOCRIT 32.4 % (37.0-47.0); HEMOGLOBIN 10.1 G/DL (12.0-16.0); LYMPHOCYTES % (AUTO) 13.4 % (20.0-45.0); MEAN CORPUSCULAR VOLUME 90 FL (80-99); MONOCYTES % (AUTO) 9.5 % (1.0-10.0); NEUTROPHILS % (AUTO) 73.9 % (45.0-75.0); PLATELET COUNT 221 K/UL (150-450); RED BLOOD COUNT 3.61 M/UL (4.20-5.40); RED CELL DISTRIBUTION WIDTH 16.8 % (11.6-14.8); WHITE BLOOD COUNT 14.1 K/UL (4.8-10.8)
[2020-10-11 04:28] LABS: ALANINE AMINOTRANSFERASE 21 U/L (12-78); ALBUMIN 2.1 G/DL (3.4-5.0); ALBUMIN/GLOBULIN RATIO 0.5 (1.0-2.7); ALKALINE PHOSPHATASE 27 U/L (46-116); ANION GAP 2 mmol/L (5-15); ASPARTATE AMINO TRANSFERASE 19 U/L (15-37); BILIRUBIN,TOTAL 0.3 MG/DL (0.2-1.0); BLOOD UREA NITROGEN 22 mg/dL (7-18); CALCIUM 8.2 MG/DL (8.5-10.1); CARBON DIOXIDE 33 MMOL/L (21-32); CHLORIDE 112 MMOL/L (98-107); CREATININE 0.6 MG/DL (0.55-1.30); PHOSPHORUS 3.8 MG/DL (2.5-4.9); POTASSIUM 3.8 MMOL/L (3.5-5.1); SODIUM 147 MMOL/L (136-145)
[2020-10-11] MEDS: NovoLOG Insulin Flexpen SUBQ SCH ×3 (06:00→17:37)
[2020-10-11] MEDS: Piperacillin/Tazobactam 3.375 GM in D5W 110 ML IV SCH ×3 (06:04→23:05)
--- NOTE | 2020-10-11 08:11 | Infectious Diseases Prog Note ---
Assessment/Plan 75yo F with: Afebrile, Tmax 99.7 --> Febrile to 102 Normal WBC Acute hypoxic resp failure, SP intubation 10/03 COPD Non-verbal at baseline UTI GPC bacteremia, m/l contaminant 10/03 BCx +1/2 Staph hominis, m/l skin contaminant UA 10-15 WBC, UCx >100k P.mirabilis (S-CTX, R-bactrim) Resp cx p COVID rapid Ag neg Flu neg MRSA nares neg CXR: No focal consolidation, pleural effusion, or pneumothorax. Mild emphysema with increased interstitial markings. Cardiomegaly. Calcified aorta. 10/04 COVID rapid Ag neg 10/05 BCx NTD 10/07 CXR: 1. Overall similar appearing study. Dementia Alzheimer's [facility] resident Plan: Cont Zosyn #9 / 10 for pna On steroids per primary, solumedrol 20mg daily Remove L fem CVC if able, infection risk 10/07 SP vanco IV #4 empiric Monitor CBC/CMP Monitor temp curve, hemodynamics Monitor resp status D/w RN Thank you for this consult. [facility] will continue to follow. Subjective Allergies: Coded Allergies: No Known Allergies (Unverified , 12/17/15) AF WBC 14, improving on steroids Extubated, now on RA satting well Somewhat confused but interactive and pleasant Denies any problems breathing, no pain Objective Last 24 Hour Vital Signs Date Time Temp Pulse Resp B/P (MAP) Pulse Ox O2 Delivery O2 Flow Rate FiO2 10/11/20 07:00 76 30 121/59 (79) 99 10/11/20 06:00 78 33 129/56 (80) 98 10/11/20 05:00 84 32 121/52 (75) 96 10/11/20 04:00 Nasal Cannula 3.0 10/11/20 04:00 3.0 10/11/20 04:00 99.1 91 22 122/55 (77) 93 10/11/20 03:22 83 26 100 Nasal Cannula 2.0 28 85 21 95 10/11/20 03:04 82 10/11/20 03:00 85 36 125/51 (75) 95 10/11/20 02:00 82 24 140/69 (92) 96 10/11/20 01:00 83 25 101/45 (63) 96 10/11/20 00:00 Nasal Cannula 3.0 10/11/20 00:00 3.0 10/11/20 00:00 88 23 107/53 (71) 97 10/10/20 23:24 83 10/10/20 23:00 82 24 100 Nasal Cannula 3.0 32 80 25 100 10/10/20 23:00 98.2 82 24 117/58 (77) 100 10/10/20 22:06 84 125/50 10/10/20 22:00 87 26 125/50 (75) 97 10/10/20 21:00 88 39 116/51 (72) 95 10/10/20 20:00 3.0 10/10/20 20:00 Nasal Cannula 3.0 10/10/20 20:00 78 10/10/20 20:00 98.7 88 24 129/52 (77) 96 10/10/20 19:26 81 21 100 Nasal Cannula 3.0 32 78 19 100 10/10/20 19:00 79 34 99/49 (66) 100 10/10/20 18:00 82 31 104/48 (66) 100 10/10/20 17:00 95 34 118/58 (78) 10/10/20 16:00 98.4 97 23 133/58 (83) 98 10/10/20 16:00 Nasal Cannula 3.0 10/10/20 16:00 3.0 10/10/20 16:00 87 10/10/20 15:23 87 25 100 Nasal Cannula 3.0 32 87 23 100 10/10/20 15:00 82 23 104/55 (71) 100 10/10/20 14:00 97 26 124/52 (76) 96 10/10/20 13:00 103 30 130/67 (88) 93 10/10/20 12:32 Nasal Cannula 3.0 32 10/10/20 12:32 100 10/10/20 12:00 98.8 86 26 116/51 (72) 100 10/10/20 12:00 Mechanical Ventilator 10/10/20 12:00 30 10/10/20 12:00 95 10/10/20 11:44 90 30 100 Mechanical Ventilator 30 91 35 30 10/10/20 11:00 84 29 144/55 (84) 97 10/10/20 10:00 82 29 97/48 (64) 97 10/10/20 09:32 94 34 30 10/10/20 09:25 30 10/10/20 09:00 88 18 112/48 (69) 99 Height (Feet): 5 Height (Inches): 4.00 Weight (Pounds): 135 Gen: NAD HEENT: NCAT CV: RRR Pulm: CTAB on RA Abd: Non-distended Ext: No c/c/e Skin: No visible rashes Neuro: Awake, interactive Laboratory Tests Test 10/10/20 10:42 10/10/20 12:24 10/10/20 18:37 10/10/20 23:16 Arterial Blood pH 7.391 (7.350-7.450) Arterial Blood Partial Pressure CO2 44.9 mmHg (35.0-45.0) Arterial Blood Partial Pressure O2 75.2 mmHg (75.0-100.0) Arterial Blood HCO3 26.6 mmol/L (22.0-26.0) H Arterial Blood Oxygen Saturation 93.7 % (95-100) L Arterial Blood Base Excess 1.4 (-2-2) Juancarlos Test Positive POC Whole Blood Glucose 150 MG/DL (74-106) H Pending Pending Test 10/11/20 04:00 10/11/20 06:03 White Blood Count 14.1 K/UL (4.8-10.8) H Red Blood Count 3.61 M/UL (4.20-5.40) L Hemoglobin 10.1 G/DL (12.0-16.0) L Hematocrit 32.4 % (37.0-47.0) L Mean Corpuscular Volume 90 FL (80-99) Mean Corpuscular Hemoglobin 27.8 PG (27.0-31.0) Mean Corpuscular Hemoglobin Concent 31.0 G/DL (32.0-36.0) L Red Cell Distribution Width 16.8 % (11.6-14.8) H Platelet Count 221 K/UL (150-450) Mean Platelet Volume 9.5 FL (6.5-10.1) Neutrophils (%) (Auto) 73.9 % (45.0-75.0) Lymphocytes (%) (Auto) 13.4 % (20.0-45.0) L Monocytes (%) (Auto) 9.5 % (1.0-10.0) Eosinophils (%) (Auto) 2.7 % (0.0-3.0) Basophils (%) (Auto) 0.5 % (0.0-2.0) Activated Partial Thromboplast Time 24 SEC (23-33) Sodium Level 147 MMOL/L (136-145) H Potassium Level 3.8 MMOL/L (3.5-5.1) Chloride Level 112 MMOL/L (98-107) H Carbon Dioxide Level 33 MMOL/L (21-32) H Anion Gap 2 mmol/L (5-15) L Blood Urea Nitrogen 22 mg/dL (7-18) H Creatinine 0.6 MG/DL (0.55-1.30) Estimat Glomerular Filtration Rate > 60 mL/min (>60) Glucose Level 110 MG/DL (74-106) H Calcium Level 8.2 MG/DL (8.5-10.1) L Phosphorus Level 3.8 MG/DL (2.5-4.9) Magnesium Level 2.0 MG/DL (1.8-2.4) Total Bilirubin 0.3 MG/DL (0.2-1.0) Aspartate Amino Transf (AST/SGOT) 19 U/L (15-37) Alanine Aminotransferase (ALT/SGPT) 21 U/L (12-78) Alkaline Phosphatase 27 U/L (46-116) L Troponin I 0.048 ng/mL (0.000-0.056) Pro-B-Type Natriuretic Peptide 2001 pg/mL (0-125) H Total Protein 6.0 G/DL (6.4-8.2) L Albumin 2.1 G/DL (3.4-5.0) L Globulin 3.9 g/dL Albumin/Globulin Ratio 0.5 (1.0-2.7) L POC Whole Blood Glucose Pending Current Medications Medications (Trade) Dose Ordered Sig/Bharti Route PRN Reason Start Time Stop Time Status Last Admin Dose Admin Acetaminophen (Tylenol) 650 mg Q4H PRN GT Temp >100.5 10/03/20 17:15 11/02/20 17:14 10/08/20 00:15 Albuterol/ Ipratropium (Albuterol/ Ipratropium) 3 ml Q4HRT HHN 10/07/20 11:00 10/12/20 10:59 10/11/20 08:08 Amlodipine Besylate (Norvasc) 2.5 mg BIDPRN PRN GT sbp greater than 150 10/05/20 20:30 11/04/20 20:29 Ascorbic Acid (Vitamin C) 500 mg BID GT 10/11/20 09:00 11/10/20 08:59 Aspirin (ASA) 81 mg DAILY GT 10/04/20 14:45 11/18/20 14:44 10/10/20 09:15 Atorvastatin Calcium (Lipitor) 20 mg BEDTIME GT 10/04/20 21:00 01/02/21 20:59 10/10/20 22:04 Barium Sulfate (Varibar Honey) 250 ml NOW PRN MC RAD 10/10/20 20:30 10/13/20 20:26 Barium Sulfate (Varibar [place]) 240 ml NOW PRN MC RAD 10/10/20 20:30 10/13/20 20:26 Barium Sulfate (Varibar Pudding) 230 ml NOW PRN MC RAD 10/10/20 20:30 10/13/20 20:26 Barium Sulfate (Varibar Thin Liquid powder) 148 gm NOW PRN MC RAD 10/10/20 20:30 10/13/20 20:26 Chlorhexidine Gluconate (Rahel-Hex 2%) 1 applic DAILY@1999 TOPIC 10/05/20 20:00 01/03/21 19:59 10/10/20 22:04 Dextrose (Dextrose 50%) 25 ml Q30M PRN IV Hypoglycemia 10/03/20 09:28 01/01/21 09:27 Dextrose (Dextrose 50%) 50 ml Q30M PRN IV Hypoglycemia 10/03/20 09:28 01/01/21 09:27 Docusate Sodium (Colace) 100 mg TWICE A DAY GT 10/03/20 18:00 11/02/20 17:59 10/10/20 09:15 Insulin Aspart (NovoLOG) Q6HR SUBQ 10/06/20 00:00 01/01/21 11:29 10/09/20 12:02 Lorazepam (Ativan 2mg/ml 1ml) 2 mg Q4H PRN IV For Anxiety 10/09/20 15:30 10/16/20 15:29 Methylprednisolone Sodium Succinate (Solu-MEDROL) 20 mg DAILY IVP 10/11/20 09:00 01/09/21 08:59 Metoprolol Tartrate (Lopressor) 12.5 mg Q12HR GT 10/10/20 21:00 01/08/21 20:59 10/10/20 22:06 Morphine Sulfate (Morphine Sulfate) 2 mg Q4H PRN IVP Moderate Pain (4-6) 10/09/20 15:30 10/16/20 15:29 Morphine Sulfate (Morphine Sulfate) 4 mg Q4H PRN IVP Severe Pain (7-10) 10/09/20 15:30 10/16/20 15:29 Nitroglycerin (Ntg) 0.4 mg Q5M X 3 DOSES PRN SL Prn Chest Pain 10/03/20 09:15 11/02/20 09:14 Ondansetron HCl (Zofran) 4 mg Q6H PRN IVP Nausea & Vomiting 10/03/20 09:28 11/02/20 09:27 Pantoprazole (Protonix) 40 mg DAILY IV 10/04/20 09:00 11/03/20 08:59 10/10/20 09:15 Piperacillin Sod/ Tazobactam Sod 3.375 gm/Dextrose 110 ml @ 27.5 mls/hr Q8H IV 10/08/20 15:00 10/15/20 14:59 10/11/20 06:04 Risperidone (RisperDAL) 1 mg DAILY NG 10/04/20 09:00 11/18/20 08:59 10/10/20 09:15 Sodium Hypochlorite (Dakin's Quarter Strength) 1 applic DAILY TOPIC 10/04/20 09:00 11/03/20 08:59 10/10/20 09:16 Zinc Sulfate (Zinc Sulfate) 220 mg DAILY GT 10/11/20 09:00 10/21/20 08:59 Sondra Sepulveda M.D. Oct 11, 2020 08:11
[2020-10-11] MEDS: Pantoprazole Inj IV SCH (09:00)
[2020-10-11] MEDS: Docusate 100mg/10ml Liq GT SCH (09:00)
[2020-10-11] MEDS: Zinc Sulfate 220mg GT SCH (09:00)
[2020-10-11] MEDS: Ascorbic Acid 500mg tab GT SCH ×2 (09:00→17:32)
[2020-10-11] MEDS: Aspirin Baby 81mg GT SCH (09:00)
[2020-10-11] MEDS ORDERED: Solu-MEDROL 40mg Inj IVP SCH ×2 (09:00)
[2020-10-11] MEDS: Metoprolol Tartrate 12.5mg TAB GT SCH ×2 (09:00→20:46)
[2020-10-11] MEDS: Dakin's 0.125% Soln (Quarter Strength) 16oz TOPIC SCH (09:00)
--- NOTE | 2020-10-11 10:24 | Diagnostic Imaging Report ---
Indication: Post nasogastric tube placement Technique: Supine view of the upper abdomen Comparison: 10/10/2020 Findings: Again demonstrated is a nasogastric tube, tip of which projects at the level of the gastric body, proximal sidehole well below the gastroesophageal junction. The visualized bowel gas is unremarkable. A left groin central venous catheter is again noted. There is no significant change Impression: Satisfactory position of nasogastric tube.
--- NOTE | 2020-10-11 10:26 | Diagnostic Imaging Report ---
Indication: Dyspnea Technique: One view of the chest Comparison: 10/10/2020 Findings: Endotracheal tube is been removed. The lungs and pleural spaces remain clear. Nasogastric tube remains. The heart size is normal. Impression: Interim extubation No other significant interval change
[2020-10-11] MEDS ORDERED: LORazepam Inj 2mg/ml 1ml IV PRN (10:52)
--- NOTE | 2020-10-11 10:58 | Pulmonolgy Critical Care Note ---
Critical Care - Asmt/Plan Problems: (1) Acute respiratory failure (2) ATN (acute tubular necrosis) (3) Non-ST elevation (NSTEMI) myocardial infarction (4) COPD (chronic obstructive pulmonary disease) (5) Stage 4 decubitus ulcer (6) Severe protein-calorie malnutrition (7) Alzheimer's dementia (8) History of hypertension (9) Psychiatric disorder Respiratory: monitor respiratory rate, adjust FIO2 Cardiac: start pressors, stop pressors Renal: keep IV fluid, check electrolytes Infectious Disease: check cultures, continue antibiotics Endocrine: monitor blood sugar, continue sliding scale insulin Hematologic: monitor H/H, transfuse if hgb<8.5 Neurologic: PRN Ativan, keep patient comfortable Time Spent (Minutes): 40 Notes Reviewed: nut grader, cardio Discussed with: nurses, case finisherculture manager - Objective Last 24 Hour Vital Signs Date Time Temp Pulse Resp B/P (MAP) Pulse Ox O2 Delivery O2 Flow Rate FiO2 10/11/20 09:35 82 23 100 Nasal Cannula 2.0 28 83 21 100 10/11/20 09:00 90 34 130/67 (88) 97 10/11/20 08:00 Nasal Cannula 3.0 10/11/20 08:00 3.0 10/11/20 08:00 98.3 86 31 114/70 (85) 97 10/11/20 08:00 100 10/11/20 07:00 76 30 121/59 (79) 99 10/11/20 06:00 78 33 129/56 (80) 98 10/11/20 05:00 84 32 121/52 (75) 96 10/11/20 04:00 Nasal Cannula 3.0 10/11/20 04:00 3.0 10/11/20 04:00 99.1 91 22 122/55 (77) 93 10/11/20 03:22 83 26 100 Nasal Cannula 2.0 28 85 21 95 10/11/20 03:04 82 10/11/20 03:00 85 36 125/51 (75) 95 10/11/20 02:00 82 24 140/69 (92) 96 10/11/20 01:00 83 25 101/45 (63) 96 10/11/20 00:00 Nasal Cannula 3.0 10/11/20 00:00 3.0 10/11/20 00:00 88 23 107/53 (71) 97 11/23/20 23:24 83 10/10/20 23:00 82 24 100 Nasal Cannula 3.0 32 80 25 100 10/10/20 23:00 98.2 82 24 117/58 (77) 100 10/10/20 22:06 84 125/50 10/10/20 22:00 87 26 125/50 (75) 97 10/10/20 21:00 88 39 116/51 (72) 95 10/10/20 20:00 3.0 10/10/20 20:00 Nasal Cannula 3.0 10/10/20 20:00 78 10/10/20 20:00 98.7 88 24 129/52 (77) 96 10/10/20 19:26 81 21 100 Nasal Cannula 3.0 32 78 19 100 10/10/20 19:00 79 34 99/49 (66) 100 10/10/20 18:00 82 31 104/48 (66) 100 10/10/20 17:00 95 34 118/58 (78) 10/10/20 16:00 98.4 97 23 133/58 (83) 98 10/10/20 16:00 Nasal Cannula 3.0 10/10/20 16:00 3.0 10/10/20 16:00 87 10/10/20 15:23 87 25 100 Nasal Cannula 3.0 32 87 23 100 10/10/20 15:00 82 23 104/55 (71) 100 10/10/20 14:00 97 26 124/52 (76) 96 10/10/20 13:00 103 30 130/67 (88) 93 10/10/20 12:32 Nasal Cannula 3.0 32 10/10/20 12:32 100 10/10/20 12:00 98.8 86 26 116/51 (72) 100 10/10/20 12:00 Mechanical Ventilator 10/10/20 12:00 30 10/10/20 12:00 95 10/10/20 11:44 90 30 100 Mechanical Ventilator 30 91 35 30 10/10/20 11:00 84 29 144/55 (84) 97 Status: awake Condition: improving HEENT: atraumatic Neck: full ROM Lungs: clear Heart: HR/BP stable Abdomen: soft, active bowel sounds, feeding tube Extremities: no C/C/E Accucheck: 107 Critical Care - Subjective ROS Limited/Unobtainable: Yes Interval Events: extubated, doing well Condition: critical EKG Rhythm: Sinus Rhythm FI02: 32 Vent Support Breath Rate: 16 Vent Support Mode: CPAP Vent Tidal Volume: 600 Sputum Amount: Small PEEP: 5.0 PIP: 14 Tube Feeding Amount: 55 I&O: Intake and Output 10/10/20 10/11/20 19:00 07:00 Intake Total 1096.928 ml 698.8175 ml Output Total 1200 ml 1215 ml Balance -103.072 ml -516.1825 ml Intake Free Water 60 ml 50 ml IV Total 611.928 ml 133.8175 ml Tube Feeding 385 ml 495 ml Other 40 ml 20 ml Output Urine Total 1200 ml 1215 ml # Bowel Movements 1 1 CXR: no changes ET-Tube: 7.5 ET Position: 23 Labs: Laboratory Tests Test 10/10/20 12:24 10/10/20 18:37 10/10/20 23:16 10/11/20 04:00 POC Whole Blood Glucose 150 MG/DL (74-106) H Pending Pending White Blood Count 14.1 K/UL (4.8-10.8) H Red Blood Count 3.61 M/UL (4.20-5.40) L Hemoglobin 10.1 G/DL (12.0-16.0) L Hematocrit 32.4 % (37.0-47.0) L Mean Corpuscular Volume 90 FL (80-99) Mean Corpuscular Hemoglobin 27.8 PG (27.0-31.0) Mean Corpuscular Hemoglobin Concent 31.0 G/DL (32.0-36.0) L Red Cell Distribution Width 16.8 % (11.6-14.8) H Platelet Count 221 K/UL (150-450) Mean Platelet Volume 9.5 FL (6.5-10.1) Neutrophils (%) (Auto) 73.9 % (45.0-75.0) Lymphocytes (%) (Auto) 13.4 % (20.0-45.0) L Monocytes (%) (Auto) 9.5 % (1.0-10.0) Eosinophils (%) (Auto) 2.7 % (0.0-3.0) Basophils (%) (Auto) 0.5 % (0.0-2.0) Activated Partial Thromboplast Time 24 SEC (23-33) Sodium Level 147 MMOL/L (136-145) H Potassium Level 3.8 MMOL/L (3.5-5.1) Chloride Level 112 MMOL/L (98-107) H Carbon Dioxide Level 33 MMOL/L (21-32) H Anion Gap 2 mmol/L (5-15) L Blood Urea Nitrogen 22 mg/dL (7-18) H Creatinine 0.6 MG/DL (0.55-1.30) Estimat Glomerular Filtration Rate > 60 mL/min (>60) Glucose Level 110 MG/DL (74-106) H Calcium Level 8.2 MG/DL (8.5-10.1) L Phosphorus Level 3.8 MG/DL (2.5-4.9) Magnesium Level 2.0 MG/DL (1.8-2.4) Total Bilirubin 0.3 MG/DL (0.2-1.0) Aspartate Amino Transf (AST/SGOT) 19 U/L (15-37) Alanine Aminotransferase (ALT/SGPT) 21 U/L (12-78) Alkaline Phosphatase 27 U/L (46-116) L Troponin I 0.048 ng/mL (0.000-0.056) Pro-B-Type Natriuretic Peptide 2001 pg/mL (0-125) H Total Protein 6.0 G/DL (6.4-8.2) L Albumin 2.1 G/DL (3.4-5.0) L Globulin 3.9 g/dL Albumin/Globulin Ratio 0.5 (1.0-2.7) L Test 10/11/20 06:03 10/11/20 08:06 POC Whole Blood Glucose Pending Arterial Blood pH 7.467 (7.350-7.450) Arterial Blood Partial Pressure CO2 41.9 mmHg (35.0-45.0) Arterial Blood Partial Pressure O2 68.1 mmHg (75.0-100.0) L Arterial Blood HCO3 29.6 mmol/L (22.0-26.0) H Arterial Blood Oxygen Saturation 94.1 % (95-100) L Arterial Blood Base Excess 5.4 (-2-2) H Juancarlos Test Positive Will Quiros MD Oct 11, 2020 10:58
--- NOTE | 2020-10-11 11:37 | Surgery Progress Note ---
Surgery Progress Note Subjective Procedure Performed left femoral central venous access insertion Symptoms: improved Additional Comments alert, awake, talkative looks much better now respiratory improved no n/v no complaints Objective Last 24 Hour Vital Signs Date Time Temp Pulse Resp B/P (MAP) Pulse Ox O2 Delivery O2 Flow Rate FiO2 10/11/20 09:35 82 23 100 Nasal Cannula 2.0 28 83 21 100 10/11/20 09:00 90 34 130/67 (88) 97 10/11/20 08:00 Nasal Cannula 3.0 10/11/20 08:00 3.0 10/11/20 08:00 98.3 86 31 114/70 (85) 97 10/11/20 08:00 100 10/11/20 07:00 76 30 121/59 (79) 99 10/11/20 06:00 78 33 129/56 (80) 98 10/11/20 05:00 84 32 121/52 (75) 96 10/11/20 04:00 Nasal Cannula 3.0 10/11/20 04:00 3.0 10/11/20 04:00 99.1 91 22 122/55 (77) 93 10/11/20 03:22 83 26 100 Nasal Cannula 2.0 28 85 21 95 10/11/20 03:04 82 10/11/20 03:00 85 36 125/51 (75) 95 10/11/20 02:00 82 24 140/69 (92) 96 10/11/20 01:00 83 25 101/45 (63) 96 10/11/20 00:00 Nasal Cannula 3.0 10/11/20 00:00 3.0 10/11/20 00:00 88 23 107/53 (71) 97 10/10/20 23:24 83 10/10/20 23:00 82 24 100 Nasal Cannula 3.0 32 80 25 100 10/10/20 23:00 98.2 82 24 117/58 (77) 100 10/10/20 22:06 84 125/50 10/10/20 22:00 87 26 125/50 (75) 97 10/10/20 21:00 88 39 116/51 (72) 95 10/10/20 20:00 3.0 10/10/20 20:00 Nasal Cannula 3.0 10/10/20 20:00 78 10/10/20 20:00 98.7 88 24 129/52 (77) 96 10/10/20 19:26 81 21 100 Nasal Cannula 3.0 32 78 19 100 10/10/20 19:00 79 34 99/49 (66) 100 10/10/20 18:00 82 31 104/48 (66) 100 10/10/20 17:00 95 34 118/58 (78) 10/10/20 16:00 98.4 97 23 133/58 (83) 98 10/10/20 16:00 Nasal Cannula 3.0 10/10/20 16:00 3.0 10/10/20 16:00 87 10/10/20 15:23 87 25 100 Nasal Cannula 3.0 32 87 23 100 10/10/20 15:00 82 23 104/55 (71) 100 10/10/20 14:00 97 26 124/52 (76) 96 10/10/20 13:00 103 30 130/67 (88) 93 10/10/20 12:32 Nasal Cannula 3.0 32 10/10/20 12:32 100 10/10/20 12:00 98.8 86 26 116/51 (72) 100 10/10/20 12:00 Mechanical Ventilator 10/10/20 12:00 30 10/10/20 12:00 95 10/10/20 11:44 90 30 100 Mechanical Ventilator 30 91 35 30 I&O Intake and Output 10/10/20 10/11/20 19:00 07:00 Intake Total 1096.928 ml 698.8175 ml Output Total 1200 ml 1215 ml Balance -103.072 ml -516.1825 ml Intake Free Water 60 ml 50 ml IV Total 611.928 ml 133.8175 ml Tube Feeding 385 ml 495 ml Other 40 ml 20 ml Output Urine Total 1200 ml 1215 ml # Bowel Movements 1 1 Cardiovascular: RSR Respiratory: decreased breath sounds, other Abdomen: soft, non-tender, present bowel sounds Extremities: no edema, no tenderness, no cyanosis Laboratory Tests Test 10/10/20 12:24 10/10/20 18:37 10/10/20 23:16 10/11/20 04:00 POC Whole Blood Glucose 150 MG/DL (74-106) H Pending Pending White Blood Count 14.1 K/UL (4.8-10.8) H Red Blood Count 3.61 M/UL (4.20-5.40) L Hemoglobin 10.1 G/DL (12.0-16.0) L Hematocrit 32.4 % (37.0-47.0) L Mean Corpuscular Volume 90 FL (80-99) Mean Corpuscular Hemoglobin 27.8 PG (27.0-31.0) Mean Corpuscular Hemoglobin Concent 31.0 G/DL (32.0-36.0) L Red Cell Distribution Width 16.8 % (11.6-14.8) H Platelet Count 221 K/UL (150-450) Mean Platelet Volume 9.5 FL (6.5-10.1) Neutrophils (%) (Auto) 73.9 % (45.0-75.0) Lymphocytes (%) (Auto) 13.4 % (20.0-45.0) L Monocytes (%) (Auto) 9.5 % (1.0-10.0) Eosinophils (%) (Auto) 2.7 % (0.0-3.0) Basophils (%) (Auto) 0.5 % (0.0-2.0) Activated Partial Thromboplast Time 24 SEC (23-33) Sodium Level 147 MMOL/L (136-145) H Potassium Level 3.8 MMOL/L (3.5-5.1) Chloride Level 112 MMOL/L (98-107) H Carbon Dioxide Level 33 MMOL/L (21-32) H Anion Gap 2 mmol/L (5-15) L Blood Urea Nitrogen 22 mg/dL (7-18) H Creatinine 0.6 MG/DL (0.55-1.30) Estimat Glomerular Filtration Rate > 60 mL/min (>60) Glucose Level 110 MG/DL (74-106) H Calcium Level 8.2 MG/DL (8.5-10.1) L Phosphorus Level 3.8 MG/DL (2.5-4.9) Magnesium Level 2.0 MG/DL (1.8-2.4) Total Bilirubin 0.3 MG/DL (0.2-1.0) Aspartate Amino Transf (AST/SGOT) 19 U/L (15-37) Alanine Aminotransferase (ALT/SGPT) 21 U/L (12-78) Alkaline Phosphatase 27 U/L (46-116) L Troponin I 0.048 ng/mL (0.000-0.056) Pro-B-Type Natriuretic Peptide 2001 pg/mL (0-125) H Total Protein 6.0 G/DL (6.4-8.2) L Albumin 2.1 G/DL (3.4-5.0) L Globulin 3.9 g/dL Albumin/Globulin Ratio 0.5 (1.0-2.7) L Test 10/11/20 06:03 10/11/20 08:06 POC Whole Blood Glucose Pending Arterial Blood pH 7.467 (7.350-7.450) Arterial Blood Partial Pressure CO2 41.9 mmHg (35.0-45.0) Arterial Blood Partial Pressure O2 68.1 mmHg (75.0-100.0) L Arterial Blood HCO3 29.6 mmol/L (22.0-26.0) H Arterial Blood Oxygen Saturation 94.1 % (95-100) L Arterial Blood Base Excess 5.4 (-2-2) H Juancarlos Test Positive Plan Problems: (1) COPD (chronic obstructive pulmonary disease) (2) Acute respiratory failure Assessment & Plan: intubated on vent weaning as tolerated abg noted cont weaning pulled out her picc no iv access multiple peripheral attempts made by RN central line placed as medically necessary in ICU patient without access on drips extubated improving cont O2 (3) Syncope (4) Psychiatric disorder (5) Hyponatremia (6) UTI (urinary tract infection) (7) Stage 4 decubitus ulcer Assessment & Plan: Pt presented on admission with Full thickness sacral pressure injury with undermined borders. Base of wound has pink granulation with small amt biofilm easily removed with gentle friction during cleansing. (+) epibole along edges. No odor or exudate noted.(L)2.3cm x (W)4.5cm x (D)1cm. Undermining clockwise 12-12o'clock by 2.8cm @5o'clock. Periwound without erythema or induration. R and L heels are boggy but each heel blanches easily. Dressing is going well. We will monitor wound does not currently need active debridement. well known to me from prior unchanged stage 4 ulcer cont local care Tx.Plan: Cleanse Sacral wound with Dakin's 0.125% gilbert. Loosely pack with Dakin's moistened Kerlix. Apply Triad Paste periwound. Cover with Optifoam drsg. Twice daily and prn. Apply Cavilon Skin Barrier to Both heels. Cover each heel with Optifoam drsg.Change every 7 days and prn. APM/ABHILASH Mattress overlay. Reposition at least every 2hours or as tolerated. Off-load heels with pillow. (8) Severe protein-calorie malnutrition Assessment & Plan: ng in place once stable start tube feeds low alb bmi 23 high risk for breakdown needs nutritional optimization AILY ESTIMATED NEEDS: Needs based on Wound, Critical care 53.6kg 25-35 kcals/kg 2426-6554 total kcals 1.25-2 g protein/kg 67-107 g total protein 25-30 mL/kg 4928-7191 total fluid mLs NUTRITION DIAGNOSIS: * Increased kcal/prot needs R/T wound healing as evidenced by admitted w/ stage 4 sacral wound * Swallowing difficulty R/T respiratory failure as evidenced by pt now orally intubated with OGT feeds. CURRENT TF: Jevity 1.2 @20ml/hr ENTERAL NUTRITION RECOMMENDATIONS: Glucerna 1.2 goal of 55ml/hr x24 hrs to provide 1320ml, 1584 kcal, 79g pro, 1063ml free H2O - Rec carb control formula at this time d/t elevated BG levels (POC [phone]). - Start @low rate 25ml/hr for 6 hrs, advance as tolerated 10ml/hr q4-6 hrs to goal. - Flush per MD/ HOB over 30 degrees ADDITIONAL RECOMMENDATIONS: * Check HgA1C- pt w/ elevated BG * Re-calibrate bed scale w/ added P200 mattress * Wound care: add SUZY BID via OGT Add Vit C 250mg BID + zn so4 220mg qd x10 days * Replete lytes as needed (Low K, Phos) (9) Pulmonary edema (10) Altered mental status (11) History of hypertension (12) Alzheimer's dementia (13) Non-ST elevation (NSTEMI) myocardial infarction (14) ATN (acute tubular necrosis) Blaise Del Valle Oct 11, 2020 11:37
--- NOTE | 2020-10-11 12:54 | Cardiology Progress Note ---
Assessment/Plan Assessment/Plan 1. Altered mental status. 2. Baseline dementia. 3. Okg-XO-ygmdkkwex myocardial infarction. 4. Respiratory failure, status post intubation. 5. COPD history. 6. Renal insufficiency 7. bactermia off the vent tele sinus watch bp is on norvasc ekg noted t inversion in the an lead form 10/05 off heparin keep on Ecotrin the chronicity of the t wave inversion is not clear communicates some but not oriented will likely pursuit med management trop is neg will increase bb out of icu Subjective Cardiovascular: Denies: chest pain Respiratory: Denies: cough, shortness of breath Gastrointestinal/Abdominal: Denies: abdominal pain Genitourinary: Denies: burning Objective Last 24 Hour Vital Signs Date Time Temp Pulse Resp B/P (MAP) Pulse Ox O2 Delivery O2 Flow Rate FiO2 10/11/20 09:35 82 23 100 Nasal Cannula 2.0 28 83 21 100 10/11/20 09:00 90 34 130/67 (88) 97 10/11/20 08:00 Nasal Cannula 3.0 10/11/20 08:00 3.0 10/11/20 08:00 98.3 86 31 114/70 (85) 97 10/11/20 08:00 100 10/11/20 07:00 76 30 121/59 (79) 99 10/11/20 06:00 78 33 129/56 (80) 98 10/11/20 05:00 84 32 121/52 (75) 96 10/11/20 04:00 Nasal Cannula 3.0 10/11/20 04:00 3.0 10/11/20 04:00 99.1 91 22 122/55 (77) 93 10/11/20 03:22 83 26 100 Nasal Cannula 2.0 28 85 21 95 10/11/20 03:04 82 10/11/20 03:00 85 36 125/51 (75) 95 10/11/20 02:00 82 24 140/69 (92) 96 10/11/20 01:00 83 25 101/45 (63) 96 10/11/20 00:00 Nasal Cannula 3.0 10/11/20 00:00 3.0 10/11/20 00:00 88 23 107/53 (71) 97 10/10/20 23:24 83 10/10/20 23:00 82 24 100 Nasal Cannula 3.0 32 80 25 100 11/23/20 23:00 98.2 82 24 117/58 (77) 100 10/10/20 22:06 84 125/50 10/10/20 22:00 87 26 125/50 (75) 97 10/10/20 21:00 88 39 116/51 (72) 95 10/10/20 20:00 3.0 10/10/20 20:00 Nasal Cannula 3.0 10/10/20 20:00 78 10/10/20 20:00 98.7 88 24 129/52 (77) 96 10/10/20 19:26 81 21 100 Nasal Cannula 3.0 32 78 19 100 10/10/20 19:00 79 34 99/49 (66) 100 10/10/20 18:00 82 31 104/48 (66) 100 10/10/20 17:00 95 34 118/58 (78) 10/10/20 16:00 98.4 97 23 133/58 (83) 98 10/10/20 16:00 Nasal Cannula 3.0 10/10/20 16:00 3.0 10/10/20 16:00 87 10/10/20 15:23 87 25 100 Nasal Cannula 3.0 32 87 23 100 10/10/20 15:00 82 23 104/55 (71) 100 10/10/20 14:00 97 26 124/52 (76) 96 10/10/20 13:00 103 30 130/67 (88) 93 General Appearance: no apparent distress, alert Cardiovascular: normal rate Respiratory/Chest: lungs clear Abdomen: normal bowel sounds, non tender, soft Extremities: no swelling Intake and Output 10/10/20 10/11/20 19:00 07:00 Intake Total 1096.928 ml 698.8175 ml Output Total 1200 ml 1215 ml Balance -103.072 ml -516.1825 ml Intake Free Water 60 ml 50 ml IV Total 611.928 ml 133.8175 ml Tube Feeding 385 ml 495 ml Other 40 ml 20 ml Output Urine Total 1200 ml 1215 ml # Bowel Movements 1 1 Laboratory Tests Test 10/10/20 18:37 10/10/20 23:16 10/11/20 04:00 10/11/20 06:03 POC Whole Blood Glucose Pending Pending Pending White Blood Count 14.1 K/UL (4.8-10.8) H Red Blood Count 3.61 M/UL (4.20-5.40) L Hemoglobin 10.1 G/DL (12.0-16.0) L Hematocrit 32.4 % (37.0-47.0) L Mean Corpuscular Volume 90 FL (80-99) Mean Corpuscular Hemoglobin 27.8 PG (27.0-31.0) Mean Corpuscular Hemoglobin Concent 31.0 G/DL (32.0-36.0) L Red Cell Distribution Width 16.8 % (11.6-14.8) H Platelet Count 221 K/UL (150-450) Mean Platelet Volume 9.5 FL (6.5-10.1) Neutrophils (%) (Auto) 73.9 % (45.0-75.0) Lymphocytes (%) (Auto) 13.4 % (20.0-45.0) L Monocytes (%) (Auto) 9.5 % (1.0-10.0) Eosinophils (%) (Auto) 2.7 % (0.0-3.0) Basophils (%) (Auto) 0.5 % (0.0-2.0) Activated Partial Thromboplast Time 24 SEC (23-33) Sodium Level 147 MMOL/L (136-145) H Potassium Level 3.8 MMOL/L (3.5-5.1) Chloride Level 112 MMOL/L (98-107) H Carbon Dioxide Level 33 MMOL/L (21-32) H Anion Gap 2 mmol/L (5-15) L Blood Urea Nitrogen 22 mg/dL (7-18) H Creatinine 0.6 MG/DL (0.55-1.30) Estimat Glomerular Filtration Rate > 60 mL/min (>60) Glucose Level 110 MG/DL (74-106) H Calcium Level 8.2 MG/DL (8.5-10.1) L Phosphorus Level 3.8 MG/DL (2.5-4.9) Magnesium Level 2.0 MG/DL (1.8-2.4) Total Bilirubin 0.3 MG/DL (0.2-1.0) Aspartate Amino Transf (AST/SGOT) 19 U/L (15-37) Alanine Aminotransferase (ALT/SGPT) 21 U/L (12-78) Alkaline Phosphatase 27 U/L (46-116) L Troponin I 0.048 ng/mL (0.000-0.056) Pro-B-Type Natriuretic Peptide 2001 pg/mL (0-125) H Total Protein 6.0 G/DL (6.4-8.2) L Albumin 2.1 G/DL (3.4-5.0) L Globulin 3.9 g/dL Albumin/Globulin Ratio 0.5 (1.0-2.7) L Test 10/11/20 08:06 10/11/20 12:19 Arterial Blood pH 7.467 (7.350-7.450) Arterial Blood Partial Pressure CO2 41.9 mmHg (35.0-45.0) Arterial Blood Partial Pressure O2 68.1 mmHg (75.0-100.0) L Arterial Blood HCO3 29.6 mmol/L (22.0-26.0) H Arterial Blood Oxygen Saturation 94.1 % (95-100) L Arterial Blood Base Excess 5.4 (-2-2) H Juancarlos Test Positive POC Whole Blood Glucose Pending Laurent Ramesh MD Oct 11, 2020 12:54
[2020-10-11] MEDS ORDERED: D5 1/2NS 1000ml IV ONE (15:23)
[2020-10-11] MEDS ORDERED: NS 275ml ONE (15:23)
[2020-10-11] MEDS: Docusate 100mg/10ml Liq ORAL SCH (17:32)
--- NOTE | 2020-10-11 17:53 | Internal Med Progress Note ---
Subjective Date of Service: Oct 11, 2020 Physician Name MarciCurly Attending Physician Elías Mazariegos MD Current Medications Medications (Trade) Dose Ordered Sig/Bharti Route PRN Reason Start Time Stop Time Status Last Admin Dose Admin Acetaminophen (Tylenol) 650 mg Q4H PRN GT Temp >100.5 10/03/20 17:15 11/02/20 17:14 10/08/20 00:15 Albuterol/ Ipratropium (Albuterol/ Ipratropium) 3 ml Q4HRT HHN 10/07/20 11:00 10/12/20 10:59 10/11/20 15:00 Amlodipine Besylate (Norvasc) 2.5 mg BIDPRN PRN GT sbp greater than 150 10/05/20 20:30 11/04/20 20:29 Ascorbic Acid (Vitamin C) 500 mg BID GT 10/11/20 09:00 11/10/20 08:59 10/11/20 17:32 Aspirin (ASA) 81 mg DAILY GT 10/04/20 14:45 11/18/20 14:44 10/10/20 09:15 Atorvastatin Calcium (Lipitor) 20 mg BEDTIME GT 10/04/20 21:00 01/02/21 20:59 10/10/20 22:04 Barium Sulfate (Varibar Honey) 250 ml NOW PRN MC RAD 10/10/20 20:30 10/13/20 20:26 Barium Sulfate (Varibar [place]) 240 ml NOW PRN MC RAD 10/10/20 20:30 10/13/20 20:26 Barium Sulfate (Varibar Pudding) 230 ml NOW PRN MC RAD 10/10/20 20:30 10/13/20 20:26 Barium Sulfate (Varibar Thin Liquid powder) 148 gm NOW PRN MC RAD 10/10/20 20:30 10/13/20 20:26 Chlorhexidine Gluconate (Rahel-Hex 2%) 1 applic DAILY@1999 TOPIC 10/05/20 20:00 01/03/21 19:59 10/10/20 22:04 Dextrose (Dextrose 50%) 25 ml Q30M PRN IV Hypoglycemia 10/03/20 09:28 01/01/21 09:27 Dextrose (Dextrose 50%) 50 ml Q30M PRN IV Hypoglycemia 10/03/20 09:28 01/01/21 09:27 Docusate Sodium (Colace) 100 mg TWICE A DAY ORAL 10/11/20 18:00 11/02/20 17:59 10/11/20 17:32 Insulin Aspart (NovoLOG) Q6HR SUBQ 10/06/20 00:00 01/01/21 11:29 10/09/20 12:02 Lorazepam (Ativan 2mg/ml 1ml) 0.5 mg Q4H PRN IV agitation 10/11/20 10:52 10/18/20 10:51 Metoprolol Tartrate (Lopressor) 25 mg Q12HR GT 10/11/20 21:00 01/09/21 20:59 Piperacillin Sod/ Tazobactam Sod 3.375 gm/Dextrose 110 ml @ 27.5 mls/hr Q8H IV 10/08/20 15:00 10/15/20 14:59 10/11/20 14:14 Risperidone (RisperDAL) 1 mg DAILY NG 10/04/20 09:00 11/18/20 08:59 10/10/20 09:15 Sodium Hypochlorite (Dakin's Quarter Strength) 1 applic DAILY TOPIC 10/04/20 09:00 11/03/20 08:59 10/10/20 09:16 Zinc Sulfate (Zinc Sulfate) 220 mg DAILY GT 10/11/20 09:00 10/21/20 08:59 10/11/20 09:00 Allergies: Coded Allergies: No Known Allergies (Unverified , 12/17/15) ROS Limited/Unobtainable: Yes Subjective 75 YO F admitted with respiratory failure. Now COPD exacerbation and UTI. Extubated 10/10/20. Cover for Int Med-Dr Mazariegos. ICU. Objective Last Vital Signs Date Time Temp Pulse Resp B/P (MAP) Pulse Ox O2 Delivery O2 Flow Rate FiO2 10/11/20 17:00 98.0 97 26 142/66 (91) 95 10/11/20 16:00 Nasal Cannula 3.0 10/11/20 15:01 28 Laboratory Tests Test 10/10/20 18:37 10/10/20 23:16 10/11/20 04:00 10/11/20 06:03 POC Whole Blood Glucose Pending Pending Pending White Blood Count 14.1 K/UL (4.8-10.8) H Red Blood Count 3.61 M/UL (4.20-5.40) L Hemoglobin 10.1 G/DL (12.0-16.0) L Hematocrit 32.4 % (37.0-47.0) L Mean Corpuscular Volume 90 FL (80-99) Mean Corpuscular Hemoglobin 27.8 PG (27.0-31.0) Mean Corpuscular Hemoglobin Concent 31.0 G/DL (32.0-36.0) L Red Cell Distribution Width 16.8 % (11.6-14.8) H Platelet Count 221 K/UL (150-450) Mean Platelet Volume 9.5 FL (6.5-10.1) Neutrophils (%) (Auto) 73.9 % (45.0-75.0) Lymphocytes (%) (Auto) 13.4 % (20.0-45.0) L Monocytes (%) (Auto) 9.5 % (1.0-10.0) Eosinophils (%) (Auto) 2.7 % (0.0-3.0) Basophils (%) (Auto) 0.5 % (0.0-2.0) Activated Partial Thromboplast Time 24 SEC (23-33) Sodium Level 147 MMOL/L (136-145) H Potassium Level 3.8 MMOL/L (3.5-5.1) Chloride Level 112 MMOL/L (98-107) H Carbon Dioxide Level 33 MMOL/L (21-32) H Anion Gap 2 mmol/L (5-15) L Blood Urea Nitrogen 22 mg/dL (7-18) H Creatinine 0.6 MG/DL (0.55-1.30) Estimat Glomerular Filtration Rate > 60 mL/min (>60) Glucose Level 110 MG/DL (74-106) H Calcium Level 8.2 MG/DL (8.5-10.1) L Phosphorus Level 3.8 MG/DL (2.5-4.9) Magnesium Level 2.0 MG/DL (1.8-2.4) Total Bilirubin 0.3 MG/DL (0.2-1.0) Aspartate Amino Transf (AST/SGOT) 19 U/L (15-37) Alanine Aminotransferase (ALT/SGPT) 21 U/L (12-78) Alkaline Phosphatase 27 U/L (46-116) L Troponin I 0.048 ng/mL (0.000-0.056) Pro-B-Type Natriuretic Peptide 2001 pg/mL (0-125) H Total Protein 6.0 G/DL (6.4-8.2) L Albumin 2.1 G/DL (3.4-5.0) L Globulin 3.9 g/dL Albumin/Globulin Ratio 0.5 (1.0-2.7) L Test 10/11/20 08:06 10/11/20 12:19 Arterial Blood pH 7.467 (7.350-7.450) Arterial Blood Partial Pressure CO2 41.9 mmHg (35.0-45.0) Arterial Blood Partial Pressure O2 68.1 mmHg (75.0-100.0) L Arterial Blood HCO3 29.6 mmol/L (22.0-26.0) H Arterial Blood Oxygen Saturation 94.1 % (95-100) L Arterial Blood Base Excess 5.4 (-2-2) H Juancarlos Test Positive POC Whole Blood Glucose Pending Intake and Output 10/10/20 10/11/20 19:00 07:00 Intake Total 1096.928 ml 698.8175 ml Output Total 1200 ml 1215 ml Balance -103.072 ml -516.1825 ml Intake Free Water 60 ml 50 ml IV Total 611.928 ml 133.8175 ml Tube Feeding 385 ml 495 ml Other 40 ml 20 ml Output Urine Total 1200 ml 1215 ml # Bowel Movements 1 1 Objective PHYSICAL EXAMINATION: GENERAL: The patient is a well-developed and well-nourished female, who is currently intubated in the intensive care unit. HEENT: Eyes, pupils are equal and responsive to light and accommodation. Extraocular movements are intact. NECK: Supple without lymphadenopathy. CHEST: Nasal canula; Coarse mechanical breath sounds bilaterally without wheezes or rales. CARDIOVASCULAR: Tachycardic, regular rhythm, S1-S2 are normal without murmurs, rubs, or gallops. ABDOMEN: Soft, nontender, and nondistended. Positive bowel sounds. No evidence of hepatosplenomegaly. Currently, no rebound or guarding noted. EXTREMITIES: Negative for clubbing, cyanosis, edema. RECTAL/GENITAL: Not performed. NEUROLOGICAL: Unable to assess. Assessment/Plan Assessment/Plan ASSESSMENT: This is a 75-year-old female with: 1. Acute hypoxemic respiratory failure. 2. Altered mental status. 3. Hypertension. 4. Chronic obstructive pulmonary disease. 5. Alzheimer's dementia. 6. UTI=proteus TREATMENT: 1. Acute hypoxic respiratory failure. Pulmonary/critical care = Dr. Will Quiros. The patient was extubated on 10/10/20 ABX= Zosyn. Continue IV Solu-Medrol for chronic obstructive pulmonary disease acute exacerbation. Follow recommendations of Pulmonary. 2. Hypertension. The patient is currently hypotensive. 3. Chronic obstructive pulmonary disease. A Pulmonary consultation has been obtained with Dr. Will Quiros. The patient is currently receiving intravenous Solu-Medrol and albuterol/Atrovent nebulized q.4 h. p.r.n. We will follow recommendations of Pulmonary. 4. Alzheimer's dementia. Curly Covarrubias MD Oct 11, 2020 17:53
[2020-10-11] MEDS: Dyna-Hex 2% Top Sol 2oz TOPIC SCH (19:52)
[2020-10-11] MEDS: Atorvastatin 20mg tab GT SCH (20:45)
[2020-10-12] VITALS (16 sets, daily range): BP systolic 97–162; BP diastolic 43–99
[2020-10-12] MEDS: Albuterol/Ipratropium 3ml neb HHN SCH ×2 (03:17→07:52)
[2020-10-12 04:50] LABS: BASOPHILS % (AUTO) 1.7 % (0.0-2.0); EOSINOPHILS % (AUTO) 6.6 % (0.0-3.0); HEMATOCRIT 35.3 % (37.0-47.0); HEMOGLOBIN 10.6 G/DL (12.0-16.0); LYMPHOCYTES % (AUTO) 14.1 % (20.0-45.0); MEAN CORPUSCULAR VOLUME 89 FL (80-99); MONOCYTES % (AUTO) 7.6 % (1.0-10.0); NEUTROPHILS % (AUTO) 69.9 % (45.0-75.0); PLATELET COUNT 269 K/UL (150-450); RED BLOOD COUNT 3.96 M/UL (4.20-5.40); RED CELL DISTRIBUTION WIDTH 16.3 % (11.6-14.8); WHITE BLOOD COUNT 13.3 K/UL (4.8-10.8)
[2020-10-12 05:06] LABS: ANION GAP 4 mmol/L (5-15); BLOOD UREA NITROGEN 14 mg/dL (7-18); CALCIUM 8.9 MG/DL (8.5-10.1); CARBON DIOXIDE 33 MMOL/L (21-32); CHLORIDE 108 MMOL/L (98-107); CREATININE 0.7 MG/DL (0.55-1.30); POTASSIUM 3.7 MMOL/L (3.5-5.1); SODIUM 144 MMOL/L (136-145)
[2020-10-12] MEDS: NovoLOG Insulin Flexpen SUBQ SCH ×5 (05:52→23:19)
[2020-10-12] MEDS: Piperacillin/Tazobactam 3.375 GM in D5W 110 ML IV SCH ×3 (07:29→22:46)
--- NOTE | 2020-10-12 08:00 | Infectious Diseases Prog Note ---
Assessment/Plan 75yo F with: Afebrile, Tmax 99.7 --> Febrile to 102 Normal WBC Acute hypoxic resp failure, SP intubation 10/03 COPD Non-verbal at baseline UTI GPC bacteremia, m/l contaminant 10/03 BCx +1/2 Staph hominis, m/l skin contaminant UA 10-15 WBC, UCx >100k P.mirabilis (S-CTX, R-bactrim) Resp cx p COVID rapid Ag neg Flu neg MRSA nares neg CXR: No focal consolidation, pleural effusion, or pneumothorax. Mild emphysema with increased interstitial markings. Cardiomegaly. Calcified aorta. 10/04 COVID rapid Ag neg 10/05 BCx NTD 10/07 CXR: 1. Overall similar appearing study. Dementia Alzheimer's [facility] resident Plan: Cont Zosyn # / for pna - stop after doses today 10/07 SP vanco IV #4 empiric Monitor CBC/CMP Monitor temp curve, hemodynamics Monitor resp status D/w RN Thank you for this consult. [facility] will continue to follow. Subjective Allergies: Coded Allergies: No Known Allergies (Unverified , 12/17/15) AF 2L NC WBC improving to 13 Off steroids now NAD in bed, denies resp issues or pain Objective Last 24 Hour Vital Signs Date Time Temp Pulse Resp B/P (MAP) Pulse Ox O2 Delivery O2 Flow Rate FiO2 10/12/20 06:00 81 34 112/61 (78) 95 10/12/20 05:00 81 34 112/61 (78) 95 10/12/20 04:00 95.0 87 37 131/60 (83) 95 10/12/20 04:00 80 10/12/20 04:00 Nasal Cannula 2.0 10/12/20 03:27 85 22 100 Nasal Cannula 2.0 28 10/12/20 03:17 87 21 96 Nasal Cannula 2.0 28 10/12/20 03:00 89 23 146/93 (110) 92 10/12/20 02:00 77 35 111/52 (71) 96 10/12/20 01:00 80 34 137/80 (99) 95 10/12/20 00:00 Nasal Cannula 2.0 10/12/20 00:00 76 10/12/20 00:00 98.8 79 28 149/65 (93) 94 10/11/20 23:46 73 23 100 Nasal Cannula 2.0 28 10/11/20 23:36 73 23 97 Nasal Cannula 2.0 28 10/11/20 23:00 73 35 114/59 (77) 97 10/11/20 22:00 87 31 135/60 (85) 96 10/11/20 21:00 93 37 144/68 (93) 93 10/11/20 20:46 90 130/53 10/11/20 20:00 82 10/11/20 20:00 Nasal Cannula 2.0 10/11/20 20:00 98.2 92 35 130/53 (78) 93 10/11/20 19:28 83 22 99 Nasal Cannula 2.0 28 10/11/20 19:17 96 Nasal Cannula 2.0 28 10/11/20 19:17 84 22 96 Nasal Cannula 2.0 28 10/11/20 19:00 80 20 102/45 (64) 96 10/11/20 18:00 90 22 119/67 (84) 97 10/11/20 17:00 98.0 97 26 142/66 (91) 95 10/11/20 16:00 97 25 139/65 (89) 97 10/11/20 16:00 87 10/11/20 16:00 Nasal Cannula 3.0 10/11/20 16:00 3.0 10/11/20 16:00 Nasal Cannula 2.0 10/11/20 15:01 88 18 100 Nasal Cannula 2.0 28 86 18 100 10/11/20 15:00 87 29 130/52 (78) 97 10/11/20 14:00 91 35 147/62 (90) 96 10/11/20 13:00 95 37 166/69 (101) 97 10/11/20 12:00 97.6 89 37 110/43 (65) 94 10/11/20 12:00 Nasal Cannula 2.0 10/11/20 12:00 Nasal Cannula 3.0 10/11/20 12:00 3.0 10/11/20 11:30 Nasal Cannula 2.0 10/11/20 11:19 81 18 100 Nasal Cannula 2.0 28 80 18 100 10/11/20 11:00 99 31 166/69 (101) 89 10/11/20 10:00 103 30 155/77 (103) 88 10/11/20 09:35 82 23 100 Nasal Cannula 2.0 28 83 21 100 10/11/20 09:00 90 34 130/67 (88) 97 10/11/20 08:00 Nasal Cannula 3.0 10/11/20 08:00 3.0 10/11/20 08:00 98.3 86 31 114/70 (85) 97 10/11/20 08:00 100 Height (Feet): 5 Height (Inches): 4.00 Weight (Pounds): 135 Gen: NAD HEENT: NCAT CV: RRR Pulm: CTAB Abd: Non-distended Ext: No c/c/e Skin: No visible rashes Neuro: Awake, interactive Laboratory Tests Test 10/11/20 08:06 10/11/20 12:19 10/11/20 17:36 10/11/20 23:59 Arterial Blood pH 7.467 (7.350-7.450) Arterial Blood Partial Pressure CO2 41.9 mmHg (35.0-45.0) Arterial Blood Partial Pressure O2 68.1 mmHg (75.0-100.0) L Arterial Blood HCO3 29.6 mmol/L (22.0-26.0) H Arterial Blood Oxygen Saturation 94.1 % (95-100) L Arterial Blood Base Excess 5.4 (-2-2) H Juancarlos Test Positive POC Whole Blood Glucose Pending Pending 92 MG/DL (74-106) Test 10/12/20 04:00 10/12/20 04:04 White Blood Count 13.3 K/UL (4.8-10.8) H Red Blood Count 3.96 M/UL (4.20-5.40) L Hemoglobin 10.6 G/DL (12.0-16.0) L Hematocrit 35.3 % (37.0-47.0) L Mean Corpuscular Volume 89 FL (80-99) Mean Corpuscular Hemoglobin 26.7 PG (27.0-31.0) L Mean Corpuscular Hemoglobin Concent 29.9 G/DL (32.0-36.0) L Red Cell Distribution Width 16.3 % (11.6-14.8) H Platelet Count 269 K/UL (150-450) Mean Platelet Volume 8.9 FL (6.5-10.1) Neutrophils (%) (Auto) 69.9 % (45.0-75.0) Lymphocytes (%) (Auto) 14.1 % (20.0-45.0) L Monocytes (%) (Auto) 7.6 % (1.0-10.0) Eosinophils (%) (Auto) 6.6 % (0.0-3.0) H Basophils (%) (Auto) 1.7 % (0.0-2.0) Sodium Level 144 MMOL/L (136-145) Potassium Level 3.7 MMOL/L (3.5-5.1) Chloride Level 108 MMOL/L (98-107) H Carbon Dioxide Level 33 MMOL/L (21-32) H Anion Gap 4 mmol/L (5-15) L Blood Urea Nitrogen 14 mg/dL (7-18) Creatinine 0.7 MG/DL (0.55-1.30) Estimat Glomerular Filtration Rate > 60 mL/min (>60) Glucose Level 83 MG/DL (74-106) Calcium Level 8.9 MG/DL (8.5-10.1) POC Whole Blood Glucose 86 MG/DL (74-106) Current Medications Medications (Trade) Dose Ordered Sig/Bharti Route PRN Reason Start Time Stop Time Status Last Admin Dose Admin Acetaminophen (Tylenol) 650 mg Q4H PRN GT Temp >100.5 10/03/20 17:15 11/02/20 17:14 10/08/20 00:15 Albuterol/ Ipratropium (Albuterol/ Ipratropium) 3 ml Q4HRT HHN 10/07/20 11:00 10/12/20 10:59 10/12/20 07:52 Amlodipine Besylate (Norvasc) 2.5 mg BIDPRN PRN GT sbp greater than 150 10/05/20 20:30 11/04/20 20:29 Ascorbic Acid (Vitamin C) 500 mg BID GT 10/11/20 09:00 11/10/20 08:59 10/11/20 17:32 Aspirin (ASA) 81 mg DAILY GT 10/04/20 14:45 11/18/20 14:44 10/10/20 09:15 Atorvastatin Calcium (Lipitor) 20 mg BEDTIME GT 10/04/20 21:00 01/02/21 20:59 10/11/20 20:45 Barium Sulfate (Varibar Honey) 250 ml NOW PRN MC RAD 10/10/20 20:30 10/13/20 20:26 Barium Sulfate (Varibar [place]) 240 ml NOW PRN MC RAD 10/10/20 20:30 10/13/20 20:26 Barium Sulfate (Varibar Pudding) 230 ml NOW PRN MC RAD 10/10/20 20:30 10/13/20 20:26 Barium Sulfate (Varibar Thin Liquid powder) 148 gm NOW PRN RAD 10/10/20 20:30 10/13/20 20:26 Chlorhexidine Gluconate (Rahel-Hex 2%) 1 applic DAILY@2000 TOPIC 10/05/20 20:00 01/03/21 19:59 10/11/20 19:52 Dextrose (Dextrose 50%) 25 ml Q30M PRN IV Hypoglycemia 10/03/20 09:28 01/01/21 09:27 Dextrose (Dextrose 50%) 50 ml Q30M PRN IV Hypoglycemia 10/03/20 09:28 01/01/21 09:27 Docusate Sodium (Colace) 100 mg TWICE A DAY ORAL 10/11/20 18:00 11/02/20 17:59 10/11/20 17:32 Insulin Aspart (NovoLOG) Q6HR SUBQ 10/06/20 00:00 01/01/21 11:29 10/09/20 12:02 Lorazepam (Ativan 2mg/ml 1ml) 0.5 mg Q4H PRN IV agitation 10/11/20 10:52 10/18/20 10:51 Metoprolol Tartrate (Lopressor) 25 mg Q12HR GT 10/11/20 21:00 01/09/21 20:59 10/11/20 20:46 Piperacillin Sod/ Tazobactam Sod 3.375 gm/Dextrose 110 ml @ 27.5 mls/hr Q8H IV 10/08/20 15:00 10/15/20 14:59 10/12/20 07:29 Risperidone (RisperDAL) 1 mg DAILY NG 10/04/20 09:00 11/18/20 08:59 10/10/20 09:15 Sodium Hypochlorite (Dakin's Quarter Strength) 1 applic DAILY TOPIC 10/04/20 09:00 11/03/20 08:59 10/10/20 09:16 Zinc Sulfate (Zinc Sulfate) 220 mg DAILY GT 10/11/20 09:00 10/21/20 08:59 10/11/20 09:00 Sondra Sepulveda M.D. Oct 12, 2020 08:00
[2020-10-12] MEDS: Zinc Sulfate 220mg GT SCH (09:00)
[2020-10-12] MEDS: Aspirin Baby 81mg GT SCH (09:00)
[2020-10-12] MEDS: Metoprolol Tartrate 12.5mg TAB GT SCH ×2 (09:00→20:31)
[2020-10-12] MEDS: Ascorbic Acid 500mg tab GT SCH ×2 (09:00→17:34)
[2020-10-12] MEDS: Docusate 100mg/10ml Liq ORAL SCH ×2 (09:02→17:33)
[2020-10-12] MEDS: Dakin's 0.125% Soln (Quarter Strength) 16oz TOPIC SCH (09:03)
--- NOTE | 2020-10-12 10:38 | Pulmonolgy Critical Care Note ---
Critical Care - Asmt/Plan Problems: (1) Acute respiratory failure (2) ATN (acute tubular necrosis) (3) Non-ST elevation (NSTEMI) myocardial infarction (4) COPD (chronic obstructive pulmonary disease) (5) Stage 4 decubitus ulcer (6) Severe protein-calorie malnutrition (7) Alzheimer's dementia (8) History of hypertension (9) Psychiatric disorder Respiratory: monitor respiratory rate, adjust FIO2 Cardiac: continue to monitor HR/BP Renal: F/U I&O, check electrolytes Infectious Disease: check cultures Gastrointestinal: continue feedings/current rate Endocrine: monitor blood sugar, check HgA1C Hematologic: monitor H/H, transfuse if hgb<8.5 Neurologic: PRN Ativan, PRN Morphine, keep patient comfortable Prophylaxis: Protonix, Heparin Notes Reviewed: electronic assembler, renal Discussed with: nurses, consultants, case finishermanager security - Objective Last 24 Hour Vital Signs Date Time Temp Pulse Resp B/P (MAP) Pulse Ox O2 Delivery O2 Flow Rate FiO2 10/12/20 10:00 83 24 119/74 (89) 99 10/12/20 09:00 89 112/50 10/12/20 09:00 93 30 162/83 (109) 97 10/12/20 08:02 89 20 100 Nasal Cannula 2.0 28 91 20 97 10/12/20 08:00 93 24 112/50 (70) 98 10/12/20 07:52 97 Nasal Cannula 2.0 28 10/12/20 07:00 99.5 81 25 129/59 (82) 99 10/12/20 06:00 81 34 112/61 (78) 95 10/12/20 05:00 81 34 112/61 (78) 95 10/12/20 04:00 95.0 87 37 131/60 (83) 95 10/12/20 04:00 80 10/12/20 04:00 Nasal Cannula 2.0 10/12/20 03:27 85 22 100 Nasal Cannula 2.0 28 10/12/20 03:17 87 21 96 Nasal Cannula 2.0 28 10/12/20 03:00 89 23 146/93 (110) 92 10/12/20 02:00 77 35 111/52 (71) 96 10/12/20 01:00 80 34 137/80 (99) 95 10/12/20 00:00 Nasal Cannula 2.0 10/12/20 00:00 76 10/12/20 00:00 98.8 79 28 149/65 (93) 94 10/11/20 23:46 73 23 100 Nasal Cannula 2.0 28 10/11/20 23:36 73 23 97 Nasal Cannula 2.0 28 10/11/20 23:00 73 35 114/59 (77) 97 10/11/20 22:00 87 31 135/60 (85) 96 10/11/20 21:00 93 37 144/68 (93) 93 10/11/20 20:46 90 130/53 10/11/20 20:00 82 10/11/20 20:00 Nasal Cannula 2.0 10/11/20 20:00 98.2 92 35 130/53 (78) 93 10/11/20 19:28 83 22 99 Nasal Cannula 2.0 28 10/11/20 19:17 96 Nasal Cannula 2.0 28 10/11/20 19:17 84 22 96 Nasal Cannula 2.0 28 10/11/20 19:00 80 20 102/45 (64) 96 10/11/20 18:00 90 22 119/67 (84) 97 10/11/20 17:00 98.0 97 26 142/66 (91) 95 10/11/20 16:00 97 25 139/65 (89) 97 10/11/20 16:00 87 10/11/20 16:00 Nasal Cannula 3.0 10/11/20 16:00 3.0 10/11/20 16:00 Nasal Cannula 2.0 10/11/20 15:01 88 18 100 Nasal Cannula 2.0 28 86 18 100 10/11/20 15:00 87 29 130/52 (78) 97 10/11/20 14:00 91 35 147/62 (90) 96 10/11/20 13:00 95 37 166/69 (101) 97 10/11/20 12:00 97.6 89 37 110/43 (65) 94 10/11/20 12:00 Nasal Cannula 2.0 10/11/20 12:00 Nasal Cannula 3.0 10/11/20 12:00 3.0 10/11/20 11:30 Nasal Cannula 2.0 10/11/20 11:19 81 18 100 Nasal Cannula 2.0 28 80 18 100 10/11/20 11:00 99 31 166/69 (101) 89 Status: sedated Condition: improving HEENT: atraumatic Lungs: clear Heart: HR/BP stable, HR/BP unstable Abdomen: soft, active bowel sounds Extremities: edema Decubiti: location Accucheck: 86 Critical Care - Subjective ROS Limited/Unobtainable: Yes Condition: critical EKG Rhythm: Sinus Rhythm FI02: 28 Vent Support Breath Rate: 16 Vent Support Mode: CPAP Vent Tidal Volume: 600 Sputum Amount: None PEEP: 5.0 PIP: 14 Tube Feeding Amount: 55 I&O: Intake and Output 10/11/20 10/12/20 19:00 07:00 Intake Total 155 ml 330 ml Output Total 1750 ml 1250 ml Balance -1595 ml -920 ml Intake Oral 330 ml Free Water 100 ml Tube Feeding 55 ml Output Urine Total 1750 ml 1250 ml # Bowel Movements 2 3 CXR: The lungs and pleural spaces remain clear. Nasogastric tube remains. The heart size is normal. ET-Tube: 7.5 ET Position: 23 Labs: Laboratory Tests Test 10/11/20 12:19 10/11/20 17:36 10/11/20 23:59 10/12/20 04:00 POC Whole Blood Glucose Pending Pending 92 MG/DL (74-106) White Blood Count 13.3 K/UL (4.8-10.8) H Red Blood Count 3.96 M/UL (4.20-5.40) L Hemoglobin 10.6 G/DL (12.0-16.0) L Hematocrit 35.3 % (37.0-47.0) L Mean Corpuscular Volume 89 FL (80-99) Mean Corpuscular Hemoglobin 26.7 PG (27.0-31.0) L Mean Corpuscular Hemoglobin Concent 29.9 G/DL (32.0-36.0) L Red Cell Distribution Width 16.3 % (11.6-14.8) H Platelet Count 269 K/UL (150-450) Mean Platelet Volume 8.9 FL (6.5-10.1) Neutrophils (%) (Auto) 69.9 % (45.0-75.0) Lymphocytes (%) (Auto) 14.1 % (20.0-45.0) L Monocytes (%) (Auto) 7.6 % (1.0-10.0) Eosinophils (%) (Auto) 6.6 % (0.0-3.0) H Basophils (%) (Auto) 1.7 % (0.0-2.0) Sodium Level 144 MMOL/L (136-145) Potassium Level 3.7 MMOL/L (3.5-5.1) Chloride Level 108 MMOL/L (98-107) H Carbon Dioxide Level 33 MMOL/L (21-32) H Anion Gap 4 mmol/L (5-15) L Blood Urea Nitrogen 14 mg/dL (7-18) Creatinine 0.7 MG/DL (0.55-1.30) Estimat Glomerular Filtration Rate > 60 mL/min (>60) Glucose Level 83 MG/DL (74-106) Calcium Level 8.9 MG/DL (8.5-10.1) Test 10/12/20 04:04 POC Whole Blood Glucose 86 MG/DL (74-106) Will Quiros MD Oct 12, 2020 10:38
--- NOTE | 2020-10-12 12:19 | Internal Med Progress Note ---
Subjective Date of Service: Oct 12, 2020 Physician Name Curly Covarrubias Attending Physician Elías Mazariegos MD Current Medications Medications (Trade) Dose Ordered Sig/Bharti Route PRN Reason Start Time Stop Time Status Last Admin Dose Admin Acetaminophen (Tylenol) 650 mg Q4H PRN GT Temp >100.5 10/03/20 17:15 11/02/20 17:14 10/08/20 00:15 Amlodipine Besylate (Norvasc) 2.5 mg BIDPRN PRN GT sbp greater than 150 10/05/20 20:30 11/04/20 20:29 Ascorbic Acid (Vitamin C) 500 mg BID GT 10/11/20 09:00 11/10/20 08:59 10/12/20 09:00 Aspirin (ASA) 81 mg DAILY GT 10/04/20 14:45 11/18/20 14:44 10/12/20 09:00 Atorvastatin Calcium (Lipitor) 20 mg BEDTIME GT 10/04/20 21:00 01/02/21 20:59 10/11/20 20:45 Barium Sulfate (Varibar Honey) 250 ml NOW PRN MC RAD 10/10/20 20:30 10/13/20 20:26 Barium Sulfate (Varibar [place] Souci) 240 ml NOW PRN MC RAD 10/10/20 20:30 10/13/20 20:26 Barium Sulfate (Varibar Pudding) 230 ml NOW PRN MC RAD 10/10/20 20:30 10/13/20 20:26 Barium Sulfate (Varibar Thin Liquid powder) 148 gm NOW PRN MC RAD 10/10/20 20:30 10/13/20 20:26 Chlorhexidine Gluconate (Rahel-Hex 2%) 1 applic DAILY@1999 TOPIC 10/05/20 20:00 01/03/21 19:59 10/11/20 19:52 Dextrose (Dextrose 50%) 25 ml Q30M PRN IV Hypoglycemia 10/03/20 09:28 01/01/21 09:27 Dextrose (Dextrose 50%) 50 ml Q30M PRN IV Hypoglycemia 10/03/20 09:28 01/01/21 09:27 Docusate Sodium (Colace) 100 mg TWICE A DAY ORAL 10/11/20 18:00 11/02/20 17:59 10/12/20 09:02 Insulin Aspart (NovoLOG) Q6HR SUBQ 10/06/20 00:00 01/01/21 11:29 10/09/20 12:02 Lorazepam (Ativan 2mg/ml 1ml) 0.5 mg Q4H PRN IV agitation 10/11/20 10:52 10/18/20 10:51 Metoprolol Tartrate (Lopressor) 25 mg Q12HR GT 10/11/20 21:00 01/09/21 20:59 10/12/20 09:00 Piperacillin Sod/ Tazobactam Sod 3.375 gm/Dextrose 110 ml @ 27.5 mls/hr Q8H IV 10/08/20 15:00 10/15/20 14:59 10/12/20 07:29 Risperidone (RisperDAL) 1 mg DAILY NG 10/04/20 09:00 11/18/20 08:59 10/12/20 09:01 Sodium Hypochlorite (Dakin's Quarter Strength) 1 applic DAILY TOPIC 10/04/20 09:00 11/03/20 08:59 10/12/20 09:03 Zinc Sulfate (Zinc Sulfate) 220 mg DAILY GT 10/11/20 09:00 10/21/20 08:59 10/12/20 09:00 Allergies: Coded Allergies: No Known Allergies (Unverified , 12/17/15) ROS Limited/Unobtainable: No Constitutional: Reports: no symptoms HEENT: Reports: no symptoms Cardiovascular: Reports: no symptoms Respiratory: Reports: no symptoms Gastrointestinal/Abdominal: Reports: no symptoms Genitourinary: Reports: no symptoms Neurologic/Psychiatric: Reports: no symptoms Subjective 75 YO F admitted with respiratory failure. Now COPD exacerbation and UTI. Extubated 10/10/20. Cover for Int Med-Dr Mazariegos. ICU. White patches on tongue Objective Last Vital Signs Date Time Temp Pulse Resp B/P (MAP) Pulse Ox O2 Delivery O2 Flow Rate FiO2 10/12/20 12:00 97.7 77 24 151/84 (106) 98 10/12/20 08:02 Nasal Cannula 2.0 28 Laboratory Tests Test 10/11/20 12:19 10/11/20 17:36 10/11/20 23:59 10/12/20 04:00 POC Whole Blood Glucose Pending Pending 92 MG/DL (74-106) White Blood Count 13.3 K/UL (4.8-10.8) H Red Blood Count 3.96 M/UL (4.20-5.40) L Hemoglobin 10.6 G/DL (12.0-16.0) L Hematocrit 35.3 % (37.0-47.0) L Mean Corpuscular Volume 89 FL (80-99) Mean Corpuscular Hemoglobin 26.7 PG (27.0-31.0) L Mean Corpuscular Hemoglobin Concent 29.9 G/DL (32.0-36.0) L Red Cell Distribution Width 16.3 % (11.6-14.8) H Platelet Count 269 K/UL (150-450) Mean Platelet Volume 8.9 FL (6.5-10.1) Neutrophils (%) (Auto) 69.9 % (45.0-75.0) Lymphocytes (%) (Auto) 14.1 % (20.0-45.0) L Monocytes (%) (Auto) 7.6 % (1.0-10.0) Eosinophils (%) (Auto) 6.6 % (0.0-3.0) H Basophils (%) (Auto) 1.7 % (0.0-2.0) Sodium Level 144 MMOL/L (136-145) Potassium Level 3.7 MMOL/L (3.5-5.1) Chloride Level 108 MMOL/L (98-107) H Carbon Dioxide Level 33 MMOL/L (21-32) H Anion Gap 4 mmol/L (5-15) L Blood Urea Nitrogen 14 mg/dL (7-18) Creatinine 0.7 MG/DL (0.55-1.30) Estimat Glomerular Filtration Rate > 60 mL/min (>60) Glucose Level 83 MG/DL (74-106) Calcium Level 8.9 MG/DL (8.5-10.1) Test 10/12/20 04:04 10/12/20 12:09 POC Whole Blood Glucose 86 MG/DL (74-106) 99 MG/DL (74-106) Intake and Output 10/11/20 10/12/20 19:00 07:00 Intake Total 155 ml 330 ml Output Total 1750 ml 1250 ml Balance -1595 ml -920 ml Intake Oral 330 ml Free Water 100 ml Tube Feeding 55 ml Output Urine Total 1750 ml 1250 ml # Bowel Movements 2 3 Objective PHYSICAL EXAMINATION: GENERAL: The patient is a well-developed and well-nourished female, who is currently intubated in the intensive care unit. HEENT: Eyes, pupils are equal and responsive to light and accommodation. Extraocular movements are intact. NECK: Supple without lymphadenopathy. CHEST: Nasal canula; Coarse mechanical breath sounds bilaterally without wheezes or rales. CARDIOVASCULAR: Tachycardic, regular rhythm, S1-S2 are normal without murmurs, rubs, or gallops. ABDOMEN: Soft, nontender, and nondistended. Positive bowel sounds. No evidence of hepatosplenomegaly. Currently, no rebound or guarding noted. EXTREMITIES: Negative for clubbing, cyanosis, edema. RECTAL/GENITAL: Not performed. NEUROLOGICAL: Unable to assess. Assessment/Plan Assessment/Plan ASSESSMENT: This is a 75-year-old female with: 1. Acute hypoxemic respiratory failure. 2. Altered mental status. 3. Hypertension. 4. Chronic obstructive pulmonary disease. 5. Alzheimer's dementia. 6. UTI=proteus 7. Oral candidiasis TREATMENT: 1. Acute hypoxic respiratory failure. Pulmonary/critical care = Dr. Will Quiros. The patient was extubated on 10/10/20 ABX= Zosyn. Continue IV Solu-Medrol for chronic obstructive pulmonary disease acute exacerbation. Follow recommendations of Pulmonary. 2. Hypertension. The patient is currently hypotensive. 3. Chronic obstructive pulmonary disease. A Pulmonary consultation has been obtained with Dr. Will Quiros. The patient is currently receiving intravenous Solu-Medrol and albuterol/Atrovent nebulized q.4 h. p.r.n. We will follow recommendations of Pulmonary. 4. Alzheimer's dementia. 5. oral fluconazole for 2 weeks Curly Covarrubias MD Oct 12, 2020 12:19
[2020-10-12] MEDS: Fluconazole 100mg tab ORAL SCH (12:45)
--- NOTE | 2020-10-12 13:01 | Cardiology Report ---
APPROVED REPORT EKG Measurement Heart [id number] <Conclusion> Sinus rhythm with premature atrial complexes Right bundle branch block Marked T wave abnormality, consider inferolateral ischemia Abnormal ECG
--- NOTE | 2020-10-12 18:04 | Surgery Progress Note ---
Surgery Progress Note Subjective Procedure Performed left femoral central venous access insertion Additional Comments downgraded wbc improving exam stable no n/v Objective Last 24 Hour Vital Signs Date Time Temp Pulse Resp B/P (MAP) Pulse Ox O2 Delivery O2 Flow Rate FiO2 10/12/20 16:00 98.1 79 22 134/71 (92) 98 10/12/20 16:00 73 10/12/20 16:00 Nasal Cannula 2.0 10/12/20 13:00 78 27 97/43 (61) 98 10/12/20 13:00 78 27 97/43 (61) 98 10/12/20 12:00 Nasal Cannula 2.0 10/12/20 12:00 97.7 77 24 151/84 (106) 98 10/12/20 12:00 79 10/12/20 12:00 Nasal Cannula 2.0 10/12/20 11:00 85 26 150/99 (116) 94 10/12/20 11:00 150/99 (116) 10/12/20 10:00 83 24 119/74 (89) 99 10/12/20 09:00 89 112/50 10/12/20 09:00 93 30 162/83 (109) 97 10/12/20 08:02 89 20 100 Nasal Cannula 2.0 28 91 20 97 10/12/20 08:00 93 24 112/50 (70) 98 10/12/20 08:00 82 10/12/20 08:00 Nasal Cannula 2.0 10/12/20 07:52 97 Nasal Cannula 2.0 28 10/12/20 07:00 99.5 81 25 129/59 (82) 99 10/12/20 06:00 81 34 112/61 (78) 95 10/12/20 05:00 81 34 112/61 (78) 95 10/12/20 04:00 95.0 87 37 131/60 (83) 95 10/12/20 04:00 80 10/12/20 04:00 Nasal Cannula 2.0 10/12/20 03:27 85 22 100 Nasal Cannula 2.0 28 10/12/20 03:17 87 21 96 Nasal Cannula 2.0 28 10/12/20 03:00 89 23 146/93 (110) 92 10/12/20 02:00 77 35 111/52 (71) 96 10/12/20 01:00 80 34 137/80 (99) 95 10/12/20 00:00 Nasal Cannula 2.0 10/12/20 00:00 76 10/12/20 00:00 98.8 79 28 149/65 (93) 94 10/11/20 23:46 73 23 100 Nasal Cannula 2.0 28 10/11/20 23:36 73 23 97 Nasal Cannula 2.0 28 10/11/20 23:00 73 35 114/59 (77) 97 10/11/20 22:00 87 31 135/60 (85) 96 10/11/20 21:00 93 37 144/68 (93) 93 10/11/20 20:46 90 130/53 10/11/20 20:00 82 10/11/20 20:00 Nasal Cannula 2.0 10/11/20 20:00 98.2 92 35 130/53 (78) 93 10/11/20 19:28 83 22 99 Nasal Cannula 2.0 28 10/11/20 19:17 96 Nasal Cannula 2.0 28 10/11/20 19:17 84 22 96 Nasal Cannula 2.0 28 10/11/20 19:00 80 20 102/45 (64) 96 I&O Intake and Output 10/11/20 10/12/20 19:00 07:00 Intake Total 155 ml 330 ml Output Total 1750 ml 1250 ml Balance -1595 ml -920 ml Intake Oral 330 ml Free Water 100 ml Tube Feeding 55 ml Output Urine Total 1750 ml 1250 ml # Bowel Movements 2 3 Cardiovascular: RSR Respiratory: clear, decreased breath sounds Abdomen: non-tender, present bowel sounds Extremities: no tenderness, no cyanosis Laboratory Tests Test 10/11/20 23:59 10/12/20 04:00 10/12/20 04:04 10/12/20 12:09 POC Whole Blood Glucose 92 MG/DL (74-106) 86 MG/DL (74-106) 99 MG/DL (74-106) White Blood Count 13.3 K/UL (4.8-10.8) H Red Blood Count 3.96 M/UL (4.20-5.40) L Hemoglobin 10.6 G/DL (12.0-16.0) L Hematocrit 35.3 % (37.0-47.0) L Mean Corpuscular Volume 89 FL (80-99) Mean Corpuscular Hemoglobin 26.7 PG (27.0-31.0) L Mean Corpuscular Hemoglobin Concent 29.9 G/DL (32.0-36.0) L Red Cell Distribution Width 16.3 % (11.6-14.8) H Platelet Count 269 K/UL (150-450) Mean Platelet Volume 8.9 FL (6.5-10.1) Neutrophils (%) (Auto) 69.9 % (45.0-75.0) Lymphocytes (%) (Auto) 14.1 % (20.0-45.0) L Monocytes (%) (Auto) 7.6 % (1.0-10.0) Eosinophils (%) (Auto) 6.6 % (0.0-3.0) H Basophils (%) (Auto) 1.7 % (0.0-2.0) Sodium Level 144 MMOL/L (136-145) Potassium Level 3.7 MMOL/L (3.5-5.1) Chloride Level 108 MMOL/L (98-107) H Carbon Dioxide Level 33 MMOL/L (21-32) H Anion Gap 4 mmol/L (5-15) L Blood Urea Nitrogen 14 mg/dL (7-18) Creatinine 0.7 MG/DL (0.55-1.30) Estimat Glomerular Filtration Rate > 60 mL/min (>60) Glucose Level 83 MG/DL (74-106) Calcium Level 8.9 MG/DL (8.5-10.1) Test 10/12/20 16:43 POC Whole Blood Glucose 100 MG/DL (74-106) Plan Problems: (1) COPD (chronic obstructive pulmonary disease) (2) Acute respiratory failure Assessment & Plan: intubated on vent weaning as tolerated abg noted cont weaning pulled out her picc no iv access multiple peripheral attempts made by RN central line placed as medically necessary in ICU patient without access on drips extubated improving cont O2 (3) Syncope (4) Psychiatric disorder (5) Hyponatremia (6) UTI (urinary tract infection) (7) Stage 4 decubitus ulcer Assessment & Plan: Pt presented on admission with Full thickness sacral pressure injury with undermined borders. Base of wound has pink granulation with small amt biofilm easily removed with gentle friction during cleansing. (+) epibole along edges. No odor or exudate noted.(L)2.3cm x (W)4.5cm x (D)1cm. Undermining clockwise 12-12o'clock by 2.8cm @5o'clock. Periwound without erythema or induration. R and L heels are boggy but each heel blanches easily. Dressing is going well. We will monitor wound does not currently need active debridement. well known to me from prior unchanged stage 4 ulcer cont local care Tx.Plan: Cleanse Sacral wound with Dakin's 0.125% gilbert. Loosely pack with Dakin's m oistened Kerlix. Apply Triad Paste periwound. Cover with Optifoam drsg. Twice daily and prn. Apply Cavilon Skin Barrier to Both heels. Cover each heel with Optifoam drsg.Change every 7 days and prn. APM/ABHILASH Mattress overlay. Reposition at least every 2hours or as tolerated. Off-load heels with pillow. (8) Severe protein-calorie malnutrition Assessment & Plan: ng in place once stable start tube feeds low alb bmi 23 high risk for breakdown needs nutritional optimization AILY ESTIMATED NEEDS: Needs based on Wound, Critical care 53.6kg 25-35 kcals/kg 2527-3687 total kcals 1.25-2 g protein/kg 67-107 g total protein 25-30 mL/kg 2617-7976 total fluid mLs NUTRITION DIAGNOSIS: * Increased kcal/prot needs R/T wound healing as evidenced by admitted w/ stage 4 sacral wound * Swallowing difficulty R/T respiratory failure as evidenced by pt now orally intubated with OGT feeds. CURRENT TF: Jevity 1.2 @20ml/hr ENTERAL NUTRITION RECOMMENDATIONS: Glucerna 1.2 goal of 55ml/hr x24 hrs to provide 1320ml, 1584 kcal, 79g pro, 1063ml free H2O - Rec carb control formula at this time d/t elevated BG levels (POC [phone]). - Start @low rate 25ml/hr for 6 hrs, advance as tolerated 10ml/hr q4-6 hrs to goal. - Flush per MD/ HOB over 30 degrees ADDITIONAL RECOMMENDATIONS: * Check HgA1C- pt w/ elevated BG * Re-calibrate bed scale w/ added P200 mattress * Wound care: add SUZY BID via OGT Add Vit C 250mg BID + zn so4 220mg qd x10 days * Replete lytes as needed (Low K, Phos) (9) Pulmonary edema (10) Altered mental status (11) History of hypertension (12) Alzheimer's dementia (13) Non-ST elevation (NSTEMI) myocardial infarction (14) ATN (acute tubular necrosis) Blaise Del Valle Oct 12, 2020 18:04
[2020-10-12] MEDS: Atorvastatin 20mg tab GT SCH (20:31)
--- NOTE | 2020-10-12 20:56 | Cardiology Progress Note ---
Assessment/Plan Assessment/Plan 1. Altered mental status. 2. Baseline dementia. 3. Vha-BP-kojjsmhpu myocardial infarction. 4. Respiratory failure, status post intubation. 5. COPD history. 6. Renal insufficiency 7. bactermia tele sinus pac watch bp is on norvasc ekg noted t inversion in the an lead form 10/05 off heparin keep on Ecotrin the chronicity of the t wave inversion is not clear communicates some but not oriented will likely pursuit med management trop is neg on bb and statin Subjective Cardiovascular: Denies: chest pain, lightheadedness, palpitations Respiratory: Denies: shortness of breath Gastrointestinal/Abdominal: Denies: abdominal pain Objective Last 24 Hour Vital Signs Date Time Temp Pulse Resp B/P (MAP) Pulse Ox O2 Delivery O2 Flow Rate FiO2 10/12/20 20:31 69 130/65 10/12/20 19:38 98 Nasal Cannula 2.0 28 10/12/20 16:00 98.1 79 22 134/71 (92) 98 10/12/20 16:00 73 10/12/20 16:00 Nasal Cannula 2.0 10/12/20 13:00 78 27 97/43 (61) 98 10/12/20 13:00 78 27 97/43 (61) 98 10/12/20 12:00 Nasal Cannula 2.0 10/12/20 12:00 97.7 77 24 151/84 (106) 98 10/12/20 12:00 79 10/12/20 12:00 Nasal Cannula 2.0 10/12/20 11:00 85 26 150/99 (116) 94 10/12/20 11:00 150/99 (116) 10/12/20 10:00 83 24 119/74 (89) 99 10/12/20 09:00 89 112/50 10/12/20 09:00 93 30 162/83 (109) 97 10/12/20 08:02 89 20 100 Nasal Cannula 2.0 28 91 20 97 10/12/20 08:00 93 24 112/50 (70) 98 10/12/20 08:00 82 10/12/20 08:00 Nasal Cannula 2.0 10/12/20 07:52 97 Nasal Cannula 2.0 28 10/12/20 07:00 99.5 81 25 129/59 (82) 99 11/25/20 06:00 81 34 112/61 (78) 95 10/12/20 05:00 81 34 112/61 (78) 95 10/12/20 04:00 95.0 87 37 131/60 (83) 95 10/12/20 04:00 80 10/12/20 04:00 Nasal Cannula 2.0 10/12/20 03:27 85 22 100 Nasal Cannula 2.0 28 10/12/20 03:17 87 21 96 Nasal Cannula 2.0 28 10/12/20 03:00 89 23 146/93 (110) 92 10/12/20 02:00 77 35 111/52 (71) 96 10/12/20 01:00 80 34 137/80 (99) 95 10/12/20 00:00 Nasal Cannula 2.0 10/12/20 00:00 76 10/12/20 00:00 98.8 79 28 149/65 (93) 94 10/11/20 23:46 73 23 100 Nasal Cannula 2.0 28 10/11/20 23:36 73 23 97 Nasal Cannula 2.0 28 10/11/20 23:00 73 35 114/59 (77) 97 10/11/20 22:00 87 31 135/60 (85) 96 10/11/20 21:00 93 37 144/68 (93) 93 General Appearance: no apparent distress, alert, patient on isolation Neck: supple Cardiovascular: normal rate, regular rhythm Respiratory/Chest: lungs clear Abdomen: normal bowel sounds, non tender, soft Extremities: no swelling Intake and Output 10/11/20 10/12/20 19:00 07:00 Intake Total 155 ml 330 ml Output Total 1750 ml 1250 ml Balance -1595 ml -920 ml Intake Oral 330 ml Free Water 100 ml Tube Feeding 55 ml Output Urine Total 1750 ml 1250 ml # Bowel Movements 2 3 Laboratory Tests Test 10/11/20 23:59 10/12/20 04:00 10/12/20 04:04 10/12/20 12:09 POC Whole Blood Glucose 92 MG/DL (74-106) 86 MG/DL (74-106) 99 MG/DL (74-106) White Blood Count 13.3 K/UL (4.8-10.8) H Red Blood Count 3.96 M/UL (4.20-5.40) L Hemoglobin 10.6 G/DL (12.0-16.0) L Hematocrit 35.3 % (37.0-47.0) L Mean Corpuscular Volume 89 FL (80-99) Mean Corpuscular Hemoglobin 26.7 PG (27.0-31.0) L Mean Corpuscular Hemoglobin Concent 29.9 G/DL (32.0-36.0) L Red Cell Distribution Width 16.3 % (11.6-14.8) H Platelet Count 269 K/UL (150-450) Mean Platelet Volume 8.9 FL (6.5-10.1) Neutrophils (%) (Auto) 69.9 % (45.0-75.0) Lymphocytes (%) (Auto) 14.1 % (20.0-45.0) L Monocytes (%) (Auto) 7.6 % (1.0-10.0) Eosinophils (%) (Auto) 6.6 % (0.0-3.0) H Basophils (%) (Auto) 1.7 % (0.0-2.0) Sodium Level 144 MMOL/L (136-145) Potassium Level 3.7 MMOL/L (3.5-5.1) Chloride Level 108 MMOL/L (98-107) H Carbon Dioxide Level 33 MMOL/L (21-32) H Anion Gap 4 mmol/L (5-15) L Blood Urea Nitrogen 14 mg/dL (7-18) Creatinine 0.7 MG/DL (0.55-1.30) Estimat Glomerular Filtration Rate > 60 mL/min (>60) Glucose Level 83 MG/DL (74-106) Calcium Level 8.9 MG/DL (8.5-10.1) Test 10/12/20 16:43 POC Whole Blood Glucose 100 MG/DL (74-106) Laurent Ramesh MD Oct 12, 2020 20:56
[2020-10-13] VITALS: BP 114/51
[2020-10-13 04:00] VITALS: BP 127/59
[2020-10-13 04:59] LABS: BASOPHILS % (AUTO) 0.8 % (0.0-2.0); EOSINOPHILS % (AUTO) 5.8 % (0.0-3.0); HEMATOCRIT 35.3 % (37.0-47.0); HEMOGLOBIN 10.7 G/DL (12.0-16.0); LYMPHOCYTES % (AUTO) 14.7 % (20.0-45.0); MEAN CORPUSCULAR VOLUME 89 FL (80-99); MONOCYTES % (AUTO) 8.7 % (1.0-10.0); PLATELET COUNT 285 K/UL (150-450); RED BLOOD COUNT 3.95 M/UL (4.20-5.40); RED CELL DISTRIBUTION WIDTH 16.4 % (11.6-14.8); WHITE BLOOD COUNT 14.7 K/UL (4.8-10.8)
[2020-10-13] MEDS: NovoLOG Insulin Flexpen SUBQ SCH ×3 (05:08→16:36)
[2020-10-13 05:20] LABS: ANION GAP 4 mmol/L (5-15); BLOOD UREA NITROGEN 21 mg/dL (7-18); CALCIUM 8.8 MG/DL (8.5-10.1); CARBON DIOXIDE 31 MMOL/L (21-32); CHLORIDE 105 MMOL/L (98-107); CREATININE 0.7 MG/DL (0.55-1.30); SODIUM 140 MMOL/L (136-145)
[2020-10-13] MEDS: Piperacillin/Tazobactam 3.375 GM in D5W 110 ML IV SCH ×2 (06:01→14:08)
[2020-10-13 08:00] VITALS: BP 132/55
[2020-10-13] MEDS: Aspirin Baby 81mg GT SCH (09:33)
[2020-10-13] MEDS: Docusate 100mg/10ml Liq ORAL SCH ×2 (09:33→17:25)
[2020-10-13] MEDS: Zinc Sulfate 220mg GT SCH (09:33)
[2020-10-13] MEDS: Ascorbic Acid 500mg tab GT SCH ×2 (09:34→17:25)
[2020-10-13] MEDS: Fluconazole 100mg tab ORAL SCH (09:34)
[2020-10-13] MEDS: Metoprolol Tartrate 12.5mg TAB GT SCH ×2 (09:34→21:36)
[2020-10-13] MEDS: Dakin's 0.125% Soln (Quarter Strength) 16oz TOPIC SCH (09:35)
--- NOTE | 2020-10-13 11:29 | Pulmonology Progress Note ---
Subjective ROS Limited/Unobtainable: No Allergies: Coded Allergies: No Known Allergies (Unverified , 12/17/15) Objective Last 24 Hour Vital Signs Date Time Temp Pulse Resp B/P (MAP) Pulse Ox O2 Delivery O2 Flow Rate FiO2 10/13/20 09:34 87 132/55 10/13/20 08:21 87 16 97 Nasal Cannula 2.0 28 10/13/20 08:20 97 Nasal Cannula 2.0 28 10/13/20 08:00 Nasal Cannula 2.0 10/13/20 08:00 98.4 67 18 132/55 (80) 99 10/13/20 07:45 69 10/13/20 04:00 69 10/13/20 04:00 97.2 66 20 127/59 (81) 99 10/13/20 04:00 Room Air 10/13/20 00:00 72 10/13/20 00:00 96.6 67 21 114/51 (72) 100 10/13/20 00:00 Room Air 10/12/20 22:07 Room Air 10/12/20 20:31 69 130/65 10/12/20 20:00 96.8 76 22 130/65 (86) 98 10/12/20 20:00 80 10/12/20 20:00 Nasal Cannula 2.0 10/12/20 19:38 98 Nasal Cannula 2.0 28 10/12/20 16:00 98.1 79 22 134/71 (92) 98 10/12/20 16:00 73 10/12/20 16:00 Nasal Cannula 2.0 10/12/20 13:00 78 27 97/43 (61) 98 10/12/20 13:00 78 27 97/43 (61) 98 10/12/20 12:00 Nasal Cannula 2.0 10/12/20 12:00 97.7 77 24 151/84 (106) 98 10/12/20 12:00 79 10/12/20 12:00 Nasal Cannula 2.0 Intake and Output 10/12/20 10/13/20 19:00 07:00 Intake Total 622.5 ml 637.5 ml Output Total 545 ml 650 ml Balance 77.5 ml -12.5 ml Intake Oral 540 ml 500 ml IV Total 82.5 ml 137.5 ml Output Urine Total 545 ml 650 ml # Bowel Movements 1 2 General Appearance: WD/WN Respiratory: chest wall non-tender, lungs clear, normal breath sounds Breasts: no masses Cardiovascular: normal peripheral pulses, normal rate Abdomen: normal bowel sounds, soft, non tender Genitourinary: normal external genitalia Extremities: no cyanosis 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, no motor/sensory deficits Laboratory Tests 10/12/20 12:09: POC Whole Blood Glucose 99 10/12/20 16:43: POC Whole Blood Glucose 100 10/12/20 23:03: POC Whole Blood Glucose 103 10/13/20 03:00: White Blood Count 14.7H, Red Blood Count 3.95L, Hemoglobin 10.7L, Hematocrit 35.3L, Mean Corpuscular Volume 89, Mean Corpuscular Hemoglobin 27.1, Mean Corpuscular Hemoglobin Concent 30.3L, Red Cell Distribution Width 16.4H, Platelet Count 285, Mean Platelet Volume 7.9, Neutrophils (%) (Auto) 70.0, Lymphocytes (%) (Auto) 14.7L, Monocytes (%) (Auto) 8.7, Eosinophils (%) (Auto) 5.8H, Basophils (%) (Auto) 0.8, Sodium Level 140, Potassium Level 4.0, Chloride Level 105, Carbon Dioxide Level 31, Anion Gap 4L, Blood Urea Nitrogen 21H, Creatinine 0.7, Estimat Glomerular Filtration Rate > 60, Glucose Level 89, Calcium Level 8.8 10/13/20 04:59: POC Whole Blood Glucose 100 Current Medications Medications (Trade) Dose Ordered Sig/Bharti Route PRN Reason Start Time Stop Time Status Last Admin Dose Admin Acetaminophen (Tylenol) 650 mg Q4H PRN GT Temp >100.5 10/03/20 17:15 11/02/20 17:14 10/08/20 00:15 Amlodipine Besylate (Norvasc) 2.5 mg BIDPRN PRN GT sbp greater than 150 10/05/20 20:30 11/04/20 20:29 Ascorbic Acid (Vitamin C) 500 mg BID GT 10/11/20 09:00 11/10/20 08:59 10/13/20 09:34 Aspirin (ASA) 81 mg DAILY GT 10/04/20 14:45 11/18/20 14:44 10/13/20 09:33 Atorvastatin Calcium (Lipitor) 20 mg BEDTIME GT 10/04/20 21:00 01/02/21 20:59 10/12/20 20:31 Barium Sulfate (Varibar Honey) 250 ml NOW PRN MC RAD 10/10/20 20:30 10/13/20 20:26 Barium Sulfate (Varibar Haynes) 240 ml NOW PRN MC RAD 10/10/20 20:30 10/13/20 20:26 Barium Sulfate (Varibar Pudding) 230 ml NOW PRN MC RAD 10/10/20 20:30 10/13/20 20:26 Barium Sulfate (Varibar Thin Liquid powder) 148 gm NOW PRN MC RAD 10/10/20 20:30 10/13/20 20:26 Dextrose (Dextrose 50%) 25 ml Q30M PRN IV Hypoglycemia 10/03/20 09:28 01/01/21 09:27 Dextrose (Dextrose 50%) 50 ml Q30M PRN IV Hypoglycemia 10/03/20 09:28 01/01/21 09:27 Docusate Sodium (Colace) 100 mg TWICE A DAY ORAL 10/11/20 18:00 11/02/20 17:59 10/13/20 09:33 Fluconazole (Diflucan) 200 mg DAILY ORAL 10/12/20 12:30 10/19/20 12:30 10/13/20 09:34 Insulin Aspart (NovoLOG) Q6HR SUBQ 10/06/20 00:00 01/01/21 11:29 10/09/20 12:02 Lorazepam (Ativan 2mg/ml 1ml) 0.5 mg Q4H PRN IV agitation 10/11/20 10:52 10/18/20 10:51 Metoprolol Tartrate (Lopressor) 25 mg Q12HR GT 10/11/20 21:00 01/09/21 20:59 10/13/20 09:34 Piperacillin Sod/ Tazobactam Sod 3.375 gm/Dextrose 110 ml @ 27.5 mls/hr Q8H IV 10/08/20 15:00 10/15/20 14:59 10/13/20 06:01 Risperidone (RisperDAL) 1 mg DAILY NG 10/04/20 09:00 11/18/20 08:59 10/13/20 09:34 Sodium Hypochlorite (Dakin's Quarter Strength) 1 applic DAILY TOPIC 10/04/20 09:00 11/03/20 08:59 10/13/20 09:35 Zinc Sulfate (Zinc Sulfate) 220 mg DAILY GT 10/11/20 09:00 10/21/20 08:59 10/13/20 09:33 Assessment/Plan Problems: (1) Acute respiratory failure (2) Non-ST elevation (NSTEMI) myocardial infarction (3) COPD (chronic obstructive pulmonary disease) (4) Stage 4 decubitus ulcer (5) Severe protein-calorie malnutrition (6) Altered mental status Assessment/Plan on NC saturating well titrate fio2 to saturation of 92% respiratory treatment off heparin drip, keep Ecotrin f/u cardiology recommendations dvt orphylaxis aspiration precaution Will Quiros MD Oct 13, 2020 11:29
--- NOTE | 2020-10-13 11:34 | Surgery Progress Note ---
Surgery Progress Note Subjective Procedure Performed left femoral central venous access insertion Additional Comments no acute events exam stable Objective Last 24 Hour Vital Signs Date Time Temp Pulse Resp B/P (MAP) Pulse Ox O2 Delivery O2 Flow Rate FiO2 10/13/20 09:34 87 132/55 10/13/20 08:21 87 16 97 Nasal Cannula 2.0 28 10/13/20 08:20 97 Nasal Cannula 2.0 28 10/13/20 08:00 Nasal Cannula 2.0 10/13/20 08:00 98.4 67 18 132/55 (80) 99 10/13/20 07:45 69 10/13/20 04:00 69 10/13/20 04:00 97.2 66 20 127/59 (81) 99 10/13/20 04:00 Room Air 10/13/20 00:00 72 10/13/20 00:00 96.6 67 21 114/51 (72) 100 10/13/20 00:00 Room Air 10/12/20 22:07 Room Air 10/12/20 20:31 69 130/65 10/12/20 20:00 96.8 76 22 130/65 (86) 98 10/12/20 20:00 80 10/12/20 20:00 Nasal Cannula 2.0 10/12/20 19:38 98 Nasal Cannula 2.0 28 10/12/20 16:00 98.1 79 22 134/71 (92) 98 10/12/20 16:00 73 10/12/20 16:00 Nasal Cannula 2.0 10/12/20 13:00 78 27 97/43 (61) 98 10/12/20 13:00 78 27 97/43 (61) 98 10/12/20 12:00 Nasal Cannula 2.0 10/12/20 12:00 97.7 77 24 151/84 (106) 98 10/12/20 12:00 79 10/12/20 12:00 Nasal Cannula 2.0 I&O Intake and Output 10/12/20 10/13/20 19:00 07:00 Intake Total 622.5 ml 637.5 ml Output Total 545 ml 650 ml Balance 77.5 ml -12.5 ml Intake Oral 540 ml 500 ml IV Total 82.5 ml 137.5 ml Output Urine Total 545 ml 650 ml # Bowel Movements 1 2 Dressing: other Wound: other Cardiovascular: RSR Respiratory: decreased breath sounds Abdomen: soft, non-tender, non-distended Extremities: no tenderness, no cyanosis Laboratory Tests Test 10/12/20 12:09 10/12/20 16:43 10/12/20 23:03 10/13/20 03:00 POC Whole Blood Glucose 99 MG/DL (74-106) 100 MG/DL (74-106) 103 MG/DL (74-106) White Blood Count 14.7 K/UL (4.8-10.8) H Red Blood Count 3.95 M/UL (4.20-5.40) L Hemoglobin 10.7 G/DL (12.0-16.0) L Hematocrit 35.3 % (37.0-47.0) L Mean Corpuscular Volume 89 FL (80-99) Mean Corpuscular Hemoglobin 27.1 PG (27.0-31.0) Mean Corpuscular Hemoglobin Concent 30.3 G/DL (32.0-36.0) L Red Cell Distribution Width 16.4 % (11.6-14.8) H Platelet Count 285 K/UL (150-450) Mean Platelet Volume 7.9 FL (6.5-10.1) Neutrophils (%) (Auto) 70.0 % (45.0-75.0) Lymphocytes (%) (Auto) 14.7 % (20.0-45.0) L Monocytes (%) (Auto) 8.7 % (1.0-10.0) Eosinophils (%) (Auto) 5.8 % (0.0-3.0) H Basophils (%) (Auto) 0.8 % (0.0-2.0) Sodium Level 140 MMOL/L (136-145) Potassium Level 4.0 MMOL/L (3.5-5.1) Chloride Level 105 MMOL/L (98-107) Carbon Dioxide Level 31 MMOL/L (21-32) Anion Gap 4 mmol/L (5-15) L Blood Urea Nitrogen 21 mg/dL (7-18) H Creatinine 0.7 MG/DL (0.55-1.30) Estimat Glomerular Filtration Rate > 60 mL/min (>60) Glucose Level 89 MG/DL (74-106) Calcium Level 8.8 MG/DL (8.5-10.1) Test 10/13/20 04:59 10/13/20 11:27 POC Whole Blood Glucose 100 MG/DL (74-106) 102 MG/DL (74-106) Plan Problems: (1) COPD (chronic obstructive pulmonary disease) (2) Acute respiratory failure Assessment & Plan: intubated on vent weaning as tolerated abg noted cont weaning pulled out her picc no iv access multiple peripheral attempts made by RN central line placed as medically necessary in ICU patient without access on drips extubated improving cont O2 (3) Syncope (4) Psychiatric disorder (5) Hyponatremia (6) UTI (urinary tract infection) (7) Stage 4 decubitus ulcer Assessment & Plan: Pt presented on admission with Full thickness sacral pressure injury with undermined borders. Base of wound has pink granulation with small amt biofilm easily removed with gentle friction during cleansing. (+) epibole along edges. No odor or exudate noted.(L)2.3cm x (W)4.5cm x (D)1cm. Undermining clockwise 12-12o'clock by 2.8cm @5o'clock. Periwound without erythema or induration. R and L heels are boggy but each heel blanches easily. Dressing is going well. We will monitor wound does not currently need active debridement. well known to me from prior unchanged stage 4 ulcer cont local care Tx.Plan: Cleanse Sacral wound with Dakin's 0.125% gilbert. Loosely pack with Dakin's moistened Kerlix. Apply Triad Paste periwound. Cover with Optifoam drsg. Twice daily and prn. Apply Cavilon Skin Barrier to Both heels. Cover each heel with Optifoam drsg.Change every 7 days and prn. APM/ABHILASH Mattress overlay. Reposition at least every 2hours or as tolerated. Off-load heels with pillow. (8) Severe protein-calorie malnutrition Assessment & Plan: ng in place once stable start tube feeds low alb bmi 23 high risk for breakdown needs nutritional optimization AILY ESTIMATED NEEDS: Needs based on Wound, Critical care 53.6kg 25-35 kcals/kg 2726-0496 total kcals 1.25-2 g protein/kg 67-107 g total protein 25-30 mL/kg 4691-2132 total fluid mLs NUTRITION DIAGNOSIS: * Increased kcal/prot needs R/T wound healing as evidenced by admitted w/ stage 4 sacral wound * Swallowing difficulty R/T respiratory failure as evidenced by pt now orally intubated with OGT feeds. CURRENT TF: Jevity 1.2 @20ml/hr ENTERAL NUTRITION RECOMMENDATIONS: Glucerna 1.2 goal of 55ml/hr x24 hrs to provide 1320ml, 1584 kcal, 79g pro, 1063ml free H2O - Rec carb control formula at this time d/t elevated BG levels (POC [phone]). - Start @low rate 25ml/hr for 6 hrs, advance as tolerated 10ml/hr q4-6 hrs to goal. - Flush per MD/ HOB over 30 degrees ADDITIONAL RECOMMENDATIONS: * Check HgA1C- pt w/ elevated BG * Re-calibrate bed scale w/ added P200 mattress * Wound care: add SUZY BID via OGT Add Vit C 250mg BID + zn so4 220mg qd x10 days * Replete lytes as needed (Low K, Phos) (9) Pulmonary edema (10) Altered mental status (11) History of hypertension (12) Alzheimer's dementia (13) Non-ST elevation (NSTEMI) myocardial infarction (14) ATN (acute tubular necrosis) Blaise Del Valle Oct 13, 2020 11:34
[2020-10-13 11:42] VITALS: BP 92/57
--- NOTE | 2020-10-13 14:52 | Internal Med Progress Note ---
Subjective Date of Service: Oct 13, 2020 Physician Name Curly Covarrubias Attending Physician Elías Mazariegos MD Current Medications Medications (Trade) Dose Ordered Sig/Bharti Route PRN Reason Start Time Stop Time Status Last Admin Dose Admin Acetaminophen (Tylenol) 650 mg Q4H PRN GT Temp >100.5 10/03/20 17:15 11/02/20 17:14 10/08/20 00:15 Amlodipine Besylate (Norvasc) 2.5 mg BIDPRN PRN GT sbp greater than 150 10/05/20 20:30 11/04/20 20:29 Ascorbic Acid (Vitamin C) 500 mg BID GT 10/11/20 09:00 11/10/20 08:59 10/13/20 09:34 Aspirin (ASA) 81 mg DAILY GT 10/04/20 14:45 11/18/20 14:44 10/13/20 09:33 Atorvastatin Calcium (Lipitor) 20 mg BEDTIME GT 10/04/20 21:00 01/02/21 20:59 10/12/20 20:31 Barium Sulfate (Varibar Honey) 250 ml NOW PRN MC RAD 10/10/20 20:30 10/13/20 20:26 Barium Sulfate (Varibar Tollette) 240 ml NOW PRN MC RAD 10/10/20 20:30 10/13/20 20:26 Barium Sulfate (Varibar Pudding) 230 ml NOW PRN MC RAD 10/10/20 20:30 10/13/20 20:26 Barium Sulfate (Varibar Thin Liquid powder) 148 gm NOW PRN MC RAD 10/10/20 20:30 10/13/20 20:26 Dextrose (Dextrose 50%) 25 ml Q30M PRN IV Hypoglycemia 10/03/20 09:28 01/01/21 09:27 Dextrose (Dextrose 50%) 50 ml Q30M PRN IV Hypoglycemia 10/03/20 09:28 01/01/21 09:27 Docusate Sodium (Colace) 100 mg TWICE A DAY ORAL 10/11/20 18:00 11/02/20 17:59 10/13/20 09:33 Fluconazole (Diflucan) 200 mg DAILY ORAL 10/12/20 12:30 10/19/20 12:30 10/13/20 09:34 Insulin Aspart (NovoLOG) Q6HR SUBQ 10/06/20 00:00 01/01/21 11:29 10/09/20 12:02 Lorazepam (Ativan 2mg/ml 1ml) 0.5 mg Q4H PRN IV agitation 10/11/20 10:52 10/18/20 10:51 Metoprolol Tartrate (Lopressor) 25 mg Q12HR GT 10/11/20 21:00 01/09/21 20:59 10/13/20 09:34 Piperacillin Sod/ Tazobactam Sod 3.375 gm/Dextrose 110 ml @ 27.5 mls/hr Q8H IV 10/08/20 15:00 10/15/20 14:59 10/13/20 14:08 Risperidone (RisperDAL) 1 mg DAILY NG 10/04/20 09:00 11/18/20 08:59 10/13/20 09:34 Sodium Hypochlorite (Dakin's Quarter Strength) 1 applic DAILY TOPIC 10/04/20 09:00 11/03/20 08:59 10/13/20 09:35 Zinc Sulfate (Zinc Sulfate) 220 mg DAILY GT 10/11/20 09:00 10/21/20 08:59 10/13/20 09:33 Allergies: Coded Allergies: No Known Allergies (Unverified , 12/17/15) ROS Limited/Unobtainable: No Constitutional: Reports: no symptoms HEENT: Reports: no symptoms Cardiovascular: Reports: no symptoms Respiratory: Reports: no symptoms Gastrointestinal/Abdominal: Reports: no symptoms Genitourinary: Reports: no symptoms Neurologic/Psychiatric: Reports: no symptoms Subjective 75 YO F admitted with respiratory failure. Now COPD exacerbation and UTI. Extubated 10/10/20. Cover for Int Med-Dr Mazariegos. step down unit Objective Last Vital Signs Date Time Temp Pulse Resp B/P (MAP) Pulse Ox O2 Delivery O2 Flow Rate FiO2 10/13/20 12:00 Nasal Cannula 2.0 10/13/20 11:45 61 10/13/20 11:42 96.8 18 92/57 (69) 100 10/13/20 08:21 28 Laboratory Tests Test 10/12/20 16:43 10/12/20 23:03 10/13/20 03:00 10/13/20 04:59 POC Whole Blood Glucose 100 MG/DL (74-106) 103 MG/DL (74-106) 100 MG/DL (74-106) White Blood Count 14.7 K/UL (4.8-10.8) H Red Blood Count 3.95 M/UL (4.20-5.40) L Hemoglobin 10.7 G/DL (12.0-16.0) L Hematocrit 35.3 % (37.0-47.0) L Mean Corpuscular Volume 89 FL (80-99) Mean Corpuscular Hemoglobin 27.1 PG (27.0-31.0) Mean Corpuscular Hemoglobin Concent 30.3 G/DL (32.0-36.0) L Red Cell Distribution Width 16.4 % (11.6-14.8) H Platelet Count 285 K/UL (150-450) Mean Platelet Volume 7.9 FL (6.5-10.1) Neutrophils (%) (Auto) 70.0 % (45.0-75.0) Lymphocytes (%) (Auto) 14.7 % (20.0-45.0) L Monocytes (%) (Auto) 8.7 % (1.0-10.0) Eosinophils (%) (Auto) 5.8 % (0.0-3.0) H Basophils (%) (Auto) 0.8 % (0.0-2.0) Sodium Level 140 MMOL/L (136-145) Potassium Level 4.0 MMOL/L (3.5-5.1) Chloride Level 105 MMOL/L (98-107) Carbon Dioxide Level 31 MMOL/L (21-32) Anion Gap 4 mmol/L (5-15) L Blood Urea Nitrogen 21 mg/dL (7-18) H Creatinine 0.7 MG/DL (0.55-1.30) Estimat Glomerular Filtration Rate > 60 mL/min (>60) Glucose Level 89 MG/DL (74-106) Calcium Level 8.8 MG/DL (8.5-10.1) Test 10/13/20 06:00 10/13/20 11:27 Stool Occult Blood Positive (NEGATIVE) POC Whole Blood Glucose 102 MG/DL (74-106) Intake and Output 10/12/20 10/13/20 19:00 07:00 Intake Total 622.5 ml 637.5 ml Output Total 545 ml 650 ml Balance 77.5 ml -12.5 ml Intake Oral 540 ml 500 ml IV Total 82.5 ml 137.5 ml Output Urine Total 545 ml 650 ml # Bowel Movements 1 2 Objective PHYSICAL EXAMINATION: GENERAL: The patient is a well-developed and well-nourished female HEENT: Eyes, pupils are equal and responsive to light and accommodation. Extraocular movements are intact. NECK: Supple without lymphadenopathy. CHEST: Nasal canula; Coarse mechanical breath sounds bilaterally without wheezes or rales. CARDIOVASCULAR: Tachycardic, regular rhythm, S1-S2 are normal without murmurs, rubs, or gallops. ABDOMEN: Soft, nontender, and nondistended. Positive bowel sounds. No evidence of hepatosplenomegaly. Currently, no rebound or guarding noted. EXTREMITIES: Negative for clubbing, cyanosis, edema. RECTAL/GENITAL: Not performed. NEUROLOGICAL: Unable to assess. Assessment/Plan Assessment/Plan ASSESSMENT: This is a 75-year-old female with: 1. Acute hypoxemic respiratory failure. 2. Altered mental status. 3. Hypertension. 4. Chronic obstructive pulmonary disease. 5. Alzheimer's dementia. 6. UTI=proteus 7. Oral candidiasis TREATMENT: 1. Acute hypoxic respiratory failure. Pulmonary/critical care = Dr. Will Quiros. The patient was extubated on 10/10/20 ABX= Zosyn. Continue IV Solu-Medrol for chronic obstructive pulmonary disease acute exacerbation. Follow recommendations of Pulmonary. 2. Hypertension. The patient is currently hypotensive. 3. Chronic obstructive pulmonary disease. A Pulmonary consultation has been obtained with Dr. Will Quiros. The patient is currently receiving intravenous Solu-Medrol and albuterol/Atrovent nebulized q.4 h. p.r.n. We will follow recommendations of Pulmonary. 4. Alzheimer's dementia. 5. oral fluconazole for 2 weeks Curly Covarrubias MD Oct 13, 2020 14:52
[2020-10-13 16:00] VITALS: BP 138/69
[2020-10-13 20:00] VITALS: BP 125/61
[2020-10-13] MEDS: Atorvastatin 20mg tab GT SCH (21:37)
[2020-10-14] VITALS (7 sets, daily range): BP systolic 102–187; BP diastolic 54–88
[2020-10-14] MEDS: NovoLOG Insulin Flexpen SUBQ SCH ×4 (06:00→16:55)
[2020-10-14] MEDS: Docusate 100mg/10ml Liq ORAL SCH ×2 (08:56→17:29)
[2020-10-14] MEDS: Zinc Sulfate 220mg GT SCH (08:56)
[2020-10-14] MEDS: Fluconazole 100mg tab ORAL SCH (08:56)
[2020-10-14] MEDS: Metoprolol Tartrate 12.5mg TAB GT SCH ×2 (08:56→20:17)
[2020-10-14] MEDS: Ascorbic Acid 500mg tab GT SCH ×2 (08:56→17:29)
[2020-10-14] MEDS: Aspirin Baby 81mg GT SCH (08:56)
[2020-10-14] MEDS: Dakin's 0.125% Soln (Quarter Strength) 16oz TOPIC SCH (08:57)
--- NOTE | 2020-10-14 10:54 | Infectious Diseases Prog Note ---
Assessment/Plan 75yo F with: Afebrile, Tmax 99.7 --> Febrile to 102 Leukolysis, persistent Acute hypoxic resp failure, SP intubation 10/03 COPD Non-verbal at baseline UTI, sp Rx GPC bacteremia, m/l contaminant 10/03 BCx +1/2 Staph hominis, m/l skin contaminant UA 10-15 WBC, UCx >100k P.mirabilis (S-CTX, R-bactrim) Resp cx p COVID rapid Ag neg Flu neg MRSA nares neg CXR: No focal consolidation, pleural effusion, or pneumothorax. Mild emphysema with increased interstitial markings. Cardiomegaly. Calcified aorta. 10/04 COVID rapid Ag neg 10/05 BCx NTD 10/07 CXR: 1. Overall similar appearing study. Dementia Alzheimer's [facility] resident Plan: monitor pt off of AB Rx 10/12 Sp Zosyn #10 / 10 10/07 SP vanco IV #4 empiric Monitor CBC/CMP Monitor temp curve, hemodynamics Monitor resp status D/w RN Thank you for this consult. [facility] will continue to follow. Subjective Allergies: Coded Allergies: No Known Allergies (Unverified , 12/17/15) afebrile persistent leukocytosis Objective Last 24 Hour Vital Signs Date Time Temp Pulse Resp B/P (MAP) Pulse Ox O2 Delivery O2 Flow Rate FiO2 10/14/20 08:56 86 155/73 10/14/20 08:00 97.7 86 20 155/73 (100) 97 10/14/20 07:55 96 Nasal Cannula 1.0 24 10/14/20 07:39 79 10/14/20 07:35 Nasal Cannula 2.0 10/14/20 04:00 98.2 88 32 152/88 (109) 100 10/14/20 04:00 Nasal Cannula 2.0 10/14/20 04:00 88 10/14/20 00:00 Nasal Cannula 2.0 10/14/20 00:00 99.9 69 24 102/54 (70) 100 10/14/20 00:00 71 10/13/20 21:36 88 125/61 10/13/20 20:00 99.0 83 30 125/61 (82) 100 10/13/20 20:00 86 10/13/20 20:00 Nasal Cannula 2.0 11/26/20 19:45 95 Nasal Cannula 2.0 28 10/13/20 16:26 76 10/13/20 16:00 97.0 74 18 138/69 (92) 100 10/13/20 16:00 Nasal Cannula 2.0 10/13/20 12:00 Nasal Cannula 2.0 10/13/20 11:45 61 10/13/20 11:42 96.8 60 18 92/57 (69) 100 Height (Feet): 5 Height (Inches): 4.00 Weight (Pounds): 135 HEENT: anicteric Respiratory/Chest: normal breath sounds Cardiovascular: regularly irregular Abdomen: soft, non tender Laboratory Tests Test 10/13/20 11:27 10/13/20 16:30 10/14/20 00:06 10/14/20 05:28 POC Whole Blood Glucose 102 MG/DL (74-106) 83 MG/DL (74-106) 131 MG/DL (74-106) H 158 MG/DL (74-106) H Test 10/14/20 07:17 POC Whole Blood Glucose 112 MG/DL (74-106) H Current Medications Medications (Trade) Dose Ordered Sig/Bharti Route PRN Reason Start Time Stop Time Status Last Admin Dose Admin Acetaminophen (Tylenol) 650 mg Q4H PRN GT Temp >100.5 10/03/20 17:15 11/02/20 17:14 10/08/20 00:15 Amlodipine Besylate (Norvasc) 2.5 mg BIDPRN PRN GT sbp greater than 150 10/05/20 20:30 11/04/20 20:29 Ascorbic Acid (Vitamin C) 500 mg BID GT 10/11/20 09:00 11/10/20 08:59 10/14/20 08:56 Aspirin (ASA) 81 mg DAILY GT 10/04/20 14:45 11/18/20 14:44 10/14/20 08:56 Atorvastatin Calcium (Lipitor) 20 mg BEDTIME GT 10/04/20 21:00 01/02/21 20:59 10/13/20 21:37 Dextrose (Dextrose 50%) 25 ml Q30M PRN IV Hypoglycemia 10/03/20 09:28 01/01/21 09:27 Dextrose (Dextrose 50%) 50 ml Q30M PRN IV Hypoglycemia 10/03/20 09:28 01/01/21 09:27 Docusate Sodium (Colace) 100 mg TWICE A DAY ORAL 10/11/20 18:00 11/02/20 17:59 10/14/20 08:56 Fluconazole (Diflucan) 200 mg DAILY ORAL 10/12/20 12:30 10/19/20 12:30 10/14/20 08:56 Insulin Aspart (NovoLOG) Q6HR SUBQ 10/06/20 00:00 01/01/21 11:29 10/09/20 12:02 Lorazepam (Ativan 2mg/ml 1ml) 0.5 mg Q4H PRN IV agitation 10/11/20 10:52 10/18/20 10:51 Metoprolol Tartrate (Lopressor) 25 mg Q12HR GT 10/11/20 21:00 01/09/21 20:59 10/14/20 08:56 Risperidone (RisperDAL) 1 mg DAILY NG 10/04/20 09:00 11/18/20 08:59 10/14/20 08:56 Sodium Hypochlorite (Dakin's Quarter Strength) 1 applic DAILY TOPIC 10/04/20 09:00 11/03/20 08:59 10/14/20 08:57 Zinc Sulfate (Zinc Sulfate) 220 mg DAILY GT 10/11/20 09:00 10/21/20 08:59 10/14/20 08:56 Chinmay Torres MD Oct 14, 2020 10:54
--- NOTE | 2020-10-14 11:15 | Pulmonology Progress Note ---
Subjective ROS Limited/Unobtainable: No Constitutional: Reports: no symptoms HEENT: Repors: no symptoms Respiratory: Reports: no symptoms Allergies: Coded Allergies: No Known Allergies (Unverified , 12/17/15) Objective Last 24 Hour Vital Signs Date Time Temp Pulse Resp B/P (MAP) Pulse Ox O2 Delivery O2 Flow Rate FiO2 10/14/20 08:56 86 155/73 10/14/20 08:00 97.7 86 20 155/73 (100) 97 10/14/20 07:55 96 Nasal Cannula 1.0 24 10/14/20 07:39 79 10/14/20 07:35 Nasal Cannula 2.0 10/14/20 04:00 98.2 88 32 152/88 (109) 100 10/14/20 04:00 Nasal Cannula 2.0 10/14/20 04:00 88 10/14/20 00:00 Nasal Cannula 2.0 10/14/20 00:00 99.9 69 24 102/54 (70) 100 10/14/20 00:00 71 10/13/20 21:36 88 125/61 10/13/20 20:00 99.0 83 30 125/61 (82) 100 10/13/20 20:00 86 10/13/20 20:00 Nasal Cannula 2.0 10/13/20 19:45 95 Nasal Cannula 2.0 28 10/13/20 16:26 76 10/13/20 16:00 97.0 74 18 138/69 (92) 100 10/13/20 16:00 Nasal Cannula 2.0 10/13/20 12:00 Nasal Cannula 2.0 10/13/20 11:45 61 10/13/20 11:42 96.8 60 18 92/57 (69) 100 Intake and Output 10/13/20 10/14/20 19:00 07:00 Intake Total 455.0 ml 120 ml Output Total 550 ml 450 ml Balance -95.0 ml -330 ml Intake Oral 400 ml 120 ml IV Total 55.0 ml Output Urine Total 550 ml 450 ml General Appearance: WD/WN Respiratory: chest wall non-tender, lungs clear, normal breath sounds Breasts: no masses Cardiovascular: normal peripheral pulses, normal rate Abdomen: normal bowel sounds, soft, non tender Genitourinary: normal external genitalia Extremities: no 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, no motor/sensory deficits Laboratory Tests 10/13/20 11:27: POC Whole Blood Glucose 102 10/13/20 16:30: POC Whole Blood Glucose 83 10/14/20 00:06: POC Whole Blood Glucose 131H 10/14/20 05:28: POC Whole Blood Glucose 158H 10/14/20 07:17: POC Whole Blood Glucose 112H Current Medications Medications (Trade) Dose Ordered Sig/Bharti Route PRN Reason Start Time Stop Time Status Last Admin Dose Admin Acetaminophen (Tylenol) 650 mg Q4H PRN GT Temp >100.5 10/03/20 17:15 11/02/20 17:14 10/08/20 00:15 Amlodipine Besylate (Norvasc) 2.5 mg BIDPRN PRN GT sbp greater than 150 10/05/20 20:30 11/04/20 20:29 Ascorbic Acid (Vitamin C) 500 mg BID GT 10/11/20 09:00 11/10/20 08:59 10/14/20 08:56 Aspirin (ASA) 81 mg DAILY GT 10/04/20 14:45 11/18/20 14:44 10/14/20 08:56 Atorvastatin Calcium (Lipitor) 20 mg BEDTIME GT 10/04/20 21:00 01/02/21 20:59 10/13/20 21:37 Dextrose (Dextrose 50%) 25 ml Q30M PRN IV Hypoglycemia 10/03/20 09:28 01/01/21 09:27 Dextrose (Dextrose 50%) 50 ml Q30M PRN IV Hypoglycemia 10/03/20 09:28 01/01/21 09:27 Docusate Sodium (Colace) 100 mg TWICE A DAY ORAL 10/11/20 18:00 11/02/20 17:59 10/14/20 08:56 Fluconazole (Diflucan) 200 mg DAILY ORAL 10/12/20 12:30 10/19/20 12:30 10/14/20 08:56 Insulin Aspart (NovoLOG) Q6HR SUBQ 10/06/20 00:00 01/01/21 11:29 10/09/20 12:02 Lorazepam (Ativan 2mg/ml 1ml) 0.5 mg Q4H PRN IV agitation 10/11/20 10:52 10/18/20 10:51 Metoprolol Tartrate (Lopressor) 25 mg Q12HR GT 10/11/20 21:00 01/09/21 20:59 10/14/20 08:56 Risperidone (RisperDAL) 1 mg DAILY NG 10/04/20 09:00 11/18/20 08:59 10/14/20 08:56 Sodium Hypochlorite (Dakin's Quarter Strength) 1 applic DAILY TOPIC 10/04/20 09:00 11/03/20 08:59 10/14/20 08:57 Zinc Sulfate (Zinc Sulfate) 220 mg DAILY GT 10/11/20 09:00 10/21/20 08:59 10/14/20 08:56 Assessment/Plan Problems: (1) Acute respiratory failure (2) Non-ST elevation (NSTEMI) myocardial infarction (3) COPD (chronic obstructive pulmonary disease) (4) Stage 4 decubitus ulcer (5) Severe protein-calorie malnutrition (6) Altered mental status Assessment/Plan all reviewed no new complains PT ordered on NC saturating well titrate fio2 to saturation of 92% respiratory treatment off heparin drip, keep Ecotrin f/u cardiology recommendations dvt orphylaxis aspiration precaution \ can go to med/surg if cleared by cardiology Will Quiros MD Oct 14, 2020 11:15
--- NOTE | 2020-10-14 14:00 | Surgery Progress Note ---
Surgery Progress Note Subjective Procedure Performed left femoral central venous access insertion Additional Comments leukocytosis anemia no n/v labs noted exam stable Objective Last 24 Hour Vital Signs Date Time Temp Pulse Resp B/P (MAP) Pulse Ox O2 Delivery O2 Flow Rate FiO2 10/14/20 12:00 Nasal Cannula 2.0 10/14/20 11:45 99.5 79 19 120/54 (76) 97 10/14/20 11:22 75 10/14/20 08:56 86 155/73 10/14/20 08:00 97.7 86 20 155/73 (100) 97 10/14/20 07:55 96 Nasal Cannula 1.0 24 10/14/20 07:39 79 10/14/20 07:35 Nasal Cannula 2.0 10/14/20 04:00 98.2 88 32 152/88 (109) 100 10/14/20 04:00 Nasal Cannula 2.0 10/14/20 04:00 88 10/14/20 00:00 Nasal Cannula 2.0 10/14/20 00:00 99.9 69 24 102/54 (70) 100 10/14/20 00:00 71 10/13/20 21:36 88 125/61 10/13/20 20:00 99.0 83 30 125/61 (82) 100 10/13/20 20:00 86 10/13/20 20:00 Nasal Cannula 2.0 10/13/20 19:45 95 Nasal Cannula 2.0 28 10/13/20 16:26 76 10/13/20 16:00 97.0 74 18 138/69 (92) 100 10/13/20 16:00 Nasal Cannula 2.0 I&O Intake and Output 10/13/20 10/14/20 19:00 07:00 Intake Total 455.0 ml 120 ml Output Total 550 ml 450 ml Balance -95.0 ml -330 ml Intake Oral 400 ml 120 ml IV Total 55.0 ml Output Urine Total 550 ml 450 ml Dressing: saturated Cardiovascular: RSR Respiratory: decreased breath sounds Abdomen: soft, non-tender, present bowel sounds Extremities: no tenderness, no cyanosis Laboratory Tests Test 10/13/20 16:30 10/14/20 00:06 10/14/20 05:28 10/14/20 07:17 POC Whole Blood Glucose 83 MG/DL (74-106) 131 MG/DL (74-106) H 158 MG/DL (74-106) H 112 MG/DL (74-106) H Test 10/14/20 11:40 POC Whole Blood Glucose 102 MG/DL (74-106) Plan Problems: (1) COPD (chronic obstructive pulmonary disease) (2) Acute respiratory failure Assessment & Plan: intubated on vent weaning as tolerated abg noted cont weaning pulled out her picc no iv access multiple peripheral attempts made by RN central line placed as medically necessary in ICU patient without access on drips extubated improving cont O2 (3) Syncope (4) Psychiatric disorder (5) Hyponatremia (6) UTI (urinary tract infection) (7) Stage 4 decubitus ulcer Assessment & Plan: Pt presented on admission with Full thickness sacral pressure injury with undermined borders. Base of wound has pink granulation with small amt biofilm easily removed with gentle friction during cleansing. (+) epibole along edges. No odor or exudate noted.(L)2.3cm x (W)4.5cm x (D)1cm. Undermining clockwise 12-12o'clock by 2.8cm @5o'clock. Periwound without erythema or induration. R and L heels are boggy but each heel blanches easily. Dressing is going well. We will monitor wound does not currently need active debridement. well known to me from prior unchanged stage 4 ulcer cont local care Tx.Plan: Cleanse Sacral wound with Dakin's 0.125% gilbert. Loosely pack with Dakin's moistened Kerlix. Apply Triad Paste periwound. Cover with Optifoam drsg. Twice daily and prn. Apply Cavilon Skin Barrier to Both heels. Cover each heel with Optifoam drsg.Change every 7 days and prn. APM/ABHILASH Mattress overlay. Reposition at least every 2hours or as tolerated. Off-load heels with pillow. (8) Severe protein-calorie malnutrition Assessment & Plan: ng in place once stable start tube feeds low alb bmi 23 high risk for breakdown needs nutritional optimization AILY ESTIMATED NEEDS: Needs based on Wound, Critical care 53.6kg 25-35 kcals/kg 3823-1048 total kcals 1.25-2 g protein/kg 67-107 g total protein 25-30 mL/kg 1297-7615 total fluid mLs NUTRITION DIAGNOSIS: * Increased kcal/prot needs R/T wound healing as evidenced by admitted w/ stage 4 sacral wound * Swallowing difficulty R/T respiratory failure as evidenced by pt now orally intubated with OGT feeds. CURRENT TF: Jevity 1.2 @20ml/hr ENTERAL NUTRITION RECOMMENDATIONS: Glucerna 1.2 goal of 55ml/hr x24 hrs to provide 1320ml, 1584 kcal, 79g pro, 1063ml free H2O - Rec carb control formula at this time d/t elevated BG levels (POC [id number]). - Start @low rate 25ml/hr for 6 hrs, advance as tolerated 10ml/hr q4-6 hrs to goal. - Flush per MD/ HOB over 30 degrees ADDITIONAL RECOMMENDATIONS: * Check HgA1C- pt w/ elevated BG * Re-calibrate bed scale w/ added P200 mattress * Wound care: add SUZY BID via OGT Add Vit C 250mg BID + zn so4 220mg qd x10 days * Replete lytes as needed (Low K, Phos) (9) Pulmonary edema (10) Altered mental status (11) History of hypertension (12) Alzheimer's dementia (13) Non-ST elevation (NSTEMI) myocardial infarction (14) ATN (acute tubular necrosis) Blaise Del Valle Oct 14, 2020 14:00
--- NOTE | 2020-10-14 14:21 | Internal Med Progress Note ---
Subjective Date of Service: Oct 14, 2020 Physician Name MarciCurly Attending Physician Elías Mazariegos MD Current Medications Medications (Trade) Dose Ordered Sig/Bharti Route PRN Reason Start Time Stop Time Status Last Admin Dose Admin Acetaminophen (Tylenol) 650 mg Q4H PRN GT Temp >100.5 10/03/20 17:15 11/02/20 17:14 10/08/20 00:15 Amlodipine Besylate (Norvasc) 2.5 mg BIDPRN PRN GT sbp greater than 150 10/05/20 20:30 11/04/20 20:29 Ascorbic Acid (Vitamin C) 500 mg BID GT 10/11/20 09:00 11/10/20 08:59 10/14/20 08:56 Aspirin (ASA) 81 mg DAILY GT 10/04/20 14:45 11/18/20 14:44 10/14/20 08:56 Atorvastatin Calcium (Lipitor) 20 mg BEDTIME GT 10/04/20 21:00 01/02/21 20:59 10/13/20 21:37 Dextrose (Dextrose 50%) 25 ml Q30M PRN IV Hypoglycemia 10/03/20 09:28 01/01/21 09:27 Dextrose (Dextrose 50%) 50 ml Q30M PRN IV Hypoglycemia 10/03/20 09:28 01/01/21 09:27 Docusate Sodium (Colace) 100 mg TWICE A DAY ORAL 10/11/20 18:00 11/02/20 17:59 10/14/20 08:56 Fluconazole (Diflucan) 200 mg DAILY ORAL 10/12/20 12:30 10/19/20 12:30 10/14/20 08:56 Insulin Aspart (NovoLOG) Q6HR SUBQ 10/06/20 00:00 01/01/21 11:29 10/09/20 12:02 Lorazepam (Ativan 2mg/ml 1ml) 0.5 mg Q4H PRN IV agitation 10/11/20 10:52 10/18/20 10:51 Metoprolol Tartrate (Lopressor) 25 mg Q12HR GT 10/11/20 21:00 01/09/21 20:59 10/14/20 08:56 Risperidone (RisperDAL) 1 mg DAILY NG 10/04/20 09:00 1/1/21 08:59 10/14/20 08:56 Sodium Hypochlorite (Dakin's Quarter Strength) 1 applic DAILY TOPIC 10/04/20 09:00 11/03/20 08:59 10/14/20 08:57 Zinc Sulfate (Zinc Sulfate) 220 mg DAILY GT 10/11/20 09:00 10/21/20 08:59 10/14/20 08:56 Allergies: Coded Allergies: No Known Allergies (Unverified , 12/17/15) ROS Limited/Unobtainable: No Constitutional: Reports: no symptoms HEENT: Reports: no symptoms Cardiovascular: Reports: no symptoms Respiratory: Reports: no symptoms Gastrointestinal/Abdominal: Reports: no symptoms Genitourinary: Reports: no symptoms Neurologic/Psychiatric: Reports: no symptoms Subjective 75 YO F admitted with respiratory failure. Now COPD exacerbation and UTI. Extubated 10/10/20. Cover for Int Jonathan-Dr Mazariegos. step down unit Objective Last Vital Signs Date Time Temp Pulse Resp B/P (MAP) Pulse Ox O2 Delivery O2 Flow Rate FiO2 10/14/20 12:00 Nasal Cannula 2.0 10/14/20 11:45 99.5 79 19 120/54 (76) 97 10/14/20 07:55 24 Laboratory Tests Test 10/13/20 16:30 10/14/20 00:06 10/14/20 05:28 10/14/20 07:17 POC Whole Blood Glucose 83 MG/DL (74-106) 131 MG/DL (74-106) H 158 MG/DL (74-106) H 112 MG/DL (74-106) H Test 10/14/20 11:40 POC Whole Blood Glucose 102 MG/DL (74-106) Intake and Output 10/13/20 10/14/20 19:00 07:00 Intake Total 455.0 ml 120 ml Output Total 550 ml 450 ml Balance -95.0 ml -330 ml Intake Oral 400 ml 120 ml IV Total 55.0 ml Output Urine Total 550 ml 450 ml Objective PHYSICAL EXAMINATION: GENERAL: The patient is a well-developed and well-nourished female HEENT: Eyes, pupils are equal and responsive to light and accommodation. Extraocular movements are intact. NECK: Supple without lymphadenopathy. CHEST: Nasal canula; Coarse mechanical breath sounds bilaterally without wheezes or rales. CARDIOVASCULAR: Tachycardic, regular rhythm, S1-S2 are normal without murmurs, rubs, or gallops. ABDOMEN: Soft, nontender, and nondistended. Positive bowel sounds. No evidence of hepatosplenomegaly. Currently, no rebound or guarding noted. EXTREMITIES: Negative for clubbing, cyanosis, edema. RECTAL/GENITAL: Not performed. NEUROLOGICAL: Unable to assess. Assessment/Plan Assessment/Plan ASSESSMENT: This is a 75-year-old female with: 1. Acute hypoxemic respiratory failure. 2. Altered mental status. 3. Hypertension. 4. Chronic obstructive pulmonary disease. 5. Alzheimer's dementia. 6. UTI=proteus 7. Oral candidiasis TREATMENT: 1. Acute hypoxic respiratory failure. Pulmonary/critical care = Dr. Will Quiros. The patient was extubated on 10/10/20 ABX= S/P Zosyn. S/P IV Solu-Medrol for chronic obstructive pulmonary disease acute exacerbation. Follow recommendations of Pulmonary. 2. Hypertension. The patient is currently hypotensive. 3. Chronic obstructive pulmonary disease. A Pulmonary consultation has been obtained with Dr. Will Quiros. The patient is currently receiving intravenous Solu-Medrol and albuterol/Atrovent nebulized q.4 h. p.r.n. We will follow recommendations of Pulmonary. 4. Alzheimer's dementia. 5. oral fluconazole for 2 weeks Curly Covarrubias MD Oct 14, 2020 14:20
--- NOTE | 2020-10-14 15:17 | Cardiology Progress Note ---
Assessment/Plan Assessment/Plan 1. Altered mental status. 2. Baseline dementia. 3. Nsx-RK-rltawkgeh myocardial infarction. 4. Respiratory failure, status post intubation. 5. COPD history. 6. Renal insufficiency 7. bacteremia tele sinus pac on norvas ekg reordered off heparin keep on Ecotrin the chronicity of the t wave inversion is not clear communicates some but not oriented med management trop is neg on bb and statin Subjective Cardiovascular: Denies: chest pain, lightheadedness, palpitations Respiratory: Denies: shortness of breath Gastrointestinal/Abdominal: Denies: abdominal pain Genitourinary: Denies: burning Objective Last 24 Hour Vital Signs Date Time Temp Pulse Resp B/P (MAP) Pulse Ox O2 Delivery O2 Flow Rate FiO2 10/14/20 12:00 Nasal Cannula 2.0 10/14/20 11:45 99.5 79 19 120/54 (76) 97 10/14/20 11:22 75 10/14/20 08:56 86 155/73 10/14/20 08:00 97.7 86 20 155/73 (100) 97 10/14/20 07:55 96 Nasal Cannula 1.0 24 10/14/20 07:39 79 10/14/20 07:35 Nasal Cannula 2.0 10/14/20 04:00 98.2 88 32 152/88 (109) 100 10/14/20 04:00 Nasal Cannula 2.0 10/14/20 04:00 88 10/14/20 00:00 Nasal Cannula 2.0 10/14/20 00:00 99.9 69 24 102/54 (70) 100 10/14/20 00:00 71 10/13/20 21:36 88 125/61 10/13/20 20:00 99.0 83 30 125/61 (82) 100 10/13/20 20:00 86 10/13/20 20:00 Nasal Cannula 2.0 10/13/20 19:45 95 Nasal Cannula 2.0 28 10/13/20 16:26 76 10/13/20 16:00 97.0 74 18 138/69 (92) 100 10/13/20 16:00 Nasal Cannula 2.0 General Appearance: no apparent distress, alert Cardiovascular: normal rate, regular rhythm Respiratory/Chest: lungs clear Abdomen: normal bowel sounds, non tender, soft Extremities: no swelling Intake and Output 10/13/20 10/14/20 19:00 07:00 Intake Total 455.0 ml 120 ml Output Total 550 ml 450 ml Balance -95.0 ml -330 ml Intake Oral 400 ml 120 ml IV Total 55.0 ml Output Urine Total 550 ml 450 ml Laboratory Tests Test 10/13/20 16:30 10/14/20 00:06 10/14/20 05:28 10/14/20 07:17 POC Whole Blood Glucose 83 MG/DL (74-106) 131 MG/DL (74-106) H 158 MG/DL (74-106) H 112 MG/DL (74-106) H Test 10/14/20 11:40 POC Whole Blood Glucose 102 MG/DL (74-106) Laurent Ramesh MD Oct 14, 2020 15:17
[2020-10-14] MEDS: Atorvastatin 20mg tab GT SCH (20:17)
[2020-10-15] VITALS: BP 147/92
[2020-10-15] MEDS: NovoLOG Insulin Flexpen SUBQ SCH ×5 (00:34→21:00)
[2020-10-15 06:09] LABS: HEMATOCRIT 31.8 % (37.0-47.0); HEMOGLOBIN 10.5 G/DL (12.0-16.0); MEAN CORPUSCULAR VOLUME 83 FL (80-99); PLATELET COUNT 331 K/UL (150-450); RED BLOOD COUNT 3.83 M/UL (4.20-5.40); RED CELL DISTRIBUTION WIDTH 17.5 % (11.6-14.8)
[2020-10-15 06:23] LABS: WHITE BLOOD COUNT 22.3 K/UL (4.8-10.8)
[2020-10-15 06:34] LABS: ANION GAP 8 mmol/L (5-15); BLOOD UREA NITROGEN 21 mg/dL (7-18); CARBON DIOXIDE 28 MMOL/L (21-32); CHLORIDE 110 MMOL/L (98-107); CREATININE 0.6 MG/DL (0.55-1.30); POTASSIUM 3.5 MMOL/L (3.5-5.1); SODIUM 146 MMOL/L (136-145)
[2020-10-15 08:30] VITALS: BP 166/82
[2020-10-15] MEDS: Aspirin Baby 81mg GT SCH (08:33)
[2020-10-15] MEDS: Ascorbic Acid 500mg tab GT SCH ×2 (08:34→18:37)
[2020-10-15] MEDS: Metoprolol Tartrate 12.5mg TAB GT SCH ×2 (08:34→21:52)
[2020-10-15] MEDS: Zinc Sulfate 220mg GT SCH (08:34)
[2020-10-15] MEDS: Fluconazole 100mg tab ORAL SCH (08:35)
[2020-10-15] MEDS: Docusate 100mg/10ml Liq ORAL SCH ×2 (08:35→18:37)
--- NOTE | 2020-10-15 09:16 | Infectious Diseases Prog Note ---
Assessment/Plan 75yo F with: Afebrile, Tmax 99.7 --> Febrile to 102 Leukolysis, persistent Acute hypoxic resp failure, SP intubation 10/03 COPD Non-verbal at baseline UTI, sp Rx GPC bacteremia, m/l contaminant 10/03 BCx +1/2 Staph hominis, m/l skin contaminant UA 10-15 WBC, UCx >100k P.mirabilis (S-CTX, R-bactrim) Resp cx p COVID rapid Ag neg Flu neg MRSA nares neg CXR: No focal consolidation, pleural effusion, or pneumothorax. Mild emphysema with increased interstitial markings. Cardiomegaly. Calcified aorta. 10/04 COVID rapid Ag neg 10/05 BCx NTD 10/07 CXR: 1. Overall similar appearing study. Dementia Alzheimer's SN[facility] resident Plan: Monitor Clinical state and WBCs f/u Blood Cx Continue to monitor pt off of AB Rx 10/12 Sp Zosyn #10 / 10 10/07 SP vanco IV #4 empiric Monitor CBC/CMP Monitor temp curve, hemodynamics Monitor resp status D/w RN Thank you for this consult. [facility] will continue to follow. Subjective Allergies: Coded Allergies: No Known Allergies (Unverified , 12/17/15) Afebrile Leukoctyosis increased today Clinically stable on 1L NC Objective Last 24 Hour Vital Signs Date Time Temp Pulse Resp B/P (MAP) Pulse Ox O2 Delivery O2 Flow Rate FiO2 10/15/20 08:34 101 166/82 10/15/20 08:30 97.7 101 20 166/82 (110) 97 10/15/20 07:57 97 Nasal Cannula 1.0 24 10/15/20 00:00 99.7 88 20 147/92 (110) 94 10/14/20 21:00 Nasal Cannula 2.0 10/14/20 20:17 69 181/79 10/14/20 20:00 98.1 63 24 157/76 (103) 93 10/14/20 19:11 96 Nasal Cannula 1.0 24 10/14/20 18:50 69 181/79 10/14/20 18:30 97.8 103 21 187/88 (121) 98 10/14/20 16:00 98.1 67 18 123/61 (81) 98 10/14/20 15:43 Nasal Cannula 2.0 10/14/20 15:37 92 10/14/20 12:00 Nasal Cannula 2.0 10/14/20 11:45 99.5 79 19 120/54 (76) 97 10/14/20 11:22 75 Height (Feet): 5 Height (Inches): 4.00 Weight (Pounds): 135 GEN: NAD HEENT: NCAT, MMM, EOMI Chest: RRR, no respiratory distress Abdomen: soft, ND Laboratory Tests Test 10/14/20 11:40 10/14/20 16:30 10/15/20 00:33 10/15/20 05:24 POC Whole Blood Glucose 102 MG/DL (74-106) 103 MG/DL (74-106) 143 MG/DL (74-106) H 154 MG/DL (74-106) H Test 10/15/20 05:35 White Blood Count 22.3 K/UL (4.8-10.8) *H Red Blood Count 3.83 M/UL (4.20-5.40) L Hemoglobin 10.5 G/DL (12.0-16.0) L Hematocrit 31.8 % (37.0-47.0) L Mean Corpuscular Volume 83 FL (80-99) Mean Corpuscular Hemoglobin 27.3 PG (27.0-31.0) Mean Corpuscular Hemoglobin Concent 33.0 G/DL (32.0-36.0) Red Cell Distribution Width 17.5 % (11.6-14.8) H Platelet Count 331 K/UL (150-450) Mean Platelet Volume 8.6 FL (6.5-10.1) Neutrophils (%) (Auto) % (45.0-75.0) Lymphocytes (%) (Auto) % (20.0-45.0) Monocytes (%) (Auto) % (1.0-10.0) Eosinophils (%) (Auto) % (0.0-3.0) Basophils (%) (Auto) % (0.0-2.0) Neutrophils % (Manual) Pending Lymphocytes % (Manual) Pending Platelet Estimate Pending Platelet Morphology Pending Sodium Level 146 MMOL/L (136-145) H Potassium Level 3.5 MMOL/L (3.5-5.1) Chloride Level 110 MMOL/L (98-107) H Carbon Dioxide Level 28 MMOL/L (21-32) Anion Gap 8 mmol/L (5-15) Blood Urea Nitrogen 21 mg/dL (7-18) H Creatinine 0.6 MG/DL (0.55-1.30) Estimat Glomerular Filtration Rate > 60 mL/min (>60) Glucose Level 138 MG/DL (74-106) H Calcium Level 9.0 MG/DL (8.5-10.1) Current Medications Medications (Trade) Dose Ordered Sig/Bharti Route PRN Reason Start Time Stop Time Status Last Admin Dose Admin Acetaminophen (Tylenol) 650 mg Q4H PRN GT Temp >100.5 10/03/20 17:15 11/02/20 17:14 10/08/20 00:15 Amlodipine Besylate (Norvasc) 2.5 mg BIDPRN PRN GT sbp greater than 150 10/05/20 20:30 11/04/20 20:29 10/14/20 18:50 Ascorbic Acid (Vitamin C) 500 mg BID GT 10/11/20 09:00 11/10/20 08:59 10/15/20 08:34 Aspirin (ASA) 81 mg DAILY GT 10/04/20 14:45 11/18/20 14:44 10/15/20 08:33 Atorvastatin Calcium (Lipitor) 20 mg BEDTIME GT 10/04/20 21:00 01/02/21 20:59 10/14/20 20:17 Dextrose (Dextrose 50%) 25 ml Q30M PRN IV Hypoglycemia 10/15/20 04:00 01/13/21 03:59 Dextrose (Dextrose 50%) 50 ml Q30M PRN IV Hypoglycemia 10/15/20 04:00 01/13/21 03:59 Docusate Sodium (Colace) 100 mg TWICE A DAY ORAL 10/11/20 18:00 11/02/20 17:59 10/15/20 08:35 Fluconazole (Diflucan) 200 mg DAILY ORAL 10/12/20 12:30 10/19/20 12:30 10/15/20 08:35 Insulin Aspart (NovoLOG) AC+HS SUBQ 10/15/20 06:30 01/01/21 11:29 10/15/20 05:35 Lorazepam (Ativan 2mg/ml 1ml) 0.5 mg Q4H PRN IV agitation 10/11/20 10:52 10/18/20 10:51 Metoprolol Tartrate (Lopressor) 25 mg Q12HR GT 10/11/20 21:00 01/09/21 20:59 10/15/20 08:34 Risperidone (RisperDAL) 1 mg DAILY NG 10/04/20 09:00 11/18/20 08:59 10/15/20 08:34 Sodium Hypochlorite (Dakin's Quarter Strength) 1 applic DAILY TOPIC 10/04/20 09:00 11/03/20 08:59 10/14/20 08:57 Zinc Sulfate (Zinc Sulfate) 220 mg DAILY GT 10/11/20 09:00 10/21/20 08:59 10/15/20 08:34 Boubacar Vick MD Oct 15, 2020 09:16
[2020-10-15 12:00] VITALS: BP 164/66
--- NOTE | 2020-10-15 13:24 | Cardiology Progress Note ---
Assessment/Plan Assessment/Plan 1. Altered mental status. 2. Baseline dementia. 3. Lmi-NY-sozkpuvzb myocardial infarction. 4. Respiratory failure, status post intubation. 5. COPD history. 6. Renal insufficiency 7. bacteremia off tele on norvasc bp is higher will increase blanca dose off heparin keep on Ecotrin the chronicity of the t wave inversion is not clear communicates some but not oriented med management on bb and statin wbc increased cxr in am Objective Last 24 Hour Vital Signs Date Time Temp Pulse Resp B/P (MAP) Pulse Ox O2 Delivery O2 Flow Rate FiO2 10/15/20 10:33 Nasal Cannula 2.0 10/15/20 08:34 101 166/82 10/15/20 08:30 97.7 101 20 166/82 (110) 97 10/15/20 07:57 97 Nasal Cannula 1.0 24 10/15/20 00:00 99.7 88 20 147/92 (110) 94 10/14/20 21:00 Nasal Cannula 2.0 10/14/20 20:17 69 181/79 10/14/20 20:00 98.1 63 24 157/76 (103) 93 10/14/20 19:11 96 Nasal Cannula 1.0 24 10/14/20 18:50 69 181/79 10/14/20 18:30 97.8 103 21 187/88 (121) 98 10/14/20 16:00 98.1 67 18 123/61 (81) 98 10/14/20 15:43 Nasal Cannula 2.0 10/14/20 15:37 92 Intake and Output 10/14/20 10/15/20 19:00 07:00 Intake Total 400 ml 120 ml Output Total 700 ml 1250 ml Balance -300 ml -1130 ml Intake Oral 400 ml 120 ml Output Urine Total 700 ml 1250 ml Laboratory Tests Test 10/14/20 16:30 10/15/20 00:33 10/15/20 05:24 10/15/20 05:35 POC Whole Blood Glucose 103 MG/DL (74-106) 143 MG/DL (74-106) H 154 MG/DL (74-106) H White Blood Count 22.3 K/UL (4.8-10.8) *H Red Blood Count 3.83 M/UL (4.20-5.40) L Hemoglobin 10.5 G/DL (12.0-16.0) L Hematocrit 31.8 % (37.0-47.0) L Mean Corpuscular Volume 83 FL (80-99) Mean Corpuscular Hemoglobin 27.3 PG (27.0-31.0) Mean Corpuscular Hemoglobin Concent 33.0 G/DL (32.0-36.0) Red Cell Distribution Width 17.5 % (11.6-14.8) H Platelet Count 331 K/UL (150-450) Mean Platelet Volume 8.6 FL (6.5-10.1) Neutrophils (%) (Auto) % (45.0-75.0) Lymphocytes (%) (Auto) % (20.0-45.0) Monocytes (%) (Auto) % (1.0-10.0) Eosinophils (%) (Auto) % (0.0-3.0) Basophils (%) (Auto) % (0.0-2.0) Differential Total Cells Counted 100 Neutrophils % (Manual) 83 % (45-75) H Lymphocytes % (Manual) 9 % (20-45) L Monocytes % (Manual) 6 % (1-10) Eosinophils % (Manual) 0 % (0-3) Basophils % (Manual) 0 % (0-2) Myelocytes % 1 % (0-0) H Band Neutrophils 1 % (0-8) Platelet Estimate Adequate Platelet Morphology Normal Anisocytosis 1+ Sodium Level 146 MMOL/L (136-145) H Potassium Level 3.5 MMOL/L (3.5-5.1) Chloride Level 110 MMOL/L (98-107) H Carbon Dioxide Level 28 MMOL/L (21-32) Anion Gap 8 mmol/L (5-15) Blood Urea Nitrogen 21 mg/dL (7-18) H Creatinine 0.6 MG/DL (0.55-1.30) Estimat Glomerular Filtration Rate > 60 mL/min (>60) Glucose Level 138 MG/DL (74-106) H Calcium Level 9.0 MG/DL (8.5-10.1) Test 10/15/20 11:36 POC Whole Blood Glucose 89 MG/DL (74-106) Laurent Ramesh MD Oct 15, 2020 13:24
[2020-10-15] MEDS ORDERED: Tubing IV Secondary IV ONE (13:26)
[2020-10-15] MEDS ORDERED: NS 275ml ONE (13:26)
[2020-10-15] MEDS: Dakin's 0.125% Soln (Quarter Strength) 16oz TOPIC SCH (14:12)
--- NOTE | 2020-10-15 14:47 | Surgery Progress Note ---
Surgery Progress Note Subjective Procedure Performed left femoral central venous access insertion Additional Comments no acute events Objective Last 24 Hour Vital Signs Date Time Temp Pulse Resp B/P (MAP) Pulse Ox O2 Delivery O2 Flow Rate FiO2 10/15/20 12:00 97.3 80 18 164/66 (98) 100 10/15/20 10:33 Nasal Cannula 2.0 10/15/20 08:34 101 166/82 10/15/20 08:30 97.7 101 20 166/82 (110) 97 10/15/20 07:57 97 Nasal Cannula 1.0 24 10/15/20 00:00 99.7 88 20 147/92 (110) 94 10/14/20 21:00 Nasal Cannula 2.0 10/14/20 20:17 69 181/79 10/14/20 20:00 98.1 63 24 157/76 (103) 93 10/14/20 19:11 96 Nasal Cannula 1.0 24 10/14/20 18:50 69 181/79 10/14/20 18:30 97.8 103 21 187/88 (121) 98 10/14/20 16:00 98.1 67 18 123/61 (81) 98 10/14/20 15:43 Nasal Cannula 2.0 10/14/20 15:37 92 I&O Intake and Output 10/14/20 10/15/20 19:00 07:00 Intake Total 400 ml 120 ml Output Total 700 ml 1250 ml Balance -300 ml -1130 ml Intake Oral 400 ml 120 ml Output Urine Total 700 ml 1250 ml Dressing: other Wound: other Cardiovascular: RSR Respiratory: decreased breath sounds Abdomen: soft, present bowel sounds Extremities: no tenderness, no cyanosis Laboratory Tests Test 10/14/20 16:30 10/15/20 00:33 10/15/20 05:24 10/15/20 05:35 POC Whole Blood Glucose 103 MG/DL (74-106) 143 MG/DL (74-106) H 154 MG/DL (74-106) H White Blood Count 22.3 K/UL (4.8-10.8) *H Red Blood Count 3.83 M/UL (4.20-5.40) L Hemoglobin 10.5 G/DL (12.0-16.0) L Hematocrit 31.8 % (37.0-47.0) L Mean Corpuscular Volume 83 FL (80-99) Mean Corpuscular Hemoglobin 27.3 PG (27.0-31.0) Mean Corpuscular Hemoglobin Concent 33.0 G/DL (32.0-36.0) Red Cell Distribution Width 17.5 % (11.6-14.8) H Platelet Count 331 K/UL (150-450) Mean Platelet Volume 8.6 FL (6.5-10.1) Neutrophils (%) (Auto) % (45.0-75.0) Lymphocytes (%) (Auto) % (20.0-45.0) Monocytes (%) (Auto) % (1.0-10.0) Eosinophils (%) (Auto) % (0.0-3.0) Basophils (%) (Auto) % (0.0-2.0) Differential Total Cells Counted 100 Neutrophils % (Manual) 83 % (45-75) H Lymphocytes % (Manual) 9 % (20-45) L Monocytes % (Manual) 6 % (1-10) Eosinophils % (Manual) 0 % (0-3) Basophils % (Manual) 0 % (0-2) Myelocytes % 1 % (0-0) H Band Neutrophils 1 % (0-8) Platelet Estimate Adequate Platelet Morphology Normal Anisocytosis 1+ Sodium Level 146 MMOL/L (136-145) H Potassium Level 3.5 MMOL/L (3.5-5.1) Chloride Level 110 MMOL/L (98-107) H Carbon Dioxide Level 28 MMOL/L (21-32) Anion Gap 8 mmol/L (5-15) Blood Urea Nitrogen 21 mg/dL (7-18) H Creatinine 0.6 MG/DL (0.55-1.30) Estimat Glomerular Filtration Rate > 60 mL/min (>60) Glucose Level 138 MG/DL (74-106) H Calcium Level 9.0 MG/DL (8.5-10.1) Test 10/15/20 11:36 POC Whole Blood Glucose 89 MG/DL (74-106) Plan Problems: (1) COPD (chronic obstructive pulmonary disease) (2) Acute respiratory failure Assessment & Plan: intubated on vent weaning as tolerated abg noted cont weaning pulled out her picc no iv access multiple peripheral attempts made by RN central line placed as medically necessary in ICU patient without access on drips extubated improving cont O2 (3) Syncope (4) Psychiatric disorder (5) Hyponatremia (6) UTI (urinary tract infection) (7) Stage 4 decubitus ulcer Assessment & Plan: Pt presented on admission with Full thickness sacral pressure injury with undermined borders. Base of wound has pink granulation with small amt biofilm easily removed with gentle friction during cleansing. (+) epibole along edges. No odor or exudate noted.(L)2.3cm x (W)4.5cm x (D)1cm. Undermining clockwise 12-12o'clock by 2.8cm @5o'clock. Periwound without erythema or induration. R and L heels are boggy but each heel blanches easily. Dressing is going well. We will monitor wound does not currently need active debridement. well known to me from prior unchanged stage 4 ulcer cont local care Tx.Plan: Cleanse Sacral wound with Dakin's 0.125% gilbert. Loosely pack with Dakin's moistened Kerlix. Apply Triad Paste periwound. Cover with Optifoam drsg. Twice daily and prn. Apply Cavilon Skin Barrier to Both heels. Cover each heel with Optifoam drsg.Change every 7 days and prn. APM/ABHILASH Mattress overlay. Reposition at least every 2hours or as tolerated. Off-load heels with pillow. (8) Severe protein-calorie malnutrition Assessment & Plan: ng in place once stable start tube feeds low alb bmi 23 high risk for breakdown needs nutritional optimization AILY ESTIMATED NEEDS: Needs based on Wound, Critical care 53.6kg 25-35 kcals/kg 4750-4655 total kcals 1.25-2 g protein/kg 67-107 g total protein 25-30 mL/kg 1259-8585 total fluid mLs NUTRITION DIAGNOSIS: * Increased kcal/prot needs R/T wound healing as evidenced by admitted w/ stage 4 sacral wound * Swallowing difficulty R/T respiratory failure as evidenced by pt now orally intubated with OGT feeds. CURRENT TF: Jevity 1.2 @20ml/hr ENTERAL NUTRITION RECOMMENDATIONS: Glucerna 1.2 goal of 55ml/hr x24 hrs to provide 1320ml, 1584 kcal, 79g pro, 1063ml free H2O - Rec carb control formula at this time d/t elevated BG levels (POC [phone]). - Start @low rate 25ml/hr for 6 hrs, advance as tolerated 10ml/hr q4-6 hrs to goal. - Flush per MD/ HOB over 30 degrees ADDITIONAL RECOMMENDATIONS: * Check HgA1C- pt w/ elevated BG * Re-calibrate bed scale w/ added P200 mattress * Wound care: add SUZY BID via OGT Add Vit C 250mg BID + zn so4 220mg qd x10 days * Replete lytes as needed (Low K, Phos) (9) Pulmonary edema (10) Altered mental status (11) History of hypertension (12) Alzheimer's dementia (13) Non-ST elevation (NSTEMI) myocardial infarction (14) ATN (acute tubular necrosis) Blaise Del Valle Oct 15, 2020 14:47
[2020-10-15 16:00] VITALS: BP 128/55
--- NOTE | 2020-10-15 18:49 | Pulmonology Progress Note ---
Subjective ROS Limited/Unobtainable: No Constitutional: Reports: no symptoms HEENT: Repors: no symptoms Respiratory: Reports: no symptoms Allergies: Coded Allergies: No Known Allergies (Unverified , 12/17/15) Objective Last 24 Hour Vital Signs Date Time Temp Pulse Resp B/P (MAP) Pulse Ox O2 Delivery O2 Flow Rate FiO2 10/15/20 16:00 97.7 88 19 128/55 (79) 95 10/15/20 12:00 97.3 80 18 164/66 (98) 100 10/15/20 10:33 Nasal Cannula 2.0 10/15/20 08:34 101 166/82 10/15/20 08:30 97.7 101 20 166/82 (110) 97 10/15/20 07:57 97 Nasal Cannula 1.0 24 10/15/20 00:00 99.7 88 20 147/92 (110) 94 10/14/20 21:00 Nasal Cannula 2.0 10/14/20 20:17 69 181/79 10/14/20 20:00 98.1 63 24 157/76 (103) 93 10/14/20 19:11 96 Nasal Cannula 1.0 24 10/14/20 18:50 69 181/79 Intake and Output 10/14/20 10/15/20 19:00 07:00 Intake Total 400 ml 120 ml Output Total 700 ml 1250 ml Balance -300 ml -1130 ml Intake Oral 400 ml 120 ml Output Urine Total 700 ml 1250 ml General Appearance: WD/WN Respiratory: chest wall non-tender, lungs clear, normal breath sounds Breasts: no masses Cardiovascular: normal peripheral pulses, normal rate Abdomen: normal bowel sounds, soft, non tender Genitourinary: normal external genitalia Extremities: no cyanosis 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, no motor/sensory deficits Laboratory Tests 10/15/20 00:33: POC Whole Blood Glucose 143H 10/15/20 05:24: POC Whole Blood Glucose 154H 10/15/20 05:35: White Blood Count 22.3*H, Red Blood Count 3.83L, Hemoglobin 10.5L, Hematocrit 31.8L, Mean Corpuscular Volume 83, Mean Corpuscular Hemoglobin 27.3, Mean Corpuscular Hemoglobin Concent 33.0, Red Cell Distribution Width 17.5H, Platelet Count 331, Mean Platelet Volume 8.6, Neutrophils (%) (Auto) , Lymphocytes (%) (Auto) , Monocytes (%) (Auto) , Eosinophils (%) (Auto) , Basophils (%) (Auto) , Differential Total Cells Counted 100, Neutrophils % (Manual) 83H, Lymphocytes % (Manual) 9L, Monocytes % (Manual) 6, Eosinophils % (Manual) 0, Basophils % (Manual) 0, Myelocytes % 1H, Band Neutrophils 1, Platelet Estimate Adequate, P latelet Morphology Normal, Anisocytosis 1+, Sodium Level 146H, Potassium Level 3.5, Chloride Level 110H, Carbon Dioxide Level 28, Anion Gap 8, Blood Urea Nitrogen 21H, Creatinine 0.6, Estimat Glomerular Filtration Rate > 60, Glucose Level 138H, Calcium Level 9.0 10/15/20 11:36: POC Whole Blood Glucose 89 10/15/20 17:07: POC Whole Blood Glucose 136H Current Medications Medications (Trade) Dose Ordered Sig/Bharti Route PRN Reason Start Time Stop Time Status Last Admin Dose Admin Acetaminophen (Tylenol) 650 mg Q4H PRN GT Temp >100.5 10/03/20 17:15 11/02/20 17:14 10/08/20 00:15 Amlodipine Besylate (Norvasc) 2.5 mg BIDPRN PRN GT sbp greater than 150 10/05/20 20:30 11/04/20 20:29 10/14/20 18:50 Ascorbic Acid (Vitamin C) 500 mg BID GT 10/11/20 09:00 11/10/20 08:59 10/15/20 18:37 Aspirin (ASA) 81 mg DAILY GT 10/04/20 14:45 11/18/20 14:44 10/15/20 08:33 Atorvastatin Calcium (Lipitor) 20 mg BEDTIME GT 10/04/20 21:00 01/02/21 20:59 10/14/20 20:17 Dextrose (Dextrose 50%) 25 ml Q30M PRN IV Hypoglycemia 10/15/20 04:00 01/13/21 03:59 Dextrose (Dextrose 50%) 50 ml Q30M PRN IV Hypoglycemia 10/15/20 04:00 01/13/21 03:59 Docusate Sodium (Colace) 100 mg TWICE A DAY ORAL 10/11/20 18:00 11/02/20 17:59 10/15/20 18:37 Fluconazole (Diflucan) 200 mg DAILY ORAL 10/12/20 12:30 10/19/20 12:30 10/15/20 08:35 Insulin Aspart (NovoLOG) AC+HS SUBQ 10/15/20 06:30 01/01/21 11:29 10/15/20 05:35 Lorazepam (Ativan 2mg/ml 1ml) 0.5 mg Q4H PRN IV agitation 10/11/20 10:52 10/18/20 10:51 Metoprolol Tartrate (Lopressor) 25 mg Q12HR GT 10/11/20 21:00 01/09/21 20:59 10/15/20 08:34 Risperidone (RisperDAL) 1 mg DAILY NG 10/04/20 09:00 11/18/20 08:59 10/15/20 08:34 Sodium Hypochlorite (Dakin's Quarter Strength) 1 applic DAILY TOPIC 10/04/20 09:00 11/03/20 08:59 10/15/20 14:12 Zinc Sulfate (Zinc Sulfate) 220 mg DAILY GT 10/11/20 09:00 10/21/20 08:59 10/15/20 08:34 Assessment/Plan Problems: (1) Non-ST elevation (NSTEMI) myocardial infarction (2) COPD (chronic obstructive pulmonary disease) (3) Stage 4 decubitus ulcer (4) Severe protein-calorie malnutrition (5) Altered mental status Assessment/Plan all reviewed no new complains PT ordered on NC saturating well titrate fio2 to saturation of 92% respiratory treatment off heparin drip, keep Ecotrin f/u cardiology recommendations dvt orphylaxis aspiration precaution Will Quiros MD Oct 15, 2020 18:49
[2020-10-15] MEDS: Atorvastatin 20mg tab GT SCH (21:52)
[2020-10-16] VITALS: BP 148/78
[2020-10-16 04:00] VITALS: BP 150/75
[2020-10-16] MEDS: NovoLOG Insulin Flexpen SUBQ SCH ×4 (06:30→20:18)
[2020-10-16 07:05] LABS: BASOPHILS % (AUTO) 0.8 % (0.0-2.0); EOSINOPHILS % (AUTO) 1.9 % (0.0-3.0); HEMATOCRIT 29.7 % (37.0-47.0); HEMOGLOBIN 9.7 G/DL (12.0-16.0); LYMPHOCYTES % (AUTO) 9.8 % (20.0-45.0); MEAN CORPUSCULAR VOLUME 83 FL (80-99); NEUTROPHILS % (AUTO) 80.4 % (45.0-75.0); PLATELET COUNT 340 K/UL (150-450); RED BLOOD COUNT 3.57 M/UL (4.20-5.40); RED CELL DISTRIBUTION WIDTH 17.1 % (11.6-14.8); WHITE BLOOD COUNT 17.7 K/UL (4.8-10.8)
[2020-10-16 07:27] LABS: BLOOD UREA NITROGEN 21 mg/dL (7-18); CALCIUM 9.5 MG/DL (8.5-10.1); CREATININE 0.6 MG/DL (0.55-1.30)
[2020-10-16 07:39] LABS: ANION GAP 6 mmol/L (5-15); CARBON DIOXIDE 31 MMOL/L (21-32); CHLORIDE 109 MMOL/L (98-107); POTASSIUM 3.8 MMOL/L (3.5-5.1); SODIUM 146 MMOL/L (136-145)
[2020-10-16 08:00] VITALS: BP_SYST 152; BP_SYST 153; BP_DIAS 88
[2020-10-16] MEDS: Dakin's 0.125% Soln (Quarter Strength) 16oz TOPIC SCH (09:00)
[2020-10-16] MEDS: Aspirin Baby 81mg GT SCH (10:19)
[2020-10-16] MEDS: Metoprolol Tartrate 12.5mg TAB GT SCH ×2 (10:19→20:02)
--- NOTE | 2020-10-16 10:19 | Diagnostic Imaging Report ---
EXAM: XR Chest, 1 View CLINICAL HISTORY: TACHYP TECHNIQUE: Frontal view of the chest. COMPARISON: Chest x-ray 10/11/20 FINDINGS: Lungs: Mild central vascular congestion. No focal infiltrate or consolidation. Pleural space: Unremarkable. No pneumothorax. Heart: Unremarkable. No cardiomegaly. Mediastinum: Unremarkable. Bones/joints: Unremarkable. IMPRESSION: Mild central vascular congestion. No focal infiltrate or consolidation.
[2020-10-16] MEDS: Ascorbic Acid 500mg tab GT SCH ×2 (10:20→19:11)
[2020-10-16] MEDS: Zinc Sulfate 220mg GT SCH (10:20)
[2020-10-16] MEDS: Docusate 100mg/10ml Liq ORAL SCH ×2 (10:20→19:11)
[2020-10-16] MEDS: Fluconazole 100mg tab ORAL SCH (10:21)
[2020-10-16 12:00] VITALS: BP 149/70
--- NOTE | 2020-10-16 14:32 | Cardiology Progress Note ---
Assessment/Plan Assessment/Plan 1. Altered mental status. 2. Baseline dementia. 3. [id number] myocardial infarction. 4. Respiratory failure, status post intubation. 5. COPD history. 6. Renal insufficiency 7. bacteremia off tele norvasc off heparin keep on Ecotrin the chronicity of the t wave inversion is not clear communicates some but not oriented med management on bb and statin cxr ntoed one dose of lasix today Subjective Cardiovascular: Denies: chest pain, lightheadedness, palpitations Objective Last 24 Hour Vital Signs Date Time Temp Pulse Resp B/P (MAP) Pulse Ox O2 Delivery O2 Flow Rate FiO2 10/16/20 10:19 101 149/89 10/16/20 09:00 Nasal Cannula 2.0 10/16/20 08:00 97.1 84 19 152/88 (109) 96 10/16/20 07:30 94 Nasal Cannula 2.0 28 10/16/20 04:00 96.9 82 20 150/75 (100) 92 10/16/20 00:00 98.2 94 24 148/78 (101) 95 10/15/20 21:52 95 154/72 10/15/20 21:00 Nasal Cannula 2.0 10/15/20 20:15 99.7 10/15/20 19:50 96 Nasal Cannula 2.0 28 10/15/20 16:00 97.7 88 19 128/55 (79) 95 General Appearance: no apparent distress Intake and Output 10/15/20 10/16/20 19:00 07:00 Intake Total 720 ml 480 ml Output Total 500 ml 3 ml Balance 220 ml 477 ml Intake Oral 720 ml 480 ml Output Urine Total 500 ml 3 ml Laboratory Tests Test 10/15/20 17:07 10/15/20 22:30 10/16/20 05:34 10/16/20 05:35 POC Whole Blood Glucose 136 MG/DL (74-106) H Pending Pending White Blood Count 17.7 K/UL (4.8-10.8) H Red Blood Count 3.57 M/UL (4.20-5.40) L Hemoglobin 9.7 G/DL (12.0-16.0) L Hematocrit 29.7 % (37.0-47.0) L Mean Corpuscular Volume 83 FL (80-99) Mean Corpuscular Hemoglobin 27.2 PG (27.0-31.0) Mean Corpuscular Hemoglobin Concent 32.7 G/DL (32.0-36.0) Red Cell Distribution Width 17.1 % (11.6-14.8) H Platelet Count 340 K/UL (150-450) Mean Platelet Volume 8.6 FL (6.5-10.1) Neutrophils (%) (Auto) 80.4 % (45.0-75.0) H Lymphocytes (%) (Auto) 9.8 % (20.0-45.0) L Monocytes (%) (Auto) 7.0 % (1.0-10.0) Eosinophils (%) (Auto) 1.9 % (0.0-3.0) Basophils (%) (Auto) 0.8 % (0.0-2.0) Sodium Level 146 MMOL/L (136-145) H Potassium Level 3.8 MMOL/L (3.5-5.1) Chloride Level 109 MMOL/L (98-107) H Carbon Dioxide Level 31 MMOL/L (21-32) Anion Gap 6 mmol/L (5-15) Blood Urea Nitrogen 21 mg/dL (7-18) H Creatinine 0.6 MG/DL (0.55-1.30) Estimat Glomerular Filtration Rate > 60 mL/min (>60) Glucose Level 123 MG/DL (74-106) H Calcium Level 9.5 MG/DL (8.5-10.1) Pro-B-Type Natriuretic Peptide 663 pg/mL (0-125) H Test 10/16/20 11:54 POC Whole Blood Glucose 135 MG/DL (74-106) H Laurent Ramesh MD Oct 16, 2020 14:32
--- NOTE | 2020-10-16 14:55 | Surgery Progress Note ---
Surgery Progress Note Subjective Procedure Performed left femoral central venous access insertion Additional Comments No acute events comfortable labs noted imaging reviewed Objective Last 24 Hour Vital Signs Date Time Temp Pulse Resp B/P (MAP) Pulse Ox O2 Delivery O2 Flow Rate FiO2 10/16/20 10:19 101 149/89 10/16/20 09:00 Nasal Cannula 2.0 10/16/20 08:00 97.1 84 19 152/88 (109) 96 10/16/20 07:30 94 Nasal Cannula 2.0 28 10/16/20 04:00 96.9 82 20 150/75 (100) 92 10/16/20 00:00 98.2 94 24 148/78 (101) 95 10/15/20 21:52 95 154/72 10/15/20 21:00 Nasal Cannula 2.0 10/15/20 20:15 99.7 10/15/20 19:50 96 Nasal Cannula 2.0 28 10/15/20 16:00 97.7 88 19 128/55 (79) 95 I&O Intake and Output 10/15/20 10/16/20 19:00 07:00 Intake Total 720 ml 480 ml Output Total 500 ml 3 ml Balance 220 ml 477 ml Intake Oral 720 ml 480 ml Output Urine Total 500 ml 3 ml Cardiovascular: RSR Respiratory: decreased breath sounds Abdomen: non-tender, present bowel sounds Extremities: no tenderness, no cyanosis Laboratory Tests Test 10/15/20 17:07 10/15/20 22:30 10/16/20 05:34 10/16/20 05:35 POC Whole Blood Glucose 136 MG/DL (74-106) H Pending Pending White Blood Count 17.7 K/UL (4.8-10.8) H Red Blood Count 3.57 M/UL (4.20-5.40) L Hemoglobin 9.7 G/DL (12.0-16.0) L Hematocrit 29.7 % (37.0-47.0) L Mean Corpuscular Volume 83 FL (80-99) Mean Corpuscular Hemoglobin 27.2 PG (27.0-31.0) Mean Corpuscular Hemoglobin Concent 32.7 G/DL (32.0-36.0) Red Cell Distribution Width 17.1 % (11.6-14.8) H Platelet Count 340 K/UL (150-450) Mean Platelet Volume 8.6 FL (6.5-10.1) Neutrophils (%) (Auto) 80.4 % (45.0-75.0) H Lymphocytes (%) (Auto) 9.8 % (20.0-45.0) L Monocytes (%) (Auto) 7.0 % (1.0-10.0) Eosinophils (%) (Auto) 1.9 % (0.0-3.0) Basophils (%) (Auto) 0.8 % (0.0-2.0) Sodium Level 146 MMOL/L (136-145) H Potassium Level 3.8 MMOL/L (3.5-5.1) Chloride Level 109 MMOL/L (98-107) H Carbon Dioxide Level 31 MMOL/L (21-32) Anion Gap 6 mmol/L (5-15) Blood Urea Nitrogen 21 mg/dL (7-18) H Creatinine 0.6 MG/DL (0.55-1.30) Estimat Glomerular Filtration Rate > 60 mL/min (>60) Glucose Level 123 MG/DL (74-106) H Calcium Level 9.5 MG/DL (8.5-10.1) Pro-B-Type Natriuretic Peptide 663 pg/mL (0-125) H Test 10/16/20 11:54 POC Whole Blood Glucose 135 MG/DL (74-106) H Plan Problems: (1) COPD (chronic obstructive pulmonary disease) (2) Acute respiratory failure Assessment & Plan: intubated on vent weaning as tolerated abg noted cont weaning pulled out her picc no iv access multiple peripheral attempts made by RN central line placed as medically necessary in ICU patient without access on drips extubated improving cont O2 (3) Syncope (4) Psychiatric disorder (5) Hyponatremia (6) UTI (urinary tract infection) (7) Stage 4 decubitus ulcer Assessment & Plan: Pt presented on admission with Full thickness sacral pressure injury with undermined borders. Base of wound has pink granulation with small amt biofilm easily removed with gentle friction during cleansing. (+) epibole along edges. No odor or exudate noted.(L)2.3cm x (W)4.5cm x (D)1cm. Undermining clockwise 12-12o'clock by 2.8cm @5o'clock. Periwound without eryt lanie or induration. R and L heels are boggy but each heel blanches easily. Dressing is going well. We will monitor wound does not currently need active debridement. well known to me from prior unchanged stage 4 ulcer cont local care Tx.Plan: Cleanse Sacral wound with Dakin's 0.125% gilbert. Loosely pack with Dakin's moistened Kerlix. Apply Triad Paste periwound. Cover with Optifoam drsg. Twice daily and prn. Apply Cavilon Skin Barrier to Both heels. Cover each heel with Optifoam drsg.Change every 7 days and prn. APM/ABHILASH Mattress overlay. Reposition at least every 2hours or as tolerated. Off-load heels with pillow. (8) Severe protein-calorie malnutrition Assessment & Plan: ng in place once stable start tube feeds low alb bmi 23 high risk for breakdown needs nutritional optimization AILY ESTIMATED NEEDS: Needs based on Wound, Critical care 53.6kg 25-35 kcals/kg 3534-9270 total kcals 1.25-2 g protein/kg 67-107 g total protein 25-30 mL/kg 8563-4785 total fluid mLs NUTRITION DIAGNOSIS: * Increased kcal/prot needs R/T wound healing as evidenced by admitted w/ stage 4 sacral wound * Swallowing difficulty R/T respiratory failure as evidenced by pt now orally intubated with OGT feeds. CURRENT TF: Jevity 1.2 @20ml/hr ENTERAL NUTRITION RECOMMENDATIONS: Glucerna 1.2 goal of 55ml/hr x24 hrs to provide 1320ml, 1584 kcal, 79g pro, 1063ml free H2O - Rec carb control formula at this time d/t elevated BG levels (POC [phone]). - Start @low rate 25ml/hr for 6 hrs, advance as tolerated 10ml/hr q4-6 hrs to goal. - Flush per MD/ HOB over 30 degrees ADDITIONAL RECOMMENDATIONS: * Check HgA1C- pt w/ elevated BG * Re-calibrate bed scale w/ added P200 mattress * Wound care: add SUZY BID via OGT Add Vit C 250mg BID + zn so4 220mg qd x10 days * Replete lytes as needed (Low K, Phos) (9) Pulmonary edema (10) Altered mental status (11) History of hypertension (12) Alzheimer's dementia (13) Non-ST elevation (NSTEMI) myocardial infarction (14) ATN (acute tubular necrosis) Blaise Del Valle Oct 16, 2020 14:55
--- NOTE | 2020-10-16 15:59 | Internal Med Progress Note ---
Subjective Date of Service: Oct 16, 2020 Physician Name Curly Covarrubias Attending Physician Elías Mazariegos MD Current Medications Medications (Trade) Dose Ordered Sig/Bharti Route PRN Reason Start Time Stop Time Status Last Admin Dose Admin Acetaminophen (Tylenol) 650 mg Q4H PRN GT Temp >100.5 10/03/20 17:15 11/02/20 17:14 10/08/20 00:15 Amlodipine Besylate (Norvasc) 2.5 mg BID GT 10/16/20 14:45 11/15/20 14:44 Ascorbic Acid (Vitamin C) 500 mg BID GT 10/11/20 09:00 11/10/20 08:59 10/16/20 10:20 Aspirin (ASA) 81 mg DAILY GT 10/04/20 14:45 11/18/20 14:44 10/16/20 10:19 Atorvastatin Calcium (Lipitor) 20 mg BEDTIME GT 10/04/20 21:00 01/02/21 20:59 10/15/20 21:52 Dextrose (Dextrose 50%) 25 ml Q30M PRN IV Hypoglycemia 10/15/20 04:00 01/13/21 03:59 Dextrose (Dextrose 50%) 50 ml Q30M PRN IV Hypoglycemia 10/15/20 04:00 01/13/21 03:59 Docusate Sodium (Colace) 100 mg TWICE A DAY ORAL 10/11/20 18:00 11/02/20 17:59 10/16/20 10:20 Fluconazole (Diflucan) 200 mg DAILY ORAL 10/12/20 12:30 10/19/20 12:30 10/16/20 10:21 Furosemide (Lasix) 20 mg ONCE ORAL 10/16/20 14:45 10/16/20 16:00 Insulin Aspart (NovoLOG) AC+HS SUBQ 10/15/20 06:30 01/01/21 11:29 10/15/20 05:35 Lorazepam (Ativan 2mg/ml 1ml) 0.5 mg Q4H PRN IV agitation 10/11/20 10:52 10/18/20 10:51 Metoprolol Tartrate (Lopressor) 25 mg Q12HR GT 10/11/20 21:00 01/09/21 20:59 10/16/20 10:19 Risperidone (RisperDAL) 1 mg DAILY NG 10/04/20 09:00 11/18/20 08:59 10/16/20 10:20 Sodium Hypochlorite (Dakin's Quarter Strength) 1 applic DAILY TOPIC 10/04/20 09:00 11/03/20 08:59 10/15/20 14:12 Zinc Sulfate (Zinc Sulfate) 220 mg DAILY GT 10/11/20 09:00 10/21/20 08:59 10/16/20 10:20 Allergies: Coded Allergies: No Known Allergies (Unverified , 12/17/15) ROS Limited/Unobtainable: Yes Subjective 75 YO F admitted with respiratory failure. Now COPD exacerbation and UTI. Extubated 10/10/20. Cover for Int Med-Dr Mazariegos. step down unit Objective Last Vital Signs Date Time Temp Pulse Resp B/P (MAP) Pulse Ox O2 Delivery O2 Flow Rate FiO2 10/16/20 12:00 97.1 77 18 149/70 (96) 92 10/16/20 09:00 Nasal Cannula 2.0 10/16/20 07:30 28 Laboratory Tests Test 10/15/20 17:07 10/15/20 22:30 10/16/20 05:34 10/16/20 05:35 POC Whole Blood Glucose 136 MG/DL (74-106) H Pending Pending White Blood Count 17.7 K/UL (4.8-10.8) H Red Blood Count 3.57 M/UL (4.20-5.40) L Hemoglobin 9.7 G/DL (12.0-16.0) L Hematocrit 29.7 % (37.0-47.0) L Mean Corpuscular Volume 83 FL (80-99) Mean Corpuscular Hemoglobin 27.2 PG (27.0-31.0) Mean Corpuscular Hemoglobin Concent 32.7 G/DL (32.0-36.0) Red Cell Distribution Width 17.1 % (11.6-14.8) H Platelet Count 340 K/UL (150-450) Mean Platelet Volume 8.6 FL (6.5-10.1) Neutrophils (%) (Auto) 80.4 % (45.0-75.0) H Lymphocytes (%) (Auto) 9.8 % (20.0-45.0) L Monocytes (%) (Auto) 7.0 % (1.0-10.0) Eosinophils (%) (Auto) 1.9 % (0.0-3.0) Basophils (%) (Auto) 0.8 % (0.0-2.0) Sodium Level 146 MMOL/L (136-145) H Potassium Level 3.8 MMOL/L (3.5-5.1) Chloride Level 109 MMOL/L (98-107) H Carbon Dioxide Level 31 MMOL/L (21-32) Anion Gap 6 mmol/L (5-15) Blood Urea Nitrogen 21 mg/dL (7-18) H Creatinine 0.6 MG/DL (0.55-1.30) Estimat Glomerular Filtration Rate > 60 mL/min (>60) Glucose Level 123 MG/DL (74-106) H Calcium Level 9.5 MG/DL (8.5-10.1) Pro-B-Type Natriuretic Peptide 663 pg/mL (0-125) H Test 10/16/20 11:54 POC Whole Blood Glucose 135 MG/DL (74-106) H Intake and Output 10/15/20 10/16/20 19:00 07:00 Intake Total 720 ml 480 ml Output Total 500 ml 3 ml Balance 220 ml 477 ml Intake Oral 720 ml 480 ml Output Urine Total 500 ml 3 ml Objective PHYSICAL EXAMINATION: GENERAL: The patient is a well-developed and well-nourished female HEENT: Eyes, pupils are equal and responsive to light and accommodation. Extraocular movements are intact. NECK: Supple without lymphadenopathy. CHEST: Nasal canula; Coarse mechanical breath sounds bilaterally without wheezes or rales. CARDIOVASCULAR: Tachycardic, regular rhythm, S1-S2 are normal without murmurs, rubs, or gallops. ABDOMEN: Soft, nontender, and nondistended. Positive bowel sounds. No evidence of hepatosplenomegaly. Currently, no rebound or guarding noted. EXTREMITIES: Negative for clubbing, cyanosis, edema. RECTAL/GENITAL: Not performed. NEUROLOGICAL: Unable to assess. Assessment/Plan Assessment/Plan ASSESSMENT: This is a 75-year-old female with: 1. Acute hypoxemic respiratory failure. 2. Altered mental status. 3. Hypertension. 4. Chronic obstructive pulmonary disease. 5. Alzheimer's dementia. 6. UTI=proteus 7. Oral candidiasis TREATMENT: 1. Acute hypoxic respiratory failure. Pulmonary/critical care = Dr. Will Quiros. The patient was extubated on 10/10/20 ABX= S/P Zosyn. S/P IV Solu-Medrol for chronic obstructive pulmonary disease acute exacerbation. Follow recommendations of Pulmonary. 2. Hypertension. The patient is currently hypotensive. 3. Chronic obstructive pulmonary disease. A Pulmonary consultation has been obtained with Dr. Will Quiros. The patient is currently receiving intravenous Solu-Medrol and albuterol/Atrovent nebulized q.4 h. p.r.n. We will follow recommendations of Pulmonary. 4. Alzheimer's dementia. 5. oral fluconazole for 2 weeks Curly Covarrubias MD Oct 16, 2020 15:58
[2020-10-16 16:00] VITALS: BP 135/74
--- NOTE | 2020-10-16 17:18 | Pulmonology Progress Note ---
Subjective ROS Limited/Unobtainable: Yes Constitutional: Reports: no symptoms HEENT: Repors: no symptoms Respiratory: Reports: no symptoms Allergies: Coded Allergies: No Known Allergies (Unverified , 12/17/15) Objective Last 24 Hour Vital Signs Date Time Temp Pulse Resp B/P (MAP) Pulse Ox O2 Delivery O2 Flow Rate FiO2 10/16/20 12:00 97.1 77 18 149/70 (96) 92 10/16/20 10:19 101 149/89 10/16/20 09:00 Nasal Cannula 2.0 10/16/20 08:00 97.1 84 19 153/88 (109) 96 10/16/20 07:30 94 Nasal Cannula 2.0 28 10/16/20 04:00 96.9 82 20 150/75 (100) 92 10/16/20 00:00 98.2 94 24 148/78 (101) 95 10/15/20 21:52 95 154/72 10/15/20 21:00 Nasal Cannula 2.0 10/15/20 20:15 99.7 10/15/20 19:50 96 Nasal Cannula 2.0 28 Intake and Output 10/15/20 10/16/20 19:00 07:00 Intake Total 720 ml 480 ml Output Total 500 ml 3 ml Balance 220 ml 477 ml Intake Oral 720 ml 480 ml Output Urine Total 500 ml 3 ml General Appearance: WD/WN Respiratory: chest wall non-tender, lungs clear, normal breath sounds Breasts: no masses Cardiovascular: normal peripheral pulses, normal rate Abdomen: normal bowel sounds, soft, non tender Genitourinary: normal external genitalia Extremities: no cyanosis 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, no motor/sensory deficits Laboratory Tests 10/15/20 22:30: POC Whole Blood Glucose [Pending] 10/16/20 05:34: POC Whole Blood Glucose [Pending] 10/16/20 05:35: White Blood Count 17.7H, Red Blood Count 3.57L, Hemoglobin 9.7L, Hematocrit 29.7L, Mean Corpuscular Volume 83, Mean Corpuscular Hemoglobin 27.2, Mean Corpuscular Hemoglobin Concent 32.7, Red Cell Distribution Width 17.1H, Platelet Count 340, Mean Platelet Volume 8.6, Neutrophils (%) (Auto) 80.4H, Lymphocytes (%) (Auto) 9.8L, Monocytes (%) (Auto) 7.0, Eosinophils (%) (Auto) 1.9, Basophils (%) (Auto) 0.8, Sodium Level 146H, Potassium Level 3.8, Chloride Level 109H, Carbon Dioxide Level 31, Anion Gap 6, Blood Urea Nitrogen 21H, Creatinine 0.6, Estimat Glomerular Filtration Rate > 60, Glucose Level 123H, Calcium Level 9.5, Pro-B-Type Natriuretic Peptide 663H 10/16/20 11:54: POC Whole Blood Glucose 135H Current Medications Medications (Trade) Dose Ordered Sig/Bharti Route PRN Reason Start Time Stop Time Status Last Admin Dose Admin Acetaminophen (Tylenol) 650 mg Q4H PRN GT Temp >100.5 10/03/20 17:15 11/02/20 17:14 10/08/20 00:15 Amlodipine Besylate (Norvasc) 2.5 mg BID GT 10/16/20 14:45 11/15/20 14:44 Ascorbic Acid (Vitamin C) 500 mg BID GT 10/11/20 09:00 11/10/20 08:59 10/16/20 10:20 Aspirin (ASA) 81 mg DAILY GT 10/04/20 14:45 11/18/20 14:44 10/16/20 10:19 Atorvastatin Calcium (Lipitor) 20 mg BEDTIME GT 10/04/20 21:00 01/02/21 20:59 10/15/20 21:52 Dextrose (Dextrose 50%) 25 ml Q30M PRN IV Hypoglycemia 10/15/20 04:00 01/13/21 03:59 Dextrose (Dextrose 50%) 50 ml Q30M PRN IV Hypoglycemia 10/15/20 04:00 01/13/21 03:59 Docusate Sodium (Colace) 100 mg TWICE A DAY ORAL 10/11/20 18:00 11/02/20 17:59 10/16/20 10:20 Fluconazole (Diflucan) 200 mg DAILY ORAL 10/12/20 12:30 10/19/20 12:30 10/16/20 10:21 Insulin Aspart (NovoLOG) AC+HS SUBQ 10/15/20 06:30 01/01/21 11:29 10/15/20 05:35 Lorazepam (Ativan 2mg/ml 1ml) 0.5 mg Q4H PRN IV agitation 10/11/20 10:52 10/18/20 10:51 Metoprolol Tartrate (Lopressor) 25 mg Q12HR GT 10/11/20 21:00 01/09/21 20:59 10/16/20 10:19 Risperidone (RisperDAL) 1 mg DAILY NG 10/04/20 09:00 11/18/20 08:59 10/16/20 10:20 Sodium Hypochlorite (Dakin's Quarter Strength) 1 applic DAILY TOPIC 10/04/20 09:00 11/03/20 08:59 10/15/20 14:12 Zinc Sulfate (Zinc Sulfate) 220 mg DAILY GT 10/11/20 09:00 10/21/20 08:59 10/16/20 10:20 Assessment/Plan Problems: (1) Non-ST elevation (NSTEMI) myocardial infarction (2) COPD (chronic obstructive pulmonary disease) (3) Stage 4 decubitus ulcer (4) Severe protein-calorie malnutrition (5) Altered mental status Assessment/Plan all reviewed no new complains PT ordered on NC saturating well titrate fio2 to saturation of 92% respiratory treatment off heparin drip, keep Ecotrin f/u cardiology recommendations dvt orphylaxis aspiration precaution Will Quiros MD Oct 16, 2020 17:18
[2020-10-16 20:00] VITALS: BP 127/72
[2020-10-16] MEDS: Atorvastatin 20mg tab GT SCH (20:02)
[2020-10-17] VITALS: BP 150/81
[2020-10-17 04:00] VITALS: BP 130/58
[2020-10-17] MEDS: NovoLOG Insulin Flexpen SUBQ SCH ×2 (06:30→11:54)
[2020-10-17 08:10] VITALS: BP 133/76
[2020-10-17] MEDS: Aspirin Baby 81mg GT SCH (08:27)
[2020-10-17] MEDS: Metoprolol Tartrate 12.5mg TAB GT SCH (08:27)
[2020-10-17] MEDS: Fluconazole 100mg tab ORAL SCH (08:27)
[2020-10-17] MEDS: Zinc Sulfate 220mg GT SCH (08:27)
[2020-10-17] MEDS: Docusate 100mg/10ml Liq ORAL SCH (08:28)
[2020-10-17] MEDS: Ascorbic Acid 500mg tab GT SCH (08:28)
[2020-10-17] MEDS: Dakin's 0.125% Soln (Quarter Strength) 16oz TOPIC SCH (08:31)
[2020-10-17 09:14] LABS: BASOPHILS % (AUTO) 0.6 % (0.0-2.0); EOSINOPHILS % (AUTO) 3.3 % (0.0-3.0); HEMATOCRIT 34.2 % (37.0-47.0); HEMOGLOBIN 10.8 G/DL (12.0-16.0); LYMPHOCYTES % (AUTO) 15.5 % (20.0-45.0); MEAN CORPUSCULAR VOLUME 85 FL (80-99); NEUTROPHILS % (AUTO) 74.5 % (45.0-75.0); PLATELET COUNT 356 K/UL (150-450); RED BLOOD COUNT 4.04 M/UL (4.20-5.40); RED CELL DISTRIBUTION WIDTH 17.5 % (11.6-14.8); WHITE BLOOD COUNT 14.8 K/UL (4.8-10.8)
[2020-10-17 09:22] LABS: ANION GAP 6 mmol/L (5-15); BLOOD UREA NITROGEN 36 mg/dL (7-18); CALCIUM 9.8 MG/DL (8.5-10.1); CARBON DIOXIDE 34 MMOL/L (21-32); CHLORIDE 109 MMOL/L (98-107); CREATININE 0.7 MG/DL (0.55-1.30); POTASSIUM 3.8 MMOL/L (3.5-5.1); SODIUM 149 MMOL/L (136-145)
--- NOTE | 2020-10-17 11:29 | General Progress Note ---
Subjective ROS Limited/Unobtainable: No Allergies: Coded Allergies: No Known Allergies (Unverified , 12/17/15) Objective Last 24 Hour Vital Signs Date Time Temp Pulse Resp B/P (MAP) Pulse Ox O2 Delivery O2 Flow Rate FiO2 10/17/20 08:27 82 130/58 10/17/20 08:27 82 130/58 10/17/20 08:25 Nasal Cannula 2.0 10/17/20 08:10 97.3 104 20 133/76 (95) 97 10/17/20 04:00 97.9 82 18 130/58 (82) 97 10/17/20 00:00 98.2 71 18 150/81 (104) 97 10/16/20 22:35 Nasal Cannula 2.0 10/16/20 20:02 101 160/84 10/16/20 20:00 97.2 92 18 127/72 (90) 97 10/16/20 19:12 101 160/84 10/16/20 16:00 98.0 87 18 135/74 (94) 97 10/16/20 12:00 97.1 77 18 149/70 (96) 92 Intake and Output 10/16/20 10/17/20 19:00 07:00 Intake Total 240 ml 360 ml Output Total 1650 ml Balance 240 ml -1290 ml Intake Oral 240 ml Other 360 ml Output Urine Total 1650 ml Laboratory Tests 10/16/20 11:54: POC Whole Blood Glucose 135H 10/16/20 17:20: POC Whole Blood Glucose [Pending] 10/17/20 08:45: White Blood Count 14.8H, Red Blood Count 4.04L, Hemoglobin 10.8L, Hematocrit 34.2L, Mean Corpuscular Volume 85, Mean Corpuscular Hemoglobin 26.8L, Mean Corpuscular Hemoglobin Concent 31.6L, Red Cell Distribution Width 17.5H, Platelet Count 356, Mean Platelet Volume 7.9, Neutrophils (%) (Auto) 74.5, Lymphocytes (%) (Auto) 15.5L, Monocytes (%) (Auto) 6.0, Eosinophils (%) (Auto) 3.3H, Basophils (%) (Auto) 0.6, Sodium Level 149H, Potassium Level 3.8, Chloride Level 109H, Carbon Dioxide Level 34H, Anion Gap 6, Blood Urea Nitrogen 36H, Creatinine 0.7, Estimat Glomerular Filtration Rate > 60, Glucose Level 129H, Calcium Level 9.8 10/17/20 11:24: POC Whole Blood Glucose 228H Height (Feet): 5 Height (Inches): 4.00 Weight (Pounds): 135 General Appearance: no apparent distress EENT: normal ENT inspection Neck: supple Cardiovascular: normal rate Respiratory/Chest: decreased breath sounds Abdomen: normal bowel sounds, non tender, soft Extremities: non-tender Assessment/Plan Status: stable, unchanged Assessment/Plan: Assessment/Plan 1. Altered mental status. 2. Baseline dementia. 3. [id number] myocardial infarction. 4. Respiratory failure, status post extubation 5. COPD history. 6. Renal insufficiency 7. bacteremia 8. anemia 9. stool ob positive repeat stool ob anemia work up ppi needs GI procedures but can not get hold of family for consent also needs cardiology clearance Brandin Newsome MD Oct 17, 2020 11:29
[2020-10-17 11:56] VITALS: BP 136/75
--- NOTE | 2020-10-17 12:43 | Infectious Diseases Prog Note ---
Assessment/Plan 75yo F with: Afebrile, Tmax 99.7 --> Febrile to 102 Leukolysis, persistent Acute hypoxic resp failure, SP intubation 10/03 COPD Non-verbal at baseline UTI, sp Rx GPC bacteremia, m/l contaminant 10/03 BCx +1/2 Staph hominis, m/l skin contaminant UA 10-15 WBC, UCx >100k P.mirabilis (S-CTX, R-bactrim) Resp cx p COVID rapid Ag neg Flu neg MRSA nares neg CXR: No focal consolidation, pleural effusion, or pneumothorax. Mild emphysema with increased interstitial markings. Cardiomegaly. Calcified aorta. 10/04 COVID rapid Ag neg 10/05 BCx NTD 10/07 CXR: 1. Overall similar appearing study. Dementia Alzheimer[facility] SN[facility] resident Plan: Monitor off abx On fluconazole per primary, unclear indication, OK to stop from ID standpoint 10/12 SP Zosyn #10 10/07 SP vanco IV #4 empiric Monitor CBC/CMP Monitor temp curve, hemodynamics Monitor resp status D/w RN Thank you for this consult. [facility] will continue to follow. Subjective Allergies: Coded Allergies: No Known Allergies (Unverified , 12/17/15) AF 2L NC WBC improving to 14 NAD, doing well, no complaints Wants her socks pulled up...done. Objective Last 24 Hour Vital Signs Date Time Temp Pulse Resp B/P (MAP) Pulse Ox O2 Delivery O2 Flow Rate FiO2 10/17/20 11:56 98.0 107 20 136/75 (95) 96 10/17/20 08:27 82 130/58 10/17/20 08:27 82 130/58 10/17/20 08:25 Nasal Cannula 2.0 10/17/20 08:10 97.3 104 20 133/76 (95) 97 10/17/20 04:00 97.9 82 18 130/58 (82) 97 10/17/20 00:00 98.2 71 18 150/81 (104) 97 10/16/20 22:35 Nasal Cannula 2.0 10/16/20 20:02 101 160/84 10/16/20 20:00 97.2 92 18 127/72 (90) 97 10/16/20 19:12 101 160/84 10/16/20 16:00 98.0 87 18 135/74 (94) 97 Height (Feet): 5 Height (Inches): 4.00 Weight (Pounds): 135 Gen: NAD HEENT: NCAT CV: RRR Pulm: CTAB Abd: Non-distended Ext: No c/c/e Skin: No visible rashes Neuro: Awake, interactive Laboratory Tests Test 10/16/20 17:20 10/17/20 08:45 10/17/20 11:24 POC Whole Blood Glucose Pending 228 MG/DL (74-106) H White Blood Count 14.8 K/UL (4.8-10.8) H Red Blood Count 4.04 M/UL (4.20-5.40) L Hemoglobin 10.8 G/DL (12.0-16.0) L Hematocrit 34.2 % (37.0-47.0) L Mean Corpuscular Volume 85 FL (80-99) Mean Corpuscular Hemoglobin 26.8 PG (27.0-31.0) L Mean Corpuscular Hemoglobin Concent 31.6 G/DL (32.0-36.0) L Red Cell Distribution Width 17.5 % (11.6-14.8) H Platelet Count 356 K/UL (150-450) Mean Platelet Volume 7.9 FL (6.5-10.1) Neutrophils (%) (Auto) 74.5 % (45.0-75.0) Lymphocytes (%) (Auto) 15.5 % (20.0-45.0) L Monocytes (%) (Auto) 6.0 % (1.0-10.0) Eosinophils (%) (Auto) 3.3 % (0.0-3.0) H Basophils (%) (Auto) 0.6 % (0.0-2.0) Sodium Level 149 MMOL/L (136-145) H Potassium Level 3.8 MMOL/L (3.5-5.1) Chloride Level 109 MMOL/L (98-107) H Carbon Dioxide Level 34 MMOL/L (21-32) H Anion Gap 6 mmol/L (5-15) Blood Urea Nitrogen 36 mg/dL (7-18) H Creatinine 0.7 MG/DL (0.55-1.30) Estimat Glomerular Filtration Rate > 60 mL/min (>60) Glucose Level 129 MG/DL (74-106) H Calcium Level 9.8 MG/DL (8.5-10.1) Current Medications Medications (Trade) Dose Ordered Sig/Bharti Route PRN Reason Start Time Stop Time Status Last Admin Dose Admin Acetaminophen (Tylenol) 650 mg Q4H PRN GT Temp >100.5 10/03/20 17:15 11/02/20 17:14 10/08/20 00:15 Amlodipine Besylate (Norvasc) 2.5 mg BID GT 10/16/20 14:45 11/15/20 14:44 10/17/20 08:27 Ascorbic Acid (Vitamin C) 500 mg BID GT 10/11/20 09:00 11/10/20 08:59 10/17/20 08:28 Aspirin (ASA) 81 mg DAILY GT 10/04/20 14:45 11/18/20 14:44 10/17/20 08:27 Atorvastatin Calcium (Lipitor) 20 mg BEDTIME GT 10/04/20 21:00 01/02/21 20:59 10/16/20 20:02 Dextrose (Dextrose 50%) 25 ml Q30M PRN IV Hypoglycemia 10/15/20 04:00 01/13/21 03:59 Dextrose (Dextrose 50%) 50 ml Q30M PRN IV Hypoglycemia 10/15/20 04:00 01/13/21 03:59 Docusate Sodium (Colace) 100 mg TWICE A DAY ORAL 10/17/20 18:00 11/16/20 17:59 Fluconazole (Diflucan) 200 mg DAILY ORAL 10/12/20 12:30 10/19/20 12:30 10/17/20 08:27 Insulin Aspart (NovoLOG) AC+HS SUBQ 10/15/20 06:30 01/01/21 11:29 10/17/20 11:54 Lorazepam (Ativan 2mg/ml 1ml) 0.5 mg Q4H PRN IV agitation 10/11/20 10:52 10/18/20 10:51 Metoprolol Tartrate (Lopressor) 25 mg Q12HR GT 10/11/20 21:00 01/09/21 20:59 10/17/20 08:27 Pantoprazole (Protonix) 40 mg DAILY ORAL 10/18/20 09:00 11/17/20 08:59 Polyethylene Glycol (Miralax) 17 gm BEDTIME ORAL 10/17/20 21:00 11/16/20 20:59 Risperidone (RisperDAL) 1 mg DAILY NG 10/04/20 09:00 11/18/20 08:59 10/17/20 08:27 Sodium Hypochlorite (Dakin's Quarter Strength) 1 applic DAILY TOPIC 10/04/20 09:00 11/03/20 08:59 10/17/20 08:31 Zinc Sulfate (Zinc Sulfate) 220 mg DAILY GT 10/11/20 09:00 10/21/20 08:59 10/17/20 08:27 Sondra Sepulveda M.D. Oct 17, 2020 12:43
--- NOTE | 2020-10-17 13:28 | Surgery Progress Note ---
Surgery Progress Note Subjective Procedure Performed left femoral central venous access insertion Symptoms: improved, tolerating diet, passing flatus Objective Last 24 Hour Vital Signs Date Time Temp Pulse Resp B/P (MAP) Pulse Ox O2 Delivery O2 Flow Rate FiO2 10/17/20 11:56 98.0 107 20 136/75 (95) 96 10/17/20 08:27 82 130/58 10/17/20 08:27 82 130/58 10/17/20 08:25 Nasal Cannula 2.0 10/17/20 08:10 97.3 104 20 133/76 (95) 97 10/17/20 04:00 97.9 82 18 130/58 (82) 97 10/17/20 00:00 98.2 71 18 150/81 (104) 97 10/16/20 22:35 Nasal Cannula 2.0 10/16/20 20:02 101 160/84 10/16/20 20:00 97.2 92 18 127/72 (90) 97 10/16/20 19:12 101 160/84 10/16/20 16:00 98.0 87 18 135/74 (94) 97 I&O Intake and Output 10/16/20 10/17/20 19:00 07:00 Intake Total 240 ml 360 ml Output Total 1650 ml Balance 240 ml -1290 ml Intake Oral 240 ml Other 360 ml Output Urine Total 1650 ml Dressing: dry Cardiovascular: RSR Respiratory: clear, decreased breath sounds Abdomen: soft, non-tender, present bowel sounds Extremities: no edema, no tenderness, no cyanosis Laboratory Tests Test 10/16/20 17:20 10/17/20 08:45 10/17/20 11:24 POC Whole Blood Glucose Pending 228 MG/DL (74-106) H White Blood Count 14.8 K/UL (4.8-10.8) H Red Blood Count 4.04 M/UL (4.20-5.40) L Hemoglobin 10.8 G/DL (12.0-16.0) L Hematocrit 34.2 % (37.0-47.0) L Mean Corpuscular Volume 85 FL (80-99) Mean Corpuscular Hemoglobin 26.8 PG (27.0-31.0) L Mean Corpuscular Hemoglobin Concent 31.6 G/DL (32.0-36.0) L Red Cell Distribution Width 17.5 % (11.6-14.8) H Platelet Count 356 K/UL (150-450) Mean Platelet Volume 7.9 FL (6.5-10.1) Neutrophils (%) (Auto) 74.5 % (45.0-75.0) Lymphocytes (%) (Auto) 15.5 % (20.0-45.0) L Monocytes (%) (Auto) 6.0 % (1.0-10.0) Eosinophils (%) (Auto) 3.3 % (0.0-3.0) H Basophils (%) (Auto) 0.6 % (0.0-2.0) Sodium Level 149 MMOL/L (136-145) H Potassium Level 3.8 MMOL/L (3.5-5.1) Chloride Level 109 MMOL/L (98-107) H Carbon Dioxide Level 34 MMOL/L (21-32) H Anion Gap 6 mmol/L (5-15) Blood Urea Nitrogen 36 mg/dL (7-18) H Creatinine 0.7 MG/DL (0.55-1.30) Estimat Glomerular Filtration Rate > 60 mL/min (>60) Glucose Level 129 MG/DL (74-106) H Calcium Level 9.8 MG/DL (8.5-10.1) Plan Problems: (1) COPD (chronic obstructive pulmonary disease) (2) Acute respiratory failure Assessment & Plan: intubated on vent weaning as tolerated abg noted cont weaning pulled out her picc no iv access multiple peripheral attempts made by RN central line placed as medically necessary in ICU patient without access on drips extubated improving cont O2 (3) Syncope (4) Psychiatric disorder (5) Hyponatremia (6) UTI (urinary tract infection) (7) Stage 4 decubitus ulcer Assessment & Plan: Pt presented on admission with Full thickness sacral pressure injury with undermined borders. Base of wound has pink granulation with small amt biofilm easily removed with gentle friction during cleansing. (+) epibole along edges. No odor or exudate noted.(L)2.3cm x (W)4.5cm x (D)1cm. Undermining clockwise 12-12o'clock by 2.8cm @5o'clock. Periwound without cecilia thema or induration. R and L heels are boggy but each heel blanches easily. Dressing is going well. We will monitor wound does not currently need active debridement. well known to me from prior unchanged stage 4 ulcer cont local care Tx.Plan: Cleanse Sacral wound with Dakin's 0.125% gilbert. Loosely pack with Dakin's moistened Kerlix. Apply Triad Paste periwound. Cover with Optifoam drsg. Twice daily and prn. Apply Cavilon Skin Barrier to Both heels. Cover each heel with Optifoam drsg.Change every 7 days and prn. APM/ABHILASH Mattress overlay. Reposition at least every 2hours or as tolerated. Off-load heels with pillow. (8) Severe protein-calorie malnutrition Assessment & Plan: ng in place once stable start tube feeds low alb bmi 23 high risk for breakdown needs nutritional optimization AILY ESTIMATED NEEDS: Needs based on Wound, Critical care 53.6kg 25-35 kcals/kg 5163-5522 total kcals 1.25-2 g protein/kg 67-107 g total protein 25-30 mL/kg 5215-6140 total fluid mLs NUTRITION DIAGNOSIS: * Increased kcal/prot needs R/T wound healing as evidenced by admitted w/ stage 4 sacral wound * Swallowing difficulty R/T respiratory failure as evidenced by pt now orally intubated with OGT feeds. CURRENT TF: Jevity 1.2 @20ml/hr ENTERAL NUTRITION RECOMMENDATIONS: Glucerna 1.2 goal of 55ml/hr x24 hrs to provide 1320ml, 1584 kcal, 79g pro, 1063ml free H2O - Rec carb control formula at this time d/t elevated BG levels (POC [phone]). - Start @low rate 25ml/hr for 6 hrs, advance as tolerated 10ml/hr q4-6 hrs to goal. - Flush per MD/ HOB over 30 degrees ADDITIONAL RECOMMENDATIONS: * Check HgA1C- pt w/ elevated BG * Re-calibrate bed scale w/ added P200 mattress * Wound care: add SUZY BID via OGT Add Vit C 250mg BID + zn so4 220mg qd x10 days * Replete lytes as needed (Low K, Phos) (9) Pulmonary edema (10) Altered mental status (11) History of hypertension (12) Alzheimer's dementia (13) Non-ST elevation (NSTEMI) myocardial infarction (14) ATN (acute tubular necrosis) Blaise Del Valle Oct 17, 2020 13:28
[2020-10-17 15:45] VITALS: BP 133/68
[2020-10-17] MEDS ORDERED: Tubing IV Secondary IV ONE (15:54)
[2020-10-17] MEDS ORDERED: NS 275ml ONE (15:54)
--- NOTE | 2020-10-17 16:47 | Pulmonology Progress Note ---
Subjective ROS Limited/Unobtainable: No Constitutional: Reports: no symptoms HEENT: Repors: no symptoms Respiratory: Reports: no symptoms Allergies: Coded Allergies: No Known Allergies (Unverified , 12/17/15) Objective Last 24 Hour Vital Signs Date Time Temp Pulse Resp B/P (MAP) Pulse Ox O2 Delivery O2 Flow Rate FiO2 10/17/20 15:45 98.4 100 20 133/68 (89) 96 10/17/20 11:56 98.0 107 20 136/75 (95) 96 10/17/20 08:27 82 130/58 10/17/20 08:27 82 130/58 10/17/20 08:25 Nasal Cannula 2.0 10/17/20 08:10 97.3 104 20 133/76 (95) 97 10/17/20 04:00 97.9 82 18 130/58 (82) 97 10/17/20 00:00 98.2 71 18 150/81 (104) 97 10/16/20 22:35 Nasal Cannula 2.0 10/16/20 20:02 101 160/84 10/16/20 20:00 97.2 92 18 127/72 (90) 97 10/16/20 19:12 101 160/84 Intake and Output 10/16/20 10/17/20 19:00 07:00 Intake Total 240 ml 360 ml Output Total 1650 ml Balance 240 ml -1290 ml Intake Oral 240 ml Other 360 ml Output Urine Total 1650 ml General Appearance: WD/WN Respiratory: chest wall non-tender, lungs clear, normal breath sounds Breasts: no masses Cardiovascular: normal peripheral pulses, normal rate Abdomen: normal bowel sounds, soft, non tender, hyperactive bowel sounds, hypoactive bowel sounds Genitourinary: normal external genitalia Extremities: no cyanosis Neurologic: double needle stitcher II-XII grossly normal, no motor/sensory deficits, no Babinski Microbiology Date/Time Source Procedure Growth Status 10/17/20 13:40 Nasopharynx SARS-CoV-2 RdRp Gene Assay - Final Complete Laboratory Tests 10/16/20 17:20: POC Whole Blood Glucose [Pending] 10/17/20 08:45: White Blood Count 14.8H, Red Blood Count 4.04L, Hemoglobin 10.8L, Hematocrit 34.2L, Mean Corpuscular Volume 85, Mean Corpuscular Hemoglobin 26.8L, Mean Corpuscular Hemoglobin Concent 31.6L, Red Cell Distribution Width 17.5H, Platelet Count 356, Mean Platelet Volume 7.9, Neutrophils (%) (Auto) 74.5, Lymphocytes (%) (Auto) 15.5L, Monocytes (%) (Auto) 6.0, Eosinophils (%) (Auto) 3.3H, Basophils (%) (Auto) 0.6, Sodium Level 149H, Potassium Level 3.8, Chloride Level 109H, Carbon Dioxide Level 34H, Anion Gap 6, Blood Urea Nitrogen 36H, Creatinine 0.7, Estimat Glomerular Filtration Rate > 60, Glucose Level 129H, Calcium Level 9.8 10/17/20 11:24: POC Whole Blood Glucose 228H Assessment/Plan Problems: (1) Non-ST elevation (NSTEMI) myocardial infarction (2) COPD (chronic obstructive pulmonary disease) (3) Stage 4 decubitus ulcer (4) Severe protein-calorie malnutrition (5) Altered mental status Assessment/Plan all reviewed no new complains PT ordered on NC saturating well titrate fio2 to saturation of 92% respiratory treatment off heparin drip, keep Ecotrin f/u cardiology recommendations dvt orphylaxis aspiration precaution Will Quiros MD Oct 17, 2020 16:47
[2020-10-17] MEDS ORDERED: Docusate 100mg cap ORAL SCH (18:00)
[2020-10-17] MEDS ORDERED: Miralax 17gm pkt ORAL SCH (21:00)
--- NOTE | 2020-10-19 08:35 | Discharge Summary ---
Discharge Summary Discharge Summary _ DATE OF ADMISSION: 10/03/2020 DATE OF DISCHARGE: 10/17/2020 DISCHARGED BY: Dr. Mazariegos REASON FOR ADMISSION: 75 years old female with past medical history of hypertension, COPD/asthma, dementia, dysphagia, presented with altered mental status. [facility]. According to the nursing staff while checking on patient at 3 AM, she was nonverbal; while normally she is alert and oriented to her name and responsive. Patient was also warm to touch. Temperature at the [facility] was 99.8 orally. Per paramedics, patient was hypoxic saturating 88% on room air. Paramedics placed patient on nonrebreather mask with good resolution of hypoxia. Patient subsequently was brought to emergency department for evaluation. Upon evaluation patient had low-grade fever 99.7, was tachycardic with heart rate 106, and hypoxic. Pulse oximetry was stable on nonrebreather mask. Laboratory work-up revealed no leukocytosis, initially stable hemoglobin and hematocrit. ABG on nonrebreather mask revealed respiratory acidosis with severe hypercapnia pH 7.25, PCO2 80.5. BUN 59, creatinine 1.0. Glucose 144. Lactic acid 0.9. Troponin 0.069. Pro BNP 89978. EKG reveals sinus rhythm, no acute ischemic changes. AST 41, ALT 28 Albumin 3.0. Urinalysis revealed pyuria and few bacteria , +3 protein , +3 leukocyte esterase. Chest x-ray revealed no focal consolidation , pleural effusion or pneumothorax. Patient received trial of BiPAP without much improvement in the blood gases and subsequently was orally intubated. Patient pancultured , started on broad-spectrum antibiotics and subsequently admitted to ICU for further management. CONSULTANTS: chief ultrasound technologist Dr. Ramesh pulmonary Dr. Quiros ID specialist Dr. Sepulveda GI specialist [facility]RSE: Patient admitted to ICU. Ventilator support and pulmonary toilet provided. Started on steroids with gradual tapering. Patient was followed -up with chest x-ray and ABG. Settings titrated based on ABG results. Patient started on heparin drip and aspirin. Supervisory It Specialist followed. EKG showed T wave inversion , however the chronicity of T wave inversion was not clear. Given patient overall medical condition , chief ultrasound technologist recommended medical management. Patient was on beta-blockade and statin / Heparin drip later was discontinued. Aspirin was continued. Blood pressure remained stable with current regimen. Echocardiogram demonstrated preserved ejection fraction of 70%. Pro B[place]ded [place] 89585 to 663. Antibiotic provided as per ID specialist recommendations. Patient developed significant leukocytosis, which was trended down Urine culture revealed Proteus and E. coli ESBL. COVID-19 was negative Blood culture revealed coag negative staph likely contaminant. Sputum culture was negative. Repeated blood cultures were negative. Rapid COVID-19 repeated on 10/04 and 10/17 were negative. Patient was on IV hydration. Steroids gradually tapered as patient improved . GI prophylaxis provided. Patient started on weaning protocol Patient was able to be extubated on 10/03. Post intubation supplemental oxygen provided and titrated to keep pulse oximetry above 92%. Nebulizing treatment with bronchodilator provided. Prior to discharge pulse oximetry stable on oxygen 2 L via nasal cannula. GI prophylaxis provided. Bowel regimen instituted Renal parameters and electrolytes were closely monitored, electrolytes corrected as needed , and nephrotoxic's were avoided . BUN from 59 down to 36 , creatinine v remained stable. Blood sugar was managed with sliding scale of insulin. Wound care for stage IV decubitus ulcer present on admission provided as per surgeon recommendation. No need for operative debridement at this time. Continue wound care at the facility. Protein supplements provided as per registered dietitian recommendation. Patient clinically stabilized and was ready for transfer [facility] to [facility] for continuation of care. FINAL DIAGNOSES: Acute hypoxemic hypercapnic respiratory failure, requiring intubation; s/p extubation NSTEMI [place] Acute encephalopathy UTI, s/p treatment Stage IV decubitus ulcer, present on admission Severe protein calorie malnutrition Alzheimer dementia Oral candidiasis DISCHARGE MEDICATIONS: See Medication Reconciliation list. DISCHARGE INSTRUCTIONS: Patient was [facility] to the [facility] facility. Follow up with medical doctor at the facility. I have been assigned to dictate discharge summary for this account. Mai Alonzo NP Oct 19, 2020 08:35
== END 2020-10-17 15:55 | DRG 207 ==
LOC: EDBD 05:43 → EMR 05:54 → ICU 06:11 → EDBEDREQSVC 06:44 → EDBEDREQ 06:44 → 2W 10-12 14:15 → 4E 10-14 18:30
PROC: 5A1955Z Respiratory Ventilation, Greater than 96 Consecutive Hours (ICD-10-PCS; principal; 2020-10-03)
PROC: 0BH17EZ Insertion of Endotracheal Airway into Trachea, Via Natural or Artificial Opening (ICD-10-PCS; principal; 2020-10-03)
PROC: B548ZZA Ultrasonography of Superior Vena Cava, Guidance (ICD-10-PCS; 2020-10-05)
PROC: 02HV33Z Insertion of Infusion Device into Superior Vena Cava, Percutaneous Approach (ICD-10-PCS; 2020-10-05)
PROC: 06HN33Z Insertion of Infusion Device into Left Femoral Vein, Percutaneous Approach (ICD-10-PCS; 2020-10-09)
DX: J96.01 Acute respiratory failure with hypoxia (principal); L89.154 Pressure ulcer of sacral region, stage 4; E43 Unspecified severe protein-calorie malnutrition; I21.4 Non-ST elevation (NSTEMI) myocardial infarction; N17.0 Acute kidney failure with tubular necrosis; F02.81 Dementia in other diseases classified elsewhere, unspecified severity, with behavioral disturbance; N39.0 Urinary tract infection, site not specified; B37.0 Candidal stomatitis; G30.9 Alzheimer's disease, unspecified; J44.9 Chronic obstructive pulmonary disease, unspecified; R13.10 Dysphagia, unspecified; Z68.23 Body mass index [BMI] 23.0-23.9, adult; B96.4 Proteus (mirabilis) (morganii) as the cause of diseases classified elsewhere; Z20.828 Contact with and (suspected) exposure to other viral communicable diseases; F20.9 Schizophrenia, unspecified; F32.9 Major depressive disorder, single episode, unspecified
CPT/HCPCS: 31500; 36415; 36569; 71045; 74018; 76937; 80048; 80053; 80202; 81003; 82270; 82550; 82553; 82728; 82803; 82962; 83605; 83615; 83690; 83735; 83880; 84100; 84484; 85007; 85025; 85379; 85610; 85651; 85730; 86140; 86710; 87040; 87070; 87081; 87086; 87181; 87205; 93005; 93306; 93970; 94002; 94003; 94640; 94664; 96365; 96368; 96375; 99291; J1815; J7030; J7620; U0002